=== PATIENT | female | born 1940 | race Caucasian/White ===

== ENCOUNTER 2016-07-30 10:23 | Emergency (ER) | payer MEDICARE, OTHER ==
[2016-03-01 12:18] VITALS: BMI 22.0
--- NOTE | ~2016-07-30 | CN ---
PATIENT NAME:HOLLAND MCGOWAN MEDICAL RECORD: [id number] : 44 LOCATION:D.ER ADMIT DATE: ACCOUNT: [id number] CONSULTING PHYSICIAN: BEE VALENCIA MD REFERRING PHYSICIAN: JONH BROWN MD DATE OF CONSULTATION: 07/30/2016 ADMITTING DIAGNOSES: 1. Chest pain. 2. Coronary artery disease. 3. Previous multivessel percutaneous transluminal coronary angioplasty and stent. 4. Chronic obstructive pulmonary disease. 5. Bronchitis. 6. Hypertension. 7. Hyperlipidemia. HISTORY OF PRESENT ILLNESS: Mrs. Mcgowan has been treated for bronchitis recently. She stopped her antibiotics, however, because she had a yeast infection. She has chest pain that is more compatible with pleuritic component, it is a sharp, stabbing component. It is definitely worse when she coughs. She does have some dull ache as well that is somewhat like her previous angina, but her EKG is normal. Troponin is normal. This has been going on for over a week. PHYSICAL EXAMINATION: GENERAL APPEARANCE: Well-nourished, well-developed, appears stated age. Level of distress, comfortable. PSYCHIATRIC: Mental status, alert, normal affect. Orientation, oriented to time, place and person. EYES: Lids and conjunctiva, noninjected. No discharge, no pallor. ENT: Lips, teeth, gums, normal dentition. Oropharynx, no cyanosis, no pallor. NECK: Carotid arteries, bilateral normal upstroke, no bruits, no thrills. JUGULAR VEINS: No jugular venous pressure or distention. CERVICAL LYMPH NODES: Nontender, nonenlarged. THYROID: Not enlarged. Nontender. No nodules. LUNGS: Respiratory effort, unlabored. CHEST: Normal curvature. No thoracic deformity. No chest wall tenderness. Percussion, resonant. Auscultation, clear. No wheezes, no rales, no rhonchi. CARDIOVASCULAR: Precordial exam, nondisplaced. No heaves or pericardial thrills. Rate and rhythm, regular. Heart sounds, normal S1, normal S2. No S3, no gallop, no rub. Systolic murmur, not heard. Diastolic murmur, not heard. EXTREMITIES: No cyanosis, no edema. Peripheral pulses, full and equal in all extremities, except as noted. No bruits appreciated. ABDOMEN: Soft, nondistended. Normal aorta. No bruit. Nontender. No masses. Liver, nontender, no hepatomegaly. Spleen, nontender, no splenomegaly. MUSCULOSKELETAL: No joint tenderness. No joint swelling. No erythema. NEUROLOGICAL: Normal gait, normal strength, normal tone. SKIN: Warm and dry. REVIEW OF SYSTEMS: The patient reports easy bruising but reports no swollen glands. The patient reports no fever, no night sweats, no significant weight gain, no significant weight loss. No significant exercise tolerance. The patient reports no dry eyes, no irritation, no vision change. Patient reports no difficulty hearing and no ear pain. Patient reports no frequent nose bleeds or nose and sinus problems. Patient reports on arm pain on exertion. No CONSULT REPORT [id number] MCGOWAN,HOLLAND S shortness of breath while lying down. No history of heart murmur. Patient reports no cough, no wheezing or coughing up blood. Patient reports no abdominal pain, no vomiting. Normal appetite. No diarrhea and not vomiting blood. No nausea and no constipation. Patient reports no incontinence. No difficulty urinating. No hematuria. No increased frequency. Patient reports no muscle aches. No weakness, no arthralgias, no back pain. No swelling of the extremities. Patient reports no abnormal mole, no jaundice, no rashes. Reports no loss of consciousness. No weakness and no numbness. No seizures, dizziness, or headaches. The patient reports no depression, no sleep disturbance, feeling safe in a relationship and no alcohol abuse. Patient reports on fatigue. Reports no runny nose or sinus pressure. No itching, no hives, and no frequent sneezing. Last cardiac stent was in February, but this is actually a low likelihood. This is different than her normal angina. Clearly, there is a pleuritic component to it. I think this is related to her bronchitis. At this time, we would not proceed with coronary angiography. TRANSINT:[id number] Voice Confirmation ID: [id number] DOCUMENT ID: [id number] BEE VALENCIA MD CC: [id number] DICTATION DATE: 07/30/16 1322 PREFORM MACHINE OPERATOR: 07/30/16 1418 [facility] [address] [place] [address]
[~2016-07-30 10:23] MED LIST: ADVAIR 100/501 DISK INH; ADVAIR HFA [SP]12 GM INH; ASPIRIN81 MG PO; BAYER CHEWABLE81 MG PO; BYSTOLIC5 MG PO; CARAFATE1 G PO; CARAFATE1 G/10 ML; CHILDREN'S ASPI81 MG PO; DALIRESP500 MCG PO; DEXILANT60 MG PO; FLUTICASONE PRO16 GM NS; HYDROCODONE-APA1 TAB PO; IMDUR30 MG PO; IPRAT-ALBUT 0.5-3 ML UPD; LEVAQUIN500 MG PO; LEVAQUIN750 MG PO; LEVSIN/ANASP0.125 MG PO; LORTAB 5/500 TA1 TA2 PO; MEDROL DOSE PACK4 MG PO; MUCINEX DM ER1 EAC1 PO; MUCINEX600 MG PO; NICODERM C1 PATCH .1 TRANSDERM; NICODERM C1 PATCH .2 TRANSDERM; NITRO-DUR0.4 MG; NITRO-DUR0.4 MG TD; NITROSTAT0.4 MG; NITROSTAT0.4 MG SL; NYSTATIN ORAL SU5 ML PO; PLAVIX75 MG PO; PRAVACHOL20 MG PO; PREDNISONE10 MG PO; PROAIR HFA8.5 GM INH; RANEXA500 MG PO; SINGULAIR10 MG PO; SPIRIVA18 MCG INH; XANAX1 MG PO; ZOCOR20 MG PO; ZOFRAN4 MG PO
[2016-07-30 11:06] LABS: BASOPHILS 0.4 % (0-2); EOSINOPHILS 0.5 % (0-7); HEMOGLOBIN 13.4 g/dL (12-16); IMMATURE GRANULOCYTES 0.4 % (0-5); LYMPHOCYTES 36.2 % (15-50); MCH 33.8 pg (26.0-34.0); MCHC 33.5 g/dL (31.0-37.0); MCV 100.8 fL (80.0-100.0); MONOCYTES 11.9 % (2-11); NEUTROPHILS 50.6 % (40-80); PLATELET COUNT 201 10x3/uL (130-400); RBC 3.97 10x6/uL (4.00-5.40); RDW 13.4 % (11.5-14.5); WBC 5.6 10x3/uL (4.8-10.8)
[2016-07-30 11:28] LABS: ALBUMIN 3.4 g/dL (3.4-5.0); ALKALINE PHOSPHATASE 76 U/L (46-116); ALT (SGPT) 18 U/L (10-68); BILIRUBIN - TOTAL 0.45 mg/dL (0.2-1.3); CALC OSMOLALITY 271 mosm/kg (275-300); CALCIUM 9.1 mg/dL (8.5-10.1); CHLORIDE - SERUM 98 mmol/L (98-107); GLUCOSE 108 mg/dL (74-106); PROTEIN - SERUM 7.5 g/dL (6.4-8.2); SODIUM 136 mmol/L (136-145); UREA NITROGEN 9 mg/dL (7-18); eGFR NON AFRICAN AMERICAN 58 mL/min (90-120)
[2016-07-30 11:32] LABS: TROPONIN-I < 0.017 ng/mL (0.000-0.060)
== END 2016-07-30 15:22 | disposition home or self-care (01) ==
LOC: D.ER 10:23
PROVIDERS: Emergency Medicine
DX: R07.9 Chest pain, unspecified (principal); J44.9 Chronic obstructive pulmonary disease, unspecified; I25.10 Atherosclerotic heart disease of native coronary artery without angina pectoris; I10 Essential (primary) hypertension

== ENCOUNTER 2016-09-27 08:09 | Outpatient (CLI) | payer MEDICARE, OTHER ==
[~2016-09-27] VITALS: Ht 162.6 cm; Wt 59.9 kg
--- NOTE | ~2016-09-27 | OP ---
PATIENT NAME: HOLLAND MCGOWAN MEDICAL RECORD: [id number] :44 LOCATION:D.M2 D.2118 ADMISSION DATE: SURGEON: BEE VALENCIA MD OPERATION DATE: 09/27/16 PROCEDURES: 1. Percutaneous transluminal coronary angioplasty stent left anterior descending. 2. Left heart catheterization. 3. Selective coronary angiography. 4. Left ventriculogram. INDICATION: 1. Angina. 2. Coronary artery disease. PROCEDURE IN DETAIL: After informed consent was obtained and after detailed explanation of risks, benefits, as well as alternative therapies, the patient elected to proceed with angiogram and angioplasty. The right femoral area was prepped and draped in a normal sterile fashion. The right femoral artery was cannulated via modified Seldinger technique with placement of 6-Paraguayan sheath. All catheters exchanged through this sheath. FINDINGS: The left ventriculogram was performed in standard 30 degree JUÁREZ view, reveals good cardiac wall motion throughout all segments. Overall ejection fraction estimated at 60%. SELECTIVE CORONARY ANGIOGRAPHY: 1. Left main is with no significant angiographic disease. 2. Left anterior descending has previously placed stents. There is up to 80% in-stent restenosis multiple places throughout the mid left anterior descending. 3. The left circumflex has previously placed stents. These are widely patent with no significant restenosis and no disease elsewise throughout the circumflex or its branches. 4. The right coronary artery has previously placed stents. There is an 80% in-stent restenosis in the proximal vessel. PTCA STENT OF THE LEFT ANTERIOR DESCENDING: The stent used was a 3.5 X 38 millimeter Resolute. Post stent dilatation made with a 3.5 balloon to 23 atmospheres. The result was 0% residual stenosis. OVERALL IMPRESSION: Successful percutaneous transluminal coronary angioplasty stent of the left anterior descending going from 80% in-stent restenosis in multiple areas to 0% residual stenosis. PLAN: Plan for percutaneous transluminal coronary angioplasty stent of the right coronary artery in the near future. OPERATIVE REPORT [id number] HOLLAND MCGOWAN BEE VALENCIA MD CC: [id number] DICTATION DATE: 09/27/16 1500 RESERVATIONS SALES AGENT: DM 09/28/16 0904 [facility] [address] [place] [address]
--- NOTE | ~2016-09-27 | HEMODYNAMI ---
PATIENT:HOLLAND MCGOWAN MEDICAL RECORD: [id number] : 44 LOCATION:[facility] D.2118 ADMISSION DATE: 09/27/16 Generatedon:09/28/201611:26 Patient name: HOLLAND MCGOWAN Patient #: [id number] : 1940 Date of study: 09/28/2016 Page: Of Hemodynamic Procedure Report Patient Data Patient Demographics Procedure consent was obtained First Name: HOLLAND Gender: Female Last Name: ROSLYN : 1940 Middle Initial: S Age: 76 year(s) Patient #: [id number] Race: SSN: [id number] Additional ID: [id number] Contact details [address]: [address] [place] [address] State: [place] City: [place] Zip code: [address] Past Medical History History of disease Date Diagnosis Comments CAD PVD COPD Allergies Allergen Reaction Date Comments Reported Other allergy 12/14/2014 ROBAXIN, PHENERGAN, VALIUM Other allergy 03/01/2016 ROBAXIN, PHENERGAN, VALIUM Other allergy 09/27/2016 ROBAXIN, PROMETHAINE, VALIUM Admission Admission Data Admission Date: 09/27/2016 Admission Time: 8:09 Room #: [facility]8 Height (in.): 64 BSA: 1.64 (m2) Height (cm.): 162.56 BMI: 22.66 (kg/m2) Weight (lbs.): 132 Weight (kg.): 59.87 Lab Results Lab Result Date: 09/28/2016 Lab Result Time: 0:00 Biochemistry Name Units Result Min Max BUN mg/dl 8 --(*---)-- 7 18 Creatinine mg/dl 1 --(--*-)-- 0.6 1.3 Procedure Procedure Types Cath Procedure Diagnostic Procedure [facility] PCI Procedure Coronary Stent Initial Miscellaneous Procedures Moderate Sedation up to 15 minutes Procedure Description Procedure Date Procedure Date: 09/28/2016 Procedure Start Time: 11:11 Procedure Staff Name Function Brandon Garcia MD Performing Physician Roland Kenney RT Scrub Rufus Hutton RN Nurse Dominick Davis RT Monitor Christine Prabhakar RN Nurse Procedure Data Cath Procedure Fluoroscopy Diagnostic fluoroscopy Total fluoroscopy Time: 3.4 time: 3.4 min min Diagnostic fluoroscopy Total fluoroscopy dose: dose: 124.05 mGy 124.05 mGy Contrast Material Contrast Material Type Amount (ml) Isovue 300 64 Entry Location Entry Primary Successful Side Size Upsize Upsize Entry Closure Succes sful Closure Location (Fr) 1 (Fr) 2 (Fr) Remarks Device Remarks Femoral Right 6 Fr Exoseal artery Short Procedure Medications Medication Administration Route Dosage Oxygen NC 3 l/min Lidocaine 2% added to field 20 Heparin Flush Bag added to field 2 bags (1000units/500ml NS) 0.9% NaCl I.V. 100 ml/hr Heparin Bolus I.V. 4000 units Versed I.V. 2 mg Fentanyl 100 mcg Fentanyl I.V. 100 mcg Versed I.V. 2 mg Versed I.V. 1 mg Fentanyl I.V. 50 mcg Plavix P.O. 75 mg Hemodynamics Rest BSA: 1.64 (m2) HGB: 14.5 (g/dl) O2 Consumption: Estimated: 160.58 (ml/min) O2 Co nsumption indexed: Estimated:97.91 (ml/min/m) Heart Rate: 88 (bpm) Snapshots Pre Cath Intra NCS Post Cath Vital Signs Time Heart Resp SPO2 NIBP (mmHg) Rhythm Pain Sedation Rate (ipm) (%) Status Level (bpm) 10:24:48 87 19 98 137/88(117) NSR 0 (11) 10(A) , No pain 10:29:06 89 18 97 135/67(106) NSR 0 (11) 10(A) , No pain 10:34:06 88 15 95 126/70(98) NSR 0 (11) 10(A) , No pain 10:38:21 89 15 95 123/60(97) NSR 0 (11) 10(A) , No pain 10:42:38 89 15 95 120/64(96) NSR 0 (11) 10(A) , No pain 10:46:56 80 25 96 119/58(96) NSR 0 (11) 10(A) , No pain 10:51:08 89 27 96 123/65(93) NSR 0 (11) 10(A) , No pain 10:55:19 88 22 94 111/57(87) NSR 0 (11) 10(A) , No pain 10:59:32 89 20 94 117/60(90) NSR 0 (11) 10(A) , No pain 11:03:46 88 14 95 99/62(94) NSR 0 (11) 10(A) , No pain 11:07:56 87 17 94 107/59(88) NSR 0 (11) 10(A) , No pain 11:12:07 86 16 94 117/58(91) NSR 0 (11) 9(A) , No pain 11:16:23 86 16 89 103/48(80) NSR 0 (11) 9(A) , No pain 11:20:35 90 15 93 115/55(78) NSR 0 (11) 9(A) , No pain 11:24:47 94 17 95 112/61(81) NSR 0 (11) 10(A) , No pain Medications Time Medication Route Dose Verified Delivered Reason Notes Ef fectiveness by by 10:34:36 Oxygen NC 3 Christine Christine used for l/min Aki Aki notching press operator RN 10:34:44 Lidocaine 2% added 20ml Christine Christine used for to vial Aki Aki procedure field RN RN 10:34:54 Heparin Flush added 2 Christine Christine used for Bag to bags Aki Aki procedure (1000units/500ml field RN RN NS) 10:35:06 0.9% NaCl I.V. 100 Christine Christine used for ml/hr Aki Aki notching press operator RN 11:09:49 Versed I.V. 2 mg Christine Christine for Aki Aki sedation RN RN 11:10:05 Fentanyl 100 Christine Christine mcg Aki Aki RN RN 11:15:16 Fentanyl I.V. 100 Christine Christine for mcg Aki Aki sedation RN RN 11:15:42 Versed I.V. 2 mg Christine Christine for Aki Kai sedation RN RN 11:15:57 Heparin Bolus I.V. 4000 Christine Christine Per verified units [facility] physician with RN RN gerardo 11:19:05 Fentanyl I.V. 50 Christine Christine [facility] RN 11:19:53 Versed I.V. 1 mg Christine Christine for [facility] sedation RN RN 11:25:25 Plavix P.O. 75 mg Christine Christine Per [facility] physician RN director erp Log Time Note 8:15:20 Lab Result : BUN 8 mg/dl 8:15:20 Lab Result : Creatinine 1 mg/dl 10:08:40 Dominick Davis RT (R) (CV) sent for patient. Start room use. 10:08:49 Time tracking: Regular hours 10:08:54 Plan of Care:Hemodynamics will remain stable., Cardiac rhythm will remain stable., Comfort level will be maintained., Respiratory function will remain adequate., Patient/ family verbilizes understanding of procedure., Procedure tolerated without complication., Recovers from procedure without complications.. 10:09:03 Patient received from PCU to CCL 3 Alert and oriented. Tansferred to table in Supine position. 10:09:04 Warm blankets applied, and abbey hugger turned on for patient comfort. 10:09:05 Correct patient and procedure confirmed by team. 10:09:07 Signed procedure consent form obtained from patient. 10:09:09 Full Disclosure recording started 10:09:09 - 10:09:13 H&P Date Dictated: 09/28/2016 Within 30 days and on chart.. 10:09:13 Pre-procedure instructions explained to patient. 10:09:14 Pre-op teaching completed and patient verbalized understanding. 10:09:15 Family in waiting room. 10:09:17 Patient NPO since Midnight. 10:09:20 Is the patient allergic to Iodine/contrast media? No. 10:09:49 Was the patient premedicated? No 10:09:50 Is patient on blood thinner?Yes 10:09:57 ACC The patient was administered the following blood thiners within the last 24 hours: ACCPlavix 10:10:05 Patient diabetic? No. 10:10:07 - 10:10:08 ----Pre-sedation anethsthesia assessment.---- 10:10:11 Previous problem with sedation/anesthesia? No ? 10:10:12 Snore? No 10:10:13 Sleep apnea? No 10:10:16 Deviated septum? No 10:10:18 Opens mouth fully? Yes 10:10:19 Sticks out tongue? Yes 10:10:26 Airway obstruction? Yes copd 10:10:29 Dentures? Yes tight 10:17:24 Pre procedure: right dorsailis pedis pulse Doppler 10:17:55 Use device set Femoral PCI 10:17:58 Tegaderm 4 x 4 opened to sterile field. 10:18:05 Acist Syringe opened to sterile field. 10:18:05 Acist Hand Control opened to sterile field. 10:18:07 Bag Decanter opened to sterile field. 10:18:09 St [place] 260cm J .035 wire opened to sterile field. 10:18:11 Medline Cath Pack opened to sterile field. 10:18:12 Terumo 6Fr Cobalt Sheath opened to sterile field. 10:18:18 Merit BasixCompak Inflation Kit opened to sterile field. 10:18:19 Acist Manifold opened to sterile field. 10:21:26 Patient pain scale 0/10 no. 10:21:34 IV patent on arrival in left forearm with 0.9% NaCl at O. 10:23:50 Vital chart was started 10:26:57 PERCUTANEOUS ENTRY 19GA needle opened to sterile field. 10:34:36 Oxygen 3 l/min NC was administered by Christine Prabhakar RN; used for procedure; 10:34:44 Lidocaine 2% 20ml vial added to field was administered by Christine Prabhakar RN; used for procedure; 10:34:54 Heparin Flush Bag (1000units/500ml NS) 2 bags added to field was administered by Christine Prabhakar RN; used for procedure; 10:35:06 0.9% NaCl 100 ml/hr I.V. was administered by Christine Prabhakar RN; used for procedure; 11:05:04 Rhythm: sinus rhythm 11:05:05 Baseline sample Acquired. 11::30 Physician arrived 11::30 --------ALL STOP TIME OUT------ 11::31 Final Timeout: patient, procedure, and site verified with staff and physician. All members of the team are in agreement. 11::34 Right groin site verified by team. 11:09:38 Physical assessment completed. ASA score P 2 - A patient with mild systemic disease as per Brandon Garcia MD. 11:09:49 Versed 2 mg I.V. was administered by Christine Prabhakar RN; for sedation; 11:10:05 Fentanyl 100 mcg was administered by Christine Prabhakar RN; ; 11:11:07 Procedure started. 11:11:16 Local anesthetic to right femoral artery with Lidocaine 2% by Brandon Garcia MD.INITIAL ACCESS ONLY 11:11:27 A 6 Fr Short sheath was inserted into the Right Femoral artery 11:12:09 Medtronic Launcher 6Fr HS I guide catheter opened to sterile field. 11:13:23 6 Fr HS guide catheter was inserted over the wire 11:13:49 Guide catheter removed. 11:13:58 Medtronic Launcher 6Fr 3DRC guide catheter opened to sterile field. 11:14:07 6 Fr 3DRC guide catheter was inserted over the wire 11:15:16 Fentanyl 100 mcg I.V. was administered by Christine Prabhakar RN; for sedation; 11:15:42 Versed 2 mg I.V. was administered by Christine Prabhakar RN; for sedation; 11:15:57 Heparin Bolus 4000 units I.V. was administered by Christine Prabhakar RN; Per physician; verified with dr garcia 11:15:59 WHISPER wire advanced. 11:18:24 Inflation Number: 1 A [place] OTW 4.0 x 22 stent was prepped and advanced across the Mid RCA. The stent was deployed at 17 NOLAN for 0:02 (min:sec). 11:18:32 Inflation number: 2 The stent balloon was then re-inflated across the Mid RCA to 17 NOLAN for 0:00 (min:sec). 11:19:00 Inflation number: 3 The stent balloon was then re-inflated across the Mid RCA to 17 NOLAN for 0:08 (min:sec). 11:19:05 Fentanyl 50 mcg I.V. was administered by Crhistine Prabhakar RN; for sedation; 11:19:28 Procedure type changed to Cath procedure, Diagnostic procedure, LHC, PC I procedure, Coronary Stent Initial, Miscellaneous Procedures, Moderate Sedation up to 15 minutes 11:19:42 Inflation number: 4 The stent balloon was then re-inflated across the Mid RCA to 19 NOLAN for 0:10 (min:sec). 11:19:53 Versed 1 mg I.V. was administered by Christine Prabhakar RN; for sedation; 11:20:00 EVERYTHING OUT 11:20:10 Procedure ended.(Physican Out) 11:21:32 Cordis 6Fr Exoseal opened to sterile field. 11:22:27 Sheath removed intact; hemostasis achieved with Exoseal to the Right Femoral artery. 11:23:03 Fluoroscopy time 03.40 minutes. 11:23:09 Flurop Dose total: 124.05 11:23:09 Fluoroscopy dose: 124.05 mGy 11:23:16 Contrast amount:Isovue 300 64ml. 11:23:18 Sharps counted by scrub and verified by R.N. 11:23:20 Insertion/operative site no bleeding no hematoma. 11:23:27 Post-op/insertion site Right Femoral artery dressed using a 4 x 4 and Tegaderm. 11:23:31 Post right femoral artery:stable 11:23:33 Post Procedure Pulses reassessed and unchanged 11:23:39 Post-procedure physical assessment completed. ASA score P 2 - A patient with mild systemic disease as per Brandon Garcia MD. 11:23:43 Post procedure rhythm: unchanged. 11:23:44 Post procedure instruction explained to patient.Patient verbalizes understanding. 11:23:46 Procedure and supply charges have been captured, reviewed, submitted an d are correct. 11:25:25 Plavix 75 mg P.O. was administered by Christine Prabhakar RN; Per physician; 11::51 Report given to PCU. 11:25:55 Patient transfered to PCU with Bed. 11:26:38 Vital chart was stopped Intervention Summary Intervention Notes Time ActionType Lesion and Equipment Action# Pressure Duration Attributes Used 11:18:24 Place stent Mid RCA [place] OTW 1 17 00:03 4.0 x 22 stent 11:18:32 Reinflate Mid RCA [place] OTW 2 17 00:00 stent 4.0 x 22 balloon stent 11:19:00 Reinflate Mid RCA [place] OTW 3 17 00:08 stent 4.0 x 22 balloon stent 11:19:42 Reinflate Mid RCA [place] OTW 4 19 00:10 stent 4.0 x 22 balloon stent Device Usage Item Name Manufacture Quantity Catalog Hospital Part Current Minim al Lot# / Number Charge Number Stock Stock Serial# Code Tegaderm 4 x 3M 1 [id number] [id number] 5 4 Acist Acist 1 72040 311267 000961 [id number] 20 Syringe Medical Systems Inc Acist Hand Acist 1 61786 376778 197723 516280 5 Control Medical Systems Inc Bag Decanter Microtek 1 2002S 592625 85377 984510 [address] St Maynor 1 031556 431837 513334 759956 30 260cm J .035 wire Medline Cath Cardinal 1 [id number] 038804 52373 762729 5 Casa Couture Terumo 6Fr Terumo 1 [id number] 891965 254530 596971 40 Cobalt Sheath Merit Merit 1 [id number] 322009 493334 346421 15 EventWith Medical Inflation Kit Acist Acist 1 17127 863125 013785 052570 5 Innohat Systems MDVIP PERCUTANEOUS Cook Medical 1 [id number] 313354 523676 5 [id number] ENTRY 19GA needle Medtronic Medtronic 1 [id number] 395923 41501 475132 1 Launcher 6Fr HS I guide catheter Medtronic Medtronic 1 [id number] 036236 463087 189239 1 Launcher 6Fr 3DRC guide catheter [place] OTW 4.0 Medtronic 1 [id number] 696788 0102503 286611 5 [id number] x 22 stent Cordis 6Fr Cardinal 1 EX600 594941 467623 690002 10 [id number] [facility] [employer] Signature Audit Clifford Stage Time Signature Unsigned Intra-Procedure 09/28/2016 Dominick 11:26:26 AM Ryan RT (R) (CV) Signatures Monitor : Dominick Signature : Ryan RT Date : Time : [address] [place] [address]
--- NOTE | ~2016-09-27 | HEMODYNAMI ---
PATIENT:HOLLAND MCGOWAN MEDICAL RECORD: [id number] : 44 LOCATION:[facility] ADMISSION DATE: 09/27/16 Generatedon:09/27/201610:41 Patient name: HOLLAND MCGOWAN Patient #: [id number] : 1940 Date of study: 09/27/2016 Page: Of Hemodynamic Procedure Report Patient Data Patient Demographics Procedure consent was obtained First Name: HOLLAND Gender: Female Last Name: ROSLYN : 1940 Middle Initial: S Age: 76 year(s) Patient #: [id number] Race: SSN: [id number] Additional ID: [id number] Contact details [address]: [address] [place] [address] State: [place] City: [place] Zip code: [address] Past Medical History History of disease Date Diagnosis Comments CAD PVD COPD Allergies Allergen Reaction Date Comments Reported Other allergy 12/14/2014 ROBAXIN, PHENERGAN, VALIUM Other allergy 03/01/2016 ROBAXIN, PHENERGAN, VALIUM Other allergy 09/27/2016 ROBAXIN, PROMETHAINE, VALIUM Admission Admission Data Admission Date: 09/27/2016 Admission Time: 8:09 Height (in.): 64 BSA: 1.64 (m2) Height (cm.): 162.56 BMI: 22.66 (kg/m2) Weight (lbs.): 132 Weight (kg.): 59.87 Lab Results Lab Result Date: 09/27/2016 Lab Result Time: 8:30 Biochemistry Name Units Result Min Max BUN mg/dl 8 --(*---)-- 7 18 Creatinine mg/dl 1 --(--*-)-- 0.6 1.3 CBC Name Units Result Min Max Hematocrit % 42.4 --(*---)-- 42 54 Hemoglobin g/dl 14.5 --(*---)-- 13.5 17.5 Procedure Procedure Types Cath Procedure Diagnostic Procedure [facility] w/Coronaries PCI Procedure Coronary Stent Initial Miscellaneous Procedures Moderate Sedation up to 30 minutes Procedure Description Procedure Date Procedure Date: 09/27/2016 Procedure Start Time: 10:19 Procedure End Time: 10:40 Procedure Staff Name Function Brandon Garcia MD Performing Physician Rufus Hutton RN Nurse Leticia Wilson RT Scrub Ross Lao RT Monitor Procedure Data Cath Procedure Fluoroscopy Diagnostic fluoroscopy Total fluoroscopy Time: 6.3 time: 6.3 min min Diagnostic fluoroscopy Total fluoroscopy dose: 668 dose: 668 mGy mGy Contrast Material Contrast Material Type Amount (ml) Isovue 300 85 Entry Location Entry Primary Successful Side Size Upsize Upsize Entry Closure Succes sful Closure Location (Fr) 1 (Fr) 2 (Fr) Remarks Device Remarks Femoral Right 5 Fr 6 Fr Exoseal artery Short Estimated blood loss: 10 ml Diagnostic catheters Device Type Used For End Catheter Placement Cordis 5Fr Pigtail Procedure Catheter (MP) Cordis 5Fr JL 4.0 Procedure Catheter (MP) Cordis 5Fr 3DRC Catheter Procedure (MP) Procedure Complications No complications Procedure Medications Medication Administration Route Dosage Oxygen NC 2 l/min Heparin Flush Bag added to field 2 bags (1000units/500ml NS) 0.9% NaCl I.V. 100 ml/hr Fentanyl I.V. 50 mcg Versed I.V. 1 mg Fentanyl I.V. 50 mcg Versed I.V. 1 mg Fentanyl I.V. 50 mcg Versed I.V. 1 mg Heparin Bolus I.V. 4000 units Fentanyl I.V. 50 mcg Versed I.V. 1 mg Hemodynamics Rest BSA: 1.64 (m2) HGB: 14.5 (g/dl) O2 Consumption: Estimated: 151.28 (ml/min) O2 Co nsumption indexed: Estimated:92.24 (ml/min/m) Heart Rate: 73 (bpm) Snapshots Pre Cath Intra NCS Post Cath Vital Signs Time Heart Resp SPO2 NIBP (mmHg) Rhythm Pain Sedation Rate (ipm) (%) Status Level (bpm) 9:55:12 71 18 97 162/81(131) NSR 0 (11) 10(A) , No pain 9:59:36 69 16 99 146/74(125) NSR 0 (11) 10(A) , No pain 10:03:56 72 17 100 131/63(91) NSR 0 (11) 10(A) , No pain 10:08:12 67 18 100 120/55(88) NSR 0 (11) 10(A) , No pain 10:12:26 70 16 99 106/57(85) NSR 0 (11) 10(A) , No pain 10:16:34 68 20 98 112/55(85) NSR 0 (11) 10(A) , No pain 10:20:56 67 18 99 84/33(66) NSR 0 (11) 9(A) , No pain 10:25:49 76 18 99 107/62(71) NSR 0 (11) 9(A) , No pain 10:29:57 82 18 99 118/57(85) NSR 0 (11) 9(A) , No pain 10:34:09 77 16 100 112/58(87) NSR 0 (11) 9(A) , No pain 10:38:19 75 17 100 109/55(89) NSR 0 (11) 9(A) , No pain Medications Time Medication Route Dose Verified Delivered Reason Notes Effectiveness by by 10:03:57 Oxygen NC 2 Rufus Rufus Per physician l/min Brennen Hutton RN RN 10:04:05 Heparin Flush added 2 Rufus Rufus used for Bag to bags Brennen Hutton RN procedure (1000units/500ml field RN NS) 10:04:15 0.9% NaCl I.V. 100 Rufus Rufus Per physician ml/hr Brennen Hutton RN RN 10:14:31 Fentanyl I.V. 50 Rufus Rufus for sedation mcg Brennen Hutton RN RN 10:14:39 Versed I.V. 1 mg Rufus Rufus for sedation Brennen Hutton RN RN 10:18:24 Fentanyl I.V. 50 Rufus Rufus for sedation mcg Brennen Hutton RN RN 10:18:35 Versed I.V. 1 mg Rufus Rufus for sedation Brennen Hutton RN RN 10:21:07 Fentanyl I.V. 50 Rufus Rufus for sedation mcg Brennen Hutton RN RN 10:21:13 Versed I.V. 1 mg Rufus Rufus for sedation Brennen Hutton RN RN 10:26:47 Heparin Bolus I.V. 4000 Rufus Rufus for units Hutton Hutton RN anticoagulation RN 10:26:59 Fentanyl I.V. 50 Rufus Hooper for sedation mcg Brennen Hutton RN RN 10:27:03 Versed I.V. 1 mg Rufus Hooper for sedation Brennen Hutton RN special education science teacher Log Time Note 9:30:58 Rufus Hutton RN sent for patient. Start room use. 9:32:23 Patient Height : 162.56 cm 9:32:32 Patient Weight : 59.87 kg 9:44:10 H&P Date Dictated: 09/23/2016 Within 30 days and on chart., H&P Addendum completed by physician on day of procedure. (MUST COMPLETE FOR ALL OUTPATIENTS). 9:44:13 Time tracking: Regular hours 9:44:18 Plan of Care:Hemodynamics will remain stable., Cardiac rhythm will remain stable., Comfort level will be maintained., Respiratory function will remain adequate., Patient/ family verbilizes understanding of procedure., Procedure tolerated without complication., Recovers from procedure without complications.. 9:45:11 Lab Result : Hemoglobin 14.5 g/dl 9:45:11 Lab Result : Hematocrit 42.4 % 9:45:11 Lab Result : BUN 8 mg/dl 9:45:11 Lab Result : Creatinine 1 mg/dl 9:47:56 Patient received from Pre/Post Procedure Room to CCL 2 Alert and oriented. Tansferred to table in Supine position. 9:47:58 Warm blankets applied, and abbey hugger turned on for patient comfort. 9:48:00 Correct patient and procedure confirmed by team. 9:48:02 Signed procedure consent form obtained from patient. 9:48:03 ECG and BP/O2 sat monitors applied to patient. 9:48:07 Pre-procedure instructions explained to patient. 9:48:07 Pre-op teaching completed and patient verbalized understanding. 9:53:59 Baseline sample Acquired. 9:53:59 Vital chart was started 9:54:00 Full Disclosure recording started 9:54:04 Rhythm: sinus rhythm 9:56:13 Family in waiting room. 9:56:14 Patient NPO since Midnight. 9:56:51 Patient allergic to Other allergyROBAXIN, PROMETHAINE, VALIUM 9:56:53 Is the patient allergic to Iodine/contrast media? No. 9:57:01 Is patient on blood thinner?Yes 9:57:04 ACC The patient was administered the following blood thiners within the last 24 hours: ACCPlavix 9:57:13 Patient diabetic? No. 9:57:15 Previous problem with sedation/anesthesia? No ? 9:57:17 Snore? No 9:57:17 Sleep apnea? No 9:57:18 Deviated septum? No 9:57:19 Opens mouth fully? Yes 9:57:20 Sticks out tongue? Yes 9:57:23 Airway obstruction? Yes COPD 9:57:30 Dentures? Yes TOP IN TIGHT 9:57:33 Pre procedure: right dorsailis pedis pulse 2+ Normal; easily identifiable; not easily obliterated 9:57:38 Patient pain scale 6/10 ?. 9:57:46 IV patent on arrival in right forearm with 0.9% NaCl at O. 9:57:49 Lab results completed and on chart. 9:57:59 Right groin area was prepped with chlora-prep and draped in sterile fashion 9:58:08 Alarms reviewed by R. N. 9:58:08 Sharps counted by scrub and verified by R.N. 9:58:10 Use device set Femoral Dx 9:58:11 Tegaderm 4 x 4 opened to sterile field. 9:58:13 Acist Manifold opened to sterile field. 9:58:13 Acist Hand Control opened to sterile field. 9:58:15 Acist Syringe opened to sterile field. 9:58:15 Bag Decanter opened to sterile field. 9:58:15 Medline Cath Pack opened to sterile field. 9:58:16 Terumo 5Fr [place] Sheath opened to sterile field. 9:58:17 St Maynor 260cm J .035 wire opened to sterile field. 9:58:17 Diagnostic Infinity 5Fr Multipack catheter opened to sterile field. 10:03:57 Oxygen 2 l/min NC was administered by Rufus Hutton RN; Per physician; 10:04:05 Heparin Flush Bag (1000units/500ml NS) 2 bags added to field was administered by Rufus Hutton RN; used for procedure; 10:04:15 0.9% NaCl 100 ml/hr I.V. was administered by Rufus Hutton RN; Per physician; 10:04:52 Zero performed for pressure channel P1 10:07: Physician arrived 10:: --------ALL STOP TIME OUT------ ::20 Final Timeout: patient, procedure, and site verified with staff and physician. All members of the team are in agreement. 10:: Right groin site verified by team. 10::25 Physical assessment completed. ASA score P 2 - A patient with mild systemic disease as per Brandon Garcia MD. 10::29 Sedation plan: IV Moderate Sedation Versed, Fentanyl 10:14:31 Fentanyl 50 mcg I.V. was administered by Rufus Hutton RN; for sedation; 10:14:39 Versed 1 mg I.V. was administered by Rufus Hutton RN; for sedation; 10:18:24 Fentanyl 50 mcg I.V. was administered by Rufus Hutton RN; for sedation; 10:18:35 Versed 1 mg I.V. was administered by Rufus Hutton RN; for sedation; 10:19:34 Procedure started. 10:19:36 Local anesthetic to right femoral artery with Lidocaine 2% by Brandon Garcia MD.INITIAL ACCESS ONLY 10:19:51 A 5 Fr sheath was inserted into the Right Femoral artery 10::53 A Cordis 5Fr Pigtail Catheter (MP) was advanced over the wire and used for Procedure. 10::07 Fentanyl 50 mcg I.V. was administered by Rufus Hutton RN; for sedation; 10:21:13 Versed 1 mg I.V. was administered by Rufus Hutton RN; for sedation; 10::44 LV gram done using JUÁREZ 10::47 Injector settings: Ml/sec: 10, Volume: 20, 10:22:01 EF : 55 % 10:22:10 Catheter exchanged over wire. 10:22:14 A Cordis 5Fr JL 4.0 Catheter (MP) was advanced over the wire and used for Procedure. 10:22:35 LCA angiography performed. 10:23:12 LikeAndy BasixCompak Inflation Kit opened to sterile field. 10:23:13 Terumo 6Fr [place] Sheath opened to sterile field. 10:23:13 Vargas Whisper J 300cm 0.014 guide wire opened to sterile field. 10:23:36 Catheter exchanged over wire. 10:23:41 A Cordis 5Fr 3DRC Catheter (MP) was advanced over the wire and used for Procedure. 10:23:48 RCA angiography performed. 10:24:52 Catheter removed. 10:25:00 Sheath upsized to a 6 Fr Short. 10:25:17 Cordis 6FR XBLAD 3.5 guide catheter opened to sterile field. 10:26:18 6 Fr XBLAD 3.5 guide catheter was inserted over the wire 10::47 Heparin Bolus 4000 units I.V. was administered by Rufus Hutton RN; for anticoagulation; 10::59 Fentanyl 50 mcg I.V. was administered by Rufus Hutton RN; for sedation; 10::03 Versed 1 mg I.V. was administered by Rufus Hutton RN; for sedation; 10:27:03 WHISPER wire advanced. 10:27:07 Wire advanced across lesion. 10:29:31 Inflation number: 1 A Mozec Rx 3.0 x 41 balloon was prepped and advanced across the Mid LAD, then inflated to 21 NOLAN for 0:10 (min:sec). 10:30:13 Balloon removed over the wire. 10:31:46 Inflation Number: 2 A Salient Surgical Technologiestronic Resolute 3.5 X 38 stent was prepped and advanced across the Mid LAD. The stent was deployed at 21 NOLAN for 0:10 (min:sec). 10:32:37 Stent catheter was removed intact over wire. 10:33:57 Inflation number: 3 A NC Euphora 3.5 x 15 balloon was prepped and advanced across the Mid LAD, then inflated to 23 NOLAN for 0:10 (min:sec). 10:35:05 Balloon removed over the wire. 10:35:06 Wire removed. 10:35:06 Guide catheter removed. 10:35:16 Cordis 6Fr Exoseal opened to sterile field. 10:35:30 Sheath removed intact; hemostasis achieved with Exoseal to the Right Femoral artery. 10:35:33 Procedure ended.(Physican Out) 10:37:18 Fluoroscopy time 06.30 minutes. 10:37:24 Flurop Dose total: 668 10:37:24 Fluoroscopy dose: 668 mGy 10:37:29 Contrast amount:Isovue 300 85ml. 10:37:30 Sharps counted by scrub and verified by R.N. 10:37:31 Insertion/operative site no bleeding no hematoma. 10:37:33 Post-op/insertion site Right Femoral artery dressed using a 4 x 4 and Tegaderm. 10:37:37 Post right femoral artery:stable, soft, clean and dry 10:37:38 Post Procedure Pulses reassessed and unchanged 10:37:40 Post-procedure physical assessment completed. ASA score P 2 - A patient with mild systemic disease as per Brandon Garcia MD. 10:37:42 Post procedure rhythm: unchanged. 10:37:48 Estimated blood loss: 10 ml 10:37:49 Post procedure instruction explained to patient.Patient verbalizes understanding. 10:37:50 Patient needs reinforcement of post procedure teaching. 10:37:56 Procedure type changed to Cath procedure, Diagnostic procedure, LHC, LHC w/Coronaries, PCI procedure, Coronary Stent Initial, Miscellaneous Procedures, Moderate Sedation up to 30 minutes 10:40:19 Procedure and supply charges have been captured, reviewed, submitted and are correct. 10:40:22 Procedure Complication : No complications 10:40:24 Vital chart was stopped 10:40:24 See physician's report for complete and final results. 10:40:26 Report given to Pre/Post Procedure Room. 10:40:28 Patient transfered to Pre/Post Procedure Room with Stretcher. 10:40:30 Procedure ended. 10:40:30 Full Disclosure recording stopped 10:40:51 End room use (Document Last) Intervention Summary Intervention Notes Time ActionType Lesion and Equipment Action# Pressure Duration Attributes Used 10:29:31 Inflate Mid LAD Mozec Rx 1 21 00:10 balloon 3.0 x 41 balloon 10:31:46 Place stent Mid LAD Medtronic 2 21 00:10 Resolute 3.5 X 38 stent 10:33:57 Inflate Mid LAD NC 3 23 00:10 balloon Euphora 3.5 x 15 balloon Device Usage Item Name Manufacture Quantity Catalog Hospital Part Current Minimal Lot# / Number Charge Number Stock Stock Serial# Code Tegaderm 4 3M 1 [id number] [id number] 144390 5 x 4 Acist Acist 1 38567 938225 142629 362619 5 Manifold Medical Systems Inc Acist Hand Acist 1 35676 699817 164293 335577 5 Control Medical Systems Inc Acist Acist 1 33728 098304 736609 612600 20 Syringe Medical Systems Inc Bag Microtek 1 2002S 043000 03411 781734 5 Decanter Medical Inc. Medline Cardinal 1 [id number] 790010 55041 473860 5 Cath Pack Health Terumo 5Fr Terumo 1 [id number] 614743 477562 868242 [address] Maynor 1 113526 401467 679617 433566 30 260cm J .035 wire Diagnostic Cardinal 1 [id number] 408732 72823 498176 30 Infinity Health 5Fr Multipack catheter Cordis 5Fr Cardinal 1 435698 5 Pigtail Health Catheter (MP) Cordis 5Fr Cardinal 1 [id number] 5 JL 4.0 Health Catheter (MP) [facility] 1 [id number] 965865 003535 010147 15 BasixWan Shidao management Medical Inflation Kit Terumo 6Fr Terumo 1 [id number] 432532 412283 924373 40 [place] Sheath Vargas Vargas 1 [id number] 463019 459764 965549 5 Whisper J Vascular 300cm 0.014 guide wire Cordis 5Fr Cardinal 1 407613 5 3DRC Health Catheter (MP) Cordis 6FR Cardinal 1 [id number] 831083 778393 221995 10 XBLAD 3.5 Health guide catheter Mozec Rx Cardinal 1 [id number] 181384 57471 013222 5 UMOA37 3.0 x 41 Health balloon Medtronic Medtronic 1 [id number] 757112 947894 0 [id number] Resolute 3.5 X 38 stent NC Euphora Medtronic 1 [id number] 534357 752306 567078 1 [id number] 3.5 x 15 balloon Cordis 6Fr Cardinal 1 [id number] 898881 271867 546184 10 [facility] WordWatch Signature Audit Champion Stage Time Signature Unsigned Intra-Procedure 09/27/2016 Ross Lao 10:41:13 AM RT(R) Signatures Monitor : Ross Lao RT Signature : Date : Time : [facility] [address] [place] [address]
--- NOTE | ~2016-09-27 | DS ---
PATIENT:HOLLAND MCGOWAN :44 MEDICAL RECORD: [id number] DISCHARGE SUMMARY ADMISSION DATE: 09/27/16 DISCHARGE DATE: 09/28/16 DISCHARGE SUMMARY PROBLEM LIST: 1. Angina. 2. Coronary artery disease. 3. Peripheral vascular disease. 4. Percutaneous transluminal coronary angioplasty stent right coronary artery and left anterior descending this admission. 5. Hypertension. 6. Hyperlipidemia. 7. Chronic obstructive pulmonary disease. 8. Smoking history. HOSPITAL COURSE: The patient presents with anginal symptomatology. She was found to have significant disease of the left anterior descending and right coronary artery and underwent successful percu taneous transluminal coronary angioplasty stent of both territories. She had an uneventful postop course. PLAN: She was discharged home to continue aspirin and Plavix. Follow up with [facility] in one month. BEE VALENCIA MD CC: [id number] DICTATION DATE: 09/28/16 1500 CANDY DEPOSITING MACHINE OPERATOR: DM 09/29/16 0840 DEP CLI 09/28/16 [id number] [place] [address]
--- NOTE | ~2016-09-27 | OP ---
PATIENT NAME: HOLLAND MCGOWAN MEDICAL RECORD: [id number] :44 LOCATION:D.CAT ADMISSION DATE: SURGEON: BEE VALENCIA MD OPERATION DATE: 09/28/16 PROCEDURES: 1. Percutaneous transluminal coronary angioplasty stent right coronary artery. 2. Selective coronary angiography. INDICATION: 1. Angina. 2. Coronary artery disease. PROCEDURE IN DETAIL: After informed consent was obtained and after detailed explanation of risks, benefits, as well as alternative therapies, the patient elected to proceed with angiogram and angioplasty. The right femoral area was prepped and draped in a normal sterile fashion. The right femoral artery was cannulated via modified Seldinger technique with placement of 6-Tristanian sheath. All catheters exchanged through this sheath. FINDINGS: The right coronary artery has previously placed stents. There is up to greater than 70% in-stent restenosis in the mid vessel. This was addressed with a 4.0 X 22 millimeter [place] stent. The result was 0% residual stenosis. OVERALL IMPRESSION: Successful percutaneous transluminal coronary angioplasty stent of that right coronary artery going from 70%+ in-stent restenosis to 0% residual stenosis. BEE VALENCIA MD CC: [id number] DICTATION DATE: 09/28/16 1500 JOINT CUTTER MACHINE: DM 09/29/16 0918 DEP CLI 09/28/16 [facility] [address] [place] [address]
[~2016-09-27 08:09] MED LIST changes: -IMDUR30 MG PO; +ISOSORBIDE MONO60 M1 PO
[2016-09-27] MEDS ORDERED: SINGULAIR10 MG PO (08:28)
[2016-09-27] MEDS ORDERED: BREO ELLIPTA 11 EACH INH (08:29)
[2016-09-27 08:32] VITALS: BP 142/74; BMI 22.7
[2016-09-27 08:54] LABS: BASOPHILS 0.4 % (0-2); EOSINOPHILS 0.5 % (0-7); HEMATOCRIT 42.4 % (36.0-48.0); HEMOGLOBIN 14.5 g/dL (12-16); IMMATURE GRANULOCYTES 0.1 % (0-5); LYMPHOCYTES 30.7 % (15-50); MCH 34.9 pg (26.0-34.0); MCHC 34.2 g/dL (31.0-37.0); MCV 101.9 fL (80.0-100.0); MEAN PLATELET VOLUME 10.7 fL (7.4-10.4); MONOCYTES 17.2 % (2-11); NEUTROPHILS 51.1 % (40-80); PLATELET COUNT 208 10x3/uL (130-400); RBC 4.16 10x6/uL (4.00-5.40); RDW 13.6 % (11.5-14.5); WBC 7.6 10x3/uL (4.8-10.8)
[2016-09-27 09:09] LABS: ANION GAP 13.6 mmol/L (8-16); CALCIUM 8.8 mg/dL (8.5-10.1); CARBON DIOXIDE 28.3 mmol/L (21.0-32.0); POTASSIUM - SERUM 3.9 mmol/L (3.5-5.1)
[2016-09-27 11:25] VITALS: BP 126/60; BMI 22.7
[2016-09-27 12:17] VITALS: BP 116/58
[2016-09-27 14:47] VITALS: BP 103/56
[2016-09-27 21:50] VITALS: BP 107/47
[2016-09-28 01:18] VITALS: BP 105/46
[2016-09-28 05:35] VITALS: BP 118/53
[2016-09-28 08:00] VITALS: BP 116/53
[2016-09-28 11:28] VITALS: Ht 162.6 cm; Wt 59.9 kg
[2016-09-28 15:51] VITALS: BP 115/54
== END 2016-09-28 16:30 | disposition home or self-care (01) ==
LOC: D.CATH 08:09 → D.M2 08:09 → D.CATH 10:00 → D.M2 10:56 → D.CATH 09-28 16:30
PROVIDERS: Internal Medicine Interventional Cardiology
DX: I25.119 Atherosclerotic heart disease of native coronary artery with unspecified angina pectoris (principal); T82.855A Stenosis of coronary artery stent, initial encounter; Z01.812 Encounter for preprocedural laboratory examination

== ENCOUNTER 2016-09-30 17:26 | Emergency (ER) | payer MEDICARE, OTHER ==
[2016-09-28 11:28] VITALS: BMI 22.6
[~2016-09-30 17:26] MED LIST changes: +BREO ELLIPTA 11 EACH INH
[2016-09-30 18:48] LABS: BASOPHILS 0.2 % (0-2); EOSINOPHILS 0.5 % (0-7); HEMATOCRIT 36.7 % (36.0-48.0); HEMOGLOBIN 12.6 g/dL (12-16); IMMATURE GRANULOCYTES 0.4 % (0-5); LYMPHOCYTES 23.9 % (15-50); MCH 34.5 pg (26.0-34.0); MCHC 34.3 g/dL (31.0-37.0); MCV 100.5 fL (80.0-100.0); MEAN PLATELET VOLUME 10.8 fL (7.4-10.4); MONOCYTES 12.8 % (2-11); NEUTROPHILS 62.2 % (40-80); RBC 3.65 10x6/uL (4.00-5.40); RDW 13.3 % (11.5-14.5); WBC 5.5 10x3/uL (4.8-10.8)
[2016-09-30 18:51] LABS: PLATELET COUNT 155 10x3/uL (130-400)
[2016-09-30 18:55] LABS: ALBUMIN 3.4 g/dL (3.4-5.0); ALKALINE PHOSPHATASE 52 U/L (46-116); ALT (SGPT) 18 U/L (10-68); BILIRUBIN - TOTAL 0.47 mg/dL (0.2-1.3); CALC OSMOLALITY 268 mosm/kg (275-300); CALCIUM 8.6 mg/dL (8.5-10.1); CARBON DIOXIDE 27.9 mmol/L (21.0-32.0); CHLORIDE - SERUM 98 mmol/L (98-107); CREATININE - SERUM 0.9 mg/dL (0.6-1.3); GLUCOSE 108 mg/dL (74-106); SODIUM 135 mmol/L (136-145); UREA NITROGEN 8 mg/dL (7-18); eGFR NON AFRICAN AMERICAN 65 mL/min (90-120)
[2016-09-30 19:07] LABS: CHOL - HDL RATIO 3.8 ratio (2.3-4.1); CHOLESTEROL, TOTAL 209 mg/dL (0-200); CKMB 1.1 U/L (0.0-3.6); CREATINE KINASE 64 UL (21-215); HDL CHOLESTEROL 55 mg/dL (32-96); LDL CHOLESTEROL 137 mg/dL (0-100); LDL-HDL RATIO 2.5 ratio (1.5-3.5); TRIGLYCERIDE 86 mg/dL (30-200); TROPONIN-I 0.022 ng/mL (0.000-0.060)
== END 2016-09-30 21:22 | disposition home or self-care (01) ==
LOC: D.ER 17:26
PROVIDERS: Emergency Medicine
DX: J06.9 Acute upper respiratory infection, unspecified (principal); J40 Bronchitis, not specified as acute or chronic; F17.200 Nicotine dependence, unspecified, uncomplicated; Z95.5 Presence of coronary angioplasty implant and graft

== ENCOUNTER 2016-10-01 10:32 | Inpatient (IN) | payer MEDICARE, OTHER ==
[~2016-10-01] VITALS: Ht 162.6 cm; Wt 59.0 kg
[2016-10-01 11:42] LABS: ALBUMIN 3.9 g/dL (3.4-5.0); ANION GAP 14.1 mmol/L (8-16); BILIRUBIN - TOTAL 0.59 mg/dL (0.2-1.3); CALCIUM 9.2 mg/dL (8.5-10.1); CARBON DIOXIDE 29.3 mmol/L (21.0-32.0); CREATININE - SERUM 0.9 mg/dL (0.6-1.3); POTASSIUM - SERUM 4.4 mmol/L (3.5-5.1); PROTEIN - SERUM 7.9 g/dL (6.4-8.2)
[2016-10-01 11:45] LABS: BASOPHILS 0.2 % (0-2); EOSINOPHILS 0.5 % (0-7); HEMATOCRIT 40.8 % (36.0-48.0); HEMOGLOBIN 13.7 g/dL (12-16); IMMATURE GRANULOCYTES 0.2 % (0-5); LYMPHOCYTES 19.2 % (15-50); MCH 34.4 pg (26.0-34.0); MCHC 33.6 g/dL (31.0-37.0); MEAN PLATELET VOLUME 11.1 fL (7.4-10.4); MONOCYTES 10.1 % (2-11); NEUTROPHILS 69.8 % (40-80); PLATELET COUNT 176 10x3/uL (130-400); RBC 3.98 10x6/uL (4.00-5.40); RDW 13.3 % (11.5-14.5); WBC 6.6 10x3/uL (4.8-10.8)
[2016-10-01 11:50] LABS: MCV 102.5 fL (80.0-100.0)
--- NOTE | 2016-10-01 12:35 | NUR ---
RECEIVED TO ROOM 2216 FROM ER VIA BED. CALL LIGHT IN REACH. WILL CONTINUE WITH PLAN OF CARE.
[2016-10-01 12:40] VITALS: BMI 22.3
--- NOTE | 2016-10-01 13:31 | NUR ---
MEDS ADMINISTERED PER ORDER. CALL LIGHT IN REACH.
--- NOTE | 2016-10-01 15:19 | NUR ---
PROTONIX 40 MG SIVP PER ORDER. CALL LIGHT IN REACH.
[2016-10-01 16:43] VITALS: BP 87/51
--- NOTE | 2016-10-01 17:34 | NUR ---
YVETTE AND KOLTON JEROME CALL LIGHT IN REACH.
--- NOTE | 2016-10-01 18:28 | NUR ---
STILL UNABLE TO GET SPUTUM CULTURE. NO CHANGES IN INITIAL ASSESSMENT. SCDs TO BLE. LAST MAT ALARM ON. CALL LIGHT IN REACH. WILL CONTINUE WITH PLAN OF CARE.
--- NOTE | 2016-10-01 20:00 | NUR ---
PT IS RESTING IN BED WITH EYES OPEN. ALERT AND ORIENTED X 3. SHE DENIES ANY PAIN OR DISCOMFORT. SHE IS VERY FRIENDLY AND TALKATIVE. NO SOB NOTED. O2 IS ON @ 2LPM PER NC. RIGHT WRIST SALINE LOCK NOTED. LAST ALARM IS ON. PT NOTIFIED OF NEED FOR SPUTUM CULTURE. SHE WAS UNABLE TO PRODUCE ONE AT THIS TIME. SR'S ARE UP X 3 IN BED. CALL LIGHT AND BEDSIDE TABLE ARE WITHIN EASY REACH.
--- NOTE | 2016-10-01 22:28 | NUR ---
PT IS RESTING QUIETLY IN BED WITH EYES CLOSED. RESPS ARE EVEN AND UNLABORED. NO ACUTE DISTRESS NOTED.
[2016-10-02] VITALS: BP 120/55
--- NOTE | 2016-10-02 00:43 | NUR ---
PT RESTING IN BED WITH EYES CLOSED. NO DISTRESS NOTED.
--- NOTE | 2016-10-02 03:22 | NUR ---
PT RESTING IN BED WITH EYES CLOSED.
[2016-10-02 04:00] VITALS: BP 120/62
[2016-10-02 05:03] LABS: BASOPHILS 0 % (0-2); EOSINOPHILS 0 % (0-7); HEMATOCRIT 38.9 % (36.0-48.0); HEMOGLOBIN 13.1 g/dL (12-16); IMMATURE GRANULOCYTES 0.3 % (0-5); LYMPHOCYTES 10.4 % (15-50); MCH 33.2 pg (26.0-34.0); MCHC 33.7 g/dL (31.0-37.0); MEAN PLATELET VOLUME 10.8 fL (7.4-10.4); MONOCYTES 1.5 % (2-11); NEUTROPHILS 87.8 % (40-80); PLATELET COUNT 166 10x3/uL (130-400); RBC 3.94 10x6/uL (4.00-5.40); RDW 12.9 % (11.5-14.5)
--- NOTE | 2016-10-02 05:07 | NUR ---
ASSESSED, PT IS SNUGGLED UP IN A BALL ASLEEP WITH EASY RESPIRATIONS AND NO DISTRESS NOTED. BED IS LOW, RAILS UP X'S 2 WITH THE CALL LIGHT AT HAND.
[2016-10-02 05:16] LABS: MCV 98.7 fL (80.0-100.0); WBC 3.3 10x3/uL (4.8-10.8)
[2016-10-02 05:22] LABS: ANION GAP 15.5 mmol/L (8-16); CALCIUM 8.8 mg/dL (8.5-10.1); CARBON DIOXIDE 25.7 mmol/L (21.0-32.0); CREATININE - SERUM 0.9 mg/dL (0.6-1.3); POTASSIUM - SERUM 4.2 mmol/L (3.5-5.1)
--- NOTE | 2016-10-02 06:04 | NUR ---
PT IS RESTING QUIETLY IN BED WITH EYES CLOSED. AWOKE EASILY TO VERBAL STIMULI. DENIES ANY NEEDS. TOLERATED AM MED WITHOUT DIFFICULTY.
--- NOTE | 2016-10-02 07:38 | NUR ---
SLEEPING, BREATHING TREATMENT ON, BREATHING EVEN AND UNLABORED, CALL LIGHT IN REACH, BED LOWEST POSITION, WILL CONTINUE TO MONITOR
[2016-10-02 09:13] VITALS: BP 117/59
[2016-10-02 12:51] VITALS: Ht 162.6 cm; Wt 59.0 kg
--- NOTE | 2016-10-02 13:08 | NUR ---
22G IV INSERTED X2 ATTEMPTS PER MD ORDER TO LEFT WRIST, FLUSHED WITH 10CC NS, PT TOLERATED WELL. DC'D RIGHT POSTERIOR LOWER FOREARM. FARIBA MINA ARTIS INSTRUCTOR PRESENT
[2016-10-02 13:11] VITALS: BP 99/60
--- NOTE | 2016-10-02 17:00 | NUR ---
RESPIRATIONS EVEN AND NON LABORED. CALL LIGHT IN REACH, WILL CONTINUE WITH PLAN OF CARE.
[2016-10-02 18:05] VITALS: BP 105/53
--- NOTE | 2016-10-02 19:42 | NUR ---
PT IS RESTING IN BED WATCHING TV. ALERT AND ORIENTED X 3. DENIES ANY PAIN OR DISCOMFORT. NO SOB NOTED. O2 IS ON @ 2LPM PER NC. LEFT WRIST SALINE LOCK NOTED. LAST ALARM IS ON BED. CALL LIGHT AND BEDSIDE TABLE ARE WITHIN EASY REACH.
[2016-10-02 20:00] VITALS: BP 99/48
--- NOTE | 2016-10-02 21:46 | NUR ---
PT RESTING QUIETLY IN BED WATCHING TV. NO NEEDS VOICED.
[2016-10-03] VITALS: BP 102/56
--- NOTE | 2016-10-03 00:02 | NUR ---
PT IS RESTING IN BED WITH EYES CLOSED. NO DISTRESS NOTED.
--- NOTE | 2016-10-03 01:05 | NUR ---
SLEEPING NO DISTRESS NOTED. SR UP X 2. CALL LIGHT WITHIN REACH.
--- NOTE | 2016-10-03 03:21 | NUR ---
PT IS LYING AWAKE IN BED. DENIES NEEDS.
[2016-10-03 04:00] VITALS: BP 104/50
--- NOTE | 2016-10-03 07:30 | NUR ---
RECIEVED PT DURING WALKING ROUNDS. PT RESTING IN BED WITH NO COMPLAINTS OF PAIN OR DISCOMFORT AT THIS TIME. ASSESSMNET DONE PER FLOWSHEET, BED IN LOW POSITION AND CALL LIGHT WITHIN REACH. WILL CONTINUE TO MONITOR.
[2016-10-03 09:12] VITALS: BP 118/54
--- NOTE | 2016-10-03 10:03 | NUR ---
PT TAKEN FOR EGD AT THIS TIME.
--- NOTE | 2016-10-03 10:55 | CN ---
PATIENT NAME:HOLLAND MCGOWAN MEDICAL RECORD: [id number] : 44 LOCATION:D.MS [facility]6 ADMIT DATE: 10/01/16 ACCOUNT: [id number] CONSULTING PHYSICIAN: ANGIE BURNETT MD REFERRING PHYSICIAN: ZEUS MARTIN MD DATE OF CONSULTATION: 10/02/2016 Gastrointestinal Consultation REFERRING PHYSICIANS: Donna Díaz MD and Isidro Raymundo MD. REMOTE SENSING SCIENTIST: Juancho Jeffers MD. HISTORY OF PRESENT ILLNESS: The patient is a 76-year-old white female known to Dr. Condon and Dr. 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 It has been going on for the past couple of weeks. She thought it was her "heart", ended up getting a cath with stent placement, but this has not improved her GI symptoms. She was subsequently admitted for further evaluation. She is already status post cholecystectomy. She has had an EGD with dilatation a few years ago, I believe by Dr. Condon. It does not look like she has been taking PPIs at home. She denies any NSAID use other than baby aspirin daily. I see in her chart that she has had some Dexilant given to her in the past, however. PAST MEDICAL HISTORY: As above. She also had a stroke, she has hypertension, CHF, peripheral vascular disease. Apparently, she has had multiple stents placed in her heart and even a couple of stents in the right leg. 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 PAST SURGICAL HISTORY: Remarkable for cholecystectomy, hysterectomy, multiple stent placement as noted above. She has had arthroscopy of the knee and upper endoscopy. ALLERGIES: METHOCARBAMOL AND VALIUM. HOME MEDICATIONS: Include ____, Plavix, Xanax, nitroglycerin, hydrocodone, DuoNeb, Advair, baby aspirin, Singulair, isosorbide, Bystolic, Ranexa and ProAir. Again, I see a prescription for Dexilant in the past, but I am not sure if she has been taking that. SOCIAL HISTORY: The patient continues to smoke. She is a nondrinker. REVIEW OF SYSTEMS: Noncontributory other than per HPI. PHYSICAL EXAMINATION: GENERAL: Reveals a chronically ill-appearing elderly white female, in no acute distress. VITAL SIGNS: Stable. She is afebrile. CHEST: Clear. HEART: Regular rate and rhythm. ABDOMEN: Soft with mild epigastric tenderness present. EXTREMITIES: No edema. CONSULT REPORT [id number] HOLLAND MCGOWAN LABORATORY DATA: Reveals a normal CMP, a normal CBC except her MCV is up at 102. KUB is completely normal. IMPRESSION: 1. Cramping upper epigastric pain associated with nausea and occasional vomiting for a couple of weeks of uncertain etiology, rule out peptic ulcer disease, reflux esophagitis, irritable bowel syndrome, etc. We cannot totally rule out mesenteric ischemia, although this will be less likely. Again, her KUB is negative. All other labs are negative. She is already status post laparoscopic cholecystectomy. 2. History of severe coronary artery disease, severe peripheral vascular disease and severe chronic obstructive pulmonary disease, on home oxygen. She continues to smoke. 3. 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 RECOMMENDATION: 1. Okay with Protonix and Carafate. 2. EGD with possible dilatation in the morning. 3. Depending on above, could consider CT abdominal angiogram. TRANSINT:[id number] Voice Confirmation ID: [id number] DOCUMENT ID: [id number] ANGIE BURNETT MD at 1055 CC: JUANCHO JEFFERS MD, ISIDRO RAYMUNDO MD and DONNA DÍAZ [id number] DICTATION DATE: 10/02/16 1047 WORM SORTER: 10/02/16 1113 ADM IN [facility] [address] [id number]
--- NOTE | 2016-10-03 11:07 | NUR ---
1107-DILATE ESOPHAGUS WITH SAVORY DILATOR.
[2016-10-03 20:00] VITALS: BP 120/60
[2016-10-04] VITALS: BP 123/63
--- NOTE | 2016-10-04 02:00 | NUR ---
PT IN BED WITH NO DISTRESS. RESPIRATIONS EVEN AND UNLABORED. SIDE RAILS X 2. BED IS LOW. CALL LIGHT IN REACH.
[2016-10-04 04:00] VITALS: BP 128/69
[2016-10-04 05:54] LABS: BASOPHILS 0 % (0-2); EOSINOPHILS 0 % (0-7); HEMATOCRIT 37.8 % (36.0-48.0); HEMOGLOBIN 13.4 g/dL (12-16); IMMATURE GRANULOCYTES 0.2 % (0-5); LYMPHOCYTES 15.4 % (15-50); MCH 34.3 pg (26.0-34.0); MCHC 35.4 g/dL (31.0-37.0); MCV 96.7 fL (80.0-100.0); MEAN PLATELET VOLUME 11.2 fL (7.4-10.4); MONOCYTES 10.4 % (2-11); PLATELET COUNT 168 10x3/uL (130-400); RBC 3.91 10x6/uL (4.00-5.40); RDW 12.8 % (11.5-14.5); WBC 5.9 10x3/uL (4.8-10.8)
[2016-10-04 06:21] LABS: ANION GAP 13.9 mmol/L (8-16); CALCIUM 8.4 mg/dL (8.5-10.1); CARBON DIOXIDE 25.1 mmol/L (21.0-32.0); CREATININE - SERUM 0.8 mg/dL (0.6-1.3)
--- NOTE | 2016-10-04 07:30 | NUR ---
ASSESSMENT COMPLETE. SL TO L WRIST. O2 1L NC IN USE. COMPLAINING OF PAIN TO THROAT AFTER EGD YESTERDAY. DENIES ANY NEEDS AT THIS TIME.
[2016-10-04 08:32] VITALS: BP 130/65
--- NOTE | 2016-10-04 12:00 | NUR ---
RESTING QUIETLY IN BED. VISITING WITH FAMILY. DENIES ANY NEEDS AT THIS TIME.
[2016-10-04 12:44] VITALS: BP 142/69
--- NOTE | 2016-10-04 15:00 | NUR ---
COMPLAINING OF NAUSEA AFTER TRYING TO TAKE SHOWER.
[2016-10-04 16:15] VITALS: BP 155/62
--- NOTE | 2016-10-04 17:43 | NUR ---
NO CHANGES NOTED AT PRESENT.
[2016-10-04 19:00] VITALS: BP 119/58
[2016-10-05 04:00] VITALS: BP 151/67
[2016-10-05 06:39] LABS: BASOPHILS 0 % (0-2); EOSINOPHILS 0 % (0-7); HEMATOCRIT 37.2 % (36.0-48.0); HEMOGLOBIN 13.4 g/dL (12-16); IMMATURE GRANULOCYTES 0.3 % (0-5); LYMPHOCYTES 25.3 % (15-50); MCH 34.5 pg (26.0-34.0); MCV 95.9 fL (80.0-100.0); MEAN PLATELET VOLUME 10.7 fL (7.4-10.4); MONOCYTES 13.7 % (2-11); NEUTROPHILS 60.7 % (40-80); PLATELET COUNT 149 10x3/uL (130-400); RBC 3.88 10x6/uL (4.00-5.40); RDW 12.4 % (11.5-14.5); WBC 3.9 10x3/uL (4.8-10.8)
[2016-10-05 06:46] LABS: ANION GAP 10.7 mmol/L (8-16); BILIRUBIN - TOTAL 0.4 mg/dL (0.2-1.3); CALCIUM 8.2 mg/dL (8.5-10.1); CARBON DIOXIDE 29.3 mmol/L (21.0-32.0); CREATININE - SERUM 0.8 mg/dL (0.6-1.3); PROTEIN - SERUM 6.2 g/dL (6.4-8.2)
--- NOTE | 2016-10-05 07:40 | NUR ---
ASSESSMENT COMPLETE. IV TO L WRIST PATENT. ZOFRAN DRIP INFUSING AT 4.7 CC/HR VIA PUMP. O2 1L NC IN USE. LAST MAT IN USE.
[2016-10-05 08:43] VITALS: BP 146/71
[2016-10-05 09:15] LABS: FOLATE (FOLIC ACID) - SERUM 11.4 ng/mL (>3.0)
--- NOTE | 2016-10-05 10:14 | PRO ---
PATIENT:HOLLAND MCGOWAN MEDICAL RECORD: [id number] : 42 LOCATION:D.MS [id number] ADMISSION DATE: 10/01/16 PROCEDURE PERFORMED BY: ANGIE GAVIRIA MD PROCEDURE DATE: 10/01/16 DATE OF PROCEDURE: 10/03/2016 IMPREGNATING MACHINE OPERATOR: Angie Gaviria MD. PROCEDURE: EGD with biopsy and Savary dilatation to a 54-German size. INDICATION: The patient is a 76-year-old white female with history of severe COPD and coronary artery disease, basically was admitted to the hospital with a 2-week history of cramping, upper epigastric pain associated nausea and occasional vomiting. She is already status post cholecystectomy. She had a recent PTCA with stent placement a week or so ago. KUB was negative. She supposedly is on a PPI at home. She denies any NSAID use other than aspirin daily. She also complains of some dysphagia as well. Her liver enzymes were unremarkable as well as her amylase and lipase. She is now for EGD. PREMEDICATION: Taper anesthesia. INSTRUMENT: Olympus video gastroscope. FINDINGS: The endoscope was passed through the oropharynx and second portion of the duodenum without difficulty. The esophagus was remarkable only for a small sliding hiatal hernia and a very mild stricture at the GE junction/Schatzki ring. She was dilated with a 54-German Savary dilator over a wire. The stomach was entered and was remarkable only for mild erosive antral gastritis. There is no evidence of gastroparesis or ulcerations seen. Biopsies obtained throughout the stomach to rule out H. pylori by means of histology. The duodenum was entered and was completely normal. The patient tolerated the procedure well without any immediate complication. IMPRESSION: 1. Small sliding hiatal hernia associated with a very mild peptic stricture/Schatzki ring, now status post Savary dilatation to a 54-German size. 2. Mild erosive antral gastritis, probably due to aspirin use, now status post biopsy. 3. Otherwise, normal EGD without an obvious reason seen to account for all of her symptomatology. RECOMMENDATIONS: 1. Continue high dose Protonix for now at 4 mg b.i.d. 2. I will probably try holding her aspirin at least temporarily if at all possible. Follow up biopsy results. 3. Repeat esophageal dilatation on a p.r.n. basis. TRANSINT:[id number] Voice Confirmation ID: [id number] DOCUMENT ID: [id number] PROCEDURE NOTE [id number] HOLLAND MCGOWAN JOHN MD at 1014 CC: NGUYEN CARLOS MD and JOHANA DÍAZ MD [id number] DICTATION DATE: 10/03/161116 TEXTILE SUPERVISOR: 10/03/161944 ADM IN [place] [id number] [place] [id number]
--- NOTE | 2016-10-05 11:50 | NUR ---
COMPLAINING OF TENDERNESS TO IV SITE. IV REMOVED. CATHETER TIP INTACT. IV SITED TO L FA WITH 22 GUAGE X 1 ATTEMPT.
[2016-10-05 13:56] VITALS: BP 140/70
--- NOTE | 2016-10-05 14:40 | NUR ---
Patient Name: HOLLAND MCGOWAN Admission Status: ER Accout number: [id number] Admission Date: 10-01-2016 : 1940 Admission Diagnosis:CHRONIC OBSTRUCTIVE PULMONARY DISEASE W (ACUTE) EXACERB Attending: KANIKA Current LOS: 4 Anticipated DC Date: 10-07-2016 Planned Disposition: Home Primary Insurance: MEDICARE A & B Discharge Planning Comments: CM MET WITH PATIENT REGARDING D/C NEEDS AND PLANS. PATIENT STATED SHE LIVES WITH HER SPOUSE (RASHEED) AND HE WILL DRIVE HER HOME AT DISCHARGE. PATIENT STATED SHE HAS 4 STEPS W/RAILS TO ENTER HOME AND NO STAIRS INSIDE. PATIENT IS INDEPENDENT WITH HER CARE AND HAS OXYGEN, PORTABLE O2, NEBULIZER, AND RAISED TOILET SEAT AT HOME. PATIENT STATED HER PCP IS DR. EDMOND AND PHARMACY IS [facility]. PATIENT DID NOT WANT HOME HEALTH AT THIS TIME. CM WILL CONTINUE TO FOLLOW PATIENT WITH D/C NEEDS AND PLANS. [facility] [address] [phone] RASHEED (SPOUSE) [phone] Security Operations Engineer: Taylor Wang Is the patient Alert and Oriented? Yes 0 * How many steps to enter\exit or inside your home? 4 W/RAILS 0 * PCP DR. EDMOND 0 * [facility] [address] 0 * Preadmission Environment Home with Family 0 * ADLs Independent 0 * Equipment Elevated Tol[place] Seat Nebulizer Oxygen 0 * Other Equipment PORTABLE O2 ([facility]IENT) 0 * List name and contact numbers for known caregivers / representatives who currently or will assist patient after discharge: RASHEED (SPOUSE) [phone] * Community resources currently utilized None 0 * Additional services required to return to the preadmission environment? Yes 0 * Can the patient safely return to the preadmission environment? Yes 0 * Has this patient been hospitalized within the prior 30 days at any hospital? No 0 Grand Total: 0
--- NOTE | 2016-10-05 15:00 | NUR ---
NO CHANGES NOTED AT PRESENT.
[2016-10-05 16:17] VITALS: BP 161/78
--- NOTE | 2016-10-05 17:31 | NUR ---
REPORTS STILL NOT HAVING BM. DOSE OF MILK OF MAG GIVEN PER PATIENT REQUEST.
[2016-10-05 19:00] VITALS: BP 142/67
[2016-10-06 04:00] VITALS: BP 112/59
--- NOTE | 2016-10-06 07:00 | NUR ---
ASSISTED PATIENT TO THE BATHROOM, NOW BACK TO BED. LAST MAT ALARM ON. OXYGEN VIA NASAL CANNULA AT 2L/MIN. PATIENT DENIES NEEDS AT THIS TIME. BROUGHT PATIENT A CUP OF ICE AND OPENED A DIET COKE AND POURED OVER IT, PER PATIENT REQUEST. BED LOWEST POSITION, CALL LIGHT IN REACH. BED RIALS UP X'S 2.
--- NOTE | 2016-10-06 07:50 | NUR ---
PT AOX4 RESP EVEN AND NONLABORED PT DENIES NEEDS AT THIS TIME IV TO LEFT FOREARM PATENT AND INTACT AT THIS TIME SRX2 BED AT LOWEST SETTING CALL LIGHT WITHIN REACH WILL CONTINUE TO MONITOR
[2016-10-06 08:42] VITALS: BP 133/61
[2016-10-06 11:56] VITALS: BP 122/66
[2016-10-06 15:06] VITALS: BP 98/44
[2016-10-06 20:00] VITALS: BP 127/57
--- NOTE | 2016-10-06 23:22 | NUR ---
PATIENT IS RESTING QUIETLY WITH EYES CLOSED. NO SIGNS OF DISTRESS NOTED.
[2016-10-07 04:00] VITALS: BP 122/59
--- NOTE | 2016-10-07 07:30 | NUR ---
ASSESSMENT PER FLOW SHEET.PT WITHOUT DISTRESS.FALL PREVENTION IN PLACE WITH LAST MAT ON AND FUNCTIONING.DOOR OPEN TO MONITOR.
[2016-10-07 08:09] VITALS: BP 143/64
[2016-10-07] MEDS ORDERED: FLORAJEN3 CAPS460 MG PO (11:40)
[2016-10-07] MEDS ORDERED: CARAFATE1 G/10 ML PO (11:41)
[2016-10-07] MEDS ORDERED: PROTONIX40 MG PO (11:41)
[2016-10-07] MEDS ORDERED: FLUTICASONE PRO16 GM NASAL (11:42)
[2016-10-07 11:44] VITALS: BP 123/58
[2016-10-07] MEDS ORDERED: LEVAQUIN750 MG PO (11:44)
--- NOTE | 2016-10-07 14:05 | NUR ---
CM REASSESSMENT NOTE: PATIENT IS DISCHARGING HOME TODAY BY PRIVATE CAR. PATIENT DENIED HOME HEALTH AND HAD NO OTHER NEEDS FOR DISCHARGE. PATIENT HAD HER PORTABLE O2 IN ROOM FOR DISCHARGE.
--- NOTE | 2016-10-07 14:30 | NUR ---
IV DCD WITH CATH INTACT. DISCHARGE INSTRUCTIONS,STATES UNDERSTANDING.
--- NOTE | 2016-10-07 14:34 | NUR ---
LEFT UNIT VIA WHEELCHAIR FOR TRANSPORT HOME
== END 2016-10-07 14:35 | disposition home or self-care (01) | DRG 191 ==
LOC: D.ER 10:32 → D.MS 11:51
PROVIDERS: Emergency Medicine; Internal Medicine Gastroenterology; Internal Medicine Pulmonary Disease; ADMIT Family Medicine
PROC: 0D748ZZ Dilation of Esophagogastric Junction, Via Natural or Artificial Opening Endoscopic (ICD-10-PCS; 2016-10-03)
PROC: 0DB68ZX Excision of Stomach, Via Natural or Artificial Opening Endoscopic, Diagnostic (ICD-10-PCS; principal; 2016-10-03 09:19)
DX: J44.1 Chronic obstructive pulmonary disease with (acute) exacerbation (principal); J45.901 Unspecified asthma with (acute) exacerbation; J96.11 Chronic respiratory failure with hypoxia; Z99.81 Dependence on supplemental oxygen; I73.9 Peripheral vascular disease, unspecified; K21.9 Gastro-esophageal reflux disease without esophagitis; M79.7 Fibromyalgia; K22.70 Barrett's esophagus without dysplasia; I10 Essential (primary) hypertension; I27.2 Other secondary pulmonary hypertension; K59.00 Constipation, unspecified; K44.9 Diaphragmatic hernia without obstruction or gangrene; K22.2 Esophageal obstruction; K29.70 Gastritis, unspecified, without bleeding; T39.395A Adverse effect of other nonsteroidal anti-inflammatory drugs [NSAID], initial encounter; F41.9 Anxiety disorder, unspecified

== ENCOUNTER → 2017-02-01 10:45 | Outpatient (CLI) | payer MEDICARE, OTHER ==
[2016-10-02 12:51] VITALS: BMI 22.3
[~2017-02-01 10:45] MED LIST changes: +CARAFATE1 G/10 ML PO; +FLORAJEN3 CAPS460 MG PO; +FLUTICASONE PRO16 GM NASAL; +PROTONIX40 MG PO
== END | disposition home or self-care (01) ==
LOC: D.NM 10:45
DX: R13.10 Dysphagia, unspecified (principal); R11.0 Nausea; K59.00 Constipation, unspecified

== ENCOUNTER 2017-02-05 12:27 | Emergency (ER) | payer MEDICARE, OTHER ==
[2016-10-02 12:51] VITALS: BMI 22.3
[2017-02-05 12:55] LABS: BASOPHILS 0.6 % (0-2); EOSINOPHILS 2.1 % (0-7); HEMOGLOBIN 13.7 g/dL (12-16); LYMPHOCYTES 43.1 % (15-50); MCH 34.9 pg (26.0-34.0); MCHC 34.3 g/dL (31.0-37.0); MCV 101.8 fL (80.0-100.0); MEAN PLATELET VOLUME 10.7 fL (7.4-10.4); MONOCYTES 15.9 % (2-11); NEUTROPHILS 38.3 % (40-80); PLATELET COUNT 172 10x3/uL (130-400); RBC 3.93 10x6/uL (4.00-5.40); RDW 12.7 % (11.5-14.5); WBC 4.7 10x3/uL (4.8-10.8)
[2017-02-05 13:10] LABS: ALBUMIN 3.4 g/dL (3.4-5.0); ALKALINE PHOSPHATASE 77 U/L (46-116); ALT (SGPT) 14 U/L (10-68); CALC OSMOLALITY 268 mosm/kg (275-300); CALCIUM 8.9 mg/dL (8.5-10.1); CARBON DIOXIDE 31.9 mmol/L (21.0-32.0); CHLORIDE - SERUM 98 mmol/L (98-107); GLUCOSE 117 mg/dL (74-106); POTASSIUM - SERUM 4.4 mmol/L (3.5-5.1); SODIUM 134 mmol/L (136-145); UREA NITROGEN 12 mg/dL (7-18); eGFR NON AFRICAN AMERICAN 57 mL/min (90-120)
[2017-02-05 13:20] LABS: CKMB 0.7 U/L (0.0-3.6); CREATINE KINASE 38 UL (21-215); PRO BNP 341 pg/mL (0-125); TROPONIN-I < 0.017 ng/mL (0.000-0.060)
== END 2017-02-05 17:03 | disposition home or self-care (01) ==
LOC: D.ER 12:27
PROVIDERS: Family Medicine
DX: S39.012A Strain of muscle, fascia and tendon of lower back, initial encounter (principal); X50.0XXA Overexertion from strenuous movement or load, initial encounter; Y93.89 Activity, other specified; Y92.020 Kitchen in mobile home as the place of occurrence of the external cause; J44.9 Chronic obstructive pulmonary disease, unspecified; I10 Essential (primary) hypertension; F17.200 Nicotine dependence, unspecified, uncomplicated

== ENCOUNTER 2017-02-23 18:49 | Emergency (ER) | payer MEDICARE, OTHER ==
[2016-10-02 12:51] VITALS: BMI 22.3
== END 2017-02-23 21:23 | disposition home or self-care (01) ==
LOC: D.ER 18:49
DX: M54.5 Low back pain (principal); I10 Essential (primary) hypertension

== ENCOUNTER → 2017-06-01 23:14 | Outpatient (CLI) | payer MEDICARE, OTHER ==
[2016-10-02 12:51] VITALS: BMI 22.3
[~2017-06-01 23:14] MED LIST changes: +ANORO ELLIPTA1 EACH INH
== END | disposition home or self-care (01) ==
LOC: D.MAMMO 10:00
DX: N63.21 Unspecified lump in the left breast, upper outer quadrant (principal); N63.11 Unspecified lump in the right breast, upper outer quadrant

== ENCOUNTER → 2017-06-13 13:16 | Outpatient (CLI) | payer MEDICARE, OTHER ==
[2016-10-02 12:51] VITALS: BMI 22.3
== END | disposition home or self-care (01) ==
LOC: D.US 13:16
DX: R92.8 Other abnormal and inconclusive findings on diagnostic imaging of breast (principal); N63.0 Unspecified lump in unspecified breast

== ENCOUNTER 2017-06-30 06:06 | Outpatient (CLI) | payer MEDICARE, OTHER ==
[~2017-06-30] VITALS: Ht 162.6 cm; Wt 64.5 kg
[2017-06-30 07:09] VITALS: BP 103/47; Ht 162.6 cm; Wt 64.5 kg
[2017-06-30 07:42] LABS: BASOPHILS 0.7 % (0-2); EOSINOPHILS 1.1 % (0-7); HEMATOCRIT 40.6 % (36.0-48.0); LYMPHOCYTES 42.7 % (15-50); MCH 35.1 pg (26.0-34.0); MCHC 34.5 g/dL (31.0-37.0); MCV 101.8 fL (80.0-100.0); MEAN PLATELET VOLUME 10.6 fL (7.4-10.4); MONOCYTES 12.3 % (2-11); NEUTROPHILS 43.2 % (40-80); PLATELET COUNT 191 10x3/uL (130-400); RBC 3.99 10x6/uL (4.00-5.40); RDW 13.1 % (11.5-14.5); WBC 5.4 10x3/uL (4.8-10.8)
[2017-06-30 07:52] LABS: INR 0.96 (0.85-1.17); PROTIME 12.4 SECONDS (11.6-15.0)
[2017-06-30 07:53] LABS: ANION GAP 12.6 mmol/L (8-16); CALCIUM 8.5 mg/dL (8.5-10.1); CARBON DIOXIDE 28.9 mmol/L (21.0-32.0); POTASSIUM - SERUM 4.5 mmol/L (3.5-5.1)
[2017-07-01] MEDS ORDERED: HYDROCODONE-APA1 TAB PO (12:48)
== END 2017-06-30 07:45 ==
LOC: D.OPS 06:06 → D.PAN 08:00 → EDSTATUS 08:00 → D.OPS 08:00 → D.NM 08:00 → D.OPS 12:30
PROVIDERS: Anesthesiology; Surgery
DX: C50.911 Malignant neoplasm of unspecified site of right female breast (principal); R07.9 Chest pain, unspecified; Z53.09 Procedure and treatment not carried out because of other contraindication; Z01.812 Encounter for preprocedural laboratory examination

== ENCOUNTER 2017-06-30 07:46 | Observation (INO) | payer MEDICARE, OTHER ==
[~2017-06-30] VITALS: Ht 162.6 cm; Wt 55.8 kg
--- NOTE | ~2017-06-30 | OP ---
PATIENT NAME: HOLLAND MCGOWAN MEDICAL RECORD: [id number] :42 LOCATION:D.M2 D.2118 ADMISSION DATE:06/30/17 SURGEON: NICK CARRANZA MD DATE OF OPERATION: 07/01/2017 PREOPERATIVE DIAGNOSES: 1. Right invasive ductal carcinoma. 2. Coronary artery disease with history of stents. 3. Chronic obstructive pulmonary disease. 4. Gastroesophageal reflux disease. 5. Anxiety disorder. 6. Asthma. POSTOPERATIVE DIAGNOSES: 1. Right invasive ductal carcinoma. 2. Coronary artery disease with history of stents. 3. Chronic obstructive pulmonary disease. 4. Gastroesophageal reflux disease. 5. Anxiety disorder. 6. Asthma. PROCEDURES: 1. Right breast lumpectomy. 2. Right sentinel lymph node biopsy. SURGEON: Nick Carranza MD REPORT OF PROCEDURE: The patient's right breast and axilla were prepped and draped in sterile fashion. Preoperatively, the patient had undergone lymphoscintigraphy. A skin incision was made on the anterior aspect of the patient's right axilla and electrocautery was used to dissect through the subcutaneous tissues. Using a Neoprobe, we were able to find the sentinel lymph node, which registered a reading of 650. The specimen was sent off for permanent and we inspected the remainder of the axilla and there was an area, which had periodic high readings. I was never able to localize an actual lymph node in that area site, so I just took out that segment of the tissue where the high readings were registered. The remainder of the axilla was inspected and there was no sign of any elevated readings. The wound was then irrigated out with normal saline. The subcutaneous tissues were reapproximated with interrupted 3-0 Vicryls and the skin was closed with running subcutaneous 5-0 Monocryl. We then performed a semicircular incision on the lateral aspect of the nipple areolar complex in the right breast. We dissected to the lateral aspect of the breast where the mass was present. The patient did not have very much breast tissue, most of her actual breast was from a previous submuscular implant. The breast tissue including the mass was removed all the way down to the pectoral fascia and right to the posterior aspect of the skin at about the 9 o'clock position in the lateral right breast. Once the mass was completely excised, it was marked appropriately and sent off to pathology. We then performed a frozen section of the anterior margin. This came back showing a 2 mm margin. We inspected the area and any bleeding that was found was treated with electrocautery. We then irrigated out the wound with sterile water. The subcutaneous tissues were reapproximated with interrupted 3-0 Vicryl and then the skin was closed with running subcutaneous 5-0 Monocryl. A total of 10 mL of 0.25% Marcaine plain were infused into the surrounding tissues and the wound was dressed appropriately. OPERATIVE REPORT [id number] HOLLAND MCGOWAN COMPLICATIONS: None. CONDITION: Stable. ANESTHESIA: General endotracheal and local. BLOOD LOSS: Minimal. TRANSINT:[id number] Voice Confirmation ID: [id number] DOCUMENT ID: [id number] NICK CARRANZA MD at 1416 CC: [id number] DICTATION DATE: 07/01/17 1256 STRIPING MACHINE OPERATOR: 07/01/17 1325 ADM IN [facility] [address] [place] [address]
[2017-06-30 08:02] LABS: BASOPHILS 0.4 % (0-2); HEMATOCRIT 40.6 % (36.0-48.0); HEMOGLOBIN 13.9 g/dL (12-16); IMMATURE GRANULOCYTES 0.2 % (0-5); LYMPHOCYTES 41.5 % (15-50); MCH 34.8 pg (26.0-34.0); MCHC 34.2 g/dL (31.0-37.0); MCV 101.8 fL (80.0-100.0); MEAN PLATELET VOLUME 10.7 fL (7.4-10.4); MONOCYTES 13.3 % (2-11); NEUTROPHILS 43.6 % (40-80); PLATELET COUNT 195 10x3/uL (130-400); RBC 3.99 10x6/uL (4.00-5.40); RDW 13.1 % (11.5-14.5); WBC 5.1 10x3/uL (4.8-10.8)
[2017-06-30 08:06] LABS: INR 0.93 (0.85-1.17); PROTIME 12.1 SECONDS (11.6-15.0)
[2017-06-30 08:07] LABS: APTT 33.3 SECONDS (22.8-39.4)
[2017-06-30 08:08] LABS: D-DIMER-QUANTITATIVE 1.43 ug/mLFEU (0.20-0.54)
[2017-06-30 08:11] LABS: ALBUMIN 3.5 g/dL (3.4-5.0); ALKALINE PHOSPHATASE 72 U/L (46-116); ALT (SGPT) 17 U/L (10-68); BILIRUBIN - TOTAL 0.27 mg/dL (0.2-1.3); CALC OSMOLALITY 277 mosm/kg (275-300); CALCIUM 8.6 mg/dL (8.5-10.1); CARBON DIOXIDE 29.6 mmol/L (21.0-32.0); CHLORIDE - SERUM 102 mmol/L (98-107); GLUCOSE 88 mg/dL (74-106); POTASSIUM - SERUM 4.5 mmol/L (3.5-5.1); PROTEIN - SERUM 6.8 g/dL (6.4-8.2); SODIUM 139 mmol/L (136-145); UREA NITROGEN 16 mg/dL (7-18); eGFR NON AFRICAN AMERICAN 57 mL/min (90-120)
[2017-06-30 08:21] LABS: CHOLESTEROL, TOTAL 230 mg/dL (0-200); CKMB 0.3 U/L (0.0-3.6); CREATINE KINASE 41 UL (21-215); HDL CHOLESTEROL 57 mg/dL (32-96); LDL CHOLESTEROL 158 mg/dL (0-100); LDL-HDL RATIO 2.8 ratio (1.5-3.5); MAGNESIUM - SERUM 1.9 mg/dL (1.8-2.4); PRO BNP 302 pg/mL (0-125); TRIGLYCERIDE 76 mg/dL (30-200)
[2017-06-30 08:25] LABS: TROPONIN-I < 0.017 ng/mL (0.000-0.060)
[2017-06-30 13:54] LABS: CKMB 0.4 U/L (0.0-3.6); CREATINE KINASE 38 UL (21-215)
[2017-06-30 13:58] LABS: TROPONIN-I < 0.017 ng/mL (0.000-0.060)
[2017-06-30 17:00] VITALS: BP 144/62; BMI 21.1
[2017-06-30 19:38] LABS: CKMB 0.1 U/L (0.0-3.6); CREATINE KINASE 34 UL (21-215)
[2017-06-30 19:50] LABS: TROPONIN-I < 0.017 ng/mL (0.000-0.060)
[2017-06-30 20:00] VITALS: BP 113/41
[2017-07-01] VITALS: BP 97/33
[2017-07-01 03:09] LABS: CKMB 0.6 U/L (0.0-3.6); CREATINE KINASE 29 UL (21-215)
[2017-07-01 03:11] LABS: TROPONIN-I < 0.017 ng/mL (0.000-0.060)
[2017-07-01 04:30] VITALS: BP 113/41
[2017-07-01 08:16] VITALS: BP 88/37
[2017-07-01 10:45] VITALS: Ht 162.6 cm; Wt 55.8 kg
[2017-07-01] MEDS ORDERED: HYDROCODONE-APA1 TAB PO (12:48)
== END 2017-07-01 15:49 | disposition home or self-care (01) ==
LOC: D.ER 07:46 → D.EDHOLD 12:50 → OBSVTIME 12:50 → D.M2 12:50 → D.EDHOLD 12:50 → D.M2 15:02
PROVIDERS: Family Medicine
DX: C50.911 Malignant neoplasm of unspecified site of right female breast (principal); I25.10 Atherosclerotic heart disease of native coronary artery without angina pectoris; Z95.5 Presence of coronary angioplasty implant and graft; J44.9 Chronic obstructive pulmonary disease, unspecified; K21.9 Gastro-esophageal reflux disease without esophagitis; F41.9 Anxiety disorder, unspecified

== ENCOUNTER 2017-09-02 18:17 | Inpatient (IN) | payer MEDICARE, OTHER ==
[~2017-09-02] VITALS: Ht 162.6 cm; Wt 55.0 kg
--- NOTE | ~2017-09-02 | EC ---
PATIENT:HOLLAND MCGOWAN DATE OF SERVICE: 09/03/17 SEX: F MEDICAL RECORD: [id number] DATE OF : 42 LOCATION:D.M2 D.212 AGE OF PATIENT: 77 ADMISSION DATE: 09/03/17 REFERRING PHYSICIAN: INTERPRETING PHYSICIAN: VIRAL HIGGINS MD ECHOCARDIOGRAM REPORT ECHO CHARGES 4 ECHO COMPLETE Date: 09/03 CLINICAL DIAGNOSIS: CHEST PAIN ECHOCARDIOGRAPHIC MEASUREMENTS (adult normal given) AC root (d.<3.7cm) 3.9 cm LV Septum d (<1.2 cm> 1.8 cm Valve Excursion 1.6 cm LV Septum (systole) 2.0 cm Left Atria (s.<4.0cm> 3.4 cm LVPW d(<1.2cm) 1.7 cm RV (d.<2.3cm) 3.7 cm LVPW (sytole) 2.1 cm LV diastole(<5.6CM) 3.5 cm MV E-F(>70mm/sec) cm LV systole 2.0 cm LVOT Diameter 1.8 cm MV exc.(>10mm) cm Est.ejection fraction (50-75%) % DOPPLER: LVIT cm/sec A 81.0 cm/sec E 79.0 cm/sec LA cm/sec RVSP 22 mmHg LVOT 99 cm/sec AOP1/2T m/s Asc. Ao 130 cm/sec RVOT 67 cm/sec RA cm/sec PA 109 cm/sec AV Gradient Peak 6.77 mmHg AV Mean 3.27 mmHg AV Area 2.8 cm MV Gradient Peak 4.89 mmHg MV Mean 1.98 mmHg MV Area cm COMMENTS: Corporate Sales Manager: 2 RALEIGH HANNA Associate Director Finance: 4 Dr. Higgins TAPE# PACS Pericardial Effusion N DATE OF SERVICE: PROCEDURE: Transthoracic echocardiogram. FINDINGS: 1. Left ventricle has moderate concentric left ventricular hypertrophy. Posterior inferior wall is not well visualized, but overall the ejection fraction appears to be normal to hyperdynamic. 2. The right ventricle shows right ventricular hypertrophy with normal function. Mild enlargement. ECHOCARDIOGRAM REPORT [id number] HOLLAND MCGOWAN 3. The left atrium is normal size, shape and function. 4. Aortic valve is normal. 5. The mitral valve is normal. 6. The tricuspid valve is normal. RVSP is normal to slightly low. 7. The pericardium is normal. 8. The right atrium is mildly dilated. CONCLUSION: The patient has evidence of hypertensive heart disease, evidence of diastolic dysfunction. There are no regional wall motion abnormalities. Overall, normal echocardiogram for patient's stated age. TRANSINT:[id number] Voice Confirmation ID: [id number] DOCUMENT ID: [id number] VIRAL HIGGINS MD at 0927 CC: [id number] DICTATION DATE: 09/04/17 1040 TRANSPORTATION ATTENDANT: 09/04/17 1103 DIS IN 09/04/17 [facility] [address] [place] [address]
[2017-09-02 20:01] LABS: BASOPHILS 0.2 % (0-2); EOSINOPHILS 0.7 % (0-7); HEMATOCRIT 38.1 % (36.0-48.0); HEMOGLOBIN 13.3 g/dL (12-16); IMMATURE GRANULOCYTES 0.2 % (0-5); LYMPHOCYTES 24.4 % (15-50); MCH 35.5 pg (26.0-34.0); MCHC 34.9 g/dL (31.0-37.0); MCV 101.6 fL (80.0-100.0); MEAN PLATELET VOLUME 10.3 fL (7.4-10.4); MONOCYTES 17.4 % (2-11); NEUTROPHILS 57.1 % (40-80); PLATELET COUNT 217 10x3/uL (130-400); RBC 3.75 10x6/uL (4.00-5.40); RDW 13.7 % (11.5-14.5); WBC 5.4 10x3/uL (4.8-10.8)
[2017-09-02 20:16] LABS: CALC OSMOLALITY 271 mosm/kg (275-300); CALCIUM 9.1 mg/dL (8.5-10.1); CARBON DIOXIDE 29.8 mmol/L (21.0-32.0); CHLORIDE - SERUM 101 mmol/L (98-107); CREATININE - SERUM 0.9 mg/dL (0.6-1.3); GLUCOSE 94 mg/dL (74-106); POTASSIUM - SERUM 5.6 mmol/L (3.5-5.1); SODIUM 136 mmol/L (136-145); UREA NITROGEN 13 mg/dL (7-18); eGFR NON AFRICAN AMERICAN 65 mL/min (90-120)
[2017-09-02 20:20] LABS: TROPONIN-I < 0.017 ng/mL (0.000-0.060)
[2017-09-03] VITALS (9 sets, daily range): BP systolic 92–131; BP diastolic 43–68; Ht 162.6 cm; Wt 55.0 kg
[2017-09-03 01:11] LABS: APPEARANCE CLEAR (CLEAR); COLOR YELLOW (YELLOW)
[2017-09-03 01:12] LABS: BILIRUBIN NEGATIVE (NEGATIVE); GLUCOSE NEGATIVE (NEGATIVE); KETONE NEGATIVE (NEGATIVE); NITRITE NEGATIVE (NEGATIVE); PROTEIN NEGATIVE (NEGATIVE); UROBILINOGEN NORMAL (NORMAL)
[2017-09-03 04:42] LABS: CREATINE KINASE 47 UL (21-215)
[2017-09-03 04:50] LABS: TROPONIN-I < 0.017 ng/mL (0.000-0.060)
[2017-09-03] MEDS ORDERED: BACTROBAN CREAM15 GM TOPICAL (05:00)
[2017-09-03] MEDS ORDERED: BACTRIM DS TABL1 TAB PO (05:03)
[2017-09-03 10:52] LABS: CREATINE KINASE 58 UL (21-215)
[2017-09-03 10:54] LABS: TROPONIN-I < 0.017 ng/mL (0.000-0.060)
[2017-09-03 16:18] LABS: CKMB 1.3 U/L (0.0-3.6); CREATINE KINASE 79 UL (21-215); TROPONIN-I < 0.017 ng/mL (0.000-0.060)
[2017-09-04 01:53] VITALS: BP 110/43
[2017-09-04 05:49] LABS: BASOPHILS 0.5 % (0-2); EOSINOPHILS 0.9 % (0-7); HEMATOCRIT 36.2 % (36.0-48.0); HEMOGLOBIN 12.2 g/dL (12-16); IMMATURE GRANULOCYTES 0.2 % (0-5); LYMPHOCYTES 32.7 % (15-50); MCH 34.5 pg (26.0-34.0); MCHC 33.7 g/dL (31.0-37.0); MCV 102.3 fL (80.0-100.0); MEAN PLATELET VOLUME 10.2 fL (7.4-10.4); MONOCYTES 15.2 % (2-11); NEUTROPHILS 50.5 % (40-80); PLATELET COUNT 182 10x3/uL (130-400); RBC 3.54 10x6/uL (4.00-5.40); RDW 13.4 % (11.5-14.5); WBC 5.5 10x3/uL (4.8-10.8)
[2017-09-04 05:57] LABS: ALBUMIN 2.9 g/dL (3.4-5.0); ANION GAP 10.7 mmol/L (8-16); BILIRUBIN - TOTAL 0.3 mg/dL (0.2-1.3); CALCIUM 8.3 mg/dL (8.5-10.1); CARBON DIOXIDE 26.6 mmol/L (21.0-32.0); PROTEIN - SERUM 6.4 g/dL (6.4-8.2)
[2017-09-04 06:04] LABS: POTASSIUM - SERUM 4.3 mmol/L (3.5-5.1)
[2017-09-04 06:25] VITALS: BP 117/46
[2017-09-04 09:01] VITALS: BP 107/49
[2017-09-04 13:32] VITALS: BP 91/56
== END 2017-09-04 14:35 | disposition home or self-care (01) | DRG 607 ==
LOC: D.ER 18:17 → D.M2 09-03 03:44 → D.EDHOLD 09-03 03:44 → D.M2 09-04 14:35
PROVIDERS: Emergency Medicine; Family Medicine
DX: L59.8 Other specified disorders of the skin and subcutaneous tissue related to radiation (principal); J44.1 Chronic obstructive pulmonary disease with (acute) exacerbation; F17.203 Nicotine dependence unspecified, with withdrawal; R07.9 Chest pain, unspecified; I73.9 Peripheral vascular disease, unspecified; I11.0 Hypertensive heart disease with heart failure; I50.9 Heart failure, unspecified; I25.10 Atherosclerotic heart disease of native coronary artery without angina pectoris; K21.9 Gastro-esophageal reflux disease without esophagitis; K22.70 Barrett's esophagus without dysplasia; N64.4 Mastodynia; C50.911 Malignant neoplasm of unspecified site of right female breast; G89.3 Neoplasm related pain (acute) (chronic); Z95.5 Presence of coronary angioplasty implant and graft; Z86.73 Personal history of transient ischemic attack (TIA), and cerebral infarction without residual deficits

== ENCOUNTER → 2017-10-11 13:28 | Outpatient (CLI) | payer MEDICARE, OTHER ==
[2017-09-03 08:27] VITALS: BMI 20.6
[~2017-10-11 13:28] MED LIST changes: +BACTRIM DS TABL1 TAB PO; +BACTROBAN CREAM15 GM TOPICAL
== END | disposition home or self-care (01) ==
LOC: D.US 13:28
DX: N63.10 Unspecified lump in the right breast, unspecified quadrant (principal)

== ENCOUNTER 2017-12-10 18:00 | Inpatient (IN) | payer MEDICARE, OTHER ==
[~2017-12-10] VITALS: Ht 162.6 cm; Wt 54.4 kg
--- NOTE | ~2017-12-10 | ST ---
PATIENT:HOLLAND MCGOWAN MEDICAL RECORD: [id number] SEX: F LOCATION:[address] ORDER #: ADMISSION DATE: 12/12/17 AGE OF PATIENT: 77 REFERRING PHYSICIAN: INTERPRETING PHYSICIAN: VIRAL HIGGINS MD DATE OF SERVICE: Lexiscan directed stress test. The patient underwent a standard Lexiscan stress test having no evidence of ischemia shown. Ejection fraction was preserved at 64%. No evidence of significant ischemia. TRANSINT:[id number] Voice Confirmation ID: [id number] DOCUMENT ID: [id number] VIRAL HIGGINS MD at 1348 CC: [id number] DICTATION DATE: 12/11/17 1256 ANESTHESIOLOGY RESIDENT: 12/12/17 0828 DIS IN 12/13/17 [place] [id number] [place] [address]
--- NOTE | ~2017-12-10 | HEMODYNAMI ---
PATIENT:HOLLAND MCGOWAN MEDICAL RECORD: [id number] : 44 LOCATION:[facility] [address] [facility]# [id number] ADMISSION DATE: 12/12/17 Generatedon:12/13/201710:43 Patient name: HOLLAND MCGOWAN Patient #: [id number] : 1940 Date of study: 12/13/2017 Page: Of Hemodynamic Procedure Report Patient Data Patient Demographics Procedure consent was obtained First Name: HOLLAND Gender: Female Last Name: ROSLYN : 1940 Middle Initial: S Age: 77 year(s) Patient #: [id number] Race: SSN: [id number] Additional ID: [id number] Contact details [address]: [address] [place] [address] State: [place] City: [place] Zip code: [address] Past Medical History History of disease Date Diagnosis Comments CAD PVD COPD Allergies Allergen Reaction Date Comments Reported Other allergy 12/14/2014 ROBAXIN, PHENERGAN, VALIUM Other allergy 03/01/2016 ROBAXIN, PHENERGAN, VALIUM Other allergy 09/27/2016 ROBAXIN, PROMETHAINE, VALIUM Other allergy 12/12/2017 diazepam, methocarbmol Other allergy 12/12/2017 valium, robaxin, Other allergy 12/13/2017 ROBAXIN, VALIUM Admission Admission Data Admission Date: 12/12/2017 Admission Time: 16:52 Admit Source: Emergency department Room #: D.2114 Lab Results Lab Result Date: 12/12/2017 Lab Result Time: 5:57 Biochemistry Name Units Result Min Max BUN mg/dl 15 --(--*-)-- 7 18 Creatinine mg/dl 0.8 --(-*--)-- 0.6 1.3 CBC Name Units Result Min Max Hematocrit % 35.9 *-(----)-- 42 54 Hemoglobin g/dl 12.4 *-(----)-- 13.5 17.5 Procedure Procedure Types Cath Procedure Diagnostic Procedure Sedation Charges Moderate Sedation up to 15 minutes PCI Procedure Coronary Stent Coronary Stent Initial Procedure Description Procedure Date Procedure Date: 12/13/2017 Procedure Start Time: 10:20 Procedure End Time: 10:42 Procedure Staff Name Function Ceasar Kenney RT Boiler Tender Janey Trevon RT Monitor Imani Patel RT Scrub Rufus Hutton RN Nurse Brandon Garcia MD Performing Physician Procedure Data Cath Procedure Fluoroscopy Diagnostic fluoroscopy Total fluoroscopy Time: 6.3 time: 6.3 min min Diagnostic fluoroscopy Total fluoroscopy dose: 579 dose: 579 mGy mGy Contrast Material Contrast Material Type Amount (ml) Isovue 300 37 Entry Location Entry Primary Successful Side Size Upsize Upsize Entry Closure Succes sful Closure Location (Fr) 1 (Fr) 2 (Fr) Remarks Device Remarks Femoral Left 6 Fr 6 Fr Exoseal artery Short Long Estimated blood loss: 10 ml Procedure Complications No complications Procedure Medications Medication Administration Route Dosage Oxygen etCO2 Nasal cannula 2 l/min Heparin Flush Bag added to field 2 bags (1000units/500ml NS) 0.9% NaCl I.V. 100 ml/hr Fentanyl I.V. 50 mcg Versed I.V. 1 mg Fentanyl I.V. 50 mcg Versed I.V. 1 mg Fentanyl I.V. 50 mcg Versed I.V. 1 mg Heparin Bolus I.V. 4000 units Fentanyl I.V. 50 mcg Versed I.V. 1 mg Hemodynamics Rest HGB: 12.4 (g/dl) Heart Rate: 102 (bpm) Snapshots Pre Cath Intra NCS Post Cath Vital Signs Time Heart Resp SPO2 etCO2 NIBP (mmHg) Rhythm Pain Sedation Rate (ipm) (%) (mmHg) Status Level (bpm) 9:59:06 101 17 94 28.6 146/72(106) NSR 0 (11) 10(A) , No pain 10:03:24 86 16 93 18.8 109/57(86) NSR 0 (11) 10(A) , No pain 10:07:30 100 17 93 11.3 110/58(79) NSR 0 (11) 10(A) , No pain 10:11:54 100 17 93 18.1 132/67(106) NSR 0 (11) 10(A) , No pain 10:16:21 99 16 93 17.3 116/58(91) NSR 0 (11) 10(A) , No pain 10:20:49 96 16 89 26.4 100/50(79) NSR 0 (11) 9(A) , No pain 10:24:55 96 16 91 15.8 96/47(70) NSR 0 (11) 9(A) , No pain 10:28:58 97 17 91 15.8 100/52(79) NSR 0 (11) 9(A) , No pain 10:33:21 99 17 93 27.9 140/67(95) NSR 0 (11) 9(A) , No pain 10:37:31 102 17 94 27.1 155/78(121) NSR 0 (11) 9(A) , No pain 10:40:21 101 13 95 30.2 144/72(119) NSR 0 (11) 9(A) , No pain Medications Time Medication Route Dose Verified Delivered Reason Notes Effectiveness by by 9:58:16 Oxygen etCO2 2 Brandon Rufus Per physician Nasal l/min Radha Hutton RN cannula 9:58:23 Heparin Flush added 2 Brandon Rufus used for Bag to bags Radha Hutton RN procedure (1000units/500ml field NS) 9:58:31 0.9% NaCl I.V. 100 Brandon Worleyy Per physician ml/hr Radha Hutton RN 10:15:10 Fentanyl I.V. 50 Brandon Rufus for sedation mcg Radha Hutton RN 10:15:20 Versed I.V. 1 mg Brandon Rufus for sedation Radha Hutton RN 10:17:18 Fentanyl I.V. 50 Brandon Rufus for sedation mcg Radha Hutton RN 10:17:22 Versed I.V. 1 mg Brandon Rufus for sedation Radha Hutton RN 10:20:37 Fentanyl I.V. 50 Brandon Rufus for sedation mcg Radha Hutton RN 10:23:08 Versed I.V. 1 mg Brandon Rufus for sedation Radha Hutton RN 10:23:17 Heparin Bolus I.V. 4000 Brandon Rufus for units Radha Hutton RN anticoagulation 10:32:16 Fentanyl I.V. 50 Brandon Rufus for sedation mcg Radha Hutton RN 10:32:21 Versed I.V. 1 mg Brandon Hooper for sedation Radha Hutton automotive quality engineer Log Time Note 9:30:42 Ceasar Kenney RT(R) sent for patient. Start room use. 9:46:41 Signed procedure consent form obtained from patient. 9:46:44 Time tracking: Regular hours (M-F 7:00 - 5:00) 9:46:47 Plan of Care:Hemodynamics will remain stable., Cardiac rhythm will remain stable., Comfort level will be maintained., Respiratory function will remain adequate., Patient/ family verbilizes understanding of procedure., Procedure tolerated without complication., Recovers from procedure without complications.. 9:47:05 Patient received from Med II to CCL 2 Alert and oriented. Tansferred to table in Supine position. 9:47:07 Warm blankets applied, and abbey hugger turned on for patient comfort. 9:47:07 Correct patient and procedure confirmed by team. 9:47:08 ECG and BP/O2 sat monitors applied to patient. 9:47:32 H&P Date Dictated: 12/10/2017 Within 30 days and on chart., H&P Addendum completed by physician on day of procedure. (MUST COMPLETE FOR ALL OUTPATIENTS). 9:57:56 Vital chart was started 9:58:16 Oxygen 2 l/min etCO2 Nasal cannula was administered by Rufus Hutton RN; Per physician; 9:58:23 Heparin Flush Bag (1000units/500ml NS) 2 bags added to field was administered by Rufus Hutton RN; used for procedure; 9:58:31 0.9% NaCl 100 ml/hr I.V. was administered by Rufus Hutton RN; Per physician; 9:59:13 Baseline sample Acquired. 9:59:17 Rhythm: sinus rhythm 9:59:18 Full Disclosure recording started 9:59:19 Pre-procedure instructions explained to patient. 9:59:19 Pre-op teaching completed and patient verbalized understanding. 9:59:23 Family in patients room. 9:59:25 Patient NPO since Midnight. 9:59:41 Patient allergic to Other allergyROBAXIN, VALIUM 9:59:48 Is the patient allergic to Iodine/contrast media? No. 9:59:56 Is patient on blood thinner?Yes 9:59:59 ACC The patient was administered the following blood thiners within the last 24 hours: ACCPlavix 10:00:15 Patient diabetic? No. 10:00:21 Patient not . Patient is over age 55. 10:00:23 Previous problem with sedation/anesthesia? No ? 10:00:25 Snore? No 10:00:25 Sleep apnea? No 10:00:27 Deviated septum? No 10:00:28 Opens mouth fully? Yes 10:00:28 Sticks out tongue? Yes 10:00:31 Airway obstruction? Yes COPD 10:00:38 Dentures? Yes UPPER IN TIGHT 10:00:42 Pre procedure: left dorsailis pedis pulse 2+ Normal; easily identifiable; not easily obliterated 10:00:45 Patient pain scale 0/10 ?. 10:00:54 IV patent on arrival in left forearm with 0.9% NaCl at [facility]. 10:00:59 Lab results completed and on chart. 10:01:02 Left groin area was prepped with chlora-prep and draped in sterile fashion 10:01:04 Alarms reviewed by R. N. 10:01:04 Sharps counted by scrub and verified by R.N. 10:01:07 Use device set CATH PACK 10:01:08 ACIST Syringe (14309) opened to sterile field. 10:01:09 ACIST Hand Control (24851) opened to sterile field. 10:01:09 ACIST Manifold (75768) opened to sterile field. 10:01:09 Medline Cath Pack ([id number]) opened to sterile field. 10:01:10 Bag Decanter (2002S) opened to sterile field. 10:01:10 DIAGNOSTIC WIRE .035 260cm J wire (272001) opened to sterile field. 10:02:14 INFLATOR Merit BasixCompak (QR2167) opened to sterile field. 10:02:15 SHEATH 6FR [place] (TCF658) opened to sterile field. 10:02:16 CHOICE PT Extra Support 182cm wire ([id number]) opened to sterile field. 10:13:51 --------ALL STOP TIME OUT------ 10:13:51 Final Timeout: patient, procedure, and site verified with staff and physician. All members of the team are in agreement. 10:13:53 Left groin site verified by team. 10:13:57 Physical assessment completed. ASA score P 2 - A patient with mild systemic disease as per Brandon Garcia MD. 10:14:00 Sedation plan: IV Moderate Sedation Medication:Versed, Fentanyl 10:15:10 Fentanyl 50 mcg I.V. was administered by Rufus Hutton RN; for sedation; 10:15:20 Versed 1 mg I.V. was administered by Rufus Hutton RN; for sedation; 10:17:18 Fentanyl 50 mcg I.V. was administered by Rufus Hutton RN; for sedation; 10:17:22 Versed 1 mg I.V. was administered by Rufus Hutton RN; for sedation; 10:20:37 Fentanyl 50 mcg I.V. was administered by Rufus Hutton RN; for sedation; 10:20:45 Procedure started. 10:20:51 Local anesthetic to left femerol artery with Lidocaine 2% by Brandon Garcia MD.INITIAL ACCESS ONLY 10:21:06 GUIDE 6FR XBLAD 3.5 catheter ([id number]) opened to sterile field. 10:21:29 Zero performed for pressure channel P1 10:22:24 A 6 Fr Short sheath was inserted into the Left Femoral artery 10:23:08 Versed 1 mg I.V. was administered by Rufus Hutton RN; for sedation; 10:23:17 Heparin Bolus 4000 units I.V. was administered by Rufus Hutton RN; for anticoagulation; 10:24:16 SHEATH 6FR Destination (RSR01) opened to sterile field. 10:26:15 GLIDE WIRE Super Stiff Angled 260cm ([id number]) opened to sterile field. 10:26:22 Sheath upsized to a 6 Fr Long. 10:26:27 6 Fr XBLAD 3.5 guide catheter was inserted over the wire 10:28:38 GUIDE 6FR XBLAD 3.5 catheter ([id number]) opened to sterile field. 10:28:52 FIRST XBLAD TIP DAMAGED 10::57 6 Fr XBLAD 3.5 guide catheter was inserted over the wire 10:30:23 CHOICE ES 182 wire advanced. 10:31:27 Inflate balloon Inflation number: 1 A EUPHORA 2.5 x 20 Balloon ([id number]) was prepped and advanced across the 1st Diag, then inflated to 17 NOLAN for 0:10 (min:sec). 10:31:53 Balloon removed over the wire. 10:32:16 Fentanyl 50 mcg I.V. was administered by Rufus Hutton RN; for sedation; 10:32:21 Versed 1 mg I.V. was administered by Rufus Hutton RN; for sedation; 10:33:56 Place stent Inflation Number: 2 A STONEY RX 2.5 x 15 stent ([id number]) was prepped and advanced across the 1st Diag. The stent was deployed at 19 NOLAN for 0:10 (min:sec). 10:34:21 Inflation number: 3 The stent balloon was then re-inflated across the 1st Diag to 17 NOLAN for 0:10 (min:sec). 10:34:46 Stent catheter was removed intact over wire. 10:34:52 Wire removed. 10:34:52 Guide catheter removed. 10:35:17 LONG SHEATH CHANGED FOR SHORT SHEATH 10:35:41 EXOSEAL 6Fr (EX600) opened to sterile field. 10:36:48 Sheath removed intact; hemostasis achieved with Exoseal to the Left Femoral artery. 10:36:51 Procedure ended.(Physican Out) 10:38:54 Fluoroscopy time 06.30 minutes. 10:38:58 Flurop Dose total: 579 10:38:58 Fluoroscopy dose: 579 mGy 10:39:01 Contrast amount:Isovue 300 37ml. 10:39:03 Sharps counted by scrub and verified by R.N. 10:39:13 Post-op/insertion site Left Femoral artery dressed using a 4 x 4 and Tegaderm. 10:41:04 FEMSTOP Gold ([id number]) opened to sterile field. 10:41:19 Femstop placed over the left femerol artery at 160 mmHg. Hemostasis achieved. 10:41:24 Post-procedure physical assessment completed. ASA score P 2 - A patient with mild systemic disease as per Brandon Garcia MD. 10:41:28 Post procedure rhythm: unchanged. 10:41:31 Estimated blood loss: 10 ml 10:41:32 Post procedure instruction explained to patient.Patient verbalizes understanding. 10:41:32 Patient needs reinforcement of post procedure teaching. 10:41:50 Procedure type changed to Cath procedure, Diagnostic procedure, Sedation Charges, Moderate Sedation up to 15 minutes, PCI procedure, Coronary Stent, Coronary Stent Initial 10:42:32 Procedure and supply charges have been captured, reviewed, submitted and are correct. 10:42:35 Procedure Complication : No complications 10:42:42 Vital chart was stopped 10:42:42 See physician's report for complete and final results. 10:42:44 Report given to [facility]. 10:42:47 Patient transfered to [facility] with Bed. 10:42:50 Procedure ended. 10:42:50 Full Disclosure recording stopped 10:42:53 End room use (Document Last) Intervention Summary Intervention Notes Time ActionType Lesion and Equipment Used Action# Pressure Duration Attributes 10:31:27 Inflate 1st Diag EUPHORA 2.5 x 1 17 00:10 balloon 20 Balloon ([id number]) 10:33:56 Place stent 1st Diag STONEY RX 2.5 x 2 19 00:10 15 stent ([id number]) 10:34:21 Reinflate 1st Diag STONEY RX 2.5 x 3 17 00:10 stent 15 stent balloon ([id number]) Device Usage Item Name Manufacture Quantity Catalog Number Hospital Part Current M inimal Lot# / Charge Number Stock Stock Serial# Code ACIST Syringe Acist 1 81292 778958 393910 154741 2 0 (98321) Medical Systems Inc ACIST Hand Acist 1 82288 515097 544652 225899 5 Control Medical (37816) Systems Inc ACIST Manifold Acist 1 53450 483541 533583 234294 5 (29595) Medical Systems Inc Medline Cath Cardinal 1 [id number] 8264[address] [facility] ([id number]) Bag Decanter Microtek 1 2001S 887668 23186 021794 5 () Medical Inc. DIAGNOSTIC [facility] [place] 1 508623 780066 048847 757364 3 0 WIRE .035 260cm J wire (826312) INFLATOR Merit Merit 1 DW1604 094282 087372 004140 1 5 [employer] Medical (WP1107) SHEATH 6FR Terumo 1 MIT480 168789 207223 822828 4 0 [place] (AUG630) CHOICE PT Adair 1 [id number] 692870 055280 572860 5 Extra Support Scientific 182cm wire ([id number]) GUIDE 6FR Cardinal 2 [id number] 496747 326375 804446 1 0 XBLAD 3.5 Health catheter (31773105) SHEATH 6FR Terumo 1 RSR01 902534 55624 103743 5 Destination (RSR01) GLIDE WIRE Terumo 1 TY2423 879233 159278 678980 5 Super Stiff Angled 260cm (SF5098) EUPHORA 2.5 x Medtronic 1 [id number] 472681 246296 152576 5 [id number] 20 Balloon ([id number]) STONEY RX 2.5 x Medtronic 1 [id number] 031228 6055456 010949 5 [id number] 15 stent ([id number]) EXOSEAL 6Fr Cardinal 1 EX600 913732 905306 554476 1 0 (EX600) Health FEMSTOP Gold [facility] [place] 1 [id number] 979715 513291 651953 5 ([id number]) Signature Audit Breese Stage Time Signature Unsigned Intra-Procedure 12/13/2017 Imani Patel 10:43:26 AM RT(R) Signatures Monitor : Janey Lester Signature : RT Date : Time : [place] [id number] [place] [address]
--- NOTE | ~2017-12-10 | HEMODYNAMI ---
PATIENT:HOLLAND MCGOWAN MEDICAL RECORD: [id number] : 44 LOCATION[facility] [id number] ADMISSION DATE: 12/10/17 Generatedon:12/12/201712:14 Patient name: HOLLAND MCGOWAN Patient #: [id number] : 1940 Date of study: 12/12/2017 Page: Of Hemodynamic Procedure Report Patient Data Patient Demographics Procedure consent was obtained First Name: HOLLAND Gender: Female Last Name: ROSLYN : 1940 Middle Initial: S Age: 77 year(s) Patient #: [id number] Race: SSN: [id number] Additional ID: [id number] Contact details [address]: [address] [place] [address] State: [place] City: [place] Zip code: [address] Past Medical History History of disease Date Diagnosis Comments CAD PVD COPD Allergies Allergen Reaction Date Comments Reported Other allergy 12/14/2014 ROBAXIN, PHENERGAN, VALIUM Other allergy 03/01/2016 ROBAXIN, PHENERGAN, VALIUM Other allergy 09/27/2016 ROBAXIN, PROMETHAINE, VALIUM Other allergy 12/12/2017 diazepam, methocarbmol Other allergy 12/12/2017 valium, robaxin, Admission Admission Data Admission Date: 12/10/2017 Admission Time: 23:08 Admit Source: Emergency department Room #: D.2114 Lab Results Lab Result Date: 12/12/2017 Lab Result Time: 5:57 Biochemistry Name Units Result Min Max BUN mg/dl 15 --(--*-)-- 7 18 Creatinine mg/dl 0.8 --(-*--)-- 0.6 1.3 CBC Name Units Result Min Max Hematocrit % 35.9 *-(----)-- 42 54 Hemoglobin g/dl 12.4 *-(----)-- 13.5 17.5 Procedure Procedure Types Cath Procedure Diagnostic Procedure LHC LHC w/Coronaries Sedation Charges Moderate Sedation up to 15 minutes PCI Procedure Coronary Stent Coronary Stent Initial Peripheral Cath Diagnostic Procedure Control Systems Designer Peripheral Procedures Fmkts-Undidyt-Vux-Off Procedure Description Procedure Date Procedure Date: 12/12/2017 Procedure Start Time: 11:46 Procedure End Time: 12:10 Procedure Staff Name Function Brandon Garcia MD Performing Physician Valentino Sanchez RN Nurse Minor Castanon RT Hyperbaric Tech Ceasar Kenney RT Scrub Ross Lao RT Monitor Procedure Data Cath Procedure Fluoroscopy Diagnostic fluoroscopy Total fluoroscopy Time: 6.9 time: 6.9 min min Diagnostic fluoroscopy Total fluoroscopy dose: 841 dose: 841 mGy mGy Contrast Material Contrast Material Type Amount (ml) Isovue 300 192 Entry Location Entry Primary Successful Side Size Upsize Upsize Entry Closure Succes sful Closure Location (Fr) 1 (Fr) 2 (Fr) Remarks Device Remarks Femoral Right 6 Fr Exoseal artery Short Estimated blood loss: 10 ml Diagnostic catheters Device Type Used For End Catheter Placement MULTIPACK Pigtail 5 Fr Procedure catheter MULTIPACK JL 4.0 5Fr Procedure catheter MULTIPACK 3DRC 5Fr Procedure catheter Procedure Complications No complications Procedure Medications Medication Administration Route Dosage Oxygen etCO2 Nasal cannula 2 l/min Lidocaine 2% added to field 20 Heparin Flush Bag added to field 2 bags (1000units/500ml NS) 0.9% NaCl I.V. 100 ml/hr Versed I.V. 2 mg Fentanyl I.V. 100 mcg 0.9% NaCl I.V. bolus 250 ml Heparin Bolus I.V. 4000 units Versed I.V. 1 mg Fentanyl I.V. 50 mcg Hemodynamics Rest HGB: 12.4 (g/dl) Heart Rate: 68 (bpm) Pressure Samples Time Site Value (mmHg) Purpose Heart Use Rate(bpm) 11:49 LV 62/5,11 Snapshot 65 Snapshots Pre Cath Intra NCS Post Cath Vital Signs Time Heart Resp SPO2 etCO2 NIBP (mmHg) Rhythm Pain Sedation Rate (ipm) (%) (mmHg) Status Level (bpm) 11:37:54 68 15 94 0 127/61(103) NSR 0 (11) 10(A) , No pain 11:42:32 67 15 93 9.8 99/45(80) NSR 0 (11) 10(A) , No pain 11:47:09 65 12 96 11.3 81/38(60) NSR 0 (11) 10(A) , No pain 11:51:43 75 19 94 11.3 76/34(59) NSR 0 (11) 9(A) , No pain 11:56:48 69 14 99 27.9 97/44(75) NSR 0 (11) 9(A) , No pain 12:01:27 69 15 100 26.4 84/86(0) NSR 0 (11) 9(A) , No pain 12:05:59 71 14 100 30.9 90/35(66) NSR 0 (11) 10(A) , No pain Medications Time Medication Route Dose Verified Delivered Reason Notes Effectiveness by by 11:43:33 Oxygen etCO2 2 Brandon Buffie used for Nasal l/min Radha Sanchez RN procedure cannula 11:43:40 Lidocaine 2% added 20ml Brandon Brandon for local to vial Radha Garcia MD anesthetic field 11:43:47 Heparin Flush added 2 Brandon Brandon used for Bag to bags Radha Garcia MD procedure (1000units/500ml field NS) 11:43:56 0.9% NaCl I.V. 100 Brandon Buffie Per physician ml/hr Radha Sanchez RN 11:46:05 Versed I.V. 2 mg Brandon Buffie for sedation Radha Sanchez RN 11:46:11 Fentanyl I.V. 100 Brandon Buffie for sedation mcg Radha Sanchez RN 11:48:28 0.9% NaCl I.V. 250 Brandon Buffie Per physician bolus ml Radha Sanchez RN 11:55:59 Heparin Bolus I.V. 4000 Brandon Buffie for verif ied units Radha Sanchez RN anticoagulation with dr garcia 11:58:50 Versed I.V. 1 mg Brandon Buffie for sedation Radha Sanchez RN 11:58:55 Fentanyl I.V. 50 Brandon Buffie for sedation mcg Radha Sanchez RN Procedure Log Time Note 11:15:01 Minor MCNAMARA(R) sent for patient. Start room use. 11:24:31 Informed consent obtained and on chart 11:24:34 Admit Source: Emergency department 11:24:59 Diagnostic Cath status Elective 11:25:06 Time tracking: Regular hours (M-F 7:00 - 5:00) 11:25:11 Plan of Care:Hemodynamics will remain stable., Cardiac rhythm will remain stable., Comfort level will be maintained., Respiratory function will remain adequate., Patient/ family verbilizes understanding of procedure., Procedure tolerated without complication., Recovers from procedure without complications.. 11:25:28 H&P Date Dictated: 12/10/2017 Within 30 days and on chart.. 11:25:37 Lab results completed and on chart. 11:31:38 Patient received from Med II to CCL 1 Alert and oriented. Tansferred to table in Supine position. 11:31:43 Warm blankets applied, and abbey hugger turned on for patient comfort. 11:31:46 Correct patient and procedure confirmed by team. 11:32:36 ECG and BP/O2 sat monitors applied to patient. 11:36:59 Vital chart was started 11:37:49 Baseline sample Acquired. 11:37:54 Rhythm: sinus rhythm 11:37:57 Full Disclosure recording started 11:38:07 Pre-procedure instructions explained to patient. 11:38:08 Pre-op teaching completed and patient verbalized understanding. 11:38:14 Family in patients room. 11:38:15 Patient NPO since Midnight. 11:38:45 Patient allergic to Other allergyvalium, robaxin, 11:38:48 Is the patient allergic to Iodine/contrast media? No. 11:38:49 Is patient on blood thinner?Yes 11:38:54 ACC The patient was administered the following blood thiners within the last 24 hours: ACCPlavix 11:38:56 Patient diabetic? No. 11:38:58 Previous problem with sedation/anesthesia? No ? 11:39:03 Snore? No 11:39:04 Sleep apnea? No 11:39:05 Deviated septum? No 11:39:06 Opens mouth fully? Yes 11:39:07 Sticks out tongue? Yes 11:39:10 Airway obstruction? Yes COPD 11:39:17 Dentures? Yes out 11:39:26 Pre procedure: right dorsailis pedis pulse Doppler 11:39:33 Patient pain scale 0/10 ?. 11:39:50 IV patent on arrival in left forearm with 0.9% NaCl at [facility]. 11:39:56 Right groin area was prepped with chlora-prep and draped in sterile fashion 11:40:04 Alarms reviewed by R. N. 11:40:05 Sharps counted by scrub and verified by R.N. 11:40:07 Use device set Femoral Dx 11:40:08 ACIST Syringe (42085) opened to sterile field. 11:40:08 Bag Decanter (2002S) opened to sterile field. 11:40:10 DIAGNOSTIC WIRE .035 260cm J wire ([id number]) opened to sterile field. 11:40:11 ACIST Hand Control (41485) opened to sterile field. 11:40:12 ACIST Manifold (04911) opened to sterile field. 11:40:13 Tegaderm 4 x 4 (1626W) opened to sterile field. 11:40:16 DIAGNOSTIC Multipack 5Fr catheter set ([id number]) opened to sterile field. 11:40:17 Medline Cath Pack ([id number]) opened to sterile field. 11:43:13 IV Extension Set opened to sterile field. 11:43:33 Oxygen 2 l/min etCO2 Nasal cannula was administered by Valentino Sanchez RN; used for procedure; 11:43:40 Lidocaine 2% 20ml vial added to field was administered by Brandon Garcia MD; for local anesthetic; 11:43:47 Heparin Flush Bag (1000units/500ml NS) 2 bags added to field was administered by Brandon Garcia MD; used for procedure; 11:43:56 0.9% NaCl 100 ml/hr I.V. was administered by Valentino Sanchez RN; Per physician; 11:44:35 --------ALL STOP TIME OUT------ 11:44:35 Final Timeout: patient, procedure, and site verified with staff and physician. All members of the team are in agreement. 11:44:38 Right groin site verified by team. 11:44:42 Physical assessment completed. ASA score P 3 - A patient with severe systemic disease as per Brandon Garcia MD. 11:44:46 Sedation plan: IV Moderate Sedation Medication:Versed, Fentanyl 11:46:05 Versed 2 mg I.V. was administered by Valentino Sanchez RN; for sedation; 11:46:11 Fentanyl 100 mcg I.V. was administered by Valentino Sanchez RN; for sedation; 11:46:27 Procedure type changed to Cath procedure, Diagnostic procedure, LHC, LHC w/Coronaries, Sedation Charges, Moderate Sedation up to 15 minutes, PCI procedure, Coronary Stent, Coronary Stent Initial, Peripheral Cath Diagnostic Procedure, Control Systems Designer Peripheral Procedures, Cynsc-Roppuwg-Lzz-Off 11:46:33 Procedure started. 11:46:36 Local anesthetic to right femoral artery with Lidocaine 2% by Brandon Garcia MD.INITIAL ACCESS ONLY 11:46:56 A 6 Fr Short sheath was inserted into the Right Femoral artery 11:47:06 SHEATH Prelude 6Fr 0.035 (TAZ-6J-84-035) opened to sterile field. 11:47:16 Zero performed for pressure channel P1 11:47:37 A MULTIPACK Pigtail 5 Fr catheter was advanced over the wire and used for Procedure. 11:48:28 0.9% NaCl 250 ml I.V. bolus was administered by Valentino Sanchez RN; Per physician; 11:49:02 LV gram done using JUÁREZ 11:49:05 Injector settings: Ml/sec: 10, Volume: 20, 11:49:26 EF : 60 % 11:49:35 Abdominal angiogram w/ runoff was performed. 11:49:41 Left leg runoff performed. 11:51:19 Right leg runoff performed. 11:51:24 Catheter exchanged over wire. 11:51:59 A MULTIPACK JL 4.0 5Fr catheter was advanced over the wire and used for Procedure. 11:52:21 LCA angiography performed. 11:52:57 Catheter exchanged over wire. 11:53:07 A MULTIPACK 3DRC 5Fr catheter was advanced over the wire and used for Procedure. 11:54:04 CHOICE PT Extra Support 182cm wire ([id number]) opened to sterile field. 11:54:05 INFLATOR Merit BasixCompak (BD0877) opened to sterile field. 11:55:56 Catheter exchanged over wire. 11:55:59 Heparin Bolus 4000 units I.V. was administered by Valentino Sanchez RN; for anticoagulation; verified with dr garcia 11:56:02 GUIDE 6FR AR 2.0 catheter ([id number]) opened to sterile field. 11:56:11 6 Fr AR 2 guide catheter was inserted over the wire 11:57:49 CHOICE PT ES wire advanced. 11:58:15 Wire advanced across lesion. 11:58:50 Versed 1 mg I.V. was administered by Buffie Sanchez RN; for sedation; 11:58:55 Fentanyl 50 mcg I.V. was administered by Valentino Sanchez RN; for sedation; 11:59:51 Inflate balloon Inflation number: 1 A EUPHORA 3.0 x 15 Balloon ([id number]) was prepped and advanced across the Mid RCA, then inflated to 17 NOLAN for 0:10 (min:sec). 12:00:41 Inflation number: 2 The EUPHORA 3.0 x 15 Balloon ([id number]) was reinflated across the Mid RCA, to 21 NOLAN for 0:10 (min:sec). 12:01:06 Balloon removed over the wire. 12:01:59 Place stent Inflation Number: 3 A STONEY RX 3.5 x 18 stent ([id number]) was prepped and advanced across the Mid RCA. The stent was deployed at 21 NOLAN for 0:10 (min:sec). 12:02:11 Inflation number: 4 The stent balloon was then re-inflated across the Mid RCA to 21 NOLAN for 0:10 (min:sec). 12:02:37 Inflation number: 5 The stent balloon was then re-inflated across the Mid RCA to 23 NOLAN for 0:10 (min:sec). 12:03:16 Stent catheter was removed intact over wire. 12:04:38 Place stent Inflation Number: 6 A STONEY RX 3.0 x 15 stent ([id number]) was prepped and advanced across the Mid RCA. The stent was deployed at 11 NOLNA for 0:10 (min:sec). 12:05:02 Stent catheter was removed intact over wire. 12:05:02 Wire removed. 12:05:04 Guide catheter removed. 12:05:09 EXOSEAL 6Fr (EX600) opened to sterile field. 12:05:20 Sheath removed intact; hemostasis achieved with Exoseal to the Right Femoral artery. 12:05:21 Procedure ended.(Physican Out) 12:07:30 Fluoroscopy time 06.90 minutes. 12:07:36 Fluoroscopy dose: 841 mGy 12:07:36 Flurop Dose total: 841 12:07:42 Contrast amount:Isovue 300 192ml. 12:07:45 Sharps counted by scrub and verified by R.N. 12:07:49 Insertion/operative site no bleeding no hematoma. 12:07:51 Post-op/insertion site Right Femoral artery dressed using a 4 x 4 and Tegaderm. 12:07:55 Post right femoral artery:stable, soft, clean and dry 12:07:57 Post Procedure Pulses reassessed and unchanged 12:08:00 Post-procedure physical assessment completed. ASA score P 3 - A patient with severe systemic disease as per Brandon Garcia MD. 12:08:52 Post procedure rhythm: sinus rhythm 12:08:56 Estimated blood loss: 10 ml 12:08:58 Post procedure instruction explained to patient.Patient verbalizes understanding. 12:08:58 Patient needs reinforcement of post procedure teaching. 12:09:51 Procedure and supply charges have been captured, reviewed, submitted and are correct. 12:09:53 Procedure Complication : No complications 12::55 Vital chart was stopped 12::55 See physician's report for complete and final results. 12:09:56 Report given to PCU. 12:10:03 Patient transfered to PCU with Stretcher. 12:10:05 Procedure ended. 12:10:05 Full Disclosure recording stopped 12:10:08 End room use (Document Last) Intervention Summary Intervention Notes Time ActionType Lesion and Equipment Used Action# Pressure Duration Attributes 11:59:51 Inflate Mid RCA EUPHORA 3.0 x 1 17 00:10 balloon 15 Balloon ([id number]) 12:00:41 Reinflate Mid RCA EUPHORA 3.0 x 2 21 00:10 balloon 15 Balloon ([id number]) 12:01:59 Place stent Mid RCA STONEY RX 3.5 x 3 21 00:10 18 stent ([id number]) 12:02:11 Reinflate Mid RCA STONEY RX 3.5 x 4 21 00:10 stent 18 stent balloon ([id number]) 12:02:37 Reinflate Mid RCA STONEY RX 3.5 x 5 23 00:10 stent 18 stent balloon ([id number]) 12:04:38 Place stent Mid RCA STONEY RX 3.0 x 6 11 00:10 15 stent ([id number]) Device Usage Item Name Manufacture Quantity Catalog Number Hospital Part Current Minimal Lot# / Charge Number Stock Stock Serial# Code ACIST Syringe Acist 1 25403 214256 442244 837704 20 (59718) Medical Systems Inc Bag Decanter Microtek 1 2001S 699325 12239 862123 5 (2001S) Medical Inc. DIAGNOSTIC WIRE [facility] [place] 1 134537 880890 994136 749062 30 .035 260cm J wire (191074) ACIST Hand Acist 1 74116 437882 644446 497786 5 Control (02272) Medical Systems Inc ACIST Manifold Acist 1 42740 782929 197232 934560 5 (92937) Medical Systems Inc Tegaderm 4 x 4 3M 1 1626W 264290 539542 360056 5 (1626W) DIAGNOSTIC Cardinal 1 AX3438 214853 89356 104536 30 Multipack 5Fr Health catheter set (CU4283) Medline Cath Cardinal 1 [id number] 286395 84153 261054 5 Pack Health ([id number]) IV Extension Hospira 1 92954-87 733362 49790 017065 5 Set SHEATH Prelude Merit 1 XZL-7H-07-35 946136 4442086 935034 5 6Fr 0.035 Medical (JWE-6Q-10-035) MULTIPACK Cardinal 1 [id number] 5 Pigtail 5 Fr Health catheter MULTIPACK JL Cardinal 1 834315 5 4.0 5Fr Health catheter MULTIPACK 3DRC Cardinal 1 743728 5 5Fr catheter Health CHOICE PT Extra [place] 1 [id number] 886261 333593 395040 5 Support 182cm Scientific wire ([id number]) INFLATOR Merit Merit 1 PI6570 024058 012288 124524 15 [facility]uristem [facility] Medical (YL2264) GUIDE 6FR AR Medtronic 1 [id number] 388812 55524 173145 1 2.0 catheter (WX1RY45) EUPHORA 3.0 x Medtronic 1 [id number] 533742 092688 562122 5 [id number] 15 Balloon ([id number]) STONEY RX 3.5 x Medtronic 1 [id number] 216435 9283981 651125 5 [id number] 18 stent ([id number]) STONEY RX 3.0 x Medtronic 1 [id number] 736779 0402952 959132 5 [id number] 15 stent ([id number]) EXOSEAL 6Fr Cardinal 1 EX600 905308 362778 885947 10 (EX600) Health Signature Audit [place] Stage Time Signature Unsigned Intra-Procedure 12/12/2017 Ross Lao 12:14:30 PM RT(R) Signatures Monitor : Ross Lao RT Signature : Date : Time : [address] [place] [address]
--- NOTE | ~2017-12-10 | OP ---
PATIENT NAME: HOLLAND MCGOWAN MEDICAL RECORD: [id number] :44 LOCATION:D.M2 D.2114 ADMISSION DATE:12/12/17 SURGEON: BEE VALENCIA MD DATE OF OPERATION: 12/12/2017 PROCEDURES: 1. PTCA stent RCA. 2. Left heart catheterization. 3. Selective coronary angiography. 4. Left ventriculogram. INDICATION: Unstable angina. PROCEDURE IN DETAIL: After informed consent was obtained and after a detailed explanation of risks, benefits as well as alternative therapies, the patient elected to proceed with angiogram and angioplasty. The right femoral area was prepped and draped in normal sterile fashion. Right femoral artery was cannulated via modified Seldinger technique with placement of 6-Colombian sheath. All catheters exchanged through this sheath. FINDINGS: Left ventriculogram was performed in a standard 30-degree JUÁREZ view, reveals good cardiac wall motion throughout all segments. Overall ejection fraction estimated 60%. SELECTIVE CORONARY ANGIOGRAPHY: 1. Left main is with no significant angiographic disease. 2. Left anterior descending has previously placed stents. These are widely patent; however, the stents in the diagonal showed 90% in-stent restenosis. This is a relatively large diagonal system. 3. Left circumflex has moderate irregularities, but no flow-limiting stenosis. Previously placed stents are widely patent with no significant restenosis. No disease elsewise throughout the circumflex or its branches. 4. The right coronary has previously placed stents. There is 99% in-stent restenosis in the mid vessel. PTCA STENT OF THE RIGHT CORONARY ARTERY: Stents used were 3.5 x 18 and 3.0 x 15 both Elizabeth stents. Result was 0% residual stenosis. OVERALL IMPRESSION: Successful PTCA stent of the RCA going from 99% initial stenosis to 0% residual. PLAN: PTCA stent of the LAD diagonal in the near future. TRANSINT:[id number] Voice Confirmation ID: [id number] DOCUMENT ID: [id number] BEE VALENCIA MD at 0923 CC: [id number] DICTATION DATE: 12/12/17 1215 MANNEQUIN DECORATOR: 12/12/17 1542 DIS IN 12/13/17 [address] [place] [address]
--- NOTE | ~2017-12-10 | OP ---
PATIENT NAME: HOLLAND MCGOWAN MEDICAL RECORD: [id number] :44 LOCATION:D.M2 D.2114 ADMISSION DATE:12/12/17 SURGEON: BEE VALENCIA MD DATE OF OPERATION: 12/12/2017 PROCEDURES: 1. Aortofemoral runoff. 2. Abdominal aortography. INDICATION: Claudication and peripheral vascular disease. PROCEDURE IN DETAIL: After informed consent was obtained and after a detailed description of risks, benefits as well as alternative therapies, the patient elected to proceed with angiogram. The right femoral area had a preexisting sheath from coronary intervention. FINDINGS: The abdominal aortography was performed. The catheter was pulled down for aortofemoral runoff. Abdominal angiography reveals moderate diffuse disease of the abdominal aorta, no flow-limiting stenosis. Both renal arteries are 90% stenosed. RIGHT LEG: A. Iliac: The common internal and external iliacs have previously placed stents. These are widely patent with no significant restenosis. No disease elsewise throughout the iliacs. B. Femoral system: The common and deep femoral are widely patent. Superficial femoral does have multiple areas of greater than 70% stenosis, one area of 90% stenosis in the mid vessel. C. Popliteal and infrapopliteal vessels are patent with good 3-vessel runoff to the foot. LEFT LEG: A. Iliac: The common internal and external iliacs have mild irregularities, but no flow-limiting stenosis. B. Femoral system: The common and deep femoral are widely patent. Superficial femoral has a long area of total occlusion throughout the mid vessel. This reconstitutes distally via collaterals off the deep femoral system. The distal superficial femoral is widely patent. C. Popliteal and infrapopliteal vessels as well are patent, although diffusely diseased, but preserved runoff to the foot. OVERALL IMPRESSION: 1. Wide patency of the previously placed stents in the right iliac; however, disease of the right SFA that is amenable to transcatheter revascularization in the future. 2. 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 This is not ideal for transcatheter revascularization. TRANSINT:[id number] Voice Confirmation ID: [id number] DOCUMENT ID: [id number] OPERATIVE REPORT [id number] HOLLAND MCGOWAN BEE VALENCIA MD at 0923 CC: [id number] DICTATION DATE: 12/12/17 1215 STOCK PARTS INSPECTOR: 12/12/17 1544 DIS IN 12/13/17 [facility] [address] [facility] SH[facility]IF [place], [facility]901
--- NOTE | ~2017-12-10 | EC ---
PATIENT:HOLLAND MCGOWAN DATE OF SERVICE: 12/10/17 SEX: F MEDICAL RECORD: [id number] DATE OF : 44 LOCATION:D.M2 D.211 AGE OF PATIENT: 77 ADMISSION DATE: 12/12/17 REFERRING PHYSICIAN: INTERPRETING PHYSICIAN: VIRAL HIGGINS MD ECHOCARDIOGRAM REPORT ECHO CHARGES 4 ECHO COMPLETE Date: 12/11/17 CLINICAL DIAGNOSIS: CP ECHOCARDIOGRAPHIC MEASUREMENTS (adult normal given) AC root (d.<3.7cm) 2.7 cm LV Septum d (<1.2 cm> 1.0 cm Valve Excursion 1.6 cm LV Septum (systole) 1.6 cm Left Atria (s.<4.0cm> 4.2 cm LVPW d(<1.2cm) 1.0 cm RV (d.<2.3cm) 2.4 cm LVPW (sytole) 1.0 cm LV diastole(<5.6CM) 5.5 cm MV E-F(>70mm/sec) cm LV systole 4.7 cm LVOT Diameter 1.9 cm MV exc.(>10mm) cm Est.ejection fraction (50-75%) % DOPPLER: LVIT cm/sec A 80 cm/sec E 57 cm/sec LA cm/sec RVSP 14.5 mmHg LVOT 89 cm/sec AOP1/2T m/s Asc. Ao 126 cm/sec RVOT 54 cm/sec RA cm/sec PA 87 cm/sec AV Gradient Peak 6.3 mmHg AV Mean 4.4 mmHg AV Area 2.6 cm MV Gradient Peak 2.8 mmHg MV Mean 1.2 mmHg MV Area cm COMMENTS: Tectonophysicist: Eulogio [facility] Linting Machine Operator: Muriel Higgins TAPE# PACS Pericardial Effusion N DATE OF SERVICE: PROCEDURE: Transthoracic echocardiogram. FINDINGS: 1. This was a difficult echocardiogram. The patient has difficult scanning anatomy. 2. The overall ejection fraction appears to be preserved at 55%. There does appear to be left ventricular hypertrophy and evidence of diastolic dysfunction. 3. The left atrium appears to be mildly dilated. ECHOCARDIOGRAM REPORT [id number] HOLLAND MCGOWAN 4. The aortic valve is grossly normal. 5. The mitral valve is grossly normal and the tricuspid valve is grossly normal. The RVSP appears to be normal. Right ventricle and right atrium are upper limits of normal with normal function. 6. Pulmonic valve is normal. CONCLUSIONS: The patient has evidence of hypertensive heart disease with preserved left ventricular function, ejection fraction 55% to 60%. TRANSINT:[id number] Voice Confirmation ID: [id number] DOCUMENT ID: [id number] VIRAL HIGGINS MD at 0744 CC: [id number] DICTATION DATE: 12/12/17 0800 GENERAL FORECASTER: 12/12/17 1140 DIS IN 12/13/17 [id number] [place] [id number]
--- NOTE | ~2017-12-10 | OP ---
PATIENT NAME: HOLLAND MCGOWAN MEDICAL RECORD: [id number] :44 LOCATION:D.M2 D.2114 ADMISSION DATE:12/12/17 SURGEON: BEE VALENCIA MD DATE OF OPERATION: 12/13/2017 PROCEDURES: 1. PTCA stent LAD diagonal. 2. Selective coronary angiography. INDICATION: Angina and coronary artery disease. PROCEDURE IN DETAIL: After informed consent was obtained and after detailed explanation of risks, benefits as well as alternative therapies, the patient elected to proceed with angiogram and angioplasty. The left femoral area was prepped and draped in normal sterile fashion. Left femoral artery was cannulated via modified Seldinger technique with placement of 6-Tajik sheath. All catheters exchanged through this sheath. FINDINGS: The left anterior descending diagonal has previously placed stent. There is 90% in-stent restenosis, was addressed with a 2.5 x 15 mm Wyatt stent. Result was 0% residual stenosis. OVERALL IMPRESSION: Successful percutaneous transluminal coronary angioplasty stent of the left anterior descending diagonal going from 90% initial stenosis to 0% residual. TRANSINT:[id number] Voice Confirmation ID: [id number] DOCUMENT ID: [id number] BEE VALENCIA MD at 0923 CC: [id number] DICTATION DATE: 12/13/17 1042 CLOCK AND WATCH HANDS PAINTER: 12/13/17 1241 DIS IN 12/13/17 [facility] [address] [place] [address]
--- NOTE | ~2017-12-10 | DS ---
PATIENT:HOLLAND MCGOWAN :44 MEDICAL RECORD: [id number] DISCHARGE SUMMARY ADMISSION DATE: 12/12/17 DISCHARGE DATE: 12/13/17 DATE OF DISCHARGE: 12/13/2017 DIAGNOSES: 1. Unstable angina. 2. Coronary artery disease. 3. Percutaneous transluminal coronary angioplasty and stent to the right coronary artery and left anterior descending this admission. 4. Chronic obstructive pulmonary disease. 5. Smoking history. 6. Peripheral vascular disease. 7. Claudication. HOSPITAL COURSE: Ms. Mcgowan presents with unstable anginal symptomatology, found to have significant disease to the RCA and LAD, underwent successful PTCA and stent of both territories, was discharged home with the addition of aspirin and Plavix to her medical regimen. Follow up with [facility] in 1 month. TRANSINT:[id number] Voice Confirmation ID: [id number] DOCUMENT ID: [id number] BEE VALENCIA MD at 0923 CC: [id number] DICTATION DATE: 12/13/17 1041 MARKETING TEAM LEAD: 12/13/17 2244 DIS IN 12/13/[address] [facility] [address] [place] [address]
[2017-12-10 18:37] VITALS: BP 124/61
[2017-12-10 19:04] LABS: BASOPHILS 0.4 % (0-2); EOSINOPHILS 1.5 % (0-7); HEMATOCRIT 36.6 % (36.0-48.0); HEMOGLOBIN 12.7 g/dL (12-16); IMMATURE GRANULOCYTES 0.4 % (0-5); MCH 34.5 pg (26.0-34.0); MCHC 34.7 g/dL (31.0-37.0); MCV 99.5 fL (80.0-100.0); MEAN PLATELET VOLUME 10.3 fL (7.4-10.4); MONOCYTES 11.1 % (2-11); NEUTROPHILS 53.6 % (40-80); PLATELET COUNT 200 10x3/uL (130-400); RBC 3.68 10x6/uL (4.00-5.40); RDW 12.5 % (11.5-14.5); WBC 5.2 10x3/uL (4.8-10.8)
[2017-12-10 19:41] LABS: ALBUMIN 3.2 g/dL (3.4-5.0); ALKALINE PHOSPHATASE 65 U/L (46-116); ALT (SGPT) 16 U/L (10-68); BILIRUBIN - TOTAL 0.17 mg/dL (0.2-1.3); CALC OSMOLALITY 268 mosm/kg (275-300); CALCIUM 8.7 mg/dL (8.5-10.1); CARBON DIOXIDE 25.8 mmol/L (21.0-32.0); CHLORIDE - SERUM 101 mmol/L (98-107); CREATININE - SERUM 0.8 mg/dL (0.6-1.3); PROTEIN - SERUM 6.6 g/dL (6.4-8.2); SODIUM 134 mmol/L (136-145); UREA NITROGEN 13 mg/dL (7-18); eGFR NON AFRICAN AMERICAN 74 mL/min (90-120)
[2017-12-10 19:42] LABS: GLUCOSE 114 mg/dL (74-106)
[2017-12-10 19:57] LABS: CKMB 0.9 U/L (0.0-3.6); CREATINE KINASE 30 UL (21-215); TROPONIN-I < 0.017 ng/mL (0.000-0.060)
[2017-12-10 20:45] VITALS: BP 135/58
[2017-12-10 21:30] VITALS: BP 125/50
[2017-12-10 22:56] VITALS: BP 116/70
[2017-12-11 01:51] LABS: CKMB 0.7 U/L (0.0-3.6); CREATINE KINASE 37 UL (21-215); TROPONIN-I < 0.017 ng/mL (0.000-0.060)
[2017-12-11 02:17] VITALS: BMI 20.6
[2017-12-11 04:30] VITALS: BP 111/52
[2017-12-11 05:34] LABS: BASOPHILS 0.5 % (0-2); EOSINOPHILS 2.4 % (0-7); HEMATOCRIT 38.3 % (36.0-48.0); HEMOGLOBIN 13.1 g/dL (12-16); MCH 34.4 pg (26.0-34.0); MCHC 34.2 g/dL (31.0-37.0); MCV 100.5 fL (80.0-100.0); MEAN PLATELET VOLUME 10.1 fL (7.4-10.4); MONOCYTES 13.1 % (2-11); PLATELET COUNT 183 10x3/uL (130-400); RBC 3.81 10x6/uL (4.00-5.40); RDW 12.6 % (11.5-14.5); WBC 4.1 10x3/uL (4.8-10.8)
[2017-12-11 06:04] LABS: ALKALINE PHOSPHATASE 64 U/L (46-116); CALC OSMOLALITY 269 mosm/kg (275-300); CALCIUM 8.7 mg/dL (8.5-10.1); CARBON DIOXIDE 27.6 mmol/L (21.0-32.0); CHLORIDE - SERUM 102 mmol/L (98-107); CKMB 0.6 U/L (0.0-3.6); CREATINE KINASE 31 UL (21-215); CREATININE - SERUM 0.8 mg/dL (0.6-1.3); GLUCOSE 82 mg/dL (74-106); POTASSIUM - SERUM 4.1 mmol/L (3.5-5.1); PROTEIN - SERUM 6.5 g/dL (6.4-8.2); SODIUM 136 mmol/L (136-145); UREA NITROGEN 10 mg/dL (7-18); eGFR NON AFRICAN AMERICAN 74 mL/min (90-120)
[2017-12-11 06:15] LABS: ALT (SGPT) 10 U/L (10-68); TROPONIN-I < 0.017 ng/mL (0.000-0.060)
[2017-12-11 08:23] VITALS: BP 109/50
[2017-12-11 11:43] VITALS: BP 101/48
[2017-12-11 12:14] LABS: CKMB 0.8 U/L (0.0-3.6); CREATINE KINASE 35 UL (21-215); TROPONIN-I < 0.017 ng/mL (0.000-0.060)
[2017-12-11 15:35] VITALS: BP 114/54
[2017-12-11 20:00] VITALS: BP 106/51
[2017-12-11 23:54] VITALS: BP 96/49
[2017-12-12 04:00] VITALS: BP 101/44
[2017-12-12 06:20] LABS: BASOPHILS 0.4 % (0-2); EOSINOPHILS 1.3 % (0-7); HEMATOCRIT 35.9 % (36.0-48.0); HEMOGLOBIN 12.4 g/dL (12-16); LYMPHOCYTES 34.1 % (15-50); MCH 34.5 pg (26.0-34.0); MCHC 34.5 g/dL (31.0-37.0); MEAN PLATELET VOLUME 10.2 fL (7.4-10.4); MONOCYTES 14.7 % (2-11); NEUTROPHILS 49.5 % (40-80); PLATELET COUNT 188 10x3/uL (130-400); RBC 3.59 10x6/uL (4.00-5.40); RDW 12.5 % (11.5-14.5); WBC 4.6 10x3/uL (4.8-10.8)
[2017-12-12 06:40] LABS: ANION GAP 9.8 mmol/L (8-16); CALCIUM 8.3 mg/dL (8.5-10.1); CARBON DIOXIDE 29.5 mmol/L (21.0-32.0); CHOL - HDL RATIO 4.4 ratio (2.3-4.1); CREATININE - SERUM 0.8 mg/dL (0.6-1.3); POTASSIUM - SERUM 4.3 mmol/L (3.5-5.1)
[2017-12-12 08:32] VITALS: BP 105/51
[2017-12-12 10:55] VITALS: BP 113/49
[2017-12-12 12:52] VITALS: Ht 162.6 cm; Wt 54.4 kg
[2017-12-12 15:20] VITALS: BP 103/50
[2017-12-12 22:06] VITALS: BP 96/42
[2017-12-13 00:47] VITALS: BP 124/59
[2017-12-13 05:23] VITALS: BP 141/63
[2017-12-13 06:06] LABS: BASOPHILS 0.2 % (0-2); EOSINOPHILS 0.4 % (0-7); HEMATOCRIT 37.7 % (36.0-48.0); IMMATURE GRANULOCYTES 0.1 % (0-5); LYMPHOCYTES 10.9 % (15-50); MCH 34.8 pg (26.0-34.0); MCHC 34.5 g/dL (31.0-37.0); MCV 100.8 fL (80.0-100.0); MEAN PLATELET VOLUME 10.5 fL (7.4-10.4); MONOCYTES 15.4 % (2-11); PLATELET COUNT 181 10x3/uL (130-400); RBC 3.74 10x6/uL (4.00-5.40); RDW 12.4 % (11.5-14.5)
[2017-12-13 06:16] LABS: WBC 8.6 10x3/uL (4.8-10.8)
[2017-12-13 06:20] LABS: ANION GAP 11.5 mmol/L (8-16); CALCIUM 8.3 mg/dL (8.5-10.1); CARBON DIOXIDE 29.7 mmol/L (21.0-32.0); CREATININE - SERUM 0.9 mg/dL (0.6-1.3); POTASSIUM - SERUM 4.2 mmol/L (3.5-5.1)
[2017-12-13 08:23] VITALS: BP 120/53
[2017-12-13 15:54] VITALS: BP 168/76
== END 2017-12-13 17:58 | disposition home or self-care (01) | DRG 247 ==
LOC: D.ER 18:00 → D.M2 23:08 → OBSVTIME 23:55 → D.M2 12-12 16:52
PROVIDERS: Emergency Medicine; Family Medicine; Internal Medicine Interventional Cardiology; Internal Medicine Nephrology
PROC: B2111ZZ Fluoroscopy of Multiple Coronary Arteries using Low Osmolar Contrast (ICD-10-PCS; 2017-12-12)
PROC: B2151ZZ Fluoroscopy of Left Heart using Low Osmolar Contrast (ICD-10-PCS; 2017-12-12)
PROC: B4101ZZ Fluoroscopy of Abdominal Aorta using Low Osmolar Contrast (ICD-10-PCS; 2017-12-12)
PROC: 027035Z Dilation of Coronary Artery, One Artery with Two Drug-eluting Intraluminal Devices, Percutaneous Approach (ICD-10-PCS; principal; 2017-12-12 13:00)
PROC: 4A023N7 Measurement of Cardiac Sampling and Pressure, Left Heart, Percutaneous Approach (ICD-10-PCS; 2017-12-12 13:00)
PROC: 027034Z Dilation of Coronary Artery, One Artery with Drug-eluting Intraluminal Device, Percutaneous Approach (ICD-10-PCS; 2017-12-13)
DX: I25.110 Atherosclerotic heart disease of native coronary artery with unstable angina pectoris (principal); T82.855A Stenosis of coronary artery stent, initial encounter; F17.213 Nicotine dependence, cigarettes, with withdrawal; J44.1 Chronic obstructive pulmonary disease with (acute) exacerbation; Y83.8 Other surgical procedures as the cause of abnormal reaction of the patient, or of later complication, without mention of misadventure at the time of the procedure; K22.70 Barrett's esophagus without dysplasia; I70.213 Atherosclerosis of native arteries of extremities with intermittent claudication, bilateral legs; I11.0 Hypertensive heart disease with heart failure; I50.9 Heart failure, unspecified; Z85.3 Personal history of malignant neoplasm of breast; Z86.73 Personal history of transient ischemic attack (TIA), and cerebral infarction without residual deficits; K22.2 Esophageal obstruction; F41.9 Anxiety disorder, unspecified; M81.0 Age-related osteoporosis without current pathological fracture

== ENCOUNTER → 2018-03-03 | Emergency (ER) | payer MEDICARE, OTHER ==
[~2018-03-03] VITALS: Ht 162.6 cm; Wt 51.8 kg
[~2018-03-03] MED LIST changes: +CYCLOBENZAPRINE10 MG PO
[2018-03-03 22:00] VITALS: Ht 162.6 cm; Wt 51.8 kg
[2018-03-03 23:30] LABS: BASOPHILS 0.2 % (0-2); EOSINOPHILS 0.2 % (0-7); HEMATOCRIT 40.3 % (36.0-48.0); HEMOGLOBIN 14.2 g/dL (12-16); IMMATURE GRANULOCYTES 0.2 % (0-5); LYMPHOCYTES 15.4 % (15-50); MCH 34.9 pg (26.0-34.0); MCHC 35.2 g/dL (31.0-37.0); MEAN PLATELET VOLUME 10.1 fL (7.4-10.4); MONOCYTES 16.4 % (2-11); NEUTROPHILS 67.6 % (40-80); PLATELET COUNT 195 10x3/uL (130-400); RBC 4.07 10x6/uL (4.00-5.40); RDW 13.5 % (11.5-14.5)
[2018-03-03 23:57] LABS: ALBUMIN 3.4 g/dL (3.4-5.0); ANION GAP 13.5 mmol/L (8-16); BILIRUBIN - TOTAL 0.41 mg/dL (0.2-1.3); CALCIUM 8.7 mg/dL (8.5-10.1); CARBON DIOXIDE 27.6 mmol/L (21.0-32.0); CREATININE - SERUM 1.1 mg/dL (0.6-1.3); POTASSIUM - SERUM 4.1 mmol/L (3.5-5.1); PROTEIN - SERUM 7.5 g/dL (6.4-8.2)
[2018-03-04 01:22] VITALS: BP 122/49
== END ==
LOC: D.ER 21:56
PROVIDERS: Emergency Medicine
DX: R07.81 Pleurodynia (principal); S29.011A Strain of muscle and tendon of front wall of thorax, initial encounter; X50.0XXA Overexertion from strenuous movement or load, initial encounter; Y93.89 Activity, other specified; Y92.019 Unspecified place in single-family (private) house as the place of occurrence of the external cause; Z86.73 Personal history of transient ischemic attack (TIA), and cerebral infarction without residual deficits; I11.0 Hypertensive heart disease with heart failure; I50.9 Heart failure, unspecified; J44.9 Chronic obstructive pulmonary disease, unspecified; F17.200 Nicotine dependence, unspecified, uncomplicated

== ENCOUNTER → 2018-03-23 17:06 | Outpatient (CLI) | payer MEDICARE, OTHER ==
[2018-03-03 22:00] VITALS: BMI 19.6
== END | disposition home or self-care (01) ==
LOC: D.MAMMO 14:30
DX: C50.411 Malignant neoplasm of upper-outer quadrant of right female breast (principal)

== ENCOUNTER 2018-04-10 08:27 | Inpatient (IN) | payer MEDICARE, OTHER ==
[~2018-04-10] VITALS: Ht 162.6 cm; Wt 49.0 kg
[2018-04-10 11:50] LABS: ALBUMIN 3.1 g/dL (3.4-5.0); ALKALINE PHOSPHATASE 72 U/L (46-116); ALT (SGPT) 13 U/L (10-68); BILIRUBIN - TOTAL 0.38 mg/dL (0.2-1.3); CALC OSMOLALITY 266 mosm/kg (275-300); CALCIUM 8.4 mg/dL (8.5-10.1); CARBON DIOXIDE 27.8 mmol/L (21.0-32.0); CHLORIDE - SERUM 98 mmol/L (98-107); CREATININE - SERUM 0.7 mg/dL (0.6-1.3); GLUCOSE 104 mg/dL (74-106); POTASSIUM - SERUM 4.2 mmol/L (3.5-5.1); PROTEIN - SERUM 6.7 g/dL (6.4-8.2); SODIUM 134 mmol/L (136-145); UREA NITROGEN 11 mg/dL (7-18); eGFR NON AFRICAN AMERICAN 86 mL/min (90-120)
[2018-04-10 11:51] LABS: CREATINE KINASE 42 UL (21-215)
[2018-04-10 12:09] LABS: HEMATOCRIT 36.1 % (36.0-48.0); HEMOGLOBIN 12.8 g/dL (12-16); MCH 34.8 pg (26.0-34.0); MCHC 35.5 g/dL (31.0-37.0); MCV 98.1 fL (80.0-100.0); MEAN PLATELET VOLUME 9.9 fL (7.4-10.4); PLATELET COUNT 187 10x3/uL (130-400); RBC 3.68 10x6/uL (4.00-5.40); RDW 13.2 % (11.5-14.5); WBC 5.5 10x3/uL (4.8-10.8)
[2018-04-10 12:37] LABS: EOSINOPHILS 1 % (0-7); LYMPHOCYTES 26 % (15-50); MONOCYTES 7 % (2-11); NEUTROPHILS 66 % (40-80); PLATELET ESTIMATE NORMAL
[2018-04-10 16:00] VITALS: BP 116/44
[2018-04-10 16:40] VITALS: BP 116/44; BMI 18.5
--- NOTE | 2018-04-10 20:00 | NUR ---
PT LYING IN BED, NO SIGNS OF DISTRESS. ALERT AND ORIENTED. PT STATES PAIN 10/10. GAVE NORCO ORDERED. O2 2L/NC. IV LEFT AC SL. NO REDNESS AT INSERTION SITE, DRESSING CDI. GAVE XANAX AT BEDTIME TO HELP PT SLEEP. NO OTHER NEEDS OR COMPLAINTS AT THIS TIME. SCDS IN PLACE, CL IN REACH. WILL CONTINUE TO MONITOR
[2018-04-10 21:13] VITALS: BP 110/57
[2018-04-11 01:32] VITALS: BP 124/54
[2018-04-11 05:23] VITALS: BP 119/55
--- NOTE | 2018-04-11 06:09 | NUR ---
PT REFUSES TO KEEP SCDS ON STATING THEY "MAKE MY HEART HURT"
[2018-04-11 08:07] VITALS: BP 98/45
[2018-04-11 08:32] LABS: ANION GAP 11.5 mmol/L (8-16); CALCIUM 8.6 mg/dL (8.5-10.1); CARBON DIOXIDE 29.5 mmol/L (21.0-32.0)
[2018-04-11 08:51] LABS: BASOPHILS 1.1 % (0-2); EOSINOPHILS 0.7 % (0-7); HEMATOCRIT 37.8 % (36.0-48.0); HEMOGLOBIN 12.8 g/dL (12-16); MCH 34.1 pg (26.0-34.0); MCHC 33.9 g/dL (31.0-37.0); MEAN PLATELET VOLUME 10.1 fL (7.4-10.4); MONOCYTES 13.4 % (2-11); NEUTROPHILS 60.8 % (40-80); PLATELET COUNT 220 10x3/uL (130-400); RBC 3.75 10x6/uL (4.00-5.40); RDW 13.4 % (11.5-14.5); WBC 4.5 10x3/uL (4.8-10.8)
[2018-04-11 09:04] LABS: MCV 100.8 fL (80.0-100.0)
[2018-04-11 14:40] VITALS: BMI 18.5
[2018-04-11 16:06] VITALS: BP 118/48
--- NOTE | 2018-04-11 16:08 | NUR ---
OUTSIDE MAINTENANCE WORKER NOTES - PT IN CONSTANT PAIN TODAY. BEING GIVEN MEDICATIONS AVAILABLE. CONTINUE WITH OUTSIDE MAINTENANCE WORKER PLAN OF CARE
[2018-04-11 21:23] VITALS: BP 109/52
--- NOTE | 2018-04-11 21:30 | NUR ---
AROUSED FROM SLEEP IMEDIATELY REQUESTING PAIN MEDICATION AND BED GUAMAN, ASSISTED WITH BED GUAMAN AND REMINDED THAT HAD DURAGESIC PATCH ON AND WAS ASLEEP WHEN NURSE CAME IN STATES I KNOW BUT I JUST WANT TO BE KNOCKED OUT. WILL MONITOR FOR PAIN CALL LIGHT IN REACH
--- NOTE | 2018-04-11 22:00 | NUR ---
EYES CLOSED RESP UNLABORED NO APPARENT DISTRESS
[2018-04-12 04:34] VITALS: BP 131/59
[2018-04-12 07:21] LABS: BASOPHILS 0.1 % (0-2); EOSINOPHILS 0.4 % (0-7); HEMATOCRIT 41.1 % (36.0-48.0); HEMOGLOBIN 13.8 g/dL (12-16); IMMATURE GRANULOCYTES 0.1 % (0-5); LYMPHOCYTES 12.7 % (15-50); MCH 34.3 pg (26.0-34.0); MCHC 33.6 g/dL (31.0-37.0); MCV 102.2 fL (80.0-100.0); MEAN PLATELET VOLUME 10.4 fL (7.4-10.4); MONOCYTES 12.4 % (2-11); NEUTROPHILS 74.3 % (40-80); PLATELET COUNT 232 10x3/uL (130-400); RBC 4.02 10x6/uL (4.00-5.40); RDW 13.8 % (11.5-14.5)
[2018-04-12 07:23] LABS: WBC 7.8 10x3/uL (4.8-10.8)
[2018-04-12 07:35] LABS: CALCIUM 8.8 mg/dL (8.5-10.1); CARBON DIOXIDE 29.2 mmol/L (21.0-32.0); CREATININE - SERUM 0.8 mg/dL (0.6-1.3); POTASSIUM - SERUM 4.2 mmol/L (3.5-5.1)
--- NOTE | 2018-04-12 08:00 | NUR ---
PT IS RESTING IN BED WITH EYES OPEN. RESPIRATIONS ARE EVEN AND UNLABORED. PT REPORTS SLIGHT NAUSEA BUT DENIES RECENT EMESIS AT THIS TIME. PT REPORTS PAIN IN BACK, BUT HAS PERIODS OF DROWSINESS DURING THIS ASSESSMENT. BED IS IN THE LOWEST POSITION. CALL LIGHT AND BEDSIDE TABLE ARE WITHIN REACH. WILL CONT TO MONITOR.
[2018-04-12 08:39] VITALS: BP 105/60
--- NOTE | 2018-04-12 11:46 | NUR ---
PT WITH CONTINUED EMESIS. PHENERGAN TAB GIVEN PER ORDER. BED IS IN THE LOWEST POSITION. CALL LIGHT AND BEDSIDE TABLE ARE WITHIN REACH. WILL CONT TO MONITOR.
--- NOTE | 2018-04-12 12:06 | NUR ---
PT IS REFUSING BEDPAN FOR DEFACTION REPORTING "I CANNOT GO IN THAT BEDPAN. I HAVE TO GET UP AND SIT ON A TOILET." WILL ATTEMPT TO GET BEDSIDE TOILET.
--- NOTE | 2018-04-12 13:06 | NUR ---
FENTANYL PATCH REMOVED PER ALEJANDRA. PT WITH ELEVATED TEMPERATURE AND CONTINUED EMESIS. PT IS AAO. RESPIRATIONS ARE EVEN AND UNLABORED. BED IS IN THE LOWEST POSITION. CALL LIGHT AND BEDSIDE TABLE ARE WITHIN REACH. WILL CONT TO MONITOR.
[2018-04-12 13:17] VITALS: BP 154/73
--- NOTE | 2018-04-12 13:34 | NUR ---
PT IS RESTING IN BED WITH EYES CLOSED. RESPIRATIONS ARE EVEN AND UNLABORED. PT IS AROUSABLE WITH VERBAL STIMULATION. PT DENIES FURTHER NEEDS AT THIS TIME. CALL LIGHT AND BEDSIDE TABLE ARE WITHIN REACH. WILL CONT TO MONITOR.
[2018-04-12 14:34] LABS: APPEARANCE CLEAR (CLEAR); COLOR YELLOW (YELLOW)
[2018-04-12 14:35] LABS: BILIRUBIN NEGATIVE (NEGATIVE); GLUCOSE NEGATIVE (NEGATIVE); KETONE NEGATIVE (NEGATIVE); NITRITE NEGATIVE (NEGATIVE); PROTEIN NEGATIVE (NEGATIVE); SPECIFIC GRAVITY 1.015 (1.005-1.020); UROBILINOGEN NORMAL (NORMAL)
[2018-04-12 16:49] VITALS: BP 101/52; BP 115/57
[2018-04-12 21:34] VITALS: BP 103/49
[2018-04-13 04:58] VITALS: BP 124/60
[2018-04-13 06:22] LABS: BASOPHILS 0.1 % (0-2); EOSINOPHILS 0.4 % (0-7); HEMATOCRIT 36.4 % (36.0-48.0); HEMOGLOBIN 12.5 g/dL (12-16); IMMATURE GRANULOCYTES 0.3 % (0-5); LYMPHOCYTES 10.6 % (15-50); MCH 34.5 pg (26.0-34.0); MCHC 34.3 g/dL (31.0-37.0); MCV 100.6 fL (80.0-100.0); MEAN PLATELET VOLUME 10.3 fL (7.4-10.4); MONOCYTES 10.6 % (2-11); RBC 3.62 10x6/uL (4.00-5.40); RDW 13.7 % (11.5-14.5)
[2018-04-13 06:24] LABS: PLATELET COUNT 184 10x3/uL (130-400); WBC 10.4 10x3/uL (4.8-10.8)
[2018-04-13 06:25] LABS: ANION GAP 11.1 mmol/L (8-16); CALCIUM 8.7 mg/dL (8.5-10.1); CARBON DIOXIDE 28.9 mmol/L (21.0-32.0); CREATININE - SERUM 0.8 mg/dL (0.6-1.3)
[2018-04-13 08:45] VITALS: BP 121/53
--- NOTE | 2018-04-13 11:20 | NUR ---
THON[place]NI[place]el REFUSES TO WEAR TLSO BRACE. PATIENT STATED, "I HAVE A BRAND NEW ONE AT HOME AND I CAN'T WEAR IT. IT IS TOO HEAVY AND PULLS DOWN ON MY WHOLE RIB CAGE."
[2018-04-13 12:47] VITALS: BP 99/50
--- NOTE | 2018-04-13 14:36 | NUR ---
NUTRITION F/U REG DIET, POOR PO INTAKE RECENT MEALS. ~25%. WILL CONTINUE TO PROVIDE DIET, MONITOR INTAKE. RD FOLLOWING
[2018-04-13 16:53] VITALS: BP 92/48
--- NOTE | 2018-04-13 19:49 | NUR ---
patient up to bsc alert and awaree able to voice needs and wants to staff. call light in reach.
[2018-04-13 20:00] VITALS: BP 102/51
[2018-04-14] VITALS: BP 108/50
[2018-04-14 04:00] VITALS: BP 120/54
[2018-04-14 06:07] LABS: BASOPHILS 0.1 % (0-2); EOSINOPHILS 0.4 % (0-7); HEMOGLOBIN 12.1 g/dL (12-16); IMMATURE GRANULOCYTES 0.3 % (0-5); LYMPHOCYTES 15.9 % (15-50); MCH 33.8 pg (26.0-34.0); MCHC 33.6 g/dL (31.0-37.0); MCV 100.6 fL (80.0-100.0); MEAN PLATELET VOLUME 10.6 fL (7.4-10.4); NEUTROPHILS 69.3 % (40-80); PLATELET COUNT 169 10x3/uL (130-400); RBC 3.58 10x6/uL (4.00-5.40); RDW 13.5 % (11.5-14.5)
[2018-04-14 06:19] LABS: CALC OSMOLALITY 273 mosm/kg (275-300); CALCIUM 8.6 mg/dL (8.5-10.1); CARBON DIOXIDE 29.8 mmol/L (21.0-32.0); CHLORIDE - SERUM 97 mmol/L (98-107); CREATININE - SERUM 0.7 mg/dL (0.6-1.3); GLUCOSE 98 mg/dL (74-106); SODIUM 136 mmol/L (136-145); UREA NITROGEN 17 mg/dL (7-18); eGFR NON AFRICAN AMERICAN 86 mL/min (90-120)
[2018-04-14 06:38] LABS: WBC 6.8 10x3/uL (4.8-10.8)
[2018-04-14 09:33] VITALS: BP 108/48
--- NOTE | 2018-04-14 10:33 | NUR ---
Rehab Note- Acute Inpatient Rehab prescreen order received. The patient has a pending PT Eval at this time. Will await to see the patient's functional mobility. Thank you for this referral! Chiquita Nails RN CLinical Liaison, [facility] Rehab
--- NOTE | 2018-04-14 11:46 | MORECARE ---
CASE MANAGEMENT DISCHARGE SUMMARY PATIENT: HOLLAND MCGOWAN UNIT: [id number] ADM DATE: 04/11/18 AGE: 77 : 42 SEX: F ROOM/BED: D.2240 AUTHOR: ROBERTO CARLOS JENSEN PHYSICIAN: REFERRING PHYSICIAN: MALKA MCCURDY MD DATE OF SERVICE: 04/14/18 Discharge Plan Patient Name: HOLLAND MCGOWAN [facility] [facility] 1940 Planned Disposition: Home Anticipated Discharge Date: Discharge Date: Expected LOS: Initial Reviewer: [email or web address] Initial Review Date: 04/10/2018 Generated: 04/14/18 12:46 pm DCPIA - Discharge Planning Initial Assessment Updated by [email or web address]: Sara Arana on 04/14/18 11:44 am * Is the patient Alert and Oriented? Yes * How many steps to enter\exit or inside your home? 4w/rails/0 * PCP Dr. Alonso * Pharmacy [facility] * Preadmission Environment Home with Family * ADLs Partial Dependent * Partial ADLs (Assistance needed) Ambulation * Equipment Cane Elevated Toliet Seat Nebulizer Other Oxygen * Other Equipment Portable oxygen Quad Cane * List name and contact numbers for known caregivers / representatives who currently or will assist patient after discharge: Lázaro Mcgowan - [facility] - [phone] * Verbal permission to speak to the caregivers and representatives has been obtained from the patient. Yes * Community resources currently utilized None * Please name any agencies selected above. [facility] for DME * Additional services required to return to the preadmission environment? Yes * Can the patient safely return to the preadmission environment? Yes * Has this patient been hospitalized within the prior 30 days at any hospital? No Patient Name: HOLLAND MCGOWAN Page [phone] at 1146 All edits/amendments must be made on the electronic document DICTATION DATE: 04/14/18 1146 FARM EQUIPMENT MECHANIC: JUVENCIO 04/14/18 1146 RPT#: [id number] DC DATE: STATUS: ADM IN [place] [address] [place] [address] END OF REPORT
--- NOTE | 2018-04-14 11:54 | MORECARE ---
CASE MANAGEMENT DISCHARGE SUMMARY PATIENT: HOLLAND MCGOWAN UNIT: [id number] ADM DATE: 04/11/18 AGE: 77 : 42 SEX: F ROOM/BED: D.2240 AUTHOR: ROBERTO CARLOS JENSEN PHYSICIAN: REFERRING PHYSICIAN: MALKA COREAS MD DATE OF SERVICE: 04/14/18 Discharge Plan Patient Name: HOLLAND MCGOWAN Facility: [facility]:[place] : 1940 Planned Disposition: Home Anticipated Discharge Date: Discharge Date: Expected LOS: Initial Reviewer: [email or web address] Initial Review Date: 04/10/2018 Generated: 04/14/18 12:53 pm Comments DCP- Discharge Planning Updated by [email or web address]: Sara Arana on 04/14/18 10:[address] Patient Name: HOLLAND MCGOWAN Admission Status: ER Accout number: [id number] Admission Date: 04-11-2018 : 1940 Admission Diagnosis: Attending: MALKA COREAS Current LOS: 3 Anticipated DC Date: Planned Disposition: Home Primary Insurance: MEDICARE A & B Discharge Planning Comments: CM met with patient to discuss discharge plan, she is alone in the room. States she lives with her . States she uses a quad cane for ambulation, otherwise is independent with all ADL's and IADL's. States she is not allowed to drive for 4 weeks, her son will drive her where she needs to go and take her home on discharge. I discussed the availability of inpatient rehab, SNF, home health and additional DME. She states she does not need any DME. I informed her that [facility] with Dr. Coreas has ordered an inpatient rehab screen and she agrees with inpatient rehab for short stay, but would like to speak to her first. She does not want to choose a home health agency at this time. CM will continue to follow and assist with discharge planningneeds. Hollow Tile Partition Erector: Sara Arana DCPIA - Discharge Planning Initial Assessment Updated by [email or web address]: Sara Arana on 04/14/18 11:44 am * Is the patient Alert and Oriented? Yes * How many steps to enter\exit or inside your home? 4w/rails/0 * PCP Dr. Alonso * Pharmacy [facility] on [address] * Preadmission Environment Home with Family * ADLs Partial Dependent * Partial ADLs (Assistance needed) Ambulation * Equipment Cane Elevated Toliet Seat Nebulizer Other Oxygen * Other Equipment Portable oxygen Quad Cane * List name and contact numbers for known caregivers / representatives who currently or will assist patient after discharge: Lázaro Mcgowan - [facility] - [phone] * Verbal permission to speak to the caregivers and representatives has been obtained from the patient. Yes * Community resources currently utilized None * Please name any agencies selected above. [facility] for [facility] * Additional services required to return to the preadmission environment? Yes * Can the patient safely return to the preadmission environment? Yes * Has this patient been hospitalized within the prior 30 days at any hospital? No Last DP export: 04/14/18 10:46 am Patient Name: HOLLAND MCGOWAN Page [phone] at 1154 All edits/amendments must be made on the electronic document DICTATION DATE: 04/14/18 1153 MUSCULOSKELETAL PHYSIOTHERAPIST: JUVENCIO 04/14/18 1153 RPT#: [id number] DC DATE: STATUS: ADM IN [facility] [address] [place] [address] END OF REPORT
[2018-04-14 14:06] VITALS: BP 106/49
[2018-04-14 18:33] VITALS: BP 117/52
--- NOTE | 2018-04-14 19:00 | NUR ---
PT WITH EYES CLOSED WHEN ENTERING THE ROOM. AROUSES TO VERBAL STIMULI. DENIES PAIN AT THIS TIME. CURRENTLY WEARING 3 L NASAL CANNULA. LEFT AC THAT IS SL. NO OTHER ISSUES AT THIS TIME. CALL LIGHT WITH IN REACH.
[2018-04-14 20:00] VITALS: BP 118/53
[2018-04-15] VITALS: BP 114/45
--- NOTE | 2018-04-15 00:41 | NUR ---
PT VOMITTING WHEN ENTERING ROOM. ASSISTED PT IN CLEANING UP. ADMINISTERED ZOFRAN. CALL LIGHT IN REACH.
--- NOTE | 2018-04-15 02:40 | NUR ---
ASSESSED, PT IS ASLEEP WITH EASY RESPIRATIONS AND NO DISTRESS NOTED. TV REMAINS ON.
[2018-04-15 04:00] VITALS: BP 142/55
--- NOTE | 2018-04-15 05:56 | NUR ---
PT REPORTED NAUSEA AND REQUESTED ANTIEMETIC. ADMINISTERED ZOFRAN PER ORDER. PT COMPLAINS THAT SHE HAS COMPLETELY LOST APPETITE. CALL LIGHT WITHIN REACH. DENIES FURTHER NEEDS AT THIS TIME.
[2018-04-15 06:00] LABS: BASOPHILS 0.1 % (0-2); EOSINOPHILS 0.5 % (0-7); HEMATOCRIT 35.5 % (36.0-48.0); HEMOGLOBIN 12.4 g/dL (12-16); IMMATURE GRANULOCYTES 0.1 % (0-5); LYMPHOCYTES 12.5 % (15-50); MCH 34.8 pg (26.0-34.0); MCHC 34.9 g/dL (31.0-37.0); MCV 99.7 fL (80.0-100.0); MEAN PLATELET VOLUME 10.9 fL (7.4-10.4); MONOCYTES 15.3 % (2-11); NEUTROPHILS 71.5 % (40-80); PLATELET COUNT 166 10x3/uL (130-400); RBC 3.56 10x6/uL (4.00-5.40); RDW 13.1 % (11.5-14.5); WBC 7.9 10x3/uL (4.8-10.8)
[2018-04-15 06:26] LABS: CALC OSMOLALITY 270 mosm/kg (275-300); CALCIUM 8.6 mg/dL (8.5-10.1); CARBON DIOXIDE 29.8 mmol/L (21.0-32.0); CHLORIDE - SERUM 96 mmol/L (98-107); CREATININE - SERUM 0.7 mg/dL (0.6-1.3); GLUCOSE 129 mg/dL (74-106); SODIUM 134 mmol/L (136-145); UREA NITROGEN 14 mg/dL (7-18); eGFR NON AFRICAN AMERICAN 86 mL/min (90-120)
--- NOTE | 2018-04-15 07:30 | NUR ---
PT IS RESTING IN BED WITH EYES CLOSED. RESPIRATIONS ARE EVEN AND UNLABORED. PT IS EASILY AROUSED WITH VERBAL STIMULATION. PT REPORTS RECENT EMESIS "ABOUT AN HOUR AGO". PT DESCRIBES RECENT EMESIS BROWN IN COLOR. PT REPORTS SLIGHT NAUSEA AT THIS TIME. PT REPORTS PAIN IN THE BACK, BUT DENIES NEEDS FOR PAIN CONTROL AT THIS TIME. BED IS IN THE LOWEST POSITION. CALL LIGHT AND BEDSIDE TABLE ARE WITHIN REACH. WILL CONT TO MONITOR.
[2018-04-15 08:59] VITALS: BP 101/62
--- NOTE | 2018-04-15 09:15 | NUR ---
NICOTINE PATCH AND NITROGLYCERIN PATCH REMOVED FROM PT BILATERAL UPPER EXTREMITIES PRIOR TO ADMINISTRATION OF NEW PATCHES.
[2018-04-15 13:20] VITALS: BP 151/56
[2018-04-15 17:21] VITALS: BP 155/61
--- NOTE | 2018-04-15 19:45 | NUR ---
PT LYING IN BED, NO SIGNS OF DISTRESS. ALERT AND ORIENTED. IV LEFT AC SL. NO REDNESS AT INSERTION SITE, DRESSING CDI. REFUSES SCDS. REFUSES BRACE. PT STATES NO PAIN AT THIS TIME. NO NEEDS OR COMPLAINTS. CL IN REACH, WILL CONTINUE TO MONITOR
[2018-04-15 19:56] VITALS: BP 116/61
[2018-04-16] VITALS: BP 114/53
[2018-04-16 04:00] VITALS: BP 133/71
[2018-04-16 08:32] VITALS: BP 135/69
--- NOTE | 2018-04-16 09:54 | NUR ---
NITROGLYCERINE PATCH CUBE WILL NOT OPEN IN [facility]. PHARMACY NOTIFIED. WILL WAIT TO ADMINISTER MED UNTIL MED IS AVAILABLE.
--- NOTE | 2018-04-16 10:56 | NUR ---
UNABLE TO OBTAIN NITRO PTACH MEDICATION (SEE EMAR) FROM [facility]. PHARMACY NOTIFIED.
--- NOTE | 2018-04-16 11:26 | NUR ---
PT WITH EPISODE OF EMESIS. WILL ADDRESS. SEE EMAR.
--- NOTE | 2018-04-16 15:42 | NUR ---
OT NOTE: PERFORMED BED MOB WITH VERY MINIMAL ASSIST; AMB TO TOILET WITH MIN ASSIST AND USE OF RW; PERFORMED TOILET TRANSFERS WITH MIN ASSIST; HYGIENE WITH SET UP; LE DRESSING WITH SET UP. AMB BACK TO BED. PT STATED THAT SHE FELT WEAK BUT DID NOT REPORT PAIN. GERMAINE VELAZQUEZ,OTR/L
--- NOTE | 2018-04-16 16:00 | NUR ---
PT IS RESTING IN BED WITH EYES CLOSED, RESPIRATIONS ARE EVEN AND UNLABORED. PT IS AROUSABLE WITH VERBAL STIMULATION. PT DENIES NEEDS AT THIS TIME. BED IS IN THE LOWEST POSITION. CALL LIGHT AND BEDSIDE TABLE ARE WITHIN REACH. WILL CONT TO MONITOR.
[2018-04-16 16:58] VITALS: BP 179/20
[2018-04-16 20:00] VITALS: BP 157/74
--- NOTE | 2018-04-16 20:00 | NUR ---
PT LYING IN BED, NO SIGNS OF DISTRESS. ALERT AND ORIENTED. IV LEFT AC SL. NO REDNESS AT INSERTION SITE, DRESSING CDI. REFUSES SCDS. REFUSES BRACE. PT NOT EATING, ONLY DRINKING SODA. STATES SHE CANNOT EAT BECAUSE IT MAKES HER NAUSEAS. PT STATES PAIN 10/21. GAVE NORCO ORDERED. NO OTHER COMPLAINTS OR NEEDS AT THIS TIME. CL IN REACH, WILL CONTINUE TO MONITOR
--- NOTE | 2018-04-16 21:00 | NUR ---
PT STATES SHE IS FEELING NAUSEAS. GAVE ZOFRAN ORDERED. NO OTHER NEEDS OR COMPLAINTS AT THIS TIME. CL IN REACH, WILL CONTINUE TO MONITOR
--- NOTE | 2018-04-17 00:30 | NUR ---
UPON ENTERING PT ROOM TO CHECK IN, PT WAS ON PHONE W/ SPOUSE. PT WAS TELLING SPOUSE IT FELT IF SHE WAS "GOING TO TONIGHT." AFTER PT FINISHED CONVERSATION I ASKED HER WHAT SHE MEANS BY FEELING IF SHE WILL . PT STATES SHE DOES NOT THINK SHE WILL MAKE IT BACK OUT OF THE HOSITAL. STATES SHE IS "LAYING IN BED AND WASTING AWAY" BECAUSE SHE COULD NOT EAT AND WAS NOT GETTING UP. PT STATES SHE HAS NOT ATE IN DAYS AND HAS NO ENERGY. PT VSS. WAS ABLE TO CALM PT DOWN. OFFERED ZOFRAN, PT STATED SHE DID NOT NEED IT RIGHT NOW. TRIED TO GIVE PT HER XANAX FOR ANXIETY, PT STATED SHE DID NOT NEED THAT EITHER THAT SHE IS JUST SURE SHE IS GOING TO AND WANTED TO TELL HER SPOUSE BECAUSE SHE "FELT MORE AND MORE ENERGY LEAVING HER BODY." WILL CONTINUE TO MONITOR
--- NOTE | 2018-04-17 02:45 | NUR ---
PT GIVEN XANAX FOR ANXIETY. PT STILL STATING HER ENERGY IS LEAVING HER BODY. VSS. CL IN REACH, WILL CONTINUE TO MONITOR
[2018-04-17 04:00] VITALS: BP 137/75
--- NOTE | 2018-04-17 04:45 | NUR ---
PT STATES PAIN 10/21. GAVE NORCO ORDERED. WILL CONTINUE TO MONITOR
[2018-04-17 06:25] LABS: HEMATOCRIT 39.4 % (36.0-48.0); HEMOGLOBIN 13.8 g/dL (12-16); MCH 34.2 pg (26.0-34.0); MCV 97.8 fL (80.0-100.0); MEAN PLATELET VOLUME 11.3 fL (7.4-10.4); PLATELET COUNT 169 10x3/uL (130-400); RBC 4.03 10x6/uL (4.00-5.40); RDW 13.1 % (11.5-14.5); WBC 6.3 10x3/uL (4.8-10.8)
[2018-04-17 06:44] LABS: CALC OSMOLALITY 273 mosm/kg (275-300); CALCIUM 9.2 mg/dL (8.5-10.1); CHLORIDE - SERUM 95 mmol/L (98-107); CREATININE - SERUM 0.7 mg/dL (0.6-1.3); GLUCOSE 129 mg/dL (74-106); SODIUM 135 mmol/L (136-145); eGFR NON AFRICAN AMERICAN 86 mL/min (90-120)
[2018-04-17 06:45] LABS: UREA NITROGEN 18 mg/dL (7-18)
--- NOTE | 2018-04-17 07:40 | NUR ---
PT RESTING IN BED EYES CLOSED, RESPIRATIONS EVEN AND UNLABORED. AROUSES TO VOICE. NO C/O PAIN. NO S/S OF ACUTE DISTRESS NOTED. PT ON 2L O2, NC. PT HAS L1 FX TO SPINE. OLD FX TO T11, L2-L4 ALSO. IV TO LEFT AC, SL, SITE PATENT WITHOUT REDNESS OR SWELLING. PT REFUSED SCDS. PT DENIES ANYTHING FURTHER AT THIS TIME. CALL LIGHT IN REACH. WILL CONTINUE TO MONITOR.
[2018-04-17 08:12] LABS: EOSINOPHILS 1 % (0-7); LYMPHOCYTES 12 % (15-50); MONOCYTES 26 % (2-11); NEUTROPHILS 58 % (40-80); PLATELET ESTIMATE NORMAL
[2018-04-17 08:13] LABS: ROULEAUX OCC
[2018-04-17 08:25] VITALS: BP 141/69
[2018-04-17 13:31] VITALS: BP 156/75
--- NOTE | 2018-04-17 14:23 | NUR ---
This patient is a good rehab candidate, but is reluctant to come because she is nauseated and has a sick spouse at home. She will be accepted if she is agreeable and wants to participate in the required therapy. Discussed with the CM Sara Arana who will follow up with the patient and the physician. Laureen Garcia RN Clinical Liaison, Rehab
--- NOTE | 2018-04-17 15:10 | NUR ---
OT NOTE: PT REPORTING THAT SHE FELT VERY BAD TODAY. ABLE TO PERFORM BED MOB WITH MIN ASSIST; AMB TO BATHROOM WITH MIN ASSIST AND USE OF RW; ABLE TO DOFF AND JOY PULL UPS WITH SET UP; AMB BACK TO BED. PT REQUESTING EMESIS BAG. PT VOMITED SEVERAL TIMES. CONCERNED TO WHY IT IS GREEN IN COLOR. LARGE AMOUNT OF LIQUID WAS VOMITTED UP. ASSISTED BACK TO BED. GERMAINE VELAZQUEZ, OTR/L
[2018-04-17 16:07] VITALS: Ht 162.6 cm; Wt 49.0 kg
[2018-04-17 17:05] VITALS: BP 152/91
--- NOTE | 2018-04-17 17:40 | NUR ---
16 FR NG TUBE PLACED IN PTS RIGHT NARE. PT TOLERATED WELL. PLACEMENT CONFIRMED BY ACTIVE BOWEL SOUNDS AUSCULTATED IN LUQ. NG TUBE CONNECTED TO LIS PER MD ORDER. SUPERVISED BY RN INSTRUCTOR [email or web address]. ICE CHIPS PROVIDED TO PT. CALL LIGHT IN REACH.
--- NOTE | 2018-04-17 19:10 | NUR ---
PT RESTING IN BED, EYES CLOSED. RESPIRATIONS EVEN AND UNLABORED. NO C/O PAIN. NO S/S OF ACUTE DISTRESS NOTED. SON AT BEDSIDE. NG TUBE TO RIGHT NARE, 16 FR ON LIS. PT C/O NAUSEA, GAVE ZOFRAN FOR THE NAUSEA. PT DENIES ANYTHING FURTHER AT THIS TIME. CALL LIGHT IN REACH. WILL CONTINUE TO MONITOR.
[2018-04-17 20:00] VITALS: BP 130/68
[2018-04-18 04:00] VITALS: BP 150/65
--- NOTE | 2018-04-18 05:18 | NUR ---
2000) REC'D.AT [facility] OF SHIFT ASSISTED UP TO BSC HAS LARGE LIQUID STOOL GROSSLY FOUL SMELLING.. REFUSED SCD'S.NG TUBE TO RIGHT NARE CONNECTED TO LOW INTERMITT.SUCTION. DENIES ANY OTHER COMPLAINTS AT PRESENT TIME
[2018-04-18 06:31] LABS: BASOPHILS 0.3 % (0-2); EOSINOPHILS 0.1 % (0-7); HEMATOCRIT 39.7 % (36.0-48.0); IMMATURE GRANULOCYTES 0.1 % (0-5); LYMPHOCYTES 17.4 % (15-50); MCH 34.1 pg (26.0-34.0); MCHC 35.3 g/dL (31.0-37.0); MCV 96.6 fL (80.0-100.0); MONOCYTES 23.4 % (2-11); NEUTROPHILS 58.7 % (40-80); PLATELET COUNT 156 10x3/uL (130-400); RBC 4.11 10x6/uL (4.00-5.40); WBC 6.8 10x3/uL (4.8-10.8)
--- NOTE | 2018-04-18 07:40 | NUR ---
PT RESTING IN BED, EYES OPEN. SON AT BEDSIDE. NO C/O PAIN. NO S/S OF ACUTE DISTRESS NOTED. NO C/O NAUSEA. PT STATES SHE FEELS MUCH BETTER TODAY. NG TUBE TO RIGHT NARE, LIS. PT REFUSES SCDS. PT NONCOMPLIANT WITH CARE. REFUSES TO WEAR BACK BRACE TO GET UP WITH PHYSICAL THERAPY. IV TO LEFT AC, SITE PATENT WITHOUT REDNESS OR SWELLING. NS INFUSING @ 100ML/HR. PT DENIES ANYTHING FURTHER AT THIS TIME. CALL LIGHT IN REACH. PT NPO AT THIS TIME. WILL CONTINUE TO MONITOR.
[2018-04-18 07:48] LABS: ALBUMIN 2.6 g/dL (3.4-5.0); ANION GAP 15.4 mmol/L (8-16); BILIRUBIN - TOTAL 0.55 mg/dL (0.2-1.3); CALCIUM 8.4 mg/dL (8.5-10.1); CARBON DIOXIDE 29.7 mmol/L (21.0-32.0); POTASSIUM - SERUM 4.1 mmol/L (3.5-5.1); PROTEIN - SERUM 7.1 g/dL (6.4-8.2)
[2018-04-18 07:49] LABS: CREATININE - SERUM 0.9 mg/dL (0.6-1.3)
[2018-04-18 08:30] VITALS: BP 142/65
--- NOTE | 2018-04-18 09:32 | NUR ---
OT NOTE: PT REPORTED FEELING MUCH BETTER TODAY. STATED THAT AFTER SHE HAD BM SHE WAS NO LONGER NAUSEATED. BED MOB WITH MIN ASSIST; AMBULATION IN HALLWAY APPROX 100 FT; TOILET AND BED TRANSFERS WITH MIN/CGA; UE DRESSING WITH SET UP; SIMPLE GROOMING TASKS WITH SET UP. GERMAINE VELAZQUEZ, OTR/L
--- NOTE | 2018-04-18 10:59 | NUR ---
Rehab Note- COntinue to follow at this time- now with ileus & NGT @ LIS. Thank you for this referral! Chiquita Nails RN Clinical Liaison, [facility] Rehab
--- NOTE | 2018-04-18 12:58 | NUR ---
OFF UNIT FOR EXRAY. WILL CONTINUE HAND BANDER PLAN OF CARE.
--- NOTE | 2018-04-18 17:36 | NUR ---
OT NOTE: PT COMPLETED GROOMING TASK WITH SET UP. PT COMPLETED EOB SITTING WITH CGA/MIN A. THANK YOU, BAILEY ALVAREZ
[2018-04-18 18:05] VITALS: BP 134/73
--- NOTE | 2018-04-18 18:10 | NUR ---
PT RESTING IN BED, EYES OPEN. NO C/O PAIN. NO S/S OF ACUTE DISTRESS NOTED. PT DENIES ANYTHING FURTHER AT THIS TIME. CALL LIGHT IN REACH. WILL CONTINUE TO MONITOR.
[2018-04-18 20:00] VITALS: BP 118/54
--- NOTE | 2018-04-18 22:50 | NUR ---
REMAINS NPO NG CLAMPED FOR XRAY. INSTRUCTED.WILL CONTINUE TO MONITOR FOR ANY CHGES AND FOLLOW CURRENT PLAN OF CARE.
[2018-04-19] VITALS: BP 112/56
--- NOTE | 2018-04-19 01:18 | NUR ---
patient in bed resting no s/s of distress call light in reach
[2018-04-19 05:20] VITALS: BP 145/62
[2018-04-19 05:34] LABS: BASOPHILS 0.2 % (0-2); EOSINOPHILS 0.3 % (0-7); HEMATOCRIT 35.5 % (36.0-48.0); HEMOGLOBIN 12.3 g/dL (12-16); IMMATURE GRANULOCYTES 0.3 % (0-5); LYMPHOCYTES 18.3 % (15-50); MCHC 34.6 g/dL (31.0-37.0); MCV 98.1 fL (80.0-100.0); MONOCYTES 19.6 % (2-11); NEUTROPHILS 61.3 % (40-80); PLATELET COUNT 183 10x3/uL (130-400); RBC 3.62 10x6/uL (4.00-5.40); RDW 13.1 % (11.5-14.5); WBC 5.8 10x3/uL (4.8-10.8)
[2018-04-19 05:47] LABS: ALBUMIN 2.5 g/dL (3.4-5.0); ALKALINE PHOSPHATASE 69 U/L (46-116); ALT (SGPT) 14 U/L (10-68); BILIRUBIN - TOTAL 0.55 mg/dL (0.2-1.3); CALCIUM 8.5 mg/dL (8.5-10.1); CARBON DIOXIDE 26.7 mmol/L (21.0-32.0); CHLORIDE - SERUM 96 mmol/L (98-107); CREATININE - SERUM 0.7 mg/dL (0.6-1.3); PROTEIN - SERUM 6.9 g/dL (6.4-8.2); SODIUM 136 mmol/L (136-145); eGFR NON AFRICAN AMERICAN 86 mL/min (90-120)
[2018-04-19 05:52] LABS: CALC OSMOLALITY 272 mosm/kg (275-300); GLUCOSE 64 mg/dL (74-106); POTASSIUM - SERUM 3.3 mmol/L (3.5-5.1); UREA NITROGEN 22 mg/dL (7-18)
[2018-04-19 09:07] VITALS: BP 148/66
--- NOTE | 2018-04-19 11:05 | NUR ---
Nutrition Follow Up: Pt reported that she is thirsty and ready for the NG tube to be out. She said that she would also like strawberry jello. RD encouraged pt to make staff aware of all food preferences. Spoke with nursing who stated that she was going to remove the NGT and start pt on Procalamine per surgery. Diet has been advanced to clear liquid. Pt previously with poor po intake (12% meal avg). BM: 04/19/18 No new wt to assess Procalamine to start @ 75 ml/hr providing 441 kcal and 52 g protein per day Meds and labs reviewed Rec continue advancing SANCHEZ as medically feasible. Rec continue Procalamine. RD following.
[2018-04-19 13:49] VITALS: BP 119/58
--- NOTE | 2018-04-19 15:03 | NUR ---
OT NOTE: MIN ASSIST WITH DONNING BRIEF AND SOCKS WHILE ON EDGE OF BED; BED MOB WITH MIN ASSIST; IN ROOM AMBULATION WITH CGA; AMB THROUGHOUT HALLWAY WITH MIN ASSIST AND USE OF RW. GERMAINE VELAZQUEZ, OTR/L
[2018-04-19 16:45] VITALS: BP 120/50
--- NOTE | 2018-04-19 18:15 | NUR ---
OT NOTE: PT COMPLETED BED MOB WITH MIN A. PT COMPLETED SIT TO STAND WITH MIN A. PT COMPLETED BUE AROM EXS. THANK YOU, BAILEY ALVAREZ
--- NOTE | 2018-04-19 18:16 | NUR ---
PT RESTING IN BED. NO SIGNS OF DISTRESS. IV TO RIGHT HAND PATENT NO REDNESS OR TENDERNESS. ON 2LNC. DENIES ANY OTHER NEED AT THIS TIME. CALL LIGHT IN REACH. BED LOW POSITION. FAMILY AT BEDSIDE.
[2018-04-19 21:20] VITALS: BP 106/49
--- NOTE | 2018-04-20 03:38 | NUR ---
RESTING IN BED RESP UNLABORED NO APPARENT DISTRESS CALL LIGHT IN REACH
[2018-04-20 05:45] VITALS: BP 121/51
[2018-04-20 05:57] LABS: BASOPHILS 0.2 % (0-2); EOSINOPHILS 0.3 % (0-7); IMMATURE GRANULOCYTES 0.3 % (0-5); LYMPHOCYTES 15.9 % (15-50); MCH 33.6 pg (26.0-34.0); MCHC 34.4 g/dL (31.0-37.0); MCV 97.9 fL (80.0-100.0); MONOCYTES 21.8 % (2-11); NEUTROPHILS 61.5 % (40-80); PLATELET COUNT 177 10x3/uL (130-400); RBC 3.27 10x6/uL (4.00-5.40); RDW 12.9 % (11.5-14.5); WBC 5.8 10x3/uL (4.8-10.8)
[2018-04-20 06:38] LABS: ALBUMIN 2.2 g/dL (3.4-5.0); ALKALINE PHOSPHATASE 61 U/L (46-116); ALT (SGPT) 11 U/L (10-68); CALC OSMOLALITY 269 mosm/kg (275-300); CALCIUM 7.9 mg/dL (8.5-10.1); CARBON DIOXIDE 28.6 mmol/L (21.0-32.0); CHLORIDE - SERUM 98 mmol/L (98-107); CREATININE - SERUM 0.6 mg/dL (0.6-1.3); GLUCOSE 95 mg/dL (74-106); POTASSIUM - SERUM 3.1 mmol/L (3.5-5.1); PROTEIN - SERUM 5.8 g/dL (6.4-8.2); SODIUM 135 mmol/L (136-145); UREA NITROGEN 12 mg/dL (7-18); eGFR NON AFRICAN AMERICAN > 90 mL/min (90-120)
--- NOTE | 2018-04-20 08:15 | NUR ---
PATIENT IN BED WITH IV INTACT. NO COMPLAINTS OR SIGNS OF DISTRESS. CALL LIGHT WITHIN REACH.
--- NOTE | 2018-04-20 08:52 | NUR ---
PT LYING IN BED EATING BREAKFAST, ASSISTED PT TO BEDSIDE COMMODE, PT STATED PAIN IS AT A 12 OUT OF 10 FROM BACK DOWN HER SPINE TO LEGS, STATED SHE WISHED DR WOO SAW PTS HERE, ADVISED PT THAT HE DOES BUT SHE STATED SHE HAS ONLY SEEN HIM ONCE AND WOULD LIKE TO SEE HIM AGAIN, ADVISED PT I WILL MENTION IT TO DR WOO WHEN I SEE HIM AGAIN IF I DO TODAY, NO OTHER NEEDS VOICED CONTINUE WITH PLAN OF CARE
--- NOTE | 2018-04-20 10:45 | NUR ---
PT K+ IS 3.1 ADMINISTERED PRN KDUR 40MEQ ORDERED REDRAW
[2018-04-20 12:45] VITALS: BP 100/52
[2018-04-20 12:54] VITALS: BP 112/48
--- NOTE | 2018-04-20 14:48 | NUR ---
OT NOTE: PT ABLE TO PERFORM BED MOB WITH VERY MINIMAL ASSIST; TRANSFERS FROM BEDSIDE COMMODE AND BACK WITH SBA. IN ROOM AMBULATION WITH USE OF RW AND CGA; SIMPLE GROOMING TASKS AND DONNING SOCKS WITH SET UP. GERMAINE VELAZQUEZ, OTR/L
[2018-04-20] MEDS ORDERED: CYCLOBENZAPRINE10 MG PO (15:35)
[2018-04-20] MEDS ORDERED: Nicoderm [PBKC] TRANSDERM (15:35)
[2018-04-20] MEDS ORDERED: PROTONIX40 MG PO (15:36)
[2018-04-20] MEDS ORDERED: MIRALAX17 GM PO (15:36)
[2018-04-20] MEDS ORDERED: DULCOLAX10 MG/SUPP RC (15:36)
--- NOTE | 2018-04-20 16:23 | MORECARE ---
CASE MANAGEMENT DISCHARGE SUMMARY PATIENT: HOLLAND MCGOWAN UNIT: [id number] ADM DATE: 04/11/18 AGE: 77 : 42 SEX: F ROOM/BED: D.2240 AUTHOR: MIKEYDOC PHYSICIAN: REFERRING PHYSICIAN: MALKA COREAS MD DATE OF SERVICE: 04/20/18 Discharge Plan Patient Name: HOLLAND MCGOWAN Facility: [facility]:[place] : 1940 Planned Disposition: Home Anticipated Discharge Date: Discharge Date: Expected LOS: Initial Reviewer: [email or web address] Initial Review Date: 04/10/2018 Generated: 04/20/18 5:23 pm Comments DCP- Discharge Planning Updated by [id number]: Sara Arana on 04/20/18 3:[address] Refused to discharge to inpatient rehab. States her is dying and she needs to go home. She said she needed to go home tomorrow and that she would have a ride for tomorrow. I informed Shante and she will change discharge home tomorrow. She refuses home health offered. CM will continue to follow and assist with discharge planning/needs. DCP- Discharge Planning Updated by [id number]: Sara Arana on 04/14/18 10:[address] Patient Name: HOLLAND MCGOWAN Admission Status: ER Accout number: [id number] Admission Date: 04-11-2018 : 1940 Admission Diagnosis: Attending: MALKA COREAS Current LOS: 3 Anticipated DC Date: Planned Disposition: Home Primary Insurance: MEDICARE A & B Discharge Planning Comments: CM met with patient to discuss discharge plan, she is alone in the room. States she lives with her . States she uses a quad cane for ambulation, otherwise is independent with all ADL's and IADL's. States she is not allowed to drive for 4 weeks, her son will drive her where she needs to go and take her home on discharge. I discussed the availability of inpatient rehab, SNF, home health and additional DME. She states she does not need any DME. I informed her that [facility] ordered an inpatient rehab screen and she agrees with inpatient rehab for short stay, but would like to speak to her first. She does not want to choose a home health agency at this time. CM will continue to follow and assist with discharge planningneeds. Systems Planner: Sara Arana DCPIA - Discharge Planning Initial Assessment Updated by [id number]: Sara Arana on 04/14/18 11:44 am * Is the patient Alert and Oriented? Yes * How many steps to enter\exit or inside your home? 4w/rails/0 * PCP Dr. Alonso * Pharmacy [facility] on [address] * Preadmission Environment Home with Family * ADLs Partial Dependent * Partial ADLs (Assistance needed) Ambulation * Equipment Cane Elevated Toliet Seat Nebulizer Other Oxygen * Other Equipment Portable oxygen Quad Cane * List name and contact numbers for known caregivers / representatives who currently or will assist patient after discharge: Lázaro Mcgowan - - [phone] * Verbal permission to speak to the caregivers and representatives has been obtained from the patient. Yes * Community resources currently utilized None * Please name any agencies selected above. [facility] for DME * Additional services required to return to the preadmission environment? Yes * Can the patient safely return to the preadmission environment? Yes * Has this patient been hospitalized within the prior 30 days at any hospital? No Coverage Notice Reviewer: [id number] - Sara Arana Notice Issued Date-Time: 04/20/2018 16:03 Notice Type: IM Discharge Notice Notice Delivered To: Patient Relationship to Patient: Self Political Consultant Name: Delivery Method: HAND - Hand Delivered Sangeetha Days: Prior Verbal Notification: Recipient Understood Notice: Yes Recipient Signature: Yes Med Rec Note Co-signed by Attending: Coverage Notice Comment: IMM explained, signed, given, copy placed in MR Last DP export: 04/14/18 10:54 am Patient Name: HOLLAND MCGOWAN Page [id number] at 1623 All edits/amendments must be made on the electronic document DICTATION DATE: 04/20/181622 FLANGE TURNER: JUVENCIO 04/20/181622 RPT#: [id number] DC DATE: STATUS: ADM IN [facility] [address] [place] [address] END OF REPORT
[2018-04-20 16:57] VITALS: BP 107/57
--- NOTE | 2018-04-20 20:02 | NUR ---
RESTING IN BED WITH NO NEEDS NOTED OR STSTED RESPRATIONS EVEN AND UNLABORED CALL LIGHT IN REACH.
[2018-04-20 20:25] VITALS: BP 120/49
--- NOTE | 2018-04-20 23:16 | NUR ---
OT NOTE: PT COMPLETED EOB SITTING WITH CGA. PT COMPLETED SUPINE TO SIT WITH CGA/MIN A. PT COMPLETED GROOMING TASK WITH SET UP. THANK YOU, BAILEY ALVAREZ
[2018-04-21 00:14] VITALS: BP 120/52
[2018-04-21 04:19] VITALS: BP 118/52
[2018-04-21 05:27] LABS: BASOPHILS 0.2 % (0-2); EOSINOPHILS 0.8 % (0-7); HEMATOCRIT 33.2 % (36.0-48.0); HEMOGLOBIN 11.3 g/dL (12-16); IMMATURE GRANULOCYTES 0.4 % (0-5); LYMPHOCYTES 21.9 % (15-50); MCH 33.5 pg (26.0-34.0); MCV 98.5 fL (80.0-100.0); MEAN PLATELET VOLUME 11.3 fL (7.4-10.4); MONOCYTES 18.6 % (2-11); NEUTROPHILS 58.1 % (40-80); PLATELET COUNT 183 10x3/uL (130-400); RBC 3.37 10x6/uL (4.00-5.40); WBC 4.9 10x3/uL (4.8-10.8)
[2018-04-21 05:41] LABS: ALKALINE PHOSPHATASE 60 U/L (46-116); ALT (SGPT) 11 U/L (10-68); BILIRUBIN - TOTAL 0.27 mg/dL (0.2-1.3); CALC OSMOLALITY 269 mosm/kg (275-300); CALCIUM 7.9 mg/dL (8.5-10.1); CARBON DIOXIDE 28.2 mmol/L (21.0-32.0); CHLORIDE - SERUM 100 mmol/L (98-107); CREATININE - SERUM 0.7 mg/dL (0.6-1.3); GLUCOSE 112 mg/dL (74-106); POTASSIUM - SERUM 3.7 mmol/L (3.5-5.1); PROTEIN - SERUM 5.6 g/dL (6.4-8.2); SODIUM 135 mmol/L (136-145); UREA NITROGEN 10 mg/dL (7-18); eGFR NON AFRICAN AMERICAN 86 mL/min (90-120)
--- NOTE | 2018-04-21 08:02 | NUR ---
PT LAYING IN BED RESTING WITH EYES CLOSED, AWOKEN EASILY TO VERBAL STIMULI. RESPIRATIONS SHALLOW, NO S/S OF DISTRESS NOTED. O2 @ 2L VIA NC. VOICES THAT BREATHING IS BETTER TODAY. DENIES PAIN AT THIS TIME. REFUSING SCD'S AT THIS TIME. BED LOW AND LOCKED, SR UP X2, CL IN EASY REACH. DENIES FURTHER NEEDS. WILL CONTINUE TO MONITOR.
[2018-04-21 08:45] VITALS: BP 106/42
--- NOTE | 2018-04-21 09:24 | MORECARE ---
CASE MANAGEMENT DISCHARGE SUMMARY PATIENT: HOLLAND MCGOWAN UNIT: [id number] ADM DATE: 04/11/18 AGE: 77 : 42 SEX: F ROOM/BED: D.2240 AUTHOR: ROBERTO CARLOS JENSEN PHYSICIAN: REFERRING PHYSICIAN: MALKA COREAS MD DATE OF SERVICE: 04/21/18 Discharge Plan Patient Name: HOLLAND MCGOWAN Facility: [facility]:[place] : 1940 Planned Disposition: Home Anticipated Discharge Date: Discharge Date: Expected LOS: Initial Reviewer: [id number] Initial Review Date: 04/10/2018 Generated: 04/21/18 10:23 am Comments DCP- Discharge Planning Updated by [email or web address]: Sara Arana on 04/21/18 8:[address] Patient going home today. Declines home health. States her family will pick her up today after lunch. No needs identified. CM will continue to follow and assist with discharge planning/needs. DCP- Discharge Planning Updated by [id number]: Sara Arana on 04/20/18 3:[address] Refused to discharge to inpatient rehab. States her is dying and she needs to go home. She said she needed to go home tomorrow and that she would have a ride for tomorrow. I informed Shante and she will change discharge home tomorrow. She refuses home health offered. CM will continue to follow and assist with discharge planning/needs. DCP- Discharge Planning Updated by [email or web address]: Sara Arana on 04/14/18 10:[address] Patient Name: HOLLAND MCGOWAN Admission Status: ER Accout number: [id number] Admission Date: 04-11-2018 : 1940 Admission Diagnosis: Attending: MALKA COREAS Current LOS: 3 Anticipated DC Date: Planned Disposition: Home Primary Insurance: MEDICARE A & B Discharge Planning Comments: CM met with patient to discuss discharge plan, she is alone in the room. States she lives with her . States she uses a quad cane for ambulation, otherwise is independent with all ADL's and IADL's. States she is not allowed to drive for 4 weeks, her son will drive her where she needs to go and take her home on discharge. I discussed the availability of inpatient rehab, SNF, home health and additional DME. She states she does not need any DME. I informed her that [facility] with Dr. Coreas has ordered an inpatient rehab screen and she agrees with inpatient rehab for short stay, but would like to speak to her first. She does not want to choose a home health agency at this time. CM will continue to follow and assist with discharge planningneeds. Floor Mechanic: Sara Arana DCPIA - Discharge Planning Initial Assessment Updated by [email or web address]: Sara Arana on 04/14/18 11:44 am * Is the patient Alert and Oriented? Yes * How many steps to enter\exit or inside your home? 4w/rails/0 * PCP Dr. Alonso * Pharmacy [facility] on [address] * Preadmission Environment Home with Family * ADLs Partial Dependent * Partial ADLs (Assistance needed) Ambulation * Equipment Cane Elevated Tol[place] Seat Nebulizer Other Oxygen * Other Equipment Portable oxygen Quad Cane * List name and contact numbers for known caregivers / representatives who currently or will assist patient after discharge: Lázaro Mcgowan - - [phone] * Verbal permission to speak to the caregivers and representatives has been obtained from the patient. Yes * Community resources currently utilized None * Please name any agencies selected above. [facility] for DME * Additional services required to return to the preadmission environment? Yes * Can the patient safely return to the preadmission environment? Yes * Has this patient been hospitalized within the prior 30 days at any hospital? No Coverage Notice Reviewer: [id number] - Sara Arana Notice Issued Date-Time: 04/20/2018 16:03 Notice Type: IM Discharge Notice Notice Delivered To: Patient Relationship to Patient: Self Set Up Mechanic Coil Winding Machines Name: Delivery Method: HAND - Hand Delivered Sangeetha Days: Prior Verbal Notification: Recipient Understood Notice: Yes Recipient Signature: Yes Med Rec Note Co-signed by Attending: Coverage Notice Comment: IMM explained, signed, given, copy placed in MR Last DP export: 04/20/18 3:23 pm Patient Name: HOLLAND MCGOWAN Page [id number] at 0924 All edits/amendments must be made on the electronic document DICTATION DATE: 04/21/18922 GENERAL OPHTHALMOLOGIST: DM 04/21/18922 RPT#: [id number] DC DATE: STATUS: ADM IN [facility] [address] [place] [address] END OF REPORT
--- NOTE | 2018-04-21 12:40 | NUR ---
Rehab Note- Patient plans to discharge home today, states she is doing well and has been gone too long from home and that her is at home alone dying of cancer. Provided our contact information for the future if needed. Thank you for this referral! Chiquita Nails RN Clinical Liaison, [facility], [place] Rehab
--- NOTE | 2018-04-21 13:25 | NUR ---
PT TO DISCHARGE AFTER FINISHED WITH LUNCH. DENIES NEEDS AT THIS TIME. CL IN EASY REACH.
--- NOTE | 2018-04-21 16:00 | NUR ---
PT DISCHARGE INFORMATION GONE OVER WITH PT AND FAMILY. ALLOWED TIME FOR QUESTIONS, QUESTIONS ANSWERED. GONE OVER APPOINTMENT TIMES. PT VERBALIZED UNDERSTANDING AND SIGNED. PT DISCHARGE EDUCATION PROVIDED UPON DISCHARGE. DENIES NEEDS. NO IV. PT DISCHARGED AT 1600.
--- NOTE | 2018-04-25 07:53 | MORECARE ---
CASE MANAGEMENT DISCHARGE SUMMARY PATIENT: HOLLAND MCGOWAN UNIT: [id number] ADM DATE: 04/11/18 AGE: 77 : 42 SEX: F ROOM/BED: D.2240 AUTHOR: ROBERTO CARLOS JENSEN PHYSICIAN: REFERRING PHYSICIAN: MALKA COREAS MD DATE OF SERVICE: 04/25/18 Discharge Plan Patient Name: HOLLAND MCGOWAN Facility: [facility]:[place] : 1940 Planned Disposition: Home Anticipated Discharge Date: Discharge Date: 04/21/2018 Expected LOS: 0 Initial Reviewer: [id number] Initial Review Date: 04/10/2018 Generated: 04/25/18 8:53 am Comments DCP- Discharge Planning Updated by [id number]: Sara Arana on 04/21/18 8:[address] Patient going home today. Declines home health. States her family will pick her up today after lunch. No needs identified. CM will continue to follow and assist with discharge planning/needs. DCP- Discharge Planning Updated by [id number]: Sara Arana on 04/20/18 3:[address] Refused to discharge to inpatient rehab. States her is dying and she needs to go home. She said she needed to go home tomorrow and that she would have a ride for tomorrow. I informed Shante and she will change discharge home tomorrow. She refuses home health offered. CM will continue to follow and assist with discharge planning/needs. DCP- Discharge Planning Updated by [email or web address]: Sara Arana on 04/14/18 10:[address] Patient Name: HOLLAND MCGOWAN Admission Status: ER Accout number: [id number] Admission Date: 04-11-2018 : 1940 Admission Diagnosis: Attending: MALKA COREAS Current LOS: 3 Anticipated DC Date: Planned Disposition: Home Primary Insurance: MEDICARE A & B Discharge Planning Comments: CM met with patient to discuss discharge plan, she is alone in the room. States she lives with her . States she uses a quad cane for ambulation, otherwise is independent with all ADL's and IADL's. States she is not allowed to drive for 4 weeks, her son will drive her where she needs to go and take her home on discharge. I discussed the availability of inpatient rehab, SNF, home health and additional DME. She states she does not need any DME. I informed her that [facility] with Dr. Coreas has ordered an inpatient rehab screen and she agrees with inpatient rehab for short stay, but would like to speak to her first. She does not want to choose a home health agency at this time. CM will continue to follow and assist with discharge planningneeds. Kickboxing Instructor: Sara Arana DCPIA - Discharge Planning Initial Assessment Updated by [id number]: Sara Arana on 04/14/18 11:44 am * Is the patient Alert and Oriented? Yes * How many steps to enter\exit or inside your home? 4w/rails/0 * PCP Dr. Alonso * Pharmacy [facility] on [address] * Preadmission Environment Home with Family * ADLs Partial Dependent * Partial ADLs (Assistance needed) Ambulation * Equipment Cane Elevated Tol[place] Seat Nebulizer Other Oxygen * Other Equipment Portable oxygen Quad Cane * List name and contact numbers for known caregivers / representatives who currently or will assist patient after discharge: Lázaro Mcgwoan - - [phone] * Verbal permission to speak to the caregivers and representatives has been obtained from the patient. Yes * Community resources currently utilized None * Please name any agencies selected above. [facility] for DME * Additional services required to return to the preadmission environment? Yes * Can the patient safely return to the preadmission environment? Yes * Has this patient been hospitalized within the prior 30 days at any hospital? No Coverage Notice Reviewer: [id number] - Sara Arana Notice Issued Date-Time: 04/20/2018 16:03 Notice Type: IM Discharge Notice Notice Delivered To: Patient Relationship to Patient: Self Software Quality Analyst Name: Delivery Method: HAND - Hand Delivered Sangeetha Days: Prior Verbal Notification: Recipient Understood Notice: Yes Recipient Signature: Yes Med Rec Note Co-signed by Attending: Coverage Notice Comment: IMM explained, signed, given, copy placed in MR Last DP export: 04/21/18 8:24 am Patient Name: HOLLAND MCGOWAN Page [id number] at 0753 All edits/amendments must be made on the electronic document DICTATION DATE: 04/25/18752 SANITARIAN AIDE: JUVENCIO 04/25/18 075 RPT#: [id number] DC DATE:04/21/18 STATUS: DIS IN [facility] [address] [place] [address] END OF REPORT
== END 2018-04-21 16:00 | disposition home health service (06) | DRG 552 ==
LOC: D.ER 08:27 → D.MS 11:34 → D.EDHOLD 11:34 → OBSVTIME 11:35 → D.EDHOLD 13:41 → D.MS 15:47
PROVIDERS: Family Medicine; ADMIT Internal Medicine Nephrology
DX: S32.019A Unspecified fracture of first lumbar vertebra, initial encounter for closed fracture (principal); E87.1 Hypo-osmolality and hyponatremia; K56.7 Ileus, unspecified; F17.213 Nicotine dependence, cigarettes, with withdrawal; J44.9 Chronic obstructive pulmonary disease, unspecified; C50.911 Malignant neoplasm of unspecified site of right female breast; I10 Essential (primary) hypertension; I25.10 Atherosclerotic heart disease of native coronary artery without angina pectoris; M54.16 Radiculopathy, lumbar region

== ENCOUNTER 2018-10-23 11:16 | Emergency (ER) | payer MEDICARE, OTHER ==
[~2018-10-23] VITALS: Ht 162.6 cm; Wt 50.0 kg
[~2018-10-23 11:16] MED LIST changes: +DULCOLAX10 MG/SUPP RC; +MIRALAX17 GM PO; +Nicoderm [PBKC] TRANSDERM
[2018-10-23 11:23] VITALS: BP 154/82; Ht 162.6 cm; Wt 50.0 kg
[2018-10-23] MEDS ORDERED: GABAPENTIN100 MG PO (11:30)
[2018-10-23 11:48] LABS: BASOPHILS 0.2 % (0-2); EOSINOPHILS 0.2 % (0-7); HEMATOCRIT 37.1 % (36.0-48.0); HEMOGLOBIN 13.5 g/dL (12-16); IMMATURE GRANULOCYTES 0.2 % (0-5); MCH 36.1 pg (26.0-34.0); MCHC 36.4 g/dL (31.0-37.0); MCV 99.2 fL (80.0-100.0); MEAN PLATELET VOLUME 9.3 fL (7.4-10.4); MONOCYTES 13.7 % (2-11); NEUTROPHILS 57.7 % (40-80); PLATELET COUNT 191 10x3/uL (130-400); RBC 3.74 10x6/uL (4.00-5.40); RDW 13.8 % (11.5-14.5)
[2018-10-23 11:58] LABS: APTT 31.8 SECONDS (22.8-39.4); INR 0.95 (0.85-1.17); PROTIME 12.2 SECONDS (11.6-15.0)
[2018-10-23 12:04] LABS: ALBUMIN 3.5 g/dL (3.4-5.0); ALKALINE PHOSPHATASE 62 U/L (46-116); ALT (SGPT) 14 U/L (10-68); CALC OSMOLALITY 266 mosm/kg (275-300); CALCIUM 8.9 mg/dL (8.5-10.1); CARBON DIOXIDE 29.1 mmol/L (21.0-32.0); CHLORIDE - SERUM 98 mmol/L (98-107); CREATININE - SERUM 0.8 mg/dL (0.6-1.3); GLUCOSE 90 mg/dL (74-106); POTASSIUM - SERUM 3.8 mmol/L (3.5-5.1); PROTEIN - SERUM 7.1 g/dL (6.4-8.2); SODIUM 134 mmol/L (136-145); UREA NITROGEN 10 mg/dL (7-18); eGFR NON AFRICAN AMERICAN 74 mL/min (90-120)
[2018-10-23 12:14] LABS: CKMB 0.8 U/L (0.0-3.6); CREATINE KINASE 42 UL (21-215); MAGNESIUM - SERUM 1.8 mg/dL (1.8-2.4); THYROID STIMULATING HORMONE 0.88 uIU/mL (0.36-3.74); TROPONIN-I < 0.017 ng/mL (0.000-0.060)
[2018-10-23 15:19] LABS: APPEARANCE CLEAR (CLEAR); BILIRUBIN NEGATIVE (NEGATIVE); COLOR YELLOW (YELLOW); GLUCOSE NEGATIVE (NEGATIVE); KETONE NEGATIVE (NEGATIVE); NITRITE NEGATIVE (NEGATIVE); PROTEIN NEGATIVE (NEGATIVE); SPECIFIC GRAVITY 1.015 (1.005-1.020); UROBILINOGEN NORMAL (NORMAL)
[2018-10-23 15:20] LABS: BACTERIA MANY /hpf (NONE SEEN); RED CELLS - URINE 0-5 /hpf (0-5); WHITE CELLS - URINE 0-5 /hpf (0-5)
== END 2018-10-23 17:10 | disposition home or self-care (01) ==
LOC: D.ER 11:16
PROVIDERS: Family Medicine
DX: M54.2 Cervicalgia (principal); R07.9 Chest pain, unspecified; J44.9 Chronic obstructive pulmonary disease, unspecified; Z85.3 Personal history of malignant neoplasm of breast; Z86.79 Personal history of other diseases of the circulatory system; R68.89 Other general symptoms and signs

== ENCOUNTER 2018-12-28 18:44 | Emergency (ER) | payer MEDICARE, OTHER ==
[~2018-12-28] VITALS: Ht 162.6 cm; Wt 45.9 kg
[~2018-12-28 18:44] MED LIST changes: +GABAPENTIN100 MG PO
[2018-12-28 19:08] VITALS: Ht 162.6 cm; Wt 45.9 kg
[2018-12-28 19:32] LABS: HEMATOCRIT 37.7 % (36.0-48.0); HEMOGLOBIN 13.1 g/dL (12-16); MCH 35.6 pg (26.0-34.0); MCHC 34.7 g/dL (31.0-37.0); MCV 102.4 fL (80.0-100.0); MEAN PLATELET VOLUME 9.5 fL (7.4-10.4); PLATELET COUNT 220 10x3/uL (130-400); RBC 3.68 10x6/uL (4.00-5.40); RDW 12.6 % (11.5-14.5); WBC 4.9 10x3/uL (4.8-10.8)
[2018-12-28 19:59] LABS: APPEARANCE CLEAR (CLEAR); BILIRUBIN NEGATIVE (NEGATIVE); COLOR YELLOW (YELLOW); GLUCOSE NEGATIVE (NEGATIVE); KETONE NEGATIVE (NEGATIVE); NITRITE NEGATIVE (NEGATIVE); PROTEIN TRACE mg/dL (NEGATIVE); SPECIFIC GRAVITY 1.015 (1.005-1.020); UROBILINOGEN NORMAL (NORMAL)
[2018-12-28 20:07] LABS: LYMPHOCYTES 31 % (15-50); MONOCYTES 1 % (2-11); NEUTROPHILS 65 % (40-80); PLATELET ESTIMATE NORMAL; TARGET CELLS 1+
[2018-12-28 20:27] LABS: ALBUMIN 3.6 g/dL (3.4-5.0); ALKALINE PHOSPHATASE 63 U/L (46-116); ALT (SGPT) 15 U/L (10-68); AMYLASE - SERUM 27 U/L (25-115); BILIRUBIN - TOTAL 0.44 mg/dL (0.2-1.3); CALC OSMOLALITY 265 mosm/kg (275-300); CALCIUM 8.7 mg/dL (8.5-10.1); CARBON DIOXIDE 29.3 mmol/L (21.0-32.0); CHLORIDE - SERUM 96 mmol/L (98-107); CREATININE - SERUM 0.8 mg/dL (0.6-1.3); GLUCOSE 99 mg/dL (74-106); LIPASE 142 U/L (73-393); POTASSIUM - SERUM 4.3 mmol/L (3.5-5.1); PROTEIN - SERUM 7.1 g/dL (6.4-8.2); SODIUM 132 mmol/L (136-145); UREA NITROGEN 14 mg/dL (7-18); eGFR NON AFRICAN AMERICAN 74 mL/min (90-120)
[2018-12-28 20:28] LABS: TROPONIN-I < 0.017 ng/mL (0.000-0.060)
[2018-12-28] MEDS ORDERED: PHENERGAN25 M1 PO (20:57)
[2018-12-28 21:06] VITALS: BP 105/70
== END 2018-12-28 21:06 | disposition home or self-care (01) ==
LOC: D.ER 18:44
PROVIDERS: Family Medicine
DX: R11.2 Nausea with vomiting, unspecified (principal); J44.9 Chronic obstructive pulmonary disease, unspecified; I11.0 Hypertensive heart disease with heart failure; I50.9 Heart failure, unspecified

== ENCOUNTER 2019-01-18 09:00 | Outpatient (CLI) | payer MEDICARE, OTHER ==
[2018-12-28 19:08] VITALS: BMI 17.3
[~2019-01-18 09:00] MED LIST changes: +PHENERGAN25 M1 PO
== END 2019-01-18 10:00 | disposition home or self-care (01) ==
LOC: D.MAMMO 09:00
PROVIDERS: ATTEND Family Medicine
DX: Z85.3 Personal history of malignant neoplasm of breast (principal); Z12.31 Encounter for screening mammogram for malignant neoplasm of breast

== ENCOUNTER 2019-06-23 20:29 | Inpatient (IN) | payer MEDICARE, OTHER ==
[~2019-06-23] VITALS: Ht 162.6 cm; Wt 45.8 kg
[~2019-06-23 20:29] MED LIST changes: -GABAPENTIN100 MG PO
[2019-06-23 21:26] LABS: BASOPHILS 0.2 % (0-2); EOSINOPHILS 0.1 % (0-7); HEMATOCRIT 40.9 % (36.0-48.0); HEMOGLOBIN 13.9 g/dL (12-16); IMMATURE GRANULOCYTES 0.2 % (0-5); LYMPHOCYTES 7.3 % (15-50); MCH 34.3 pg (26.0-34.0); MEAN PLATELET VOLUME 9.9 fL (7.4-10.4); MONOCYTES 12.2 % (2-11); PLATELET COUNT 216 10x3/uL (130-400); RBC 4.05 10x6/uL (4.00-5.40); RDW 13.3 % (11.5-14.5); WBC 10.6 10x3/uL (4.8-10.8)
[2019-06-23 21:46] LABS: CALC OSMOLALITY 261 mosm/kg (275-300); CALCIUM 9.1 mg/dL (8.5-10.1); CARBON DIOXIDE 26.9 mmol/L (21.0-32.0); CHLORIDE - SERUM 95 mmol/L (98-107); CREATININE - SERUM 0.8 mg/dL (0.6-1.3); GLUCOSE 105 mg/dL (74-106); POTASSIUM - SERUM 4.1 mmol/L (3.5-5.1); SODIUM 131 mmol/L (136-145); UREA NITROGEN 11 mg/dL (7-18); eGFR NON AFRICAN AMERICAN 74 mL/min (90-120)
[2019-06-23 21:59] LABS: ALBUMIN 3.3 g/dL (3.4-5.0); ALKALINE PHOSPHATASE 76 U/L (30-120); ALT (SGPT) 12 U/L (10-68); BILIRUBIN - TOTAL 0.59 mg/dL (0.2-1.3); CKMB 0.7 U/L (0.0-3.6); CREATINE KINASE 35 UL (21-215); INR 0.93 (0.85-1.17); PRO BNP 776 pg/mL (0-450); PROTEIN - SERUM 7.8 g/dL (6.4-8.2); PROTIME 12.5 SECONDS (11.6-15.0); TROPONIN-I < 0.017 ng/mL (0.000-0.060)
[2019-06-23 22:00] LABS: APTT 35.5 SECONDS (22.8-39.4)
[2019-06-23 23:19] VITALS: BP 133/71
--- NOTE | 2019-06-23 23:47 | NUR ---
PT TO ROOM 2103 VIA STRETCHER, ACCOMPANIED BY HOSPITAL STAFF.
[2019-06-24] MEDS ORDERED: GABAPENTIN100 MG PO (02:33)
[2019-06-24 04:10] VITALS: BP 98/48; BMI 17.3
[2019-06-24 09:25] VITALS: BP 126/56
[2019-06-24 14:00] VITALS: BP 121/54
--- NOTE | 2019-06-24 19:10 | NUR ---
BEDSIDE REPORT RECEIVED, PT CARE ASSUMED. WROTE NAME ON BOARD. PT SITTING UP IN BED, WATCHING TV, AAOX4. DENIES ANY NEEDS AT THIS TIME. BED IN LOWEST POSITION, SR X3, CALL LIGHT WITHIN REACH. WILL CONTINUE TO MONITOR.
[2019-06-24 20:00] VITALS: BP 95/44
[2019-06-25 04:00] VITALS: BP 128/54
[2019-06-25 08:37] LABS: ANION GAP 7.4 mmol/L (8-16); CALCIUM 8.6 mg/dL (8.5-10.1); CARBON DIOXIDE 30.2 mmol/L (21.0-32.0); CREATININE - SERUM 0.9 mg/dL (0.6-1.3); MAGNESIUM - SERUM 1.8 mg/dL (1.8-2.4); POTASSIUM - SERUM 3.6 mmol/L (3.5-5.1)
[2019-06-25 09:35] VITALS: BP 94/40
[2019-06-25 10:10] LABS: BASOPHILS 0.2 % (0-2); EOSINOPHILS 0.5 % (0-7); HEMATOCRIT 38.7 % (36.0-48.0); HEMOGLOBIN 13.1 g/dL (12-16); IMMATURE GRANULOCYTES 0.2 % (0-5); LYMPHOCYTES 17.7 % (15-50); MCH 34.4 pg (26.0-34.0); MCHC 33.9 g/dL (31.0-37.0); MCV 101.6 fL (80.0-100.0); MEAN PLATELET VOLUME 10.3 fL (7.4-10.4); MONOCYTES 15.8 % (2-11); NEUTROPHILS 65.6 % (40-80); PLATELET COUNT 206 10x3/uL (130-400); RBC 3.81 10x6/uL (4.00-5.40); RDW 13.5 % (11.5-14.5)
[2019-06-25 10:20] LABS: WBC 5.7 10x3/uL (4.8-10.8)
[2019-06-25 11:40] VITALS: Ht 162.6 cm; Wt 45.8 kg
[2019-06-25 14:23] VITALS: BP 138/56
[2019-06-25 18:45] VITALS: BP 116/44
[2019-06-25 20:00] VITALS: BP 114/43
[2019-06-26] VITALS: BP 115/51
[2019-06-26 04:00] VITALS: BP 124/50
[2019-06-26 05:46] LABS: BASOPHILS 0 % (0-2); EOSINOPHILS 0 % (0-7); HEMATOCRIT 37.4 % (36.0-48.0); HEMOGLOBIN 12.6 g/dL (12-16); IMMATURE GRANULOCYTES 0.3 % (0-5); LYMPHOCYTES 12.3 % (15-50); MCH 33.9 pg (26.0-34.0); MCHC 33.7 g/dL (31.0-37.0); MCV 100.5 fL (80.0-100.0); MEAN PLATELET VOLUME 10.1 fL (7.4-10.4); MONOCYTES 2.7 % (2-11); NEUTROPHILS 84.7 % (40-80); PLATELET COUNT 236 10x3/uL (130-400); RBC 3.72 10x6/uL (4.00-5.40); RDW 13.1 % (11.5-14.5)
[2019-06-26 05:56] LABS: ALBUMIN 2.7 g/dL (3.4-5.0); ANION GAP 11.5 mmol/L (8-16); BILIRUBIN - TOTAL 0.33 mg/dL (0.2-1.3); CALCIUM 8.7 mg/dL (8.5-10.1); CARBON DIOXIDE 28.2 mmol/L (21.0-32.0); CREATININE - SERUM 0.8 mg/dL (0.6-1.3); PROTEIN - SERUM 6.4 g/dL (6.4-8.2)
[2019-06-26 05:57] LABS: POTASSIUM - SERUM 4.7 mmol/L (3.5-5.1)
[2019-06-26 06:03] LABS: WBC 3.3 10x3/uL (4.8-10.8)
[2019-06-26 08:00] VITALS: BP 122/60
[2019-06-26 13:25] VITALS: BP 110/62
[2019-06-26 14:45] LABS: BILIRUBIN NEGATIVE (NEGATIVE); GLUCOSE 50 mg/dL (NEGATIVE); KETONE NEGATIVE (NEGATIVE); NITRITE NEGATIVE (NEGATIVE); UROBILINOGEN NORMAL (NORMAL)
--- NOTE | 2019-06-26 16:34 | NUR ---
I have reviewed this patient and I concur with the Shift Assessment completed by the Licensed Practical Nurse today this shift.
--- NOTE | 2019-06-26 19:30 | NUR ---
PT IN BED, AAO X 3, RESP EVEN AND UNLABORED. NO DISTRESS NOTED, PT REQUEST XANAX AT THIS TIME. NO OTHER CONCERNS OR WANTS NOTED.
[2019-06-26 21:12] VITALS: BP 124/61
[2019-06-27] VITALS: BP 120/75
[2019-06-27 05:17] VITALS: BP 127/57
[2019-06-27 06:00] LABS: BASOPHILS 0 % (0-2); EOSINOPHILS 0 % (0-7); HEMOGLOBIN 11.3 g/dL (12-16); IMMATURE GRANULOCYTES 0.2 % (0-5); LYMPHOCYTES 9.1 % (15-50); MCH 33.1 pg (26.0-34.0); MCHC 33.2 g/dL (31.0-37.0); MCV 99.7 fL (80.0-100.0); MEAN PLATELET VOLUME 9.7 fL (7.4-10.4); MONOCYTES 9.7 % (2-11); PLATELET COUNT 223 10x3/uL (130-400); RBC 3.41 10x6/uL (4.00-5.40)
[2019-06-27 06:09] LABS: WBC 5.4 10x3/uL (4.8-10.8)
[2019-06-27 07:04] LABS: ALBUMIN 2.6 g/dL (3.4-5.0); ALKALINE PHOSPHATASE 58 U/L (30-120); ALT (SGPT) 12 U/L (10-68); BILIRUBIN - TOTAL 0.23 mg/dL (0.2-1.3); CALC OSMOLALITY 257 mosm/kg (275-300); CARBON DIOXIDE 27.2 mmol/L (21.0-32.0); CHLORIDE - SERUM 94 mmol/L (98-107); CREATININE - SERUM 0.7 mg/dL (0.6-1.3); GLUCOSE 123 mg/dL (74-106); MAGNESIUM - SERUM 1.7 mg/dL (1.8-2.4); POTASSIUM - SERUM 4.1 mmol/L (3.5-5.1); PROTEIN - SERUM 6.2 g/dL (6.4-8.2); SODIUM 127 mmol/L (136-145); eGFR NON AFRICAN AMERICAN 86 mL/min (90-120)
[2019-06-27 07:06] LABS: UREA NITROGEN 19 mg/dL (7-18)
[2019-06-27 08:03] VITALS: BP 147/60
--- NOTE | 2019-06-27 09:48 | NUR ---
RECIEVED REPORT. PATIENT IS ALERT AND AWAKE. SHE REPORTS THAT SHE DOES NOT WANT HER NICOTINE PATCH OR HER NITRO PATCH BECAUSE SHE REPORTS THAT IT MADE HER HEART FEEL FUNNY LAST NIGHT.
--- NOTE | 2019-06-27 10:17 | NUR ---
Nutrition Follow-up: Good/fair PO intake. Ate ~50% of breakfast this AM. Diet: Cardiac PO intake: 88% avg x last 4 meals No new wt; last wt: 101# (06/24) Labs noted: Na 127, Glu 123, Ca 8.0, Mg 1.7, Alb 2.6 Meds noted: Solumedrol -Encourage PO intake and honor food preferences within diet restrictions. -Offer nutrition supplements. -Monitor wt. -RD following.
[2019-06-27 11:35] VITALS: BP 115/44
[2019-06-27 14:57] VITALS: BP 128/54
--- NOTE | 2019-06-27 19:41 | NUR ---
PT IN BED, AAO X 3, RESP EVEN AND UNLABORED. NO DISTRESS NOTED AT THIS TIME. CL IN REACH, SR UP X 2.
[2019-06-27 20:00] VITALS: BP 131/58
[2019-06-28 00:30] VITALS: BP 133/56
[2019-06-28 04:30] VITALS: BP 125/60
[2019-06-28 05:35] LABS: BASOPHILS 0 % (0-2); EOSINOPHILS 0 % (0-7); HEMOGLOBIN 11.5 g/dL (12-16); IMMATURE GRANULOCYTES 0.2 % (0-5); LYMPHOCYTES 10.3 % (15-50); MCH 33.3 pg (26.0-34.0); MCHC 33.8 g/dL (31.0-37.0); MCV 98.6 fL (80.0-100.0); MEAN PLATELET VOLUME 9.9 fL (7.4-10.4); MONOCYTES 9.1 % (2-11); NEUTROPHILS 80.4 % (40-80); PLATELET COUNT 230 10x3/uL (130-400); RBC 3.45 10x6/uL (4.00-5.40); RDW 12.7 % (11.5-14.5); WBC 5.2 10x3/uL (4.8-10.8)
--- NOTE | 2019-06-28 06:04 | NUR ---
I have reviewed this patient and I concur with the Shift Assessment completed by the Licensed Practical Nurse today this shift.
[2019-06-28 06:16] LABS: ALBUMIN 2.6 g/dL (3.4-5.0); ANION GAP 10.5 mmol/L (8-16); BILIRUBIN - TOTAL 0.24 mg/dL (0.2-1.3); CARBON DIOXIDE 28.2 mmol/L (21.0-32.0); CREATININE - SERUM 0.8 mg/dL (0.6-1.3); MAGNESIUM - SERUM 1.7 mg/dL (1.8-2.4); POTASSIUM - SERUM 4.7 mmol/L (3.5-5.1); PROTEIN - SERUM 5.8 g/dL (6.4-8.2)
[2019-06-28 08:50] VITALS: BP 163/74
--- NOTE | 2019-06-28 08:58 | MORECARE ---
CASE MANAGEMENT DISCHARGE SUMMARY PATIENT: HOLLAND MCGOWAN UNIT: [id number] ADM DATE: 06/23/19 AGE: 78 : 42 SEX: F ROOM/BED: D.2104 AUTHOR: ROBERTO CARLOS JENSEN PHYSICIAN: REFERRING PHYSICIAN: MALKA MCCURDY MD DATE OF SERVICE: 06/28/19 Discharge Plan Patient Name: HOLLAND MCGOWAN Facility: [facility]:[place] : 1940 Planned Disposition: Home Anticipated Discharge Date: 06/28/19 Discharge Date: Expected LOS: 5 Initial Reviewer: [email or web address] Initial Review Date: 06/28/2019 Generated: 06/28/19 9:57 am Patient Name: HOLLAND MCGOWAN Page [phone] at 0858 All edits/amendments must be made on the electronic document DICTATION DATE: 06/28/19857 OIL ANALYST: JUVENCIO 06/28/19 0858 RPT#: [id number] DC DATE: STATUS: ADM IN [facility] [address] [place] [address] END OF REPORT
--- NOTE | 2019-06-28 09:06 | MORECARE ---
CASE MANAGEMENT DISCHARGE SUMMARY PATIENT: HOLLAND MCGOWAN UNIT: [id number] ADM DATE: 06/23/19 AGE: 78 : 42 SEX: F ROOM/BED: D.4289 AUTHOR: MIKEY,DOC PHYSICIAN: REFERRING PHYSICIAN: MALKA MCCURDY MD DATE OF SERVICE: 06/28/19 Discharge Plan Patient Name: HOLLAND MCGOWAN Facility: [facility]:[place] : 1940 Planned Disposition: Home Anticipated Discharge Date: 06/28/19 Discharge Date: Expected LOS: 5 Initial Reviewer: [email or web address] Initial Review Date: 06/28/2019 Generated: 06/28/19 10:06 am Comments DCP- Discharge Planning Updated by [id number]: Sara Arana on 06/28/19 8:[address] Patient Name: HOLLAND MCGOWAN Admission Status: ER Accout number: [id number] Admission Date: 06-23-2019 : 1940 Admission Diagnosis:SHORTNESS OF BREATH Attending: MALKA MCCURDY Current LOS: 5 Anticipated DC Date: 06-28-2019 Planned Disposition: Home Primary Insurance: MEDICARE A & B DC Plan - Home. Declines HHS. States son or friend to transport home. CM met with patient to complete initial dc planning assessment. CM educated patient on the CM role and verbal consent given by patient to complete assessment. Patient lives at home alone. At discharge patient plans to return and feels this is a safe discharge. CM discussed availability of home health, rehab services, and medical equipment. Patient denied known discharge needs at this time. States her son or a friend will drive her home on discharge. She has oxygen with portability and nebulizer, provided by [facility]. CM will continue to follow and will assist as needed with dc plans/needs. Discharge Planning Comments: Steam Finisher: Sara Arana DCPIA - Discharge Planning Initial Assessment Updated by [id number]: Sara Arana on 06/28/19 9:00 am * Is the patient Alert and Oriented? Yes * How many steps to enter\exit or inside your home? 4 w/rails/ * PCP Gideon Alonso * Pharmacy [facility] * Preadmission Environment Home Alone * ADLs Partial Dependent * Partial ADLs (Assistance needed) Ambulation * Equipment Cane Elevated Toliet Seat Other Oxygen Walker * Other Equipment Quad Cane Portable oxygen * List name and contact numbers for known caregivers / representatives who currently or will assist patient after discharge: Barron Cruz -lynn - [phone] * Verbal permission to speak to the caregivers and representatives has been obtained from the patient. Yes * Community resources currently utilized None * Additional services required to return to the preadmission environment? No * Can the patient safely return to the preadmission environment? Yes * Has this patient been hospitalized within the prior 30 days at any hospital? No Coverage Notice Reviewer: [id number] Charissa Arana Notice Issued Date-Time: 06/28/2019 8:00 Notice Type: IM Discharge Notice Notice Delivered To: Patient Relationship to Patient: Self Sash Sticker Name: Delivery Method: HAND - Hand Delivered Sangeetha Days: Prior Verbal Notification: Recipient Understood Notice: Yes Recipient Signature: Yes Med Rec Note Co-signed by Attending: Coverage Notice Comment: IMM explained, signed, given, copy placed in MR Last DP export: 06/28/19 7:58 a Patient Name: HOLLAND MCGOWAN Page [phone] at 0906 All edits/amendments must be made on the electronic document DICTATION DATE: 06/28/19905 DEPUTY DIRECTOR OF FINANCE: JUVENCIO 06/28/19905 RPT#: [id number] DC DATE: STATUS: ADM IN [address] [place] [address] END OF REPORT
[2019-06-28] MEDS ORDERED: Levaquin PO (11:30)
[2019-06-28] MEDS ORDERED: FLORAJEN3 CAPS460 MG PO (11:31)
[2019-06-28] MEDS ORDERED: PREDNISONE20 MG PO (11:32)
--- NOTE | 2019-06-28 13:42 | NUR ---
DISCHARGE INSTRUCTIONS REVIEWED AND SIGNED. IV REMOVED. PAPER SCRIPT FOR ANTIBIOTIC GIVEN, REST ESCRIBED TO [place].
--- NOTE | 2019-06-28 15:41 | MORECARE ---
CASE MANAGEMENT DISCHARGE SUMMARY PATIENT: HOLLAND MCGOWAN UNIT: [id number] ADM DATE: 06/23/19 AGE: 78 : 42 SEX: F ROOM/BED: D.0579 AUTHOR: MIKEY,DOC PHYSICIAN: REFERRING PHYSICIAN: MALKA MCCURDY MD DATE OF SERVICE: 06/28/19 Discharge Plan Patient Name: HOLLAND MCGOWAN Facility: [facility]:[place] : 1940 Planned Disposition: Home Anticipated Discharge Date: 06/28/19 Discharge Date: 06/28/2019 Expected LOS: 5 Initial Reviewer: [id number] Initial Review Date: 06/28/2019 Generated: 06/28/19 4:40 pm Comments DCP- Discharge Planning Updated by [email or web address]: Sara Arana on 06/28/19 8:[address] Patient Name: HOLLAND MCGOWAN Admission Status: ER Accout number: [id number] Admission Date: 06-23-2019 : 1940 Admission Diagnosis:SHORTNESS OF BREATH Attending: MALKA MCCURDY Current LOS: 5 Anticipated DC Date: 06-28-2019 Planned Disposition: Home Primary Insurance: MEDICARE A & B DC Plan - Home. Declines [facility]. States son or friend to transport home. CM met with patient to complete initial dc planning assessment. CM educated patient on the CM role and verbal consent given by patient to complete assessment. Patient lives at home alone. At discharge patient plans to return and feels this is a safe discharge. CM discussed availability of home health, rehab services, and medical equipment. Patient denied known discharge needs at this time. States her son or a friend will drive her home on discharge. She has oxygen with portability and nebulizer, provided by [facility]. CM will continue to follow and will assist as needed with dc plans/needs. Discharge Planning Comments: Affirmative Action Officer: Sara Arana DCPIA - Discharge Planning Initial Assessment Updated by [email or web address]: Sara Arana on 06/28/19 9:00 am * Is the patient Alert and Oriented? Yes * How many steps to enter\exit or inside your home? 4 w/rails/ * PCP Gideon Alonso * Pharmacy [facility] on [address] * Preadmission Environment Home Alone * ADLs Partial Dependent * Partial ADLs (Assistance needed) Ambulation * Equipment Cane Elevated Toliet Seat Other Oxygen Walker * Other Equipment Quad Cane Portable oxygen * List name and contact numbers for known caregivers / representatives who currently or will assist patient after discharge: Barron Cruz -lynn - [phone] * Verbal permission to speak to the caregivers and representatives has been obtained from the patient. Yes * Community resources currently utilized None * Additional services required to return to the preadmission environment? No * Can the patient safely return to the preadmission environment? Yes * Has this patient been hospitalized within the prior 30 days at any hospital? No Coverage Notice Reviewer: [id number] Charissa Arana Notice Issued Date-Time: 06/28/2019 8:00 Notice Type: IM Discharge Notice Notice Delivered To: Patient Relationship to Patient: Self Sample Puller Name: Delivery Method: HAND - Hand Delivered Sangeetha Days: Prior Verbal Notification: Recipient Understood Notice: Yes Recipient Signature: Yes Med Rec Note Co-signed by Attending: Coverage Notice Comment: IMM explained, signed, given, copy placed in MR Last DP export: 06/28/19 8:06 a Patient Name: HOLLAND MCGOWAN Page [phone] at 1541 All edits/amendments must be made on the electronic document DICTATION DATE: 06/28/191539 BOARD TURNER: JUVENCIO 06/28/191539 RPT#: [id number] DC DATE:06/28/19 STATUS: DIS IN [facility] [address] [place] [address] END OF REPORT
== END 2019-06-28 13:43 | disposition home or self-care (01) | DRG 193 ==
LOC: D.ER 20:29 → D.M2 22:11
PROVIDERS: Emergency Medicine; Family Medicine; ADMIT Internal Medicine Nephrology; ATTEND Internal Medicine Nephrology
DX: J18.9 Pneumonia, unspecified organism (principal); J96.21 Acute and chronic respiratory failure with hypoxia; E43 Unspecified severe protein-calorie malnutrition; J44.1 Chronic obstructive pulmonary disease with (acute) exacerbation; E87.1 Hypo-osmolality and hyponatremia; J44.0 Chronic obstructive pulmonary disease with (acute) lower respiratory infection; Z68.1 Body mass index [BMI] 19.9 or less, adult; D64.9 Anemia, unspecified; I25.10 Atherosclerotic heart disease of native coronary artery without angina pectoris; K22.70 Barrett's esophagus without dysplasia; C50.911 Malignant neoplasm of unspecified site of right female breast; I11.0 Hypertensive heart disease with heart failure; I50.9 Heart failure, unspecified; J30.9 Allergic rhinitis, unspecified; F17.200 Nicotine dependence, unspecified, uncomplicated; Z86.73 Personal history of transient ischemic attack (TIA), and cerebral infarction without residual deficits

== ENCOUNTER 2019-09-16 18:17 | Emergency (ER) | payer MEDICARE, OTHER ==
[~2019-09-16] VITALS: Ht 162.6 cm; Wt 63.6 kg
[~2019-09-16 18:17] MED LIST changes: +GABAPENTIN100 MG PO; +Levaquin PO; +PREDNISONE20 MG PO
[2019-09-16 18:20] VITALS: Ht 162.6 cm; Wt 63.6 kg
[2019-09-16 19:41] LABS: BASOPHILS 0.1 % (0-2); EOSINOPHILS 0.1 % (0-7); HEMATOCRIT 39.9 % (36.0-48.0); HEMOGLOBIN 13.5 g/dL (12-16); IMMATURE GRANULOCYTES 0.1 % (0-5); LYMPHOCYTES 20.4 % (15-50); MCHC 33.8 g/dL (31.0-37.0); MCV 103.4 fL (80.0-100.0); MEAN PLATELET VOLUME 9.7 fL (7.4-10.4); NEUTROPHILS 66.3 % (40-80); PLATELET COUNT 238 10x3/uL (130-400); RBC 3.86 10x6/uL (4.00-5.40); RDW 14.7 % (11.5-14.5); WBC 7.5 10x3/uL (4.8-10.8)
[2019-09-16 19:56] LABS: ANION GAP 6.3 mmol/L (8-16); CALCIUM 8.5 mg/dL (8.5-10.1); CARBON DIOXIDE 32.4 mmol/L (21.0-32.0); CREATININE - SERUM 1.1 mg/dL (0.6-1.3); POTASSIUM - SERUM 3.7 mmol/L (3.5-5.1)
[2019-09-16 20:02] LABS: ALBUMIN 3.6 g/dL (3.4-5.0); BILIRUBIN - TOTAL 0.37 mg/dL (0.2-1.3); PROTEIN - SERUM 7.2 g/dL (6.4-8.2)
[2019-09-16 21:18] LABS: BILIRUBIN NEGATIVE (NEGATIVE); GLUCOSE NEGATIVE (NEGATIVE); KETONE NEGATIVE (NEGATIVE); NITRITE NEGATIVE (NEGATIVE); UROBILINOGEN NORMAL (NORMAL)
[2019-09-16 21:19] LABS: BACTERIA FEW /hpf (NEGATIVE); EPITHELIAL CELLS 0-5 /hpf (0-5); RED CELLS - URINE RARE /hpf (0-5); WHITE CELLS - URINE 0-5 /hpf (NEGATIVE)
[2019-09-16] MEDS ORDERED: MACROBID100 MG PO (21:24)
[2019-09-16 21:58] VITALS: BP 150/60
== END 2019-09-16 21:58 | disposition home or self-care (01) ==
LOC: D.ER 18:17
PROVIDERS: Family Medicine
DX: M54.5 Low back pain (principal); K59.00 Constipation, unspecified; E87.1 Hypo-osmolality and hyponatremia; N39.0 Urinary tract infection, site not specified; Z86.73 Personal history of transient ischemic attack (TIA), and cerebral infarction without residual deficits; I50.9 Heart failure, unspecified; I25.2 Old myocardial infarction; J44.9 Chronic obstructive pulmonary disease, unspecified; Z99.81 Dependence on supplemental oxygen

== ENCOUNTER 2019-09-18 17:28 | Inpatient (IN) | payer MEDICARE, OTHER ==
[~2019-09-18] VITALS: Ht 162.6 cm; Wt 46.8 kg
[~2019-09-18 17:28] MED LIST changes: +MACROBID100 MG PO
[2019-09-18] MEDS ORDERED: MACROBID100 MG PO (17:43)
[2019-09-18 18:17] LABS: BASOPHILS 0.2 % (0-2); EOSINOPHILS 0.6 % (0-7); HEMATOCRIT 38.6 % (36.0-48.0); HEMOGLOBIN 13.4 g/dL (12-16); IMMATURE GRANULOCYTES 0.2 % (0-5); LYMPHOCYTES 9.1 % (15-50); MCH 35.3 pg (26.0-34.0); MCHC 34.7 g/dL (31.0-37.0); MCV 101.6 fL (80.0-100.0); MEAN PLATELET VOLUME 9.3 fL (7.4-10.4); MONOCYTES 10.4 % (2-11); NEUTROPHILS 79.5 % (40-80); RDW 13.9 % (11.5-14.5); WBC 6.6 10x3/uL (4.8-10.8)
[2019-09-18 18:29] VITALS: BP 171/69
[2019-09-18 18:32] LABS: ANION GAP 8.6 mmol/L (8-16); CALCIUM 8.3 mg/dL (8.5-10.1); CARBON DIOXIDE 29.8 mmol/L (21.0-32.0); CREATININE - SERUM 0.9 mg/dL (0.6-1.3); POTASSIUM - SERUM 4.4 mmol/L (3.5-5.1)
[2019-09-18 18:35] LABS: PLATELET COUNT 183 10x3/uL (130-400)
[2019-09-18 18:43] LABS: ALBUMIN 3.5 g/dL (3.4-5.0); BILIRUBIN - TOTAL 0.91 mg/dL (0.2-1.3)
[2019-09-18 19:00] VITALS: BP 171/75
--- NOTE | 2019-09-18 19:00 | NUR ---
REPORT TO KEELEY GALLARDO.
--- NOTE | 2019-09-18 20:15 | NUR ---
URINE SENT TO LAB
[2019-09-18 20:28] LABS: BILIRUBIN NEGATIVE (NEGATIVE); GLUCOSE NEGATIVE (NEGATIVE); KETONE MODERATE mg/dL (NEGATIVE); NITRITE NEGATIVE (NEGATIVE); UROBILINOGEN NORMAL (NORMAL)
[2019-09-18 20:36] LABS: CKMB 1.4 U/L (0.0-3.6); CREATINE KINASE 41 UL (21-215)
[2019-09-18 21:09] LABS: TROPONIN-I < 0.017 ng/mL (0.000-0.060)
[2019-09-18 22:52] VITALS: BP 134/60
--- NOTE | 2019-09-18 23:22 | NUR ---
PT LYING SUPINE IN BED, NO NEEDS EXPRESSED AT THIS TIME. PT STATES "I STILL HAVENT WENT TO THE BATHROOM SINCE YOU LEFT." PT DENIES OTHER COMPLAINTS AT THIS TIME. WILL CONTINUE TO MONITOR.
[2019-09-19 04:35] VITALS: BP 164/74
--- NOTE | 2019-09-19 04:36 | NUR ---
PATIENT HAD A LARGE BM
[2019-09-19 04:46] LABS: BASOPHILS 0.1 % (0-2); EOSINOPHILS 0.4 % (0-7); HEMATOCRIT 40.7 % (36.0-48.0); HEMOGLOBIN 13.6 g/dL (12-16); IMMATURE GRANULOCYTES 0.3 % (0-5); LYMPHOCYTES 6.8 % (15-50); MCH 34.6 pg (26.0-34.0); MCHC 33.4 g/dL (31.0-37.0); MEAN PLATELET VOLUME 9.8 fL (7.4-10.4); MONOCYTES 9.1 % (2-11); NEUTROPHILS 83.3 % (40-80); PLATELET COUNT 187 10x3/uL (130-400); RBC 3.93 10x6/uL (4.00-5.40); RDW 13.8 % (11.5-14.5); WBC 6.8 10x3/uL (4.8-10.8)
[2019-09-19 05:07] LABS: MCV 103.6 fL (80.0-100.0)
[2019-09-19 05:12] LABS: ALBUMIN 3.1 g/dL (3.4-5.0); BILIRUBIN - TOTAL 0.88 mg/dL (0.2-1.3); CALCIUM 8.4 mg/dL (8.5-10.1); CARBON DIOXIDE 24.9 mmol/L (21.0-32.0); MAGNESIUM - SERUM 3.2 mg/dL (1.8-2.4); POTASSIUM - SERUM 3.9 mmol/L (3.5-5.1); PROTEIN - SERUM 6.8 g/dL (6.4-8.2)
[2019-09-19 05:43] LABS: D-DIMER-QUANTITATIVE 3.22 ug/mLFEU (0.20-0.54)
--- NOTE | 2019-09-19 06:11 | NUR ---
TO CT FOR CT WITH PE PROTOCOL
--- NOTE | 2019-09-19 06:36 | NUR ---
BACK FROM CT
[2019-09-19 07:00] VITALS: BP 144/56
--- NOTE | 2019-09-19 07:00 | NUR ---
REPORT RECEIVED FROM PM RN, PATIENT RESTING SUPINE NO COMPLAINTS AT THIS TIME.
[2019-09-19 11:00] VITALS: BP 129/50
[2019-09-19 13:06] VITALS: BP 145/55
[2019-09-19 14:52] VITALS: BP 139/51; Ht 162.6 cm; Wt 46.8 kg
--- NOTE | 2019-09-19 16:10 | NUR ---
RECEIVED PT FROM ER VIA STRETCHER TO ROOM 2203. O2 @ 2L NC IN PLACE. REQUIRED ASSISTANCE WITH TRANSFER. PT VOIDED DARK URINE AT THIS TIME USIN BED GUAMAN. IV TO LEFT FOREARM WITH NS @ 50ML/HR INFUSING VIA PUMP. SITE WITHOUT REDNESS OR EDEMA. ORIENTED TO CL AND BED CONTROLS. DENIES FURTHER NEEDS AT THIS TIME. CL WITHIN REACH. ENCOURAGED TO CALL WITH NEEDS.
[2019-09-19 20:00] VITALS: BP 125/51
--- NOTE | 2019-09-19 20:00 | NUR ---
MICHELLE IS RESTING COMFORTABLY IN BED. SHE IS ALERT AND ORIENTED. SHE WAS PLACED ON TELEMETRY. SHE IS NORMAL SINUS ON TELEMETRY. WE WILL CONTINUE TO MONITOR HER RATE AND RHYTHM.
[2019-09-20] VITALS (7 sets, daily range): BP systolic 103–154; BP diastolic 46–77
--- NOTE | 2019-09-20 04:37 | NUR ---
PATIENT IS SLEEPING COMFORTABLY IN BED. SHE HAS VOIDED ONCE IN 9 HOURS. SHE HAS BEEN GIVEN MORPHINE TWICE FOR BACK PAIN. SHE REFUSED SENEKOT, COLACE, AND MIRALAX AT BEDTIME. SHE STILL HAS IV FLUIDS GOING. SHE WAS PLACED ON TELEMETRY. HER HEART RHYTM IS NORMAL SINUS. WE WILL CONTINUE TO MONITOR HER RATE RHYTHM AND BACK PAIN.
[2019-09-20 04:58] LABS: BASOPHILS 0.3 % (0-2); EOSINOPHILS 1.9 % (0-7); LYMPHOCYTES 12.1 % (15-50); MCH 34.5 pg (26.0-34.0); MCHC 34.2 g/dL (31.0-37.0); MEAN PLATELET VOLUME 9.9 fL (7.4-10.4); MONOCYTES 18.8 % (2-11); NEUTROPHILS 66.9 % (40-80); PLATELET COUNT 177 10x3/uL (130-400); RBC 3.19 10x6/uL (4.00-5.40); RDW 14.1 % (11.5-14.5)
[2019-09-20 05:17] LABS: HEMATOCRIT 32.2 % (36.0-48.0); MCV 100.9 fL (80.0-100.0); WBC 3.7 10x3/uL (4.8-10.8)
[2019-09-20 05:20] LABS: ALKALINE PHOSPHATASE 63 U/L (30-120); ALT (SGPT) 14 U/L (10-68); BILIRUBIN - TOTAL 0.27 mg/dL (0.2-1.3); CALC OSMOLALITY 259 mosm/kg (275-300); CALCIUM 7.4 mg/dL (8.5-10.1); CARBON DIOXIDE 27.4 mmol/L (21.0-32.0); CHLORIDE - SERUM 101 mmol/L (98-107); GLUCOSE 72 mg/dL (74-106); POTASSIUM - SERUM 3.6 mmol/L (3.5-5.1); PROTEIN - SERUM 5.1 g/dL (6.4-8.2); SODIUM 131 mmol/L (136-145); UREA NITROGEN 7 mg/dL (7-18)
[2019-09-20 05:28] LABS: CREATININE - SERUM 0.7 mg/dL (0.6-1.3); MAGNESIUM - SERUM 2.1 mg/dL (1.8-2.4)
[2019-09-20 05:29] LABS: ALBUMIN 2.1 g/dL (3.4-5.0); eGFR NON AFRICAN AMERICAN 86 mL/min (90-120)
--- NOTE | 2019-09-20 08:20 | NUR ---
SHE IS USING THE WALKER WITH MY HELP TO GET TO THE BATHROOM. THE CALL LIGHT IS WITHIN REACH.
--- NOTE | 2019-09-20 18:56 | NUR ---
SHE WENT TO THE BATHROOM AND SHE IS PASSING BLOOD, SHE STATES WHEN SHE VOIDED, BUT SHE HAS HEMORRHOIDS. IT WAS SMALL AMOUNT OF BRIGHT RED BLOOD. SHE IS USING THE CALL LIGHT WHEN NEEDING TO GO TO THE BATHROOM AND WE ARE HELPING HER WITH THE WALKER.
[2019-09-20 22:02] LABS: CKMB 0.8 U/L (0.0-3.6); CREATINE KINASE 70 UL (21-215)
[2019-09-20 22:04] LABS: TROPONIN-I < 0.017 ng/mL (0.000-0.060)
--- NOTE | 2019-09-20 22:43 | NUR ---
PT STATES, "LUCKLY I HAD A XANEX IN MY PURSE TO TAKE." THIS NURSE ASKED PT HOW MUCH AND IF SHE HAD ANYMORE. PT STATES 1MG AND NO. VITALS STABLE AT THIS TIME. NO S/S OF DISTRERSS AT THIS TIME
--- NOTE | 2019-09-21 03:41 | NUR ---
PT A/O X4. UP TO BATHEROOM WITH ASSIST. VITALS STABLE. NO S/S OF DISTRESS AT THIS TIME. BED LOW CALL LIGHTG WITHIN REACH. BED LOW ELDER LIGHT WITHIN REACH. WILL CONTINUE TO MONITOR.
[2019-09-21 04:00] VITALS: BP 104/47
[2019-09-21 04:07] LABS: BASOPHILS 0 % (0-2); EOSINOPHILS 1.4 % (0-7); HEMATOCRIT 31.5 % (36.0-48.0); HEMOGLOBIN 10.7 g/dL (12-16); LYMPHOCYTES 13.1 % (15-50); MCH 34.6 pg (26.0-34.0); MCV 101.9 fL (80.0-100.0); MONOCYTES 19.9 % (2-11); NEUTROPHILS 65.6 % (40-80); PLATELET COUNT 156 10x3/uL (130-400); RBC 3.09 10x6/uL (4.00-5.40); RDW 14.3 % (11.5-14.5); WBC 4.3 10x3/uL (4.8-10.8)
[2019-09-21 04:22] LABS: ALBUMIN 2.2 g/dL (3.4-5.0); ALKALINE PHOSPHATASE 56 U/L (30-120); ALT (SGPT) 13 U/L (10-68); BILIRUBIN - TOTAL 0.34 mg/dL (0.2-1.3); CALCIUM 7.3 mg/dL (8.5-10.1); CARBON DIOXIDE 31.5 mmol/L (21.0-32.0); CHLORIDE - SERUM 99 mmol/L (98-107); CKMB 0.6 U/L (0.0-3.6); CREATINE KINASE 64 UL (21-215); CREATININE - SERUM 0.7 mg/dL (0.6-1.3); GLUCOSE 83 mg/dL (74-106); MAGNESIUM - SERUM 1.8 mg/dL (1.8-2.4); POTASSIUM - SERUM 3.6 mmol/L (3.5-5.1); PROTEIN - SERUM 5.3 g/dL (6.4-8.2); SODIUM 131 mmol/L (136-145); eGFR NON AFRICAN AMERICAN 86 mL/min (90-120)
[2019-09-21 04:37] LABS: UREA NITROGEN 5 mg/dL (7-18)
[2019-09-21 04:38] LABS: CALC OSMOLALITY 258 mosm/kg (275-300); TROPONIN-I < 0.017 ng/mL (0.000-0.060)
[2019-09-21 09:51] VITALS: BP 134/53
[2019-09-21 11:04] LABS: CKMB 0.6 U/L (0.0-3.6); CREATINE KINASE 63 UL (21-215); TROPONIN-I < 0.017 ng/mL (0.000-0.060)
[2019-09-21 12:28] LABS: PHOSPHOROUS 2.2 mg/dL (2.5-4.9)
[2019-09-21 14:57] VITALS: BP 151/60
[2019-09-21 17:40] VITALS: BP 122/50
[2019-09-21 20:00] VITALS: BP 128/51
--- NOTE | 2019-09-22 03:36 | NUR ---
I have reviewed this patient and I concur with the Shift Assessment completed by the Licensed Practical Nurse today this shift.
[2019-09-22 07:39] LABS: ALBUMIN 2.2 g/dL (3.4-5.0); ALKALINE PHOSPHATASE 53 U/L (30-120); ALT (SGPT) 15 U/L (10-68); BILIRUBIN - TOTAL 0.41 mg/dL (0.2-1.3); CALC OSMOLALITY 261 mosm/kg (275-300); CALCIUM 7.6 mg/dL (8.5-10.1); CARBON DIOXIDE 31.7 mmol/L (21.0-32.0); CHLORIDE - SERUM 98 mmol/L (98-107); CREATININE - SERUM 0.7 mg/dL (0.6-1.3); GLUCOSE 89 mg/dL (74-106); MAGNESIUM - SERUM 1.9 mg/dL (1.8-2.4); POTASSIUM - SERUM 3.5 mmol/L (3.5-5.1); PROTEIN - SERUM 5.4 g/dL (6.4-8.2); SODIUM 133 mmol/L (136-145); UREA NITROGEN 4 mg/dL (7-18); eGFR NON AFRICAN AMERICAN 86 mL/min (90-120)
[2019-09-22 07:54] LABS: HEMATOCRIT 33.6 % (36.0-48.0); HEMOGLOBIN 11.5 g/dL (12-16); LYMPHOCYTES 16.7 % (15-50); MCH 35.1 pg (26.0-34.0); MCHC 34.2 g/dL (31.0-37.0); MCV 102.4 fL (80.0-100.0); MEAN PLATELET VOLUME 9.9 fL (7.4-10.4); NEUTROPHILS 62.4 % (40-80); PLATELET COUNT 179 10x3/uL (130-400); RBC 3.28 10x6/uL (4.00-5.40); RDW 15.7 % (11.5-14.5); WBC 3.3 10x3/uL (4.8-10.8)
[2019-09-22 08:51] VITALS: BP 140/59
[2019-09-22 14:02] VITALS: BP 131/47
[2019-09-22 17:09] VITALS: BP 122/51
[2019-09-22 20:00] VITALS: BP 133/51
[2019-09-23 04:00] VITALS: BP 133/57
--- NOTE | 2019-09-23 04:00 | NUR ---
I have reviewed this patient and I concur with the Shift Assessment completed by the Licensed Practical Nurse today this shift.
[2019-09-23 05:48] LABS: HEMATOCRIT 31.6 % (36.0-48.0); HEMOGLOBIN 10.8 g/dL (12-16); LYMPHOCYTES 14.3 % (15-50); MCH 35.2 pg (26.0-34.0); MCHC 34.2 g/dL (31.0-37.0); MCV 102.9 fL (80.0-100.0); MEAN PLATELET VOLUME 9.6 fL (7.4-10.4); NEUTROPHILS 64.2 % (40-80); PLATELET COUNT 193 10x3/uL (130-400); RBC 3.07 10x6/uL (4.00-5.40); RDW 15.6 % (11.5-14.5)
[2019-09-23 05:49] LABS: WBC 4.7 10x3/uL (4.8-10.8)
[2019-09-23 05:59] LABS: ALBUMIN 2.1 g/dL (3.4-5.0); ALKALINE PHOSPHATASE 55 U/L (30-120); ALT (SGPT) 12 U/L (10-68); BILIRUBIN - TOTAL 0.47 mg/dL (0.2-1.3); CALC OSMOLALITY 262 mosm/kg (275-300); CALCIUM 7.9 mg/dL (8.5-10.1); CARBON DIOXIDE 29.5 mmol/L (21.0-32.0); CHLORIDE - SERUM 97 mmol/L (98-107); CREATININE - SERUM 0.6 mg/dL (0.6-1.3); GLUCOSE 96 mg/dL (74-106); MAGNESIUM - SERUM 1.6 mg/dL (1.8-2.4); POTASSIUM - SERUM 3.8 mmol/L (3.5-5.1); PROTEIN - SERUM 5.4 g/dL (6.4-8.2); SODIUM 133 mmol/L (136-145); UREA NITROGEN 4 mg/dL (7-18); eGFR NON AFRICAN AMERICAN > 90 mL/min (90-120)
--- NOTE | 2019-09-23 08:00 | NUR ---
ALERT AND ORIENTED X4 WITH BRATH SOUNDS DIMINISHED X4 ANTERIOR. O2 2L NC. ENCOURAGED TO USE CALL LIGHT FOR ASSSIT. PATIENT PULLED IV OUT THIS AM GOING TO BATHROOM UNASSISTED. VERBALIZED UNDERSTANDING. NO PERIPHERAL EDEMA NOTED. AND CAP REFILL LESS THAN 3 SEC.
[2019-09-23 08:59] VITALS: BP 136/61
[2019-09-23] MEDS ORDERED: NICODERM CQ1 EAC3 TRANSDERM (09:28)
[2019-09-23] MEDS ORDERED: NYSTATIN100000 UN4 PO (09:28)
[2019-09-23] MEDS ORDERED: LEVOFLOXACIN500 MG PO (09:29)
--- NOTE | 2019-09-23 12:07 | NUR ---
PATIENT VERBALIZED UNDERSTANDING OF DISCHARGE INSTRUCTIONS AND STABLE AT TIME OF DEPARTURE.
--- NOTE | 2019-09-23 16:36 | MORECARE ---
CASE MANAGEMENT DISCHARGE SUMMARY PATIENT: HOLLAND MCGOWAN UNIT: [id number] ADM DATE: 09/18/19 AGE: 79 : 42 SEX: F ROOM/BED: D.2203 AUTHOR: ROBERTO CARLOS JENSEN PHYSICIAN: REFERRING PHYSICIAN: TAYLOR MONSON MD DATE OF SERVICE: 09/23/19 Discharge Plan Patient Name: HOLLAND MCGOWAN Facility: [facility]:[place] : 1940 Planned Disposition: Home Anticipated Discharge Date: 09/23/19 Discharge Date: 09/23/2019 Expected LOS: 5 Initial Reviewer: [email or web address] Initial Review Date: 09/19/2019 Generated: 09/23/19 5:35 pm DCPIA - Discharge Planning Initial Assessment Updated by [id number]: Viky Donahue on 09/23/19 4:34 pm * Is the patient Alert and Oriented? Yes * How many steps to enter\exit or inside your home? 2-3 * PCP MATHENY * Pharmacy [facility] * Preadmission Environment Home Alone * ADLs Independent * Other Equipment WALKER, W/C, BSC, SC, NEBULIZER, HOME/PORT 02 * List name and contact numbers for known caregivers / representatives who currently or will assist patient after discharge: MAR BUSTOSELIOTMADISYN - DAUGHTER - [phone] DARLENE GONZALEZ -SON - [phone] * Verbal permission to speak to the caregivers and representatives has been obtained from the patient. Yes * Community resources currently utilized None * Additional services required to return to the preadmission environment? No * Can the patient safely return to the preadmission environment? Yes * Has this patient been hospitalized within the prior 30 days at any hospital? No Patient Name: HOLLAND MCGOWAN Page [phone] at 1636 All edits/amendments must be made on the electronic document DICTATION DATE: 09/23/19 1635 EYEDOTTER: JUVENCIO 09/23/19 1635 RPT#: [id number] DC DATE:09/23/19 STATUS: DIS IN [address] [address] END OF REPORT
--- NOTE | 2019-09-23 16:44 | MORECARE ---
CASE MANAGEMENT DISCHARGE SUMMARY PATIENT: HOLLAND MCGOWAN UNIT: [id number] ADM DATE: 09/18/19 AGE: 79 : 42 SEX: F ROOM/BED: D.2203 AUTHOR: MIKEY,DOC PHYSICIAN: REFERRING PHYSICIAN: TAYLOR MONSON MD DATE OF SERVICE: 09/23/19 Discharge Plan Patient Name: HOLLAND MCGOWAN Facility: [facility]:[place] : 1940 Planned Disposition: Home Anticipated Discharge Date: 09/23/19 Discharge Date: 09/23/2019 Expected LOS: 5 Initial Reviewer: [email or web address] Initial Review Date: 09/19/2019 Generated: 09/23/19 5:43 pm Comments DCP- Discharge Planning Updated by [email or web address]: Viky Donahue on 09/23/19 3:[address] Patient Name: HOLLAND MCGOWAN Admission Status: ER Accout number: [id number] Admission Date: 09-18-2019 : 1940 Admission Diagnosis:HYPO-OSMOLALITY AND HYPONATREMIA Attending: NOEMÍ Current LOS: 5 Anticipated DC Date: 09-23-2019 Planned Disposition: Home Primary Insurance: MEDICARE A & B Discharge Planning Comments: CM met with patient to complete initial dc planning assessment. CM educated patient on the CM role and verbal consent given by patient to complete assessment. Patient lives at home with family. Patient is independent. At discharge patient plans to return home and feels this is a safe discharge. CM discussed availability of home health, rehab services, and medical equipment. Patient has home / portable 02 with [facility]. Patient will have family to transport home. Patient denied known discharge needs at this time. D/C IMM SIGNED 09/23/19 @ 1032 CM will continue to follow and will assist as needed with dc plans/needs. Emanations Analysis Technician: Viky Donahue DCPIA - Discharge Planning Initial Assessment Updated by [id number]: Viky Donahue on 09/23/19 4:34 pm * Is the patient Alert and Oriented? Yes * How many steps to enter\exit or inside your home? 2-3 * PCP FELI * Pharmacy [facility] * Preadmission Environment Home Alone * ADLs Independent * Other Equipment WALKER, W/C, BSC, SC, NEBULIZER, HOME/PORT 02 * List name and contact numbers for known caregivers / representatives who currently or will assist patient after discharge: MAR CHRISTIANSON - DAUGHTER - [phone] DARLENE GONZALEZ -SON - [phone] * Verbal permission to speak to the caregivers and representatives has been obtained from the patient. Yes * Community resources currently utilized None * Additional services required to return to the preadmission environment? No * Can the patient safely return to the preadmission environment? Yes * Has this patient been hospitalized within the prior 30 days at any hospital? No Coverage Notice Reviewer: [id number] Charissa Donahue Notice Issued Date-Time: 09/23/2019 10:32 Notice Type: IM Discharge Notice Notice Delivered To: Patient Relationship to Patient: Self Bowling Ball Engraver Name: Delivery Method: HAND - Hand Delivered Sangeetha Days: Prior Verbal Notification: Recipient Understood Notice: Yes Recipient Signature: Yes Med Rec Note Co-signed by Attending: Coverage Notice Comment: Last DP export: 09/23/19 3:36 p Patient Name: HOLLAND MCGOWAN Page [phone] at 1644 All edits/amendments must be made on the electronic document DICTATION DATE: 09/23/191642 MONITORING MANAGER: JUVENCIO 09/23/191642 RPT#: [id number] DC DATE:09/23/19 STATUS: DIS IN [facility] [address] [place] [address] END OF REPORT
== END 2019-09-23 12:08 | disposition home or self-care (01) | DRG 690 ==
LOC: D.ER 17:28 → D.MS 21:16 → D.EDHOLD 21:16 → D.MS 09-19 16:02
PROVIDERS: Family Medicine; Internal Medicine; ADMIT Family Medicine; ATTEND Family Medicine
DX: N39.0 Urinary tract infection, site not specified (principal); E87.1 Hypo-osmolality and hyponatremia; I48.20 Chronic atrial fibrillation, unspecified; E87.8 Other disorders of electrolyte and fluid balance, not elsewhere classified; K59.00 Constipation, unspecified; D75.89 Other specified diseases of blood and blood-forming organs; I10 Essential (primary) hypertension; I25.10 Atherosclerotic heart disease of native coronary artery without angina pectoris; K21.9 Gastro-esophageal reflux disease without esophagitis; J44.9 Chronic obstructive pulmonary disease, unspecified; I73.9 Peripheral vascular disease, unspecified; M81.0 Age-related osteoporosis without current pathological fracture; Z86.73 Personal history of transient ischemic attack (TIA), and cerebral infarction without residual deficits

== ENCOUNTER 2019-10-10 08:21 | Inpatient (IN) | payer MEDICARE, OTHER ==
[2019-10-10] VITALS (7 sets, daily range): BP systolic 112–147; BP diastolic 54–67; BMI 16.0
[~2019-10-10] VITALS: Ht 162.6 cm; Wt 42.2 kg
[~2019-10-10 08:21] MED LIST changes: +LEVOFLOXACIN500 MG PO; +NICODERM CQ1 EAC3 TRANSDERM; +NYSTATIN100000 UN4 PO
[2019-10-10 08:43] LABS: BASOPHILS 0.1 % (0-2); EOSINOPHILS 0.1 % (0-7); HEMATOCRIT 36.1 % (36.0-48.0); HEMOGLOBIN 12.3 g/dL (12-16); IMMATURE GRANULOCYTES 0.2 % (0-5); LYMPHOCYTES 16.2 % (15-50); MCH 34.6 pg (26.0-34.0); MCHC 34.1 g/dL (31.0-37.0); MCV 101.4 fL (80.0-100.0); MEAN PLATELET VOLUME 9.6 fL (7.4-10.4); NEUTROPHILS 68.4 % (40-80); PLATELET COUNT 257 10x3/uL (130-400); RBC 3.56 10x6/uL (4.00-5.40); RDW 13.8 % (11.5-14.5); WBC 8.3 10x3/uL (4.8-10.8)
[2019-10-10 08:49] LABS: CALC OSMOLALITY 257 mosm/kg (275-300); CALCIUM 8.8 mg/dL (8.5-10.1); CARBON DIOXIDE 32.1 mmol/L (21.0-32.0); CHLORIDE - SERUM 95 mmol/L (98-107); CREATININE - SERUM 0.8 mg/dL (0.6-1.3); GLUCOSE 120 mg/dL (74-106); POTASSIUM - SERUM 4.1 mmol/L (3.5-5.1); SODIUM 129 mmol/L (136-145); UREA NITROGEN 7 mg/dL (7-18); eGFR NON AFRICAN AMERICAN 74 mL/min (90-120)
[2019-10-10 09:06] LABS: ALBUMIN 3.1 g/dL (3.4-5.0); ALKALINE PHOSPHATASE 66 U/L (30-120); ALT (SGPT) 13 U/L (10-68); CKMB 1.1 U/L (0.0-3.6); CREATINE KINASE 31 UL (21-215); PRO BNP 577 pg/mL (0-450); PROTEIN - SERUM 6.6 g/dL (6.4-8.2)
[2019-10-10 09:07] LABS: TROPONIN-I < 0.017 ng/mL (0.000-0.060)
[2019-10-10 09:11] LABS: APTT 32.6 SECONDS (22.8-39.4); INR 0.98 (0.85-1.17); PROTIME 12.9 SECONDS (11.6-15.0)
--- NOTE | 2019-10-10 11:14 | NUR ---
REPORT TO KEELEY GONZALEZ
--- NOTE | 2019-10-10 11:30 | NUR ---
ADMIT TO ROOM #2223, CONDITION STABLE
--- NOTE | 2019-10-10 17:04 | NUR ---
DC CENTRAL LINE IN RIGHT SUBCLAV. REMOVED TWO SUTURES. HELD PRESSURE FOR 10 MIN, APPLIED PRESSURE DRESSING. EDUCATED PT ON DISCHARGE INSTRUCTIONS, MEDICATIONS TO CONTINUE, PRESCRIPTIONS, FOLLOW UP APT. PT VERBALIZED UNDERSTANDING. CLUB CAR ATTENDANT ESCORTED TO ER ENTRANCE VIA WHEELCHAIR.
--- NOTE | 2019-10-10 20:30 | NUR ---
PT SITTING UP IN BED WITHOUT DISTRESS, AOX4. SON AT BEDSIDE. IV LEFT FA INFUSING NS @ KVO. O2 2L/NC. SCDS ON. ASSISTED PT TO BEDSIDE COMMODE AND BACK TO BED. PT AMBULATING WITH MINIMAL ASSIST. REQUESTED AND GIVEN NORCO AND XANAX. REFUSED TO TAKE INSULIN STATING SHE DOES NOT TAKE IT AT HOME. EXPLAINED TO PT STEROIDS WERE CAUSING HER BLOOD SUGAR TO BE HIGH AND IT WOULD HELP BRING IT DOWN, PT STATES HE DOES NOT WANT TO TAKE IT AND WILL WAIT AND SEE HOW HER SUGAR LOOKS IN AM. DENIES OTHER NEEDS. CL IN REACH, WILL CTM
[2019-10-11] VITALS (10 sets, daily range): BP systolic 109–179; BP diastolic 52–93; Ht 162.6 cm; Wt 42.2 kg
[2019-10-11 05:22] LABS: BASOPHILS 0 % (0-2); EOSINOPHILS 0 % (0-7); HEMATOCRIT 34.4 % (36.0-48.0); HEMOGLOBIN 11.5 g/dL (12-16); IMMATURE GRANULOCYTES 0.2 % (0-5); LYMPHOCYTES 9.7 % (15-50); MCH 33.5 pg (26.0-34.0); MCHC 33.4 g/dL (31.0-37.0); MCV 100.3 fL (80.0-100.0); MEAN PLATELET VOLUME 9.5 fL (7.4-10.4); MONOCYTES 4.4 % (2-11); NEUTROPHILS 85.7 % (40-80); PLATELET COUNT 239 10x3/uL (130-400); RBC 3.43 10x6/uL (4.00-5.40); RDW 13.9 % (11.5-14.5)
[2019-10-11 05:40] LABS: ALBUMIN 2.8 g/dL (3.4-5.0); ANION GAP 8.4 mmol/L (8-16); BILIRUBIN - TOTAL 0.32 mg/dL (0.2-1.3); CALCIUM 8.6 mg/dL (8.5-10.1); CARBON DIOXIDE 29.2 mmol/L (21.0-32.0); CREATININE - SERUM 0.9 mg/dL (0.6-1.3); POTASSIUM - SERUM 4.6 mmol/L (3.5-5.1); PROTEIN - SERUM 6.1 g/dL (6.4-8.2)
--- NOTE | 2019-10-11 09:30 | NUR ---
PT LAYING DOWN IN BED C/O PAIN 10/21, PROVIDED PAIN MEDS PER ORDER. PIV IN LEFT FOREARM, PATENT, NO REDNESS OR SWELLING. O2 VIA NC 2L. PT HAS PURWICK, PATENT, URINE CLR, YELLOW. PT HAS BRUISING ON UPPER EXTREMITIES BILAT. PT C/O OF SOB, DYSPNEA ON EXERTION. LUNGS SOUNDS DIMINISHED ALL LOBES. PT ABLE TO AMBULATE TO WITH ASSIST. EDUCATED ON CL, VERBALIZED UNDERSTANDING. BED LOW, RAILS X2. CL IN REACH. WILL CONTINUE TO MONITOR.
[2019-10-11 14:30] LABS: BILIRUBIN NEGATIVE (NEGATIVE); GLUCOSE 50 mg/dL (NEGATIVE); KETONE NEGATIVE (NEGATIVE); NITRITE NEGATIVE (NEGATIVE); UROBILINOGEN NORMAL (NORMAL)
--- NOTE | 2019-10-11 20:00 | NUR ---
PT SITTING UP IN BED WITHOUT DISTRESS, AOX4. IV LEFT FA INFUSING NS @ KVO. ASSISTED TO BEDSIDE COMMODE AND BACK TO BED WITH MINIMAL ASSIST. LAST ON. SCDS ON. DENIES NEEDS AT THIS TIME. CL IN REACH, WILL CTM
[2019-10-12] VITALS: BP 132/56
[2019-10-12 04:00] VITALS: BP 139/59
[2019-10-12 04:43] LABS: BASOPHILS 0 % (0-2); EOSINOPHILS 0 % (0-7); HEMATOCRIT 32.7 % (36.0-48.0); HEMOGLOBIN 10.9 g/dL (12-16); IMMATURE GRANULOCYTES 0.2 % (0-5); LYMPHOCYTES 7.2 % (15-50); MCH 33.6 pg (26.0-34.0); MCHC 33.3 g/dL (31.0-37.0); MCV 100.9 fL (80.0-100.0); MEAN PLATELET VOLUME 9.8 fL (7.4-10.4); MONOCYTES 8.4 % (2-11); NEUTROPHILS 84.2 % (40-80); PLATELET COUNT 228 10x3/uL (130-400); RBC 3.24 10x6/uL (4.00-5.40); RDW 14.3 % (11.5-14.5)
[2019-10-12 05:00] LABS: WBC 9.2 10x3/uL (4.8-10.8)
[2019-10-12 05:03] LABS: CALC OSMOLALITY 270 mosm/kg (275-300); CALCIUM 8.2 mg/dL (8.5-10.1); CHLORIDE - SERUM 102 mmol/L (98-107); CREATININE - SERUM 0.7 mg/dL (0.6-1.3); GLUCOSE 102 mg/dL (74-106); POTASSIUM - SERUM 4.3 mmol/L (3.5-5.1); SODIUM 135 mmol/L (136-145); UREA NITROGEN 14 mg/dL (7-18); eGFR NON AFRICAN AMERICAN 86 mL/min (90-120)
--- NOTE | 2019-10-12 06:47 | NUR ---
PATIENT REFUSED AM TX DUE TO NAUSEA AND SORENESS FROM COUGHING. SHE IS REQUESTING TX BE MORE LIKE HOME MED SCHEDULE. WILL DISCUSS W/ DR. GLASER
--- NOTE | 2019-10-12 07:10 | NUR ---
REC'D IN BED WITH EYES CLOSED EASILY TO AROUSED WHEN NAME IS CALLED. RESP EVEN AND UNLABORED WITH NO DISTRESS NOTED. CAN EXPRESS NEEDS AND WANTS. NO C/O NOTED OR VOICED. ASSESSMENT COMPLETED. C/L IN REACH AT BEDSIDE.
[2019-10-12 11:05] VITALS: BP 166/63
[2019-10-12 13:31] VITALS: BP 141/57
--- NOTE | 2019-10-12 16:34 | NUR ---
WAS MEDICATED WITH XANAX PER PT REQUEST D/T ANXIETY. C/L IN REACH AT BEDSIDE.
[2019-10-12 17:31] VITALS: BP 133/60
--- NOTE | 2019-10-12 18:45 | NUR ---
I have reviewed this patient and I concur with the Shift Assessment completed by the Licensed Practical Nurse today this shift.
[2019-10-12 20:00] VITALS: BP 129/56
[2019-10-13 04:00] VITALS: BP 103/58
[2019-10-13 06:40] LABS: BASOPHILS 0 % (0-2); EOSINOPHILS 0 % (0-7); HEMATOCRIT 34.6 % (36.0-48.0); HEMOGLOBIN 11.8 g/dL (12-16); IMMATURE GRANULOCYTES 0.2 % (0-5); LYMPHOCYTES 8.9 % (15-50); MCH 34.7 pg (26.0-34.0); MCHC 34.1 g/dL (31.0-37.0); MCV 101.8 fL (80.0-100.0); MEAN PLATELET VOLUME 10.2 fL (7.4-10.4); MONOCYTES 2.8 % (2-11); NEUTROPHILS 88.1 % (40-80); PLATELET COUNT 205 10x3/uL (130-400); RDW 14.5 % (11.5-14.5)
[2019-10-13 06:41] LABS: WBC 5.4 10x3/uL (4.8-10.8)
[2019-10-13 07:02] LABS: CALC OSMOLALITY 272 mosm/kg (275-300); CALCIUM 8.1 mg/dL (8.5-10.1); CARBON DIOXIDE 30.1 mmol/L (21.0-32.0); CHLORIDE - SERUM 101 mmol/L (98-107); CREATININE - SERUM 0.7 mg/dL (0.6-1.3); GLUCOSE 102 mg/dL (74-106); POTASSIUM - SERUM 4.7 mmol/L (3.5-5.1); SODIUM 136 mmol/L (136-145); UREA NITROGEN 14 mg/dL (7-18); eGFR NON AFRICAN AMERICAN 86 mL/min (90-120)
--- NOTE | 2019-10-13 07:05 | NUR ---
RECEIVED REPORT, ASSUMED CARE, A&OX3, BREATHING EVEN UNLABORED, CALL LIGHT IN REACH, BED LOWEST POSITION, LH PATENT, ASSESSMENT COMPLETE, WILL CONTINUE POC
[2019-10-13 09:42] VITALS: BP 159/59
--- NOTE | 2019-10-13 19:00 | NUR ---
BEDSIDE REPORT RECEIVED AND CARE OF PT ASSUMED. PT LYING IN SUPINE POSITION WATCHING TV. IV TO LEFT HAND WITH NS INFUSING AT KVO. O2 IN USE VIA NC AT 2L. WILL MONITOR FOR NEEDS.
[2019-10-13 20:00] VITALS: BP 132/46
--- NOTE | 2019-10-13 20:30 | NUR ---
PLACED EGGCRATE FOAM MATTRESS OVERLAY ON PT'S BED PER PT REQUEST FOR PAIN IN BUTTOCKS AND LOWER BACK. POSITIONED FOR COMFORT.
--- NOTE | 2019-10-13 20:57 | NUR ---
HS MEDICATIONS GIVEN TO INCLUDE NORCO AND XANAX PO PER PT REQUEST, PER PRN ORDERS. WILL CONTINUE TO MONITOR FOR NEEDS.
[2019-10-14] VITALS: BP 99/55
--- NOTE | 2019-10-14 01:14 | NUR ---
PT C/O RESTLESS AND HEART RACING SINCE RECEIVING SOLU MEDROL...STATES SHE DOES NOT WANT THAT MEDICATION AGAIN! GAVE NORCO PO PER REQUEST FOR PAIN AND TO HELP HER RELAX....ASKING FOR XANAX BUT IT IS NOT TIME FOR THAT MED YET.
[2019-10-14 04:00] VITALS: BP 123/70
[2019-10-14 07:07] LABS: BASOPHILS 0 % (0-2); EOSINOPHILS 0 % (0-7); HEMATOCRIT 35.3 % (36.0-48.0); IMMATURE GRANULOCYTES 0.3 % (0-5); LYMPHOCYTES 9.6 % (15-50); MCH 34.3 pg (26.0-34.0); MCV 100.9 fL (80.0-100.0); MEAN PLATELET VOLUME 10.1 fL (7.4-10.4); MONOCYTES 5.9 % (2-11); NEUTROPHILS 84.2 % (40-80); PLATELET COUNT 205 10x3/uL (130-400); RDW 14.3 % (11.5-14.5)
[2019-10-14 07:16] LABS: WBC 6.8 10x3/uL (4.8-10.8)
[2019-10-14 07:28] LABS: CARBON DIOXIDE 31.3 mmol/L (21.0-32.0); CHLORIDE - SERUM 104 mmol/L (98-107); CREATININE - SERUM 0.7 mg/dL (0.6-1.3); GLUCOSE 108 mg/dL (74-106); SODIUM 139 mmol/L (136-145); eGFR NON AFRICAN AMERICAN 86 mL/min (90-120)
[2019-10-14 07:32] LABS: CALC OSMOLALITY 280 mosm/kg (275-300); POTASSIUM - SERUM 3.9 mmol/L (3.5-5.1); UREA NITROGEN 18 mg/dL (7-18)
--- NOTE | 2019-10-14 10:07 | NUR ---
PT RESTING IN BED WITH HOB ELEVATED WATCHING TV. RESP UNLABORED. O2 @ 2L NC IN PLACE. DENIES PAIN AT THIS TIME. IV TO LEFT HAND SALINE LOC'D AND INTACT. SITE WITHOUT REDNESS OR EDEMA. DENIES FURTHER NEEDS AT THIS TIME. CL WITHIN REACH. ENCOURAGED TO CALL WITH NEEDS. CONTINUE POC
[2019-10-14 13:28] VITALS: BP 109/52
[2019-10-14 17:23] VITALS: BP 136/55
[2019-10-14 18:23] VITALS: BP 136/55
[2019-10-14 20:00] VITALS: BP 122/51
--- NOTE | 2019-10-14 20:09 | NUR ---
PATIENT RESTING IN BED WITH EYES CLOSED AND NO S/S OF DISTRESS. BED IN LOWEST POSITION AND CALL LIGHT WITHIN REACH. WILL CONTINUE TO MONITOR.
--- NOTE | 2019-10-14 20:10 | NUR ---
PATIENT RESTING IN BED WITH NO S/S OF DISTRESS. PATIENT DENIES NEEDS AT THIS TIME. BED IN LOWEST POSITION AND CALL LIGHT WITHIN REACH. ENCOURAGED THE PATIENT TO CALL IF SHE HAS NEEDS. WILL CONTINUE TO MONITOR.
--- NOTE | 2019-10-14 21:06 | NUR ---
ADMINISTERED MEDS PER ORDERS. PATIENT DENIES OTHER NEEDS .WILL CONTINUE TO MONITOR.
--- NOTE | 2019-10-14 21:58 | NUR ---
ADMINISTERED MEDS PER ORDERS. CHANGED PATIENT'S GOWN AND SOCKS PER HER REQUEST. PATIENT DENIES OTHER NEEDS AT THIS TIME. WILL CONTINUE TO MONITOR.
[2019-10-15 06:34] LABS: CALCIUM 7.5 mg/dL (8.5-10.1); CARBON DIOXIDE 32.2 mmol/L (21.0-32.0); CREATININE - SERUM 0.8 mg/dL (0.6-1.3)
[2019-10-15 06:41] LABS: POTASSIUM - SERUM 3.2 mmol/L (3.5-5.1)
[2019-10-15 06:51] LABS: BASOPHILS 0 % (0-2); EOSINOPHILS 0.4 % (0-7); HEMATOCRIT 34.6 % (36.0-48.0); HEMOGLOBIN 11.8 g/dL (12-16); IMMATURE GRANULOCYTES 0.3 % (0-5); LYMPHOCYTES 29.8 % (15-50); MCH 34.5 pg (26.0-34.0); MCHC 34.1 g/dL (31.0-37.0); MCV 101.2 fL (80.0-100.0); MEAN PLATELET VOLUME 9.8 fL (7.4-10.4); MONOCYTES 11.5 % (2-11); PLATELET COUNT 179 10x3/uL (130-400); RBC 3.42 10x6/uL (4.00-5.40); RDW 14.4 % (11.5-14.5)
--- NOTE | 2019-10-15 07:15 | NUR ---
REC'D IN BED AWAKE AND ALERT. RESP EVEN AND UNLABORED WITH NO DISTRESS NOTED. CAN EXPRESS NEEDS AND WANTS. NO C/O NOTED OR VOICED. ASSERSSMENT COMPLETED. C/L IN REACH AT BEDSIDE.
[2019-10-15 08:00] VITALS: BP 110/52
[2019-10-15 12:00] VITALS: BP 110/53
[2019-10-15 16:00] VITALS: BP 120/54
--- NOTE | 2019-10-15 18:45 | NUR ---
I have reviewed this patient and I concur with the Shift Assessment completed by the Licensed Practical Nurse today this shift.
--- NOTE | 2019-10-15 19:26 | NUR ---
PATIENT RESTING IN BED WITH NO S/S OF DISTRESS. PATIENT REQUESTED XANAX WITH NIGHT MEDS AND DENIES OTHER NEEDS AT THIS TIME. BED IN LOWEST POSITION AND CALL LIGHT WITHIN REACH. ENCOURAGED THE PATIENT TO CALL IF SHE HAS NEEDS. WILL CONTINUE TO MONITOR.
[2019-10-15 20:00] VITALS: BP 129/63
--- NOTE | 2019-10-15 20:05 | NUR ---
ADMINISTERED MEDS PER ORDERS. PATIENT DENIES OTHER NEEDS AT THIS TIME. BED IN LOWEST POSITION AND CALL LIGHT WITHIN REACH. ENCOURAGED THE PATIENT TO CALL IF SHE HAS NEEDS. WILL CONTINUE TO MONITOR.
[2019-10-16] VITALS: BP 127/50
[2019-10-16 04:00] VITALS: BP 118/44
[2019-10-16 06:04] LABS: BASOPHILS 0 % (0-2); EOSINOPHILS 2.1 % (0-7); HEMATOCRIT 34.2 % (36.0-48.0); HEMOGLOBIN 11.3 g/dL (12-16); IMMATURE GRANULOCYTES 0.3 % (0-5); LYMPHOCYTES 24.7 % (15-50); MCH 33.3 pg (26.0-34.0); MCV 100.9 fL (80.0-100.0); MEAN PLATELET VOLUME 10.5 fL (7.4-10.4); MONOCYTES 12.7 % (2-11); NEUTROPHILS 60.2 % (40-80); PLATELET COUNT 160 10x3/uL (130-400); RBC 3.39 10x6/uL (4.00-5.40); RDW 14.2 % (11.5-14.5); WBC 7.1 10x3/uL (4.8-10.8)
[2019-10-16 06:20] LABS: ANION GAP 6.9 mmol/L (8-16); CARBON DIOXIDE 32.9 mmol/L (21.0-32.0); CREATININE - SERUM 0.8 mg/dL (0.6-1.3)
[2019-10-16 06:21] LABS: POTASSIUM - SERUM 3.8 mmol/L (3.5-5.1)
[2019-10-16 08:00] VITALS: BP 106/46
[2019-10-16] MEDS ORDERED: OMNICEF300 MG PO (09:51)
[2019-10-16] MEDS ORDERED: PREDNISONE10 MG PO (09:51)
[2019-10-16] MEDS ORDERED: ZITHROMAX500 MG PO (09:51)
--- NOTE | 2019-10-16 10:25 | MORECARE ---
CASE MANAGEMENT DISCHARGE SUMMARY PATIENT: HOLLAND MCGOWAN UNIT: [id number] ADM DATE: 10/10/19 AGE: 79 : 42 SEX: F ROOM/BED: D.2223 AUTHOR: ROBERTO CARLOS JENSEN PHYSICIAN: REFERRING PHYSICIAN: KISHORE DELONG MD DATE OF SERVICE: 10/16/19 Discharge Plan Patient Name: HOLLAND MCGOWAN Facility: [facility]:[place] : 1940 Planned Disposition: Anticipated Discharge Date: Discharge Date: Expected LOS: Initial Reviewer: [id number] Initial Review Date: 10/16/2019 Generated: 10/16/19 11:25 am DCPIA - Discharge Planning Initial Assessment Updated by [id number]: Kath Danielle on 10/16/19 10:22 am * Is the patient Alert and Oriented? Yes * PCP BRIE * Pharmacy [facility] * Preadmission Environment Home Alone * ADLs Independent * Other Equipment 02, NEBS, WALKER,BSC * Community resources currently utilized None * Additional services required to return to the preadmission environment? No * Can the patient safely return to the preadmission environment? Yes * Has this patient been hospitalized within the prior 30 days at any hospital? No External Providers External Provider: [facility] Next Contact Date: Service Request Date: Service Type: Resolution: Reviewer: Comments: Coverage Notice Reviewer: [id number] Charissa Danielle Notice Issued Date-Time: 10/16/2019 10:23 Notice Type: IM Discharge Notice Notice Delivered To: Patient Relationship to Patient: Alligator Shear Operator Name: Delivery Method: HAND - Hand Delivered Sangeetha Days: Prior Verbal Notification: Recipient Understood Notice: Yes Recipient Signature: Yes Med Rec Note Co-signed by Attending: Coverage Notice Comment: Reviewer: [id number] Charissa Danielle Notice Issued Date-Time: 10/16/2019 10:23 Notice Type: Patient Choice Letter Notice Delivered To: Patient Relationship to Patient: Alligator Shear Operator Name: Delivery Method: HAND - Hand Delivered Sangeetha Days: Prior Verbal Notification: Recipient Understood Notice: Yes Recipient Signature: Yes Med Rec Note Co-signed by Attending: Coverage Notice Comment: HAS [facility], THEY WILL DELIVER HER PORTABLE O2 HERE. Patient Name: HOLLAND MCGOWAN Page [phone] at 1025 All edits/amendments must be made on the electronic document DICTATION DATE: 10/16/19 1025 CLINICAL LABORATORY SCIENCE PROFESSOR: JUVENCIO 10/16/19 1025 RPT#: [id number] DC DATE: STATUS: ADM IN [facility] [address] [place] [address] END OF REPORT
--- NOTE | 2019-10-16 10:34 | MORECARE ---
CASE MANAGEMENT DISCHARGE SUMMARY PATIENT: HOLLAND MCGOWAN UNIT: [id number] ADM DATE: 10/10/19 AGE: 79 : 42 SEX: F ROOM/BED: D.2223 AUTHOR: ROBERTO CARLOS JENSEN PHYSICIAN: REFERRING PHYSICIAN: KISHORE DELONG MD DATE OF SERVICE: 10/16/19 Discharge Plan Patient Name: HOLLAND MCGOWAN Facility: [facility]:[place] : 1940 Planned Disposition: Anticipated Discharge Date: Discharge Date: Expected LOS: Initial Reviewer: [email or web address] Initial Review Date: 10/16/2019 Generated: 10/16/19 11:34 am Comments DCP- Discharge Planning Updated by [id number]: Kath Danielle on 10/16/19 9:[address] Patient Name: HOLLAND MCGOWAN Admission Status: ER Accout number: [id number] Admission Date: 10-10-2019 : 1940 Admission Diagnosis:SHORTNESS OF BREATH Attending: KISHORE DELONG Current LOS: 6 Anticipated DC Date: Planned Disposition: Primary Insurance: MEDICARE A & B Discharge Planning Comments: CM met with patient at bedside after explaining CM role and obtaining verbal consent. CM discussed availability / needs of home health, REHAB and medical equipment. PATIENT PLANS TO DC TO HOME. HER SON WHO IS A RN WILL COLOR ARTIST THIS EVENING WHEN HE GETS OFF WORK. SHE HAS [facility] FOR 02 NEEDS. I CONTACTED THEM AND THEY WILL BRING PORTABLE 02 TO HER ROOM. IMM AND CLAUDIA SIGNED. CM TO FOLLOW AND ASSIST NEEDED. Consultants Intern: Kath Danielle DCPIA - Discharge Planning Initial Assessment Updated by [id number]: Kath Danielle on 10/16/19 10:22 am * Is the patient Alert and Oriented? Yes * PCP BAIRD * Pharmacy [facility] * Preadmission Environment Home Alone * ADLs Independent * Other Equipment 02, NEBS, WALKER,BSC * Community resources currently utilized None * Additional services required to return to the preadmission environment? No * Can the patient safely return to the preadmission environment? Yes * Has this patient been hospitalized within the prior 30 days at any hospital? No Coverage Notice Reviewer: [id number] - Kath Danielle Notice Issued Date-Time: 10/16/2019 10:23 Notice Type: IM Discharge Notice Notice Delivered To: Patient Relationship to Patient: Field Marketing Representative Name: Delivery Method: HAND - Hand Delivered Sangeetha Days: Prior Verbal Notification: Recipient Understood Notice: Yes Recipient Signature: Yes Med Rec Note Co-signed by Attending: Coverage Notice Comment: Reviewer: [id number] Charissa Danielle Notice Issued Date-Time: 10/16/2019 10:23 Notice Type: Patient Choice Letter Notice Delivered To: Patient Relationship to Patient: Field Marketing Representative Name: Delivery Method: HAND - Hand Delivered Sangeetha Days: Prior Verbal Notification: Recipient Understood Notice: Yes Recipient Signature: Yes Med Rec Note Co-signed by Attending: Coverage Notice Comment: HAS [facility], THEY WILL DELIVER HER PORTABLE O2 HERE. Last DP export: 10/16/19 9:25 am Patient Name: HOLLAND MCGOWAN Page [phone] at 1034 All edits/amendments must be made on the electronic document DICTATION DATE: 10/16/19 1034 AUTOMATION AND CONTROLS MANAGER: JUVENCIO 10/16/19 1034 RPT#: [id number] DC DATE: STATUS: ADM IN [facility] [address] [place] [address] END OF REPORT
[2019-10-16 16:00] VITALS: BP 109/85
--- NOTE | 2019-10-17 09:34 | MORECARE ---
CASE MANAGEMENT DISCHARGE SUMMARY PATIENT: HOLLAND MCGOWAN UNIT: [id number] ADM DATE: 10/10/19 AGE: 79 : 42 SEX: F ROOM/BED: D.2223 AUTHOR: MIKEYDOC PHYSICIAN: REFERRING PHYSICIAN: KISHORE DELONG MD DATE OF SERVICE: 10/17/19 Discharge Plan Patient Name: HOLLAND MCGOWAN Facility: [facility]:[place] : 1940 Planned Disposition: Anticipated Discharge Date: Discharge Date: 10/16/2019 Expected LOS: Initial Reviewer: [email or web address] Initial Review Date: 10/16/2019 Generated: 10/17/19 10:33 am Comments DCP- Discharge Planning Updated by [email or web address]: Kath Danielle on 10/16/19 9:[address] Patient Name: HOLLAND MCGOWAN Admission Status: ER Accout number: [id number] Admission Date: 10-10-2019 : 1940 Admission Diagnosis:SHORTNESS OF BREATH Attending: KISHORE DELONG Current LOS: 6 Anticipated DC Date: Planned Disposition: Primary Insurance: MEDICARE A & B Discharge Planning Comments: CM met with patient at bedside after explaining CM role and obtaining verbal consent. CM discussed availability / needs of home health, REHAB and medical equipment. PATIENT PLANS TO DC TO HOME. HER SON WHO IS A RN WILL FIELD SERVICE ANALYST THIS EVENING WHEN HE GETS OFF WORK. SHE HAS [facility] FOR 02 NEEDS. I CONTACTED THEM AND THEY WILL BRING PORTABLE 02 TO HER ROOM. IMM AND CLAUDIA SIGNED. CM TO FOLLOW AND ASSIST NEEDED. Commodity Management Specialist: Kath Danielle DCPIA - Discharge Planning Initial Assessment Updated by [id number]: Kath Danielle on 10/16/19 10:22 am * Is the patient Alert and Oriented? Yes * PCP BAIRD * Pharmacy [facility] * Preadmission Environment Home Alone * ADLs Independent * Other Equipment 02, NEBS, WALKER,BSC * Community resources currently utilized None * Additional services required to return to the preadmission environment? No * Can the patient safely return to the preadmission environment? Yes * Has this patient been hospitalized within the prior 30 days at any hospital? No Coverage Notice Reviewer: [id number] - Kath Danielle Notice Issued Date-Time: 10/16/2019 10:23 Notice Type: IM Discharge Notice Notice Delivered To: Patient Relationship to Patient: Digital Content Coordinator Name: Delivery Method: HAND - Hand Delivered Sangeetha Days: Prior Verbal Notification: Recipient Understood Notice: Yes Recipient Signature: Yes Med Rec Note Co-signed by Attending: Coverage Notice Comment: Reviewer: [id number] Charissa Danielle Notice Issued Date-Time: 10/16/2019 10:23 Notice Type: Patient Choice Letter Notice Delivered To: Patient Relationship to Patient: Digital Content Coordinator Name: Delivery Method: HAND - Hand Delivered Sangeetha Days: Prior Verbal Notification: Recipient Understood Notice: Yes Recipient Signature: Yes Med Rec Note Co-signed by Attending: Coverage Notice Comment: HAS [facility], THEY WILL DELIVER HER PORTABLE O2 HERE. Last DP export: 10/16/19 9:34 am Patient Name: HOLLAND MCGOWAN Page [phone] at 0934 All edits/amendments must be made on the electronic document DICTATION DATE: 10/17/19933 HEARING AID DISPENSER: JUVENCIO 10/17/1932 RPT#: [id number] DC DATE:10/16/19 STATUS: DIS IN [facility] [address] [place] [address] END OF REPORT
== END 2019-10-16 17:46 | disposition home or self-care (01) | DRG 189 ==
LOC: D.ER 08:21 → D.MS 10:40
PROVIDERS: Family Medicine; ADMIT Emergency Medicine; ATTEND Emergency Medicine
DX: J96.21 Acute and chronic respiratory failure with hypoxia (principal); J44.1 Chronic obstructive pulmonary disease with (acute) exacerbation; M48.54XA Collapsed vertebra, not elsewhere classified, thoracic region, initial encounter for fracture; E87.1 Hypo-osmolality and hyponatremia; J30.9 Allergic rhinitis, unspecified; K21.9 Gastro-esophageal reflux disease without esophagitis; I10 Essential (primary) hypertension; I25.10 Atherosclerotic heart disease of native coronary artery without angina pectoris; I73.9 Peripheral vascular disease, unspecified; Z86.73 Personal history of transient ischemic attack (TIA), and cerebral infarction without residual deficits; F17.200 Nicotine dependence, unspecified, uncomplicated; C50.911 Malignant neoplasm of unspecified site of right female breast

== ENCOUNTER 2019-11-09 11:16 | Emergency (ER) | payer MEDICARE, OTHER, MEDICAID ==
[~2019-11-09] VITALS: Ht 162.6 cm; Wt 46.8 kg
[~2019-11-09 11:16] MED LIST changes: +OMNICEF300 MG PO; +ZITHROMAX500 MG PO
[2019-11-09 11:24] VITALS: Ht 162.6 cm; Wt 46.8 kg
[2019-11-09 12:52] LABS: BASOPHILS 0 % (0-2); EOSINOPHILS 0 % (0-7); HEMATOCRIT 33.5 % (36.0-48.0); HEMOGLOBIN 11.3 g/dL (12-16); IMMATURE GRANULOCYTES 0.2 % (0-5); LYMPHOCYTES 12.6 % (15-50); MCH 33.8 pg (26.0-34.0); MCHC 33.7 g/dL (31.0-37.0); MCV 100.3 fL (80.0-100.0); MEAN PLATELET VOLUME 9.6 fL (7.4-10.4); MONOCYTES 13.2 % (2-11); RBC 3.34 10x6/uL (4.00-5.40); RDW 13.4 % (11.5-14.5); WBC 6.5 10x3/uL (4.8-10.8)
[2019-11-09 13:00] LABS: ANION GAP 9.8 mmol/L (8-16); CALCIUM 8.9 mg/dL (8.5-10.1); CARBON DIOXIDE 31.2 mmol/L (21.0-32.0); CREATININE - SERUM 0.9 mg/dL (0.6-1.3)
[2019-11-09 13:04] LABS: PLATELET COUNT 271 10x3/uL (130-400)
[2019-11-09 13:06] LABS: ALBUMIN 3.3 g/dL (3.4-5.0); BILIRUBIN - TOTAL 0.25 mg/dL (0.2-1.3); PROTEIN - SERUM 6.9 g/dL (6.4-8.2)
[2019-11-09] MEDS ORDERED: PERCOCET 7.5/321 TAB PO (14:00)
[2019-11-09 14:55] LABS: BILIRUBIN NEGATIVE (NEGATIVE); KETONE NEGATIVE (NEGATIVE); NITRITE NEGATIVE (NEGATIVE); UROBILINOGEN NORMAL (NORMAL)
[2019-11-09 15:07] LABS: EPITHELIAL CELLS OCC /hpf (0-5); RED CELLS - URINE 0-5 /hpf (0-5); WHITE CELLS - URINE 0-5 /hpf (0-5)
[2019-11-09 15:08] LABS: BACTERIA FEW /hpf (NONE SEEN)
[2019-11-09 16:44] VITALS: BP 134/51
== END 2019-11-09 16:46 | disposition home or self-care (01) ==
LOC: D.ER 11:16
PROVIDERS: Emergency Medicine
DX: M54.5 Low back pain (principal); I10 Essential (primary) hypertension; I48.91 Unspecified atrial fibrillation; Z95.5 Presence of coronary angioplasty implant and graft; I25.10 Atherosclerotic heart disease of native coronary artery without angina pectoris; J44.9 Chronic obstructive pulmonary disease, unspecified; K21.9 Gastro-esophageal reflux disease without esophagitis; F17.210 Nicotine dependence, cigarettes, uncomplicated

== ENCOUNTER 2020-05-06 10:13 | Inpatient (IN) | payer MEDICARE, OTHER ==
[~2020-05-06] VITALS: Ht 162.6 cm; Wt 46.7 kg
[~2020-05-06 10:13] MED LIST changes: +AZITHROMYCIN500 MG PO; +HYDROCODON-ACE1 EA10 PO; +PERCOCET 7.5/321 TAB PO
[2020-05-06 11:06] LABS: BASOPHILS 0.5 % (0-2); EOSINOPHILS 2.1 % (0-7); HEMATOCRIT 34.5 % (36.0-48.0); HEMOGLOBIN 11.2 g/dL (12-16); IMMATURE GRANULOCYTES 0.2 % (0-5); LYMPHOCYTE ABS# 1.28 10x3/uL (1.18-3.74); LYMPHOCYTES 20.5 % (15-50); MCH 33.4 pg (26.0-34.0); MCHC 32.5 g/dL (31.0-37.0); MEAN PLATELET VOLUME 9.9 fL (7.4-10.4); MONOCYTES 16.2 % (2-11); NEUTROPHIL ABS# 3.77 10x3/uL (1.56-6.13); NEUTROPHILS 60.5 % (40-80); PLATELET COUNT 255 10x3/uL (130-400); RBC 3.35 10x6/uL (4.00-5.40); RDW 13.9 % (11.5-14.5); WBC 6.2 10x3/uL (4.8-10.8)
[2020-05-06 11:08] LABS: CALC OSMOLALITY 267 mosm/kg (275-300); CALCIUM 8.9 mg/dL (8.5-10.1); CARBON DIOXIDE 30.6 mmol/L (21.0-32.0); CHLORIDE - SERUM 102 mmol/L (98-107); CREATININE - SERUM 0.8 mg/dL (0.6-1.3); POTASSIUM - SERUM 4.2 mmol/L (3.5-5.1); SODIUM 135 mmol/L (136-145); UREA NITROGEN 9 mg/dL (7-18); eGFR NON AFRICAN AMERICAN 74 mL/min (90-120)
[2020-05-06 11:10] LABS: GLUCOSE 87 mg/dL (74-106)
[2020-05-06 11:15] LABS: APTT 36.5 SECONDS (22.8-39.4); INR 1.11 (0.85-1.17); PROTIME 13.2 SECONDS (11.6-15.0)
[2020-05-06 11:17] LABS: ALBUMIN 2.9 g/dL (3.4-5.0); ALKALINE PHOSPHATASE 70 U/L (30-120); ALT (SGPT) 12 U/L (10-68); BILIRUBIN - TOTAL 0.39 mg/dL (0.2-1.3); MAGNESIUM - SERUM 1.7 mg/dL (1.8-2.4); PROTEIN - SERUM 6.7 g/dL (6.4-8.2); TROPONIN-I < 0.017 ng/mL (0.000-0.060)
[2020-05-06 13:18] LABS: BILIRUBIN NEGATIVE (NEGATIVE); KETONE NEGATIVE (NEGATIVE); NITRITE NEGATIVE (NEGATIVE); UROBILINOGEN NORMAL mg/dL (< 2)
[2020-05-06 13:19] LABS: WHITE CELLS - URINE 25-50 HPF (0-4)
[2020-05-06 13:20] LABS: BACTERIA MANY HPF (NONE SEEN)
[2020-05-06 20:20] VITALS: BP 120/53
--- NOTE | 2020-05-06 20:20 | NUR ---
ASSESSMENT PER FLOW SHEET, VS OBTAINED, SALINE LOCK TO RIGHT WRIST INTACT WITH NO REDNESS OR EDEMA, VARGHESE INTACT DRAINING DARK YELLOW URINE, PT DENIES NEEDS OR PAIN AT THIS TIME
--- NOTE | 2020-05-06 20:34 | NUR ---
SALINE LOCK CONVERTED TO IV, NS HUNG IV AND ROCEPHIN IVPB PER MD ORDERS, SEE EMAR
--- NOTE | 2020-05-06 22:22 | NUR ---
PT RESTING WITH EYES CLOSED, AROUSES TO SOFT VERBAL STIMULATION, OBTAINED FSBS AND ADM 2100 MEDS PER MD ORDERS, SEE EMAR, PT DENIES NEEDS OR PAIN AT THIS TIME
--- NOTE | 2020-05-07 00:08 | NUR ---
PT RESTING WITH EYES CLOSED, RESP QUIET, NO DISTRESS NOTED, LEFT UNDISTURBED AT THIS TIME
[2020-05-07 00:35] VITALS: BP 146/53
[2020-05-07 04:23] VITALS: BP 156/61
--- NOTE | 2020-05-07 04:23 | NUR ---
VS CONTINUE, NEW BAG OF NS HUNG VIA PUMP PER MD ORDERS, SEE EMAR, PUMPS CLEARED, VARGHESE CATH EMPTIED
--- NOTE | 2020-05-07 06:58 | NUR ---
SHIFT REPORT TO DAY SHIFT
[2020-05-07 08:56] LABS: BASOPHILS 0.2 % (0-2); EOSINOPHILS 0.8 % (0-7); HEMATOCRIT 33.4 % (36.0-48.0); IMMATURE GRANULOCYTES 0.3 % (0-5); LYMPHOCYTE ABS# 1.26 10x3/uL (1.18-3.74); LYMPHOCYTES 21.3 % (15-50); MCHC 32.9 g/dL (31.0-37.0); MONOCYTES 12.7 % (2-11); NEUTROPHIL ABS# 3.83 10x3/uL (1.56-6.13); NEUTROPHILS 64.7 % (40-80); PLATELET COUNT 243 10x3/uL (130-400); RBC 3.33 10x6/uL (4.00-5.40); RDW 13.7 % (11.5-14.5); WBC 5.9 10x3/uL (4.8-10.8)
[2020-05-07 08:58] LABS: MCV 100.3 fL (80.0-100.0)
[2020-05-07 09:00] LABS: ALBUMIN 2.5 g/dL (3.4-5.0); ALKALINE PHOSPHATASE 62 U/L (30-120); ALT (SGPT) 10 U/L (10-68); BILIRUBIN - TOTAL 0.41 mg/dL (0.2-1.3); CALC OSMOLALITY 273 mosm/kg (275-300); CALCIUM 8.4 mg/dL (8.5-10.1); CARBON DIOXIDE 25.8 mmol/L (21.0-32.0); CHLORIDE - SERUM 105 mmol/L (98-107); CREATININE - SERUM 0.7 mg/dL (0.6-1.3); MAGNESIUM - SERUM 1.7 mg/dL (1.8-2.4); POTASSIUM - SERUM 3.8 mmol/L (3.5-5.1); PROTEIN - SERUM 6.1 g/dL (6.4-8.2); SODIUM 139 mmol/L (136-145); UREA NITROGEN 7 mg/dL (7-18); eGFR NON AFRICAN AMERICAN 86 mL/min (90-120)
[2020-05-07 09:01] LABS: GLUCOSE 64 mg/dL (74-106)
[2020-05-07 10:16] VITALS: BP 133/56
--- NOTE | 2020-05-07 11:11 | NUR ---
Rehab Prescreening Consult recieved and the chart has been reviewed. She has a Dr Ardon, PT and an OT eval Pending. Rehab Will follow, Laureen Garcia RN Clinical liaison, Rehab
[2020-05-07 13:06] VITALS: BMI 17.5
[2020-05-07 19:00] VITALS: BP 128/54
[2020-05-07 21:00] VITALS: BP 151/58
--- NOTE | 2020-05-07 22:53 | NUR ---
PT READJUST IN BED TO A POSITION OF COMFORT AND PROVIDED WITH TISSUES UPON REQUEST. PT DENIES OTHER COMPLAINTS AT THIS TIME. NO ACUTE DISTRESS NOTED, BED IN LOWEST POSITION, CALL LIGHT WIHTIN REACH
[2020-05-07 23:00] VITALS: BP 156/57
--- NOTE | 2020-05-08 01:32 | NUR ---
PT RECEIVED TO ROOM 2213 AWAKE, ALERT REPORTS FALL AT HOME PRIOR TO ADMIT. SHE REPORTS ONGOING PAIN NOW A 3/10 SHE HAS H/O MULTIPLE KYPHOPLASTY SURGERIES AND CHRONIC PAIN. NO NEEDS REPORTED AT THIS TIME WILL COTNINUE TO MONITOR
[2020-05-08 01:42] VITALS: BP 141/57
[2020-05-08 06:59] LABS: ALBUMIN 2.3 g/dL (3.4-5.0); ALKALINE PHOSPHATASE 58 U/L (30-120); ALT (SGPT) 11 U/L (10-68); BILIRUBIN - TOTAL 0.34 mg/dL (0.2-1.3); CALC OSMOLALITY 270 mosm/kg (275-300); CALCIUM 8.1 mg/dL (8.5-10.1); CARBON DIOXIDE 25.2 mmol/L (21.0-32.0); CHLORIDE - SERUM 104 mmol/L (98-107); CREATININE - SERUM 0.7 mg/dL (0.6-1.3); GLUCOSE 83 mg/dL (74-106); MAGNESIUM - SERUM 1.6 mg/dL (1.8-2.4); POTASSIUM - SERUM 3.3 mmol/L (3.5-5.1); PROTEIN - SERUM 5.7 g/dL (6.4-8.2); SODIUM 137 mmol/L (136-145); UREA NITROGEN 6 mg/dL (7-18); eGFR NON AFRICAN AMERICAN 86 mL/min (90-120)
[2020-05-08 07:08] LABS: BASOPHILS 0.2 % (0-2); EOSINOPHILS 0.5 % (0-7); HEMATOCRIT 29.6 % (36.0-48.0); HEMOGLOBIN 9.9 g/dL (12-16); IMMATURE GRANULOCYTES 0.2 % (0-5); LYMPHOCYTE ABS# 0.98 10x3/uL (1.18-3.74); LYMPHOCYTES 15.1 % (15-50); MCH 33.1 pg (26.0-34.0); MCHC 33.4 g/dL (31.0-37.0); MEAN PLATELET VOLUME 10.3 fL (7.4-10.4); MONOCYTES 14.6 % (2-11); NEUTROPHIL ABS# 4.51 10x3/uL (1.56-6.13); NEUTROPHILS 69.4 % (40-80); PLATELET COUNT 245 10x3/uL (130-400); RBC 2.99 10x6/uL (4.00-5.40); RDW 13.6 % (11.5-14.5); WBC 6.5 10x3/uL (4.8-10.8)
[2020-05-08 08:31] VITALS: BP 159/66
[2020-05-08 12:12] VITALS: BP 124/56
--- NOTE | 2020-05-08 15:47 | NUR ---
PATIENT REFUSED MRI TODAY TO "SICK" CESAR MINA ALSO TRIED TO GET HER TO DO IT WITH MEDS PATIENT STILL REFUSED. SPOKE WITH BARTOLO FARIAS SHE SAID TO TRY AGAIN TOMORROW.
[2020-05-08 16:05] VITALS: BP 110/49
--- NOTE | 2020-05-08 16:29 | NUR ---
OT NOTE: ATTEMPTED TMT IN AM AND PM.. PT REFUSED BUT STATED THAT SHE WOULD TRY TOMORROW. GERMAINE VELAZQUEZ, OTR/L
[2020-05-08 20:00] VITALS: BP 140/50
--- NOTE | 2020-05-09 02:29 | MORECARE ---
CASE MANAGEMENT DISCHARGE SUMMARY PATIENT: HOLLAND MCGOWAN UNIT: [id number] ADM DATE: 05/06/20 AGE: 79 : 42 SEX: F ROOM/BED: D.[facility] AUTHOR: ROBERTO CARLOS JENSEN PHYSICIAN: REFERRING PHYSICIAN: CÉSAR HILL DO DATE OF SERVICE: 05/09/20 Discharge Plan Patient Name: HOLLAND MCGOWAN [facility] [facility] 1940 Planned Disposition: Anticipated Discharge Date: Discharge Date: Expected LOS: Initial Reviewer: [email or web address] Initial Review Date: 05/06/2020 Generated: 05/09/20 3:28 am Patient Name: HOLLAND MCGOWAN Page [phone] at 0229 All edits/amendments must be made on the electronic document DICTATION DATE: 05/09/20227 STITCH MARKER: JUVENCIO 05/09/20227 RPT#: [id number] DC DATE: STATUS: ADM IN [facility] [address] [place] [address] END OF REPORT
--- NOTE | 2020-05-09 02:35 | MORECARE ---
CASE MANAGEMENT DISCHARGE SUMMARY PATIENT: HOLLAND MCGOWAN UNIT: [id number] ADM DATE: 05/06/20 AGE: 79 : 42 SEX: F ROOM/BED: D.2213 AUTHOR: ROBERTO CARLOS JENSEN PHYSICIAN: REFERRING PHYSICIAN: CÉSAR HILL DO DATE OF SERVICE: 05/09/20 Discharge Plan Patient Name: HOLLAND MCGOWAN [facility] [facility] 1940 Planned Disposition: Anticipated Discharge Date: Discharge Date: Expected LOS: Initial Reviewer: [email or web address] Initial Review Date: 05/06/2020 Generated: 05/09/20 3:35 am Comments DCP- Discharge Planning Updated by [email or web address]: Ludivina Prasad on 05/09/20 1:[address] Late entry: CM received call from patient's son, Curtis Cruz [phone], states patient cant take care of herself anymore. Informed son that therapy was working with patient and there was a pending rehab screen. Son verbalized understanding. CM will continue to follow patient for discharge planning / needs. Last DP export: 05/09/20 1:29 a Patient Name: HOLLAND MCGOWAN Page [phone] at 0235 All edits/amendments must be made on the electronic document DICTATION DATE: 05/09/20234 TOBACCO SORTER: JUVENCIO 05/09/20234 RPT#: [id number] DC DATE: STATUS: ADM IN [facility] [address] [place] [address] END OF REPORT
[2020-05-09 04:00] VITALS: BP 121/56
[2020-05-09 06:33] LABS: BASOPHILS 0 % (0-2); EOSINOPHILS 0.4 % (0-7); HEMATOCRIT 28.9 % (36.0-48.0); HEMOGLOBIN 9.6 g/dL (12-16); IMMATURE GRANULOCYTES 0.4 % (0-5); LYMPHOCYTE ABS# 0.87 10x3/uL (1.18-3.74); MCH 32.8 pg (26.0-34.0); MCHC 33.2 g/dL (31.0-37.0); MCV 98.6 fL (80.0-100.0); MEAN PLATELET VOLUME 10.4 fL (7.4-10.4); MONOCYTES 16.9 % (2-11); NEUTROPHIL ABS# 3.61 10x3/uL (1.56-6.13); NEUTROPHILS 66.3 % (40-80); PLATELET COUNT 231 10x3/uL (130-400); RBC 2.93 10x6/uL (4.00-5.40); RDW 13.5 % (11.5-14.5); WBC 5.4 10x3/uL (4.8-10.8)
[2020-05-09 06:36] LABS: ALBUMIN 2.3 g/dL (3.4-5.0); ALKALINE PHOSPHATASE 57 U/L (30-120); ALT (SGPT) 10 U/L (10-68); BILIRUBIN - TOTAL 0.29 mg/dL (0.2-1.3); CALC OSMOLALITY 264 mosm/kg (275-300); CALCIUM 8.3 mg/dL (8.5-10.1); CARBON DIOXIDE 25.8 mmol/L (21.0-32.0); CHLORIDE - SERUM 102 mmol/L (98-107); CREATININE - SERUM 0.7 mg/dL (0.6-1.3); GLUCOSE 91 mg/dL (74-106); MAGNESIUM - SERUM 2.1 mg/dL (1.8-2.4); PROTEIN - SERUM 5.7 g/dL (6.4-8.2); SODIUM 134 mmol/L (136-145); UREA NITROGEN 5 mg/dL (7-18); eGFR NON AFRICAN AMERICAN 86 mL/min (90-120)
--- NOTE | 2020-05-09 07:20 | NUR ---
REC'D IN BED RESTING WITH EYES CLOSED EASILY TO AROUSED WHEN NAME IS CALLED. RESP EVEN AND UNLABORED WITH NO DISTRESS NOTED. CAN EXPRESS NEEDS AND WANTS. NO C/O NOTED OR VOICED. ASSESSMENT COMPLETED. C/L IN REACH AT BEDSIDE.
[2020-05-09 08:33] VITALS: BP 153/60
--- NOTE | 2020-05-09 10:53 | NUR ---
HERE MAKING ROUND WITH NEW ORDERS FOR CHEST XRAY AND ALBUTEROL UDN Q 2 HRS NEEDED. C/L IN REACH AT BEDSIDE.
--- NOTE | 2020-05-09 11:00 | NUR ---
OT NOTE: INITIALLY PT VERY RESISTANT TO PARTICIPATE. REPORTS THAT SHE FEELS VERY SOB AND NEEDS A BREATHING TMT. CHECKED SATS AND PT WAS AT 93%..ASSISTED PT TO EOB WITH MIN ASSIST. PT WANTED TO BATH. SET UP WASH BASIN AND PT WAS ABLE TO PERFORM APPROX 50% OF BATHING. ABLE TO PERFORM SEVERAL SIT TO STAND ACT WITH MIN ASSIST IN ORDER TO PERFORM PERINEAL CARE AND ABLE TO SIDE STEP AT EOB.. REQUIRED MOD ASSIST TO JOY BRIEF AND MIN ASSIST TO JOY GOWNS. ABLE TO AMB TO BATHROOM WITH MOD ASSIST. BACK TO BED WITH MOD ASSIST FOR LE MGMT. GERMAINE VELAZQUEZ, OTR/L [phone]
--- NOTE | 2020-05-09 13:53 | NUR ---
Nutrition follow-up: Pt receiving a regular diet PO intake ~50% of some meals Labs reviewed Pt continues to c/o back pain Wt: 104# Will continue to provide food choices and honor food preferences Will offer nutritional supplements. RDN follow-up: 05/15/20
[2020-05-09 14:00] VITALS: BP 150/62
--- NOTE | 2020-05-09 15:58 | NUR ---
Rehab Note- Continue to follow at this time as she continues with increase pain and refusing therapy. Thank you for this referral! Chiquita Nails RN Clinical Liaison, [facility] Rehab
[2020-05-09 17:07] VITALS: BP 130/64
--- NOTE | 2020-05-09 17:21 | NUR ---
I have reviewed this patient and I concur with the Shift Assessment completed by the Licensed Practical Nurse today this shift.
--- NOTE | 2020-05-09 18:07 | NUR ---
COMPLETED MRI LUMBAR. PATIENT DID NOT WANT TO DO MRI THORACIC TODAY. SHE SAID SHE WILL DO THE MRI THORACIC TOMORROW. INFORMED NURSE PRAVEENA.
[2020-05-10 00:22] VITALS: BP 121/47
[2020-05-10 05:26] VITALS: BP 127/64
[2020-05-10 05:38] LABS: BASOPHILS 0.3 % (0-2); HEMATOCRIT 27.8 % (36.0-48.0); HEMOGLOBIN 9.5 g/dL (12-16); IMMATURE GRANULOCYTES 0.3 % (0-5); LYMPHOCYTE ABS# 1.07 10x3/uL (1.18-3.74); LYMPHOCYTES 26.9 % (15-50); MCHC 34.2 g/dL (31.0-37.0); MEAN PLATELET VOLUME 10.3 fL (7.4-10.4); MONOCYTES 20.6 % (2-11); NEUTROPHIL ABS# 2.03 10x3/uL (1.56-6.13); NEUTROPHILS 50.9 % (40-80); PLATELET COUNT 224 10x3/uL (130-400); RBC 2.88 10x6/uL (4.00-5.40)
[2020-05-10 05:51] LABS: MCV 96.5 fL (80.0-100.0)
--- NOTE | 2020-05-10 06:00 | NUR ---
PT HAS BEEN CONFUSED SINCE AROUND MIDNIGHT. FOUND HER IN BATHROOM SITTING ON TOILET. PT HAD PULLED HER VARGHESE CATHETER OUT BULB INTACT AND STILL INFLATED. CHANGED PT'S GOWN AND SOCKS. HELPED HER BACK TO BED AND PUT A LAST ALARM ON AND TURNED BED ALARM ON WELL. INSTRUCTED PT REPEATEDLY TO USE CALL LIGHT AND CALL FOR ASSISTANCE BEFORE GETTING UP.
[2020-05-10 06:55] LABS: ALBUMIN 2.4 g/dL (3.4-5.0); ALKALINE PHOSPHATASE 58 U/L (30-120); BILIRUBIN - TOTAL 0.23 mg/dL (0.2-1.3); CALC OSMOLALITY 267 mosm/kg (275-300); CALCIUM 7.9 mg/dL (8.5-10.1); CARBON DIOXIDE 25.6 mmol/L (21.0-32.0); CHLORIDE - SERUM 103 mmol/L (98-107); CREATININE - SERUM 0.6 mg/dL (0.6-1.3); GLUCOSE 75 mg/dL (74-106); MAGNESIUM - SERUM 1.7 mg/dL (1.8-2.4); POTASSIUM - SERUM 3.5 mmol/L (3.5-5.1); PROTEIN - SERUM 5.8 g/dL (6.4-8.2); SODIUM 136 mmol/L (136-145); UREA NITROGEN 4 mg/dL (7-18); eGFR NON AFRICAN AMERICAN > 90 mL/min (90-120)
[2020-05-10 06:56] LABS: ALT (SGPT) 13 U/L (10-68)
--- NOTE | 2020-05-10 08:00 | NUR ---
ASSESSMENYT PER FLOW SHEET. PATIENT IS CONFUSED THIS AM. LAST MAT AND BED ALARM IN PLACE AND WORKING. DOOR OPEN TO MONITOR
[2020-05-10 08:10] VITALS: BP 159/58
--- NOTE | 2020-05-10 09:03 | NUR ---
CALL FROM FAMILY ,PASSWORD CONFIRMED WITH POA AND SON. UPDATE GIVEN
[2020-05-10 11:59] VITALS: BP 156/60
--- NOTE | 2020-05-10 16:03 | NUR ---
REMAINS WITHOUT DISTRESS.STILL CONFUSED ASKING FOR HER DOG MUNIR. FALL PREVENTION REMAINS IN PLACE WITH LAST AND BED ALARM ON. DOOR OPEN
--- NOTE | 2020-05-10 16:28 | NUR ---
CALL FROM OTHER SON. PASSWORD CONFIRMED. UPDATE GIVEN.
[2020-05-10 17:21] VITALS: BP 146/61
--- NOTE | 2020-05-10 18:42 | NUR ---
REMAINS WITHOUT CHANGE. CONT PLAN OF CARE
[2020-05-10 21:51] VITALS: BP 127/50
[2020-05-11 05:55] LABS: BASOPHILS 0.2 % (0-2); EOSINOPHILS 1.5 % (0-7); HEMATOCRIT 27.8 % (36.0-48.0); HEMOGLOBIN 9.3 g/dL (12-16); IMMATURE GRANULOCYTES 0.2 % (0-5); LYMPHOCYTE ABS# 1.09 10x3/uL (1.18-3.74); LYMPHOCYTES 22.8 % (15-50); MCH 32.7 pg (26.0-34.0); MCHC 33.5 g/dL (31.0-37.0); MCV 97.9 fL (80.0-100.0); MEAN PLATELET VOLUME 10.4 fL (7.4-10.4); MONOCYTES 19.9 % (2-11); NEUTROPHIL ABS# 2.65 10x3/uL (1.56-6.13); NEUTROPHILS 55.4 % (40-80); PLATELET COUNT 235 10x3/uL (130-400); RBC 2.84 10x6/uL (4.00-5.40); RDW 13.5 % (11.5-14.5); WBC 4.8 10x3/uL (4.8-10.8)
[2020-05-11 05:56] VITALS: BP 164/64
[2020-05-11 06:48] LABS: ALBUMIN 2.1 g/dL (3.4-5.0); ALKALINE PHOSPHATASE 52 U/L (30-120); ALT (SGPT) 13 U/L (10-68); BILIRUBIN - TOTAL 0.23 mg/dL (0.2-1.3); CALC OSMOLALITY 269 mosm/kg (275-300); CALCIUM 7.7 mg/dL (8.5-10.1); CARBON DIOXIDE 27.9 mmol/L (21.0-32.0); CHLORIDE - SERUM 105 mmol/L (98-107); CREATININE - SERUM 0.7 mg/dL (0.6-1.3); GLUCOSE 77 mg/dL (74-106); MAGNESIUM - SERUM 1.6 mg/dL (1.8-2.4); POTASSIUM - SERUM 3.1 mmol/L (3.5-5.1); PROTEIN - SERUM 5.4 g/dL (6.4-8.2); SODIUM 137 mmol/L (136-145); UREA NITROGEN 4 mg/dL (7-18); eGFR NON AFRICAN AMERICAN 86 mL/min (90-120)
[2020-05-11 08:39] VITALS: BP 147/68
--- NOTE | 2020-05-11 09:00 | NUR ---
ASSESSMENT PER FLOW SHEET. PATIENT IS WITHOUT DISTRESS.FALL PREVENTION IN PLACE.CALL LIGHT IN REACH.
--- NOTE | 2020-05-11 09:00 | NUR ---
REFUSES AM MEDS AT THIS TIME.
[2020-05-11 17:06] VITALS: BP 142/82
[2020-05-12 06:36] VITALS: BP 129/79
[2020-05-12 07:22] LABS: ALBUMIN 2.1 g/dL (3.4-5.0); ALKALINE PHOSPHATASE 50 U/L (30-120); ALT (SGPT) 12 U/L (10-68); BILIRUBIN - TOTAL 0.27 mg/dL (0.2-1.3); CALC OSMOLALITY 270 mosm/kg (275-300); CALCIUM 7.7 mg/dL (8.5-10.1); CARBON DIOXIDE 27.7 mmol/L (21.0-32.0); CHLORIDE - SERUM 105 mmol/L (98-107); CREATININE - SERUM 0.6 mg/dL (0.6-1.3); GLUCOSE 82 mg/dL (74-106); MAGNESIUM - SERUM 1.5 mg/dL (1.8-2.4); POTASSIUM - SERUM 3.3 mmol/L (3.5-5.1); PROTEIN - SERUM 5.3 g/dL (6.4-8.2); SODIUM 137 mmol/L (136-145); eGFR NON AFRICAN AMERICAN > 90 mL/min (90-120)
[2020-05-12 07:23] LABS: UREA NITROGEN 6 mg/dL (7-18)
[2020-05-12 08:00] LABS: BASOPHILS 0.2 % (0-2); EOSINOPHILS 1.8 % (0-7); HEMATOCRIT 26.8 % (36.0-48.0); HEMOGLOBIN 8.9 g/dL (12-16); IMMATURE GRANULOCYTES 0.2 % (0-5); LYMPHOCYTE ABS# 1.23 10x3/uL (1.18-3.74); LYMPHOCYTES 27.6 % (15-50); MCH 32.7 pg (26.0-34.0); MCHC 33.2 g/dL (31.0-37.0); MCV 98.5 fL (80.0-100.0); MEAN PLATELET VOLUME 10.2 fL (7.4-10.4); MONOCYTES 17.8 % (2-11); NEUTROPHIL ABS# 2.33 10x3/uL (1.56-6.13); NEUTROPHILS 52.4 % (40-80); PLATELET COUNT 221 10x3/uL (130-400); RBC 2.72 10x6/uL (4.00-5.40); RDW 13.8 % (11.5-14.5); WBC 4.5 10x3/uL (4.8-10.8)
[2020-05-12 11:49] VITALS: BP 137/53
--- NOTE | 2020-05-12 12:33 | NUR ---
REHAB PRESCREENING Ms. Minor is ambulating 20 feet. She will be a good rehab candidate if she is willing to come and to participate in the required 3 hours of therapy. I will begin her electronic screen and notify case management when completed. She will then be ready to come to rehab if her physicians feel she is appropriate for discharge. Thank you for this referral! Destiney Gonzales, LABORATORY SCIENTIST Rehab PD
--- NOTE | 2020-05-12 15:45 | NUR ---
OT NOTE: NURSING CLEARED PT FOR OT PARTICIPATION. PT REQUIRED EXTENSIVE CUES FOR INCREASED PARTICIPATION. PT REQUIRED MIN-MOD A FOR SUPINE TO SIT. PT REQUIRED MIN-MOD A FOR SIT TO STAND. PT REQUIRED MAX A FOR LB HYGIENE. [id number] [place]
[2020-05-12 15:55] VITALS: BP 140/55
--- NOTE | 2020-05-12 19:45 | NUR ---
RECEIVED BEDSIDE REPORT. PT LAYING IN BED A&O X4. PIV TO LEFT FOREARM, PATENT AND INFUSING, NO REDNESS OR SWELLING. O2 SAT 96% ON 3L VIA NC. PT ABLE TO AMBULATE WITH ASSIST. WEAKNESS TO RIGHT ANKLE. EDUCATED PT ON CL AND NEEDS, VERBALIZED UNDERSTANDING. BED LOW, CL IN REACH.
[2020-05-12 20:00] VITALS: BP 154/58
[2020-05-12 22:46] VITALS: Ht 162.6 cm; Wt 46.7 kg
--- NOTE | 2020-05-13 02:10 | NUR ---
PT C/O NOT BEING ABLE TO BREATHE. TURNED O2 UP TO 4L, CALLED RESP WHO GAVE BREATHING TREATMENT. SHE COUGHED UP LARGE AMOUNT OF SPUTUM. PT IS WEAK AND HARD FOR HER TO COUGH. WILL CONTINUE TO MONITOR.
--- NOTE | 2020-05-13 02:51 | NUR ---
CALLED COFFEE TASTER ABOUT PT RESP CONDITION. ORDERED EKG, CHEST XR, AM LABS AND ABGS. ABGS WNL, EKG SHOWED NORMAL SR. AWAITING CHEST XR AND LAB RESULTS. PROVIDED PT WITH ANXIETY MEDS. PT IS CALM NOW AND NO SHORTNESS OF BREATH. WILL CONTINUE TO MONITOR.
[2020-05-13 02:59] LABS: ALBUMIN 2.3 g/dL (3.4-5.0); ANION GAP 8.3 mmol/L (8-16); BASOPHILS 0.4 % (0-2); BILIRUBIN - TOTAL 0.36 mg/dL (0.2-1.3); CALCIUM 7.6 mg/dL (8.5-10.1); CARBON DIOXIDE 30.4 mmol/L (21.0-32.0); EOSINOPHILS 2.7 % (0-7); HEMATOCRIT 28.1 % (36.0-48.0); HEMOGLOBIN 9.5 g/dL (12-16); IMMATURE GRANULOCYTES 0.4 % (0-5); LYMPHOCYTE ABS# 1.14 10x3/uL (1.18-3.74); LYMPHOCYTES 20.9 % (15-50); MAGNESIUM - SERUM 1.4 mg/dL (1.8-2.4); MCH 33.3 pg (26.0-34.0); MCHC 33.8 g/dL (31.0-37.0); MCV 98.6 fL (80.0-100.0); MEAN PLATELET VOLUME 10.3 fL (7.4-10.4); MONOCYTES 16.3 % (2-11); NEUTROPHIL ABS# 3.24 10x3/uL (1.56-6.13); NEUTROPHILS 59.3 % (40-80); PHOSPHOROUS 3.3 mg/dL (2.5-4.9); PLATELET COUNT 249 10x3/uL (130-400); POTASSIUM - SERUM 3.7 mmol/L (3.5-5.1); PROTEIN - SERUM 5.8 g/dL (6.4-8.2); RBC 2.85 10x6/uL (4.00-5.40); RDW 13.6 % (11.5-14.5); WBC 5.5 10x3/uL (4.8-10.8)
[2020-05-13 03:03] LABS: CREATININE - SERUM 0.8 mg/dL (0.6-1.3)
[2020-05-13 03:15] LABS: APTT 36.7 SECONDS (22.8-39.4); INR 1.11 (0.85-1.17); PROTIME 13.2 SECONDS (11.6-15.0)
[2020-05-13 03:19] LABS: D-DIMER-QUANTITATIVE 2.84 ug/mLFEU (0.20-0.54)
[2020-05-13 04:00] VITALS: BP 150/60
[2020-05-13] MEDS ORDERED: LOVENOX40 MG/0.4 SC (10:52)
[2020-05-13] MEDS ORDERED: ALBUTEROL2.5 MG/3 M UPD (10:52)
[2020-05-13] MEDS ORDERED: PERFOROMIS20 MCG/21 UPD (10:52)
[2020-05-13] MEDS ORDERED: PULMICORT0.5 MG/21 UPD (10:53)
[2020-05-13] MEDS ORDERED: HYDROCODON-ACE1 EA10 PO (10:53)
[2020-05-13] MEDS ORDERED: HUMULIN R100 UNIT/1 SC (10:54)
[2020-05-13] MEDS ORDERED: MIRALAX17 GM PO (10:54)
--- NOTE | 2020-05-13 11:53 | MORECARE ---
CASE MANAGEMENT DISCHARGE SUMMARY PATIENT: HOLLAND MCGOWAN UNIT: [id number] ADM DATE: 05/06/20 AGE: 79 : 42 SEX: F ROOM/BED: D.[facility] AUTHOR: ROBERTO CARLOS JENSEN PHYSICIAN: REFERRING PHYSICIAN: CÉSAR HILL DO DATE OF SERVICE: 05/13/20 Discharge Plan Patient Name: HOLLAND MCGOWAN Facility: [facility]:[place] : 1940 Planned Disposition: Inpatient Rehab Anticipated Discharge Date: Discharge Date: Expected LOS: Initial Reviewer: [email or web address] Initial Review Date: 05/06/2020 Generated: 05/13/20 12:52 pm DCP- Discharge Planning Updated by [email or web address]: Ludivina Prasad on 05/09/20 1:[address] Late entry: CM received call from patient's son, Curtis Cruz [phone], states patient cant take care of herself anymore. Informed son that therapy was working with patient and there was a pending rehab screen. Son verbalized understanding. CM will continue to follow patient for discharge planning / needs. Coverage Notice Reviewer: [email or web address] Charissa Cullen Notice Issued Date-Time: 05/13/2020 10:40 Notice Type: Patient Choice Letter Notice Delivered To: Patient Relationship to Patient: Business Development Associate Name: Delivery Method: HAND - Hand Delivered Sangeetha Days: Prior Verbal Notification: Recipient Understood Notice: Yes Recipient Signature: Yes Med Rec Note Co-signed by Attending: Coverage Notice Comment: Reviewer: [email or web address] Charissa Cullen Notice Issued Date-Time: 05/13/2020 10:40 Notice Type: IM Discharge Notice Notice Delivered To: Patient Relationship to Patient: Business Development Associate Name: Delivery Method: HAND - Hand Delivered Sangeetha Days: Prior Verbal Notification: Recipient Understood Notice: Yes Recipient Signature: Yes Med Rec Note Co-signed by Attending: Coverage Notice Comment: IMM SERVED Last DP export: 05/09/20 1:35 a Patient Name: HOLLAND MCGOWAN Page 52830 at 1153 All edits/amendments must be made on the electronic document DICTATION DATE: 05/13/20 115 LYMPHEDEMA THERAPIST: JUVENCIO 05/13/20 1153 RPT#: [id number] DC DATE: STATUS: ADM IN [facility] [address] [place] [address] END OF REPORT
--- NOTE | 2020-05-13 12:00 | MORECARE ---
CASE MANAGEMENT DISCHARGE SUMMARY PATIENT: HOLLAND MCGOWAN UNIT: [id number] ADM DATE: 05/06/20 AGE: 79 : 42 SEX: F ROOM/BED: D.2213 AUTHOR: ROBERTO CARLOS JENSEN PHYSICIAN: REFERRING PHYSICIAN: CÉSAR HILL DO DATE OF SERVICE: 05/13/20 Discharge Plan Patient Name: HOLLAND MCGOWAN Facility: [facility]:[place] : 1940 Planned Disposition: Inpatient Rehab Anticipated Discharge Date: Discharge Date: Expected LOS: Initial Reviewer: [email or web address] Initial Review Date: 05/06/2020 Generated: 05/13/20 12:59 pm Comments DCP- Discharge Planning Updated by [email or web address]: Dianna Cullen on 05/13/20 10:[address] Patient Name: HOLALND MCGOWAN Admission Status: ER Accout number: [id number] Admission Date: 05-06-2020 : 1940 Admission Diagnosis:DORSALGIA, UNSPECIFIED Attending: CÉSAR HILL Current LOS: 7 Anticipated DC Date: Planned Disposition: Inpatient Rehab Primary Insurance: MEDICARE A & B Discharge Planning Comments: CM met with patient to complete initial dc planning assessment. CM educated patient on the CM role and verbal consent given by patient to complete assessment. Patient lives at home by herself, where she has [facility] and her son helps her. Patient stated that she fell and that is what brought her back to the hospital . She is agreeable to inpatient rehab at [facility] this time. CLAUDIA signed and placed in chart. She has all the DME that she needs at home. IMM served and explained. Patient will be discharged today to inpatient rehab at [facility]. Patient denied known discharge needs at this time. CM will continue to follow and will assist as needed with dc plans/needs Windows Software Developer: Dianna Cullen DCP- Discharge Planning Updated by [id number]: Ludivina Prasad on 05/09/20 1:[address] Late entry: CM received call from patient's son, Curtis Cruz [phone], states patient cant take care of herself anymore. Informed son that therapy was working with patient and there was a pending rehab screen. Son verbalized understanding. CM will continue to follow patient for discharge planning / needs. DCPIA - Discharge Planning Initial Assessment Updated by [email or web address]: Dianna Cullen on 05/13/20 11:54 am * Is the patient Alert and Oriented? Yes * PCP FELI * Pharmacy [facility] * Preadmission Environment Home Alone * ADLs Partial Dependent * Partial ADLs (Assistance needed) Bathing Medication Management * Equipment Bedside Commode Nebulizer Oxygen Rolling Walker Shower Chair Walker Wheelchair * List name and contact numbers for known caregivers / representatives who currently or will assist patient after discharge: SON ( SON) [phone] * Verbal permission to speak to the caregivers and representatives has been obtained from the patient. N/A * Community resources currently utilized Home Health * Please name any agencies selected above. [facility] * Additional services required to return to the preadmission environment? Yes * Can the patient safely return to the preadmission environment? No * Has this patient been hospitalized within the prior 30 days at any hospital? Yes Coverage Notice Reviewer: [id number] Charissa Cullen Notice Issued Date-Time: 05/13/2020 10:40 Notice Type: Patient Choice Letter Notice Delivered To: Patient Relationship to Patient: Road Repairer Name: Delivery Method: HAND - Hand Delivered Sangeetha Days: Prior Verbal Notification: Recipient Understood Notice: Yes Recipient Signature: Yes Med Rec Note Co-signed by Attending: Coverage Notice Comment: Reviewer: [id number] Cullen Notice Issued Date-Time: 05/13/2020 10:40 Notice Type: IM Discharge Notice Notice Delivered To: Patient Relationship to Patient: Road Repairer Name: Delivery Method: HAND - Hand Delivered Sangeetha Days: Prior Verbal Notification: Recipient Understood Notice: Yes Recipient Signature: Yes Med Rec Note Co-signed by Attending: Coverage Notice Comment: IMM SERVED Last DP export: 05/13/20 10:53 am Patient Name: HOLLAND MCGOWAN Page [phone] at 1200 All edits/amendments must be made on the electronic document DICTATION DATE: 05/13/20 1200 COLOR DEPOSITING MACHINE TENDER: JUVENCIO 05/13/20 1200 RPT#: [id number] DC DATE: STATUS: ADM IN [facility] [address] [place] [address] END OF REPORT
[2020-05-13 14:14] VITALS: BP 144/60
[2020-05-13 18:28] VITALS: BP 157/59
--- NOTE | 2020-05-13 19:45 | NUR ---
RECEIVED BEDSIDE REPORT. PT LAYING IN BED A&O X4. PIV TO LEFT ARM PATENT AND S/L, NO REDNESS OR SWELLING. PT ABLE TO AMBUILATE WITH 2 PERSON ASSIST. EDUCATED PT ON CL AND NEEDS, VERBALIZED UNDERSTANDING. BED LOW, CL IN REACH.
[2020-05-13 20:00] VITALS: BP 180/76
[2020-05-14 04:00] VITALS: BP 150/57
[2020-05-14 05:32] LABS: BASOPHILS 0.4 % (0-2); EOSINOPHILS 1.5 % (0-7); HEMOGLOBIN 9.6 g/dL (12-16); IMMATURE GRANULOCYTES 0.2 % (0-5); LYMPHOCYTE ABS# 1.04 10x3/uL (1.18-3.74); LYMPHOCYTES 19.7 % (15-50); MCH 32.8 pg (26.0-34.0); MCHC 33.1 g/dL (31.0-37.0); MEAN PLATELET VOLUME 10.3 fL (7.4-10.4); MONOCYTES 15.5 % (2-11); NEUTROPHIL ABS# 3.31 10x3/uL (1.56-6.13); NEUTROPHILS 62.7 % (40-80); PLATELET COUNT 264 10x3/uL (130-400); RBC 2.93 10x6/uL (4.00-5.40); RDW 13.6 % (11.5-14.5); WBC 5.3 10x3/uL (4.8-10.8)
[2020-05-14 05:54] LABS: ALBUMIN 2.2 g/dL (3.4-5.0); ALKALINE PHOSPHATASE 55 U/L (30-120); ALT (SGPT) 11 U/L (10-68); BILIRUBIN - TOTAL 0.34 mg/dL (0.2-1.3); CALC OSMOLALITY 269 mosm/kg (275-300); CALCIUM 8.4 mg/dL (8.5-10.1); CARBON DIOXIDE 33.4 mmol/L (21.0-32.0); CHLORIDE - SERUM 101 mmol/L (98-107); CREATININE - SERUM 0.6 mg/dL (0.6-1.3); GLUCOSE 84 mg/dL (74-106); MAGNESIUM - SERUM 1.7 mg/dL (1.8-2.4); PHOSPHOROUS 3.2 mg/dL (2.5-4.9); POTASSIUM - SERUM 3.3 mmol/L (3.5-5.1); PROTEIN - SERUM 5.7 g/dL (6.4-8.2); SODIUM 137 mmol/L (136-145); eGFR NON AFRICAN AMERICAN > 90 mL/min (90-120)
[2020-05-14 06:02] LABS: UREA NITROGEN 4 mg/dL (7-18)
--- NOTE | 2020-05-14 08:00 | NUR ---
LYING IN BED,WITHOUT DISTRESS.MONITOR
--- NOTE | 2020-05-14 08:31 | NUR ---
SPOKE TO NEY IN REHAB IN REGARDS TO PT DC TO REHAB AND WHEN PATIENT WILL BE GETTING BRACE TO GO. CALLED [employer]GUYEN IN [employer] AND WAS TOLD ORDER FAXED TO [employer] [facility] AND , NGUYEN CALLED [employer] BACK AND WAS TOLD SOMEONE WILL BE OUT THIS MORNING. CALLED NEY BACK AND RELAYED MESSAGE, CONTINUE WITH PLAN OF CARE
[2020-05-14 09:28] VITALS: BP 129/66
[2020-05-14 12:31] VITALS: BP 128/62
--- NOTE | 2020-05-14 16:07 | NUR ---
OT NOTE: ASSISTED PT WITH FEEDING AND POSITIONING THIS AFTERNOON. PTS BACK BRACE HAD BEEN PLACED ON HER BUT SHE WAS ATTEMPTING TO FEED SELF WHILE LIEING ON HER SIDE. ATTEMPTED SEVERAL TIMES TO REPOSITION, BUT PT STATED THAT SHE FELT THAT THERE WAS A "KNOT" IN THE MIDDLE OF HER BACK FROM SURGERY AND IT HURT TO LIE ON IT.. CUT UP PTS FOOD FOR HER AND SHE SLOWLY CONTINUED TO EAT.. PT HAD BEEN EATING FOR SEVERAL HOURS AND TECH WAS WAITING TO TAKE HER FOR MRI..PT ABLE TO PERFORM SUPINE TO SIT WITH MIN ASSIST; TRANSFER FROM BED TO CHAIR WITH MIN ASSIST. [phone]
--- NOTE | 2020-05-15 10:38 | MORECARE ---
CASE MANAGEMENT DISCHARGE SUMMARY PATIENT: HOLLAND MCGOWAN UNIT: [id number] ADM DATE: 05/06/20 AGE: 79 : 42 SEX: F ROOM/BED: D.2213 AUTHOR: ROBERTO CARLOS JENSEN PHYSICIAN: REFERRING PHYSICIAN: CÉSAR HILL DO DATE OF SERVICE: 05/15/20 Discharge Plan Patient Name: HOLLAND MCGOWAN Facility: [facility]:[place] : 1940 Planned Disposition: Inpatient Rehab Anticipated Discharge Date: Discharge Date: 05/14/2020 Expected LOS: Initial Reviewer: [email or web address] Initial Review Date: 05/06/2020 Generated: 05/15/20 11:37 am Comments DCP- Discharge Planning Updated by [email or web address]: Dianna Cullen on 05/13/20 10:[address] Patient Name: HOLLAND MCGOWAN Admission Status: ER Accout number: [id number] Admission Date: 05-06-2020 : 1940 Admission Diagnosis:DORSALGIA, UNSPECIFIED Attending: CÉSAR HILL Current LOS: 7 Anticipated DC Date: Planned Disposition: Inpatient Rehab Primary Insurance: MEDICARE A & B Discharge Planning Comments: CM met with patient to complete initial dc planning assessment. CM educated patient on the CM role and verbal consent given by patient to complete assessment. Patient lives at home by herself, where she has [facility] and her son helps her. Patient stated that she fell and that is what brought her back to the hospital . She is agreeable to inpatient rehab at [facility] this time. CLAUDIA signed and placed in chart. She has all the DME that she needs at home. IMM served and explained. Patient will be discharged today to inpatient rehab at [facility]. Patient denied known discharge needs at this time. CM will continue to follow and will assist as needed with dc plans/needs Marriage And Family Counselor: Dianna Cullen DCP- Discharge Planning Updated by [email or web address]: Ludivina Prasad on 05/09/20 1:[address] Late entry: CM received call from patient's son, Curtis Cruz [phone], states patient cant take care of herself anymore. Informed son that therapy was working with patient and there was a pending rehab screen. Son verbalized understanding. CM will continue to follow patient for discharge planning / needs. DCPIA - Discharge Planning Initial Assessment Updated by [id number]: Dianna Cullen on 05/13/20 11:54 am * Is the patient Alert and Oriented? Yes * PCP FELI * Pharmacy [facility] * Preadmission Environment Home Alone * ADLs Partial Dependent * Partial ADLs (Assistance needed) Bathing Medication Management * Equipment Bedside Commode Nebulizer Oxygen Rolling Walker Shower Chair Walker Wheelchair * List name and contact numbers for known caregivers / representatives who currently or will assist patient after discharge: SON ( SON) [phone] * Verbal permission to speak to the caregivers and representatives has been obtained from the patient. N/A * Community resources currently utilized Home Health * Please name any agencies selected above. [facility] * Additional services required to return to the preadmission environment? Yes * Can the patient safely return to the preadmission environment? No * Has this patient been hospitalized within the prior 30 days at any hospital? Yes Coverage Notice Reviewer: [id number] Charissa Cullen Notice Issued Date-Time: 05/13/2020 10:40 Notice Type: Patient Choice Letter Notice Delivered To: Patient Relationship to Patient: Systems Qa Analyst Name: Delivery Method: HAND - Hand Delivered Sangeetha Days: Prior Verbal Notification: Recipient Understood Notice: Yes Recipient Signature: Yes Med Rec Note Co-signed by Attending: Coverage Notice Comment: Reviewer: [id number] Cullen Notice Issued Date-Time: 05/13/2020 10:40 Notice Type: IM Discharge Notice Notice Delivered To: Patient Relationship to Patient: Systems Qa Analyst Name: Delivery Method: HAND - Hand Delivered Sangeetha Days: Prior Verbal Notification: Recipient Understood Notice: Yes Recipient Signature: Yes Med Rec Note Co-signed by Attending: Coverage Notice Comment: IMM SERVED Last DP export: 05/13/20 11:00 am Patient Name: HOLLAND MCGOWAN Page [phone] at 1038 All edits/amendments must be made on the electronic document DICTATION DATE: 05/15/20 1037 ROLL OFF DRIVER: DM 05/15/20 1037 RPT#: [id number] DC DATE:05/14/20 STATUS: DIS IN [facility] [address] [place] [address] END OF REPORT
== END 2020-05-14 16:54 | DRG 552 ==
LOC: D.ER 10:13 → D.MS 13:52 → D.EDHOLD 13:52 → D.MS 05-07 23:49
PROVIDERS: Emergency Medicine; Family Medicine; ADMIT Family Medicine; ATTEND Family Medicine
DX: S22.079A Unspecified fracture of T9-T10 vertebra, initial encounter for closed fracture (principal); J44.1 Chronic obstructive pulmonary disease with (acute) exacerbation; N39.0 Urinary tract infection, site not specified; M54.9 Dorsalgia, unspecified; S22.089A Unspecified fracture of T11-T12 vertebra, initial encounter for closed fracture; S93.401A Sprain of unspecified ligament of right ankle, initial encounter; W19.XXXA Unspecified fall, initial encounter; I25.10 Atherosclerotic heart disease of native coronary artery without angina pectoris; K21.9 Gastro-esophageal reflux disease without esophagitis; E87.6 Hypokalemia; E83.42 Hypomagnesemia

== ENCOUNTER 2020-05-14 17:34 | Inpatient (IN) | payer MEDICARE, OTHER ==
[~2020-05-14] VITALS: Ht 162.6 cm; Wt 45.4 kg
--- NOTE | 2020-05-14 16:30 | NUR ---
PT ADMIT TO UNIT AT 1606 PM
[~2020-05-14 17:34] MED LIST changes: +ALBUTEROL2.5 MG/3 M UPD; +HUMULIN R100 UNIT/1 SC; +LOVENOX40 MG/0.4 SC; +PERFOROMIS20 MCG/21 UPD; +PULMICORT0.5 MG/21 UPD
[2020-05-14 18:13] VITALS: BP 145/58; BMI 17.2
--- NOTE | 2020-05-14 19:12 | NUR ---
RECEIVED PT LYING IN BED ON RIGHT SIDE. ALERT AND ORIENTED X4. C/O CONTACT BACK PAIN 08/21. TOILETING OFFERED DENIES NEED. TSLO BRACE IN PLACE PROPERLY. PT STATES "I DON'T THINK I CAN SLEEP ANOTHER NIGHT IN BRACE" READJUSTED BRACE FOR COMFORT. PT STATED SHE DOES NOT WANT TO BE HERE, SHE IS IN TOO MUCH PAIN AND STATED SHE JUST WANTED TO BE LEFT ALONE AND NOT BOTHERED WITH THERAPY. ENCOURAGED PT TO AT LEAST GIVE THERAPY A CHANCE TOMORROW BEFORE SHE MADE ANY DECISION ON LEAVING. PT AGREED TO GIVING OUR THERAPY TEAM TIME. CONTINUES ON O2/5L VIA NC. NO OTHER NEEDS VOICED. CALL LIGHT AND WATER WITHIN REACH. FALL PRECAUTIONS IN PLACE. CPOC
[2020-05-14 20:29] VITALS: BP 106/42
--- NOTE | 2020-05-14 20:30 | NUR ---
PT SON DARLENE MCNAIR ([phone]) CALLED REGARDING THERAPY PLAN. DARLENE STATED PT DOES LIVE AT HOME ALONE AND SHE WILL NOT BE ABLE TO RETURN LIVING ALONE. DARLENE WOULD LIKE MRS. NEGRETE TO GIVE HIM A CALL TO DISCUSS PLACEMENT FOR WHEN SHE IS D/C FROM REHAB.
--- NOTE | 2020-05-15 01:32 | NUR ---
PT LYING IN BED ON RIGHT SIDE AWAKE. TOILETING OFFERED PT DENIES NEED. TSLO BRACE REMOVED WHILE IN BED. NO DISTRESS NOTED. CALL LIGHT WITHIN REACH. CONTINUES ON O2/5L VIA NC. CPOC
--- NOTE | 2020-05-15 04:00 | NUR ---
ASSISTED PT ON BEDPAN.
--- NOTE | 2020-05-15 04:06 | NUR ---
ASSISTED PT OFF BEDPAN. 100ML CONCENTRATED URINE EMPTIED. NO OTHER NEEDS VOICED. CALL LIGHT AND WATER WITHIN REACH. FALL PRECAUTIONS IN PLACE. CPOC
--- NOTE | 2020-05-15 05:16 | NUR ---
PT LYING IN BED ON RIGHT SIDE EYES CLOSED RESTING. HOB ELEVATED. CONTINUES ON O2/5L VIA NC. NO DISTRESS NOTED. CALL LIGHT WITHIN REACH. CPOC
[2020-05-15 07:11] LABS: BASOPHILS 0.2 % (0-2); EOSINOPHILS 2.3 % (0-7); HEMATOCRIT 28.6 % (36.0-48.0); HEMOGLOBIN 9.3 g/dL (12-16); IMMATURE GRANULOCYTES 0.2 % (0-5); LYMPHOCYTE ABS# 1.18 10x3/uL (1.18-3.74); LYMPHOCYTES 27.3 % (15-50); MCH 32.4 pg (26.0-34.0); MCHC 32.5 g/dL (31.0-37.0); MCV 99.7 fL (80.0-100.0); MEAN PLATELET VOLUME 10.2 fL (7.4-10.4); MONOCYTES 17.6 % (2-11); NEUTROPHIL ABS# 2.26 10x3/uL (1.56-6.13); NEUTROPHILS 52.4 % (40-80); PLATELET COUNT 257 10x3/uL (130-400); RBC 2.87 10x6/uL (4.00-5.40); RDW 13.6 % (11.5-14.5); WBC 4.3 10x3/uL (4.8-10.8)
[2020-05-15 07:38] LABS: CALC OSMOLALITY 271 mosm/kg (275-300); CALCIUM 8.3 mg/dL (8.5-10.1); CARBON DIOXIDE 35.5 mmol/L (21.0-32.0); CHLORIDE - SERUM 103 mmol/L (98-107); CREATININE - SERUM 0.7 mg/dL (0.6-1.3); GLUCOSE 78 mg/dL (74-106); MAGNESIUM - SERUM 1.7 mg/dL (1.8-2.4); POTASSIUM - SERUM 3.5 mmol/L (3.5-5.1); SODIUM 137 mmol/L (136-145); UREA NITROGEN 9 mg/dL (7-18); eGFR NON AFRICAN AMERICAN 86 mL/min (90-120)
[2020-05-15 08:06] VITALS: BP 128/45
--- NOTE | 2020-05-15 12:46 | NUR ---
RESTING QUIETLY IN BED. DENIES INCREASED PAIN. WEARING HER TLSO BRACE AT PRESENT. POOR APPETITE STILL NOTED FOR MEALS. CALL LIGHT IN REACH
[2020-05-15 13:35] VITALS: Ht 162.6 cm; Wt 45.4 kg
--- NOTE | 2020-05-15 15:31 | NUR ---
PATIENT ADMITTS TO REHAB FROM ACUTE FLOOR. HER PCP IS DR. EDMOND. HER DC PLANS ARE TO RETURN HOME BUT HER SON IS WANTING HER TO DC TO ASSISTED LIVING . WILL CONTINUE TO FOLLOW WITH PATIENT AND WILL ASSIST WITH DC NEEDS.
--- NOTE | 2020-05-15 19:30 | NUR ---
RECEIVED PT LYING IN BED VISITING WITH SON. PT IS ALERT AND ORIENTED X4. C/O BEING NAUSEATED WITHOUT EMESIS. PHENERGAN ADMININSTERED. OPEN AREA ON COCCYX NOTED .25CM X .25CM, BUTTPASTE APPLIED AND PT POSITIONED TO RIGHT SIDE USING PILLOWS. CONTINUES ON O2/5L VIA NC. DENIES ANY PAIN. CALL LIGHT AND WATER WITHIN REACH. FALL PRECAUTIONS IN PLACE. CPOC
[2020-05-15 20:28] VITALS: BP 116/47
--- NOTE | 2020-05-16 02:23 | NUR ---
PT LYING IN BED ON RIGHT SIDE EYES CLOSED RESTING. RR EVEN AND UNLABORED. CALL LIGHT WITHIN REACH. CPOC
--- NOTE | 2020-05-16 05:36 | NUR ---
PT LYING IN BED ON RIGHT SIDE EYES CLOSED RESTING. ON EP NO LABS DONE AT THIS TIME. WILL PASS ON IN REPORT TO LOOK FOR NEW AM LABS. NO DISTRESS NOTED. CALL LIGHT WITHIN REACH. CPOC
[2020-05-16 08:00] VITALS: BP 137/55
[2020-05-16 09:46] LABS: CALC OSMOLALITY 266 mosm/kg (275-300); CALCIUM 8.8 mg/dL (8.5-10.1); CARBON DIOXIDE 35.8 mmol/L (21.0-32.0); CHLORIDE - SERUM 99 mmol/L (98-107); CREATININE - SERUM 0.7 mg/dL (0.6-1.3); GLUCOSE 111 mg/dL (74-106); POTASSIUM - SERUM 3.5 mmol/L (3.5-5.1); SODIUM 134 mmol/L (136-145); UREA NITROGEN 7 mg/dL (7-18); eGFR NON AFRICAN AMERICAN 86 mL/min (90-120)
[2020-05-16 10:26] LABS: BASOPHILS 0.1 % (0-2); EOSINOPHILS 1.2 % (0-7); HEMATOCRIT 30.8 % (36.0-48.0); HEMOGLOBIN 10.3 g/dL (12-16); IMMATURE GRANULOCYTES 0.1 % (0-5); LYMPHOCYTE ABS# 1.03 10x3/uL (1.18-3.74); LYMPHOCYTES 14.9 % (15-50); MCH 33.6 pg (26.0-34.0); MCHC 33.4 g/dL (31.0-37.0); MCV 100.3 fL (80.0-100.0); MEAN PLATELET VOLUME 10.5 fL (7.4-10.4); MONOCYTES 14.7 % (2-11); NEUTROPHIL ABS# 4.78 10x3/uL (1.56-6.13); PLATELET COUNT 307 10x3/uL (130-400); RBC 3.07 10x6/uL (4.00-5.40); RDW 13.4 % (11.5-14.5); WBC 6.9 10x3/uL (4.8-10.8)
--- NOTE | 2020-05-16 13:47 | NUR ---
SPOKE WITH SON DARLENE AFTER MRS. MCGOWAN GAVE PERMISSION. HE IS UNABLE TO ATTEND CARE TEAM MEETINGS DUE TO HIS JOB. HE IS CONERNED ABOUT HIS MOTHER RETURNING TO HER HOME . I SHARED WITH HIM SHE WAS JUST ADMITTED HERE IN REHAB AND LETS GIVE HER MORE TIME BEFORE ANY CHANGE OF ADDRESS BE MADE. WILL CONTINUE TO FOLLOW WITH PATIENT AND WILL KEEP MR. GONZALEZ INFORMED OF HIS MOTHERS PROGRESS.
--- NOTE | 2020-05-16 19:18 | NUR ---
AWAKE AND ALERT. RESTING IN BED WATCHING TV. RESPIRATIONS UNLABORED AT REST WITH O2/4L ON PER NASAL CANNULA. CALL LIGHT IN REACH.
[2020-05-16 19:36] VITALS: BP 114/46
--- NOTE | 2020-05-17 01:16 | NUR ---
SLEEPING WITH RESPIRATIONS UNLABORED. NO DISTRESS NOTED.
--- NOTE | 2020-05-17 05:16 | NUR ---
QUIET HOURS. NO ACUTE CHANGES IN CONDITION THIS SHIFT. RESTING IN BED WITH NO DISTRESS NOTED.
--- NOTE | 2020-05-17 08:00 | NUR ---
SHIFT ASSMT COMPLETED.CL IN REACH.BREAKFAST GIVEN.
[2020-05-17 10:21] VITALS: BP 129/53
--- NOTE | 2020-05-17 12:00 | NUR ---
EATING LUNCH.DENIES NEEDS.
--- NOTE | 2020-05-17 19:48 | NUR ---
AWAKE AND ALERT. RESTING IN BED WITH RESPIRATIONS UNLABORED ON O2/4L PER NASAL CANNULA. REQUEST XANAX. WILL GIVE WITH HS MEDICATIONS. CALL LIGHT IN REACH.
[2020-05-17 20:02] VITALS: BP 108/41
--- NOTE | 2020-05-18 05:08 | NUR ---
QUIET HOURS. NO ACUTE CHANGES IN CONDITION THIS SHIFT. RESPIRATIONS UNLABORED. NO DISTRESS NOTED.
--- NOTE | 2020-05-18 08:00 | NUR ---
SHIFT ASSMT COMPLETED.CL IN REACH.
[2020-05-18 14:58] VITALS: BP 120/51
[2020-05-18 19:00] VITALS: BP 112/52
--- NOTE | 2020-05-18 19:34 | NUR ---
AWAKE AND ALERT. RESTING IN BED WITH NO DISTRESS NOTED. MEDICATED FOR NAUSEA, SEE MAR. RESPIRATIONS UNLABORED AT REST. O2/3L ON PER NASAL CANNULA. CALL LIGHT IN REACH.
--- NOTE | 2020-05-19 00:32 | NUR ---
RESTING QUIETLY IN BED WITH NO DISTRESS NOTED.
--- NOTE | 2020-05-19 04:59 | NUR ---
QUIET HOURS. NO ACUTE CHANGES IN CONDITION THIS SHIFT. RESTING IN BED WITH NO DISTRESS NOTED. HAS HAD ONE INCONTINENT EPISODE OF URINE.
[2020-05-19 07:51] VITALS: BP 131/47
[2020-05-19 09:03] LABS: ANION GAP 5.6 mmol/L (8-16); CALCIUM 8.7 mg/dL (8.5-10.1); CARBON DIOXIDE 36.4 mmol/L (21.0-32.0); CREATININE - SERUM 0.8 mg/dL (0.6-1.3)
[2020-05-19 09:19] LABS: BASOPHILS 0.2 % (0-2); EOSINOPHILS 2.2 % (0-7); HEMATOCRIT 28.8 % (36.0-48.0); HEMOGLOBIN 9.3 g/dL (12-16); LYMPHOCYTE ABS# 1.31 10x3/uL (1.18-3.74); LYMPHOCYTES 28.2 % (15-50); MCH 32.4 pg (26.0-34.0); MCHC 32.3 g/dL (31.0-37.0); MCV 100.3 fL (80.0-100.0); MEAN PLATELET VOLUME 10.5 fL (7.4-10.4); MONOCYTES 14.9 % (2-11); NEUTROPHIL ABS# 2.53 10x3/uL (1.56-6.13); NEUTROPHILS 54.5 % (40-80); PLATELET COUNT 295 10x3/uL (130-400); RBC 2.87 10x6/uL (4.00-5.40); RDW 13.5 % (11.5-14.5); WBC 4.6 10x3/uL (4.8-10.8)
--- NOTE | 2020-05-19 12:27 | NUR ---
SITTING UP IN BED EATING LUNCH. DENIES INCREASED PAIN TO BACK BUT C/O BEING UNCOMFORTABLE WHEN MOVING. WEARS TLSO BRACE WHEN UP. CALL LIGHT IN REACH.
--- NOTE | 2020-05-19 12:58 | NUR ---
Nutrition Follow-up Diet: Diabetic PO intake: ~75% avg x last 6 meals. She ate 75% of breakfast and states that she liked her lunch. Last BM: 05/17/20. Wt: 100# (05/15/20) Meds noted: SSI, miralax. Labs reviewed. Skin: stage II PU to coccyx Recommend continue current diet. RD will follow-up within 7 days.
--- NOTE | 2020-05-19 18:56 | NUR ---
RECEIVED PT SITTING UP IN BED RECEIVEING BREATHING TREATMENT. DENIES ANY NEEDS. C/O RIGHT ARM SWELLING AND PAIN. 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 EDUCATED PT ON IMPORTANCE OF RESERVING ARM TO PREVENT EDEMA. PT VERBALIZED UNDERSTANDING. NO OTHER CONCERNS VOICED. NO DISTRESS NOTED. CALL LIGHT AND WATER WITHIN REACH. FALL PRECAUTIONS IN PLACE. CPOC
[2020-05-19 20:40] VITALS: BP 125/69
--- NOTE | 2020-05-19 20:58 | NUR ---
NITROGLYCERIN PATCH TO LEFT CHEST.
--- NOTE | 2020-05-19 23:28 | NUR ---
PT LYING IN BED ON RIGHT SIDE EYES CLOSED RESTING. CONTINUES ON O2/4L VIA NC. RR EVEN AND UNLABORED. CALL LIGHT WITHIN REACH. CPOC
--- NOTE | 2020-05-20 03:39 | NUR ---
PT LYING IN BED ON RIGHT SIDE EYES CLOSED RESTING. NO DISTRESS NOTED. CALL LIGHT WITHIN REACH. CPOC
[2020-05-20 08:06] VITALS: BP 136/55
--- NOTE | 2020-05-20 10:05 | NUR ---
LAYING DOWN IN BED RESTING QUIETLY. GETS UP AND TRANSFERS TO BSC WITH SBA. IS CONTENENT OF BOWEL AND BLADDER. WEARING OXYGEN 3LNC. IS THIN AND FRAIL. CALL LIGHT IN REACH. HEAD OF BED AT 45 DEGREES. BED IN LOWEST POSITION. ENCOURAGED HER TO ROLL OFF HER BOTTOM TO RELIEVE PRESSURE.
--- NOTE | 2020-05-20 18:54 | NUR ---
RECEIVED PT LYING IN BED AWAKE. ALERT AND ORIENTED X4. REQUESTS XANAX FOR ANXIETY WITH PAIN MEDICATION FOR PAIN 8/ LOWER BACK AND BLE. NO DISTRESS NOTED. CONTINUES O2/4L VIA NC. CALL LIGHT AND WATER WITHIN REACH. FALL PRECAUTIONS IN PLACE. CPOC
[2020-05-20 20:15] VITALS: BP 157/56
--- NOTE | 2020-05-21 02:50 | NUR ---
PT LYING IN BED ON RIGHT SIDE EYES CLOSED RESTING. RR EVEN AND UNLABORED. CONTINUES ON O2/4L VIA NC. NO DISTRESS NOTED. CALL LIGHT WITHIN REACH. LAST ALARM ON. CPOC
[2020-05-21 07:49] VITALS: BP 148/59
--- NOTE | 2020-05-21 08:00 | NUR ---
SHIFT ASSMT COMPLETED.EATING BREAKFAST.CL IN REACH.
--- NOTE | 2020-05-21 13:31 | NUR ---
CARE TEAM MEETING: PATIENT IS PROGRESSING IN THERAPY. HER TENATIVE DC DATE IS 05/24/20. WILL CONTINUE TO FOLLOW WITH PATIENT.
--- NOTE | 2020-05-21 19:41 | NUR ---
AWAKE AND ALERT. RESTING IN BED WITH RESPIRATIONS UNLABORED. MEDICATED FOR PAIN AND ANXIETY. SEE MAR. ASSISTED TO BATHROOM AND BACK TO BED. NO DISTRESS NOTED.
[2020-05-21 20:35] VITALS: BP 128/49
--- NOTE | 2020-05-22 01:31 | NUR ---
RESTING IN BED WITH RESPIRATIONS UNLABORED. NO DISTRESS NOTED.
--- NOTE | 2020-05-22 05:25 | NUR ---
QUIET HOURS. NO ACUTE CHANGES IN CONDITION THIS SHIFT. NO DISTRESS NOTED.
[2020-05-22 08:00] VITALS: BP 137/50
--- NOTE | 2020-05-22 08:00 | NUR ---
SHIFT ASSMT COMPLETED.
--- NOTE | 2020-05-22 18:57 | NUR ---
AWAKE AND ALERT. RESTING IN BED WITH O2/4L ON PER NASAL CANNULA. STATES SHE FEELS A LITTLE SHORT OF BREATH BUT WILL FEEL BETTER ONCE SHE GETS HER XANAX. WILL GIVEN XANAX SHORTLY WITH HS MEDICATIONS. CALL LIGHT IN REACH.
[2020-05-22 20:00] VITALS: BP 97/42
--- NOTE | 2020-05-23 01:41 | NUR ---
SLEEPING WITH RESPIRATIONS UNLABORED. NO DISTRESS NOTED.
--- NOTE | 2020-05-23 05:04 | NUR ---
QUIET HOURS. NO ACUTE CHANGES IN CONDITION THIS SHIFT. RESTING IN BED WITH NO DISTRESS NOTED.
[2020-05-23 07:12] LABS: BASOPHILS 0.5 % (0-2); EOSINOPHILS 1.2 % (0-7); HEMATOCRIT 27.3 % (36.0-48.0); HEMOGLOBIN 8.9 g/dL (12-16); IMMATURE GRANULOCYTES 0.2 % (0-5); LYMPHOCYTE ABS# 1.39 10x3/uL (1.18-3.74); MCH 32.4 pg (26.0-34.0); MCHC 32.6 g/dL (31.0-37.0); MCV 99.3 fL (80.0-100.0); MEAN PLATELET VOLUME 10.4 fL (7.4-10.4); MONOCYTES 16.9 % (2-11); NEUTROPHIL ABS# 2.03 10x3/uL (1.56-6.13); NEUTROPHILS 48.2 % (40-80); PLATELET COUNT 271 10x3/uL (130-400); RBC 2.75 10x6/uL (4.00-5.40); RDW 13.4 % (11.5-14.5); WBC 4.2 10x3/uL (4.8-10.8)
[2020-05-23 07:20] VITALS: BP 125/53
[2020-05-23 07:27] LABS: ANION GAP 7.4 mmol/L (8-16); CALCIUM 8.6 mg/dL (8.5-10.1); CARBON DIOXIDE 31.7 mmol/L (21.0-32.0); CREATININE - SERUM 0.8 mg/dL (0.6-1.3); POTASSIUM - SERUM 4.1 mmol/L (3.5-5.1)
--- NOTE | 2020-05-23 10:00 | NUR ---
WEARS TLSO BRACE WHEN UP AND OUT OF BED. SOB AT ALL TIMES AND WEARS OXYGEN 3-4L NC. IS CONTINENT OF B/B. C/O BACK PAIN ALL THE TIME BUT DOES NOT ASK FOR PAIN MEDS TOO OFTEN. CALL LIGHT IN REACH
--- NOTE | 2020-05-23 18:55 | NUR ---
BEDSIDE REPORT COMPLETE. RECEIVED PT LYING IN BED SUPINE AWAKE. ALERT AND ORIENTED X4. C/O LOWER BACK AND BUTTOCK DISCOMFORT. NORCO AND XANAX ADMINISTRED EARLIER PER KEELEY UMANZOR. CONTINUES ON O2/3L VIA NC. PT REQUESTED VASELINE FOR BUTTOCKS INFORMED PT CALMOSEPTINE WAS APPLIED FOR REDNESS TO PREVENT FURTHER SKIN BREAKDOWN, PT STATED SHE NEEDED VASELINE FOR ANAL AREA D/T CONSTIPATION. PT REFUSED ANY LAXATIVES TO ASSIST WITH CONSTIPATION, INSTEAD PT INSISTED ON USING VASELINE. REPOSITIONED PT TO [facility] AND POSITIONED ON RIGHT SIDE USING PILLOW TO RELIEVE PRESSURE. INFORMED PT TONIGHT WAS HER SCHEDULED SHOWER NIGHT, PT VERBALIZED UNDERSTANDING. NO OTHER CONCERNS VOICED. CALL LIGHT AND WATER WITHIN REACH. FALL PRECAUTIONS IN PLACE. LAST ALARM ON. CPOC
[2020-05-23 21:54] VITALS: BP 109/45
--- NOTE | 2020-05-23 21:55 | NUR ---
PT LYING IN BED EYES CLOSED RESTING. EASILY AROUSED WHEN WALKED IN ROOM WITHOUT STIMULATION. HS MEDS ADMININSTERED WITHOUT DIFFICULTY. PT REFUSED SHOWER PT STATES "I CAN'T I AM SICK" ENCOURAGED PT TO TAKE SHOWER STATING IT MAY MAKE HER (PT) FEEL BETTER. PT STILL REFUSED TO SHOWER. PT ONLY WANTED TO CHANGE CLOTHES AND BRIEF. NO DISTRESS NOTED. VS STABLE. SHIFT ASSESSMENT COMPLETE. DENIES ANY PAIN, NAUSEA OR VOMITTING. CALL LIGHT AND WATER WITHIN REACH. FALL PRECAUTIONS IN PLACE. CPOC
--- NOTE | 2020-05-24 00:27 | NUR ---
PT LYING IN BED ON LEFT SIDE EYES CLOSED RESTING. RR EVEN AND UNLABORED. CONTINUES ON O2/3L VIA NC. NO DISTRESS NOTED. CALL LIGHT AND WATER WITHIN REACH. LAST ALARM ON. CPOC
--- NOTE | 2020-05-24 02:12 | NUR ---
PT LYING IN BED SUPINE EYES CLOSED RESTING. RR EVEN AND UNLABORED. CALL LIGHT WITHIN REACH. FALL PRECAUTIONS IN PLACE. CPOC
--- NOTE | 2020-05-24 06:06 | NUR ---
PT LYING IN BED ON LEFT SIDE EYES CLOSED RESTING. EASILY AROUSED WITH STIMULI. DENIES ANY NEEDS. EARLY AM MEDS GIVEN WITHOUT DIFFICULTY. NO DISTRESS NOTED. CONTINUES ON O2/3L VIA NC. CALL LIGHT WITHIN REACH. LAST ALARM ON. CPOC
[2020-05-24 08:00] VITALS: BP 131/51
--- NOTE | 2020-05-24 10:03 | NUR ---
LAYING IN BED RESTING QUIETLY. C/O HURTING THIS MORNING IN HER BACK. PAIN MEDS GIVEN ORDERED. WEARS TLSO BRACE WHEN OUT OF BED. CALL LIGHT IN REACH
--- NOTE | 2020-05-24 18:55 | NUR ---
BEDSIDE REPORT COMPLETE. RECEIVED PT SITTING UP ON SIDE OF BED ATTEMPTING TO AMBULATE TO BSC WITHOUT ASSISTANCE. EDUCATED PT ON IMPORTANCE OF CALLING FOR ASSISTANCE TO PREVENT FALL. PT HAS BEEN NONCOMPLIANT WITH CALLING. LAST ALARM ON NOT ATTACHED TO CALL LIGHT AT THIS TIME. BUTTOCK/COCCYX BLANCHABLE REDNESS, CALMOSEPTINE BEING APPLIED BID AND PRN. PT IS ENCOURAGED TO Q2H TURN TO PREVENT FURTHER SKIN BREAKDOWN. PT IS SOMEWHAT COMPLIANT WITH THIS INTERVENTION. STAFF WILL CONTINUE TO EDUCATE/ENCOURAGE PT. CONTINUES ON O2/3L VIA NC. NO IV SITE. RIGHT ARM RESERVE HX LYMPHECTOMY R/T BREAST CANCER. PT DENIES ANY NEEDS. C/O 5/10 BACK AND LEG DEEP ACHING PAIN. NORCO WAS ADMINISTERED PER KEELEY UMANZOR AND EMAR. CALL LIGHT AND WATER WITHIN REACH. FALL PRECAUTIONS IN PLACE. CPOC
[2020-05-24 21:36] VITALS: BP 115/45
--- NOTE | 2020-05-24 21:50 | NUR ---
ASSISTED PT TO BSC WITH SBA. VOID ONLY. DENIES ANY OTHER NEEDS. POSITIONED IN BED ON RIGHT SIDE. CALL LIGHT WITHIN REACH. LAST ALARM ON. CPOC
--- NOTE | 2020-05-24 22:56 | NUR ---
PT LYING IN BED ON LEFT SIDE EYES CLOSED RESTING. RR EVEN AND UNLABORED. CALL LIGHT WITHIN REACH. CPOC
--- NOTE | 2020-05-25 03:42 | NUR ---
PT LYING IN BED ON LEFT SIDE EYES CLOSED RESTING. CONTINUES ON O2/3L VIA NC. RR EVEN AND UNLABORED. CALL LIGHT WITHIN REACH
[2020-05-25 08:21] VITALS: BP 131/49
--- NOTE | 2020-05-25 19:00 | NUR ---
BEDSIDE REPORT COMPLETE. RECEIVED PT LYING IN BED ON RIGHT SIDE WATCHING TV. ALERT AND ORIENTED X4. C/O NAUSEA WITH UPSET STOMACH. PER ERNA RN XANAX, NORCO AND PHENERGAN ALREADY ADMININSTERED. COCCYX WITH BLANCHABLE REDNESS CALMOSEPTINE APPLIED. PT CONTINUES ON O2/3L VIA NC. NO DISTRESS NOTED. BSC EMPTIED. LARGE DARK BROWN "MUDDY" CONSISTANCY BM NOTED. PT DENIES ANY OTHER NEEDS OR PAIN. NO IV. CALL LIGHT AND PERSONAL ITEMS WITHIN REACH. FALL PRECAUTIONS IN PLACE. LAST ALARM ON. CPOC
[2020-05-25 21:36] VITALS: BP 122/55
--- NOTE | 2020-05-25 21:42 | NUR ---
PT LYING IN BED AWAKE. C/O RIGHT SHOULDER IMPAIRED ROM WITH DEEP RADIATING PAIN. WOULD LIKE DR. THOMPSON TO SEE HER TO DISCUSS THIS ISSUE IN THE AM. INFORMED PT THIS NURSE WOULD REPORT THIS INFORMATION OFF IN REPORT TO KEELEY UMANZOR WELL LEAVE DR. THOMPSON A NOTE. PT HAS CONCERNS WITH SAFETY DISCHARGING HOME WELL, PT STATES "I DO FEEL THOUGH I AM READY TO GO HOME TO CARE FOR MYSELF IN THIS SHAPE" ENCOURAGED PT TO DO MORE FOR HERSELF IN ABLE TO GAIN MORE STRENGTH AND STAMINA. PT VERBALIZED UNDERSTANDING. NO OTHER NEEDS VOICED. CALL LIGHT WITHIN REACH. CPOC
--- NOTE | 2020-05-26 00:14 | NUR ---
PT LYING IN BED ON RIGHT SIDE EYES CLOSED RESTING. RR EVEN AND UNLABORED. CALL LIGHT WITHIN REACH.
--- NOTE | 2020-05-26 02:46 | NUR ---
PT LYING IN BED SUPINE EYES CLOSED RESTING. RR EVEN AND UNLABORED. CONTINUES ON O2/3L VIA NC. CALL LIGHT WITHIN REACH.
--- NOTE | 2020-05-26 04:35 | NUR ---
PT LYING IN BED ON LEFT SIDE EYES CLOSED RESTING. RR EVEN AND UNLABORED. CALL LIGHT WITHIN REACH
[2020-05-26 08:00] VITALS: BP 105/49
[2020-05-26 08:03] LABS: BASOPHILS 0.2 % (0-2); EOSINOPHILS 1.1 % (0-7); HEMATOCRIT 28.1 % (36.0-48.0); HEMOGLOBIN 9.1 g/dL (12-16); IMMATURE GRANULOCYTES 0.2 % (0-5); LYMPHOCYTE ABS# 1.13 10x3/uL (1.18-3.74); LYMPHOCYTES 24.2 % (15-50); MCHC 32.4 g/dL (31.0-37.0); MCV 98.9 fL (80.0-100.0); MEAN PLATELET VOLUME 10.7 fL (7.4-10.4); MONOCYTES 14.4 % (2-11); NEUTROPHIL ABS# 2.79 10x3/uL (1.56-6.13); NEUTROPHILS 59.9 % (40-80); PLATELET COUNT 282 10x3/uL (130-400); RBC 2.84 10x6/uL (4.00-5.40); RDW 13.3 % (11.5-14.5); WBC 4.7 10x3/uL (4.8-10.8)
--- NOTE | 2020-05-26 08:07 | NUR ---
SITTING UP IN BED WATCHING TV. C/O NAUSEA AND NOT FEELING WELL. DENIES EMESIS. USES BED SIDE COMMODE. STATES SHE DID NOT HAVE FURTHER LOOSE STOOLS LAST NIGHT. STATES SHE STILL WANTS TO EAT BREAKFAST.....CALL LIGHT IN REACH
[2020-05-26 08:24] LABS: ANION GAP 7.8 mmol/L (8-16); CALCIUM 8.6 mg/dL (8.5-10.1); CARBON DIOXIDE 31.3 mmol/L (21.0-32.0); CREATININE - SERUM 0.8 mg/dL (0.6-1.3); POTASSIUM - SERUM 4.1 mmol/L (3.5-5.1)
[2020-05-26] MEDS ORDERED: HYDROCODON-ACE1 EA10 PO (08:46)
--- NOTE | 2020-05-26 09:24 | RHP ---
PATIENT: HOLLAND MCGOWAN MEDICAL RECORD: [id number] ACCOUNT: [id number] LOCATION:[id number] : 44 ADMISSION DATE: 05/14/20 REHABILITATION HISTORY AND PHYSICAL EXAMINATION POST ADMISSION PHYSICIAN EXAMINATION ADMITTING DIAGNOSIS: Thoracic spondylitis. HISTORY OF PRESENT ILLNESS: The patient is an elderly female patient who had old compression fracture and postoperative changes at T11 and L1 through L4. The patient apparently had a fall, which resulted in lower back pain and leg pain. The patient did show some old compression fractures, but also looks like to be a new onset of compression fracture. The patient also had a right ankle sprain, UTI on admit, electrolyte abnormalities. She was admitted to the floor and Dr. Ardon was consulted. He did not recommend surgical intervention at this time. She has been getting PT, OT and pain control, Rocephin for UTI. She is min assist with bed mobility and fatigues easily. She is on supplemental O2. The patient lives alone and has 4 steps to enter her home. She is currently being monitored closely for her lab values, cognition, medication adjustments, pain control. She has got decreased activity tolerance, decreased strength, balance deficit, self-care deficits. These are all barriers to her discharge home. The patient would like to be discharged home safely at this time. COMORBIDITIES: Include spinal stenosis, intractable back pain, multilevel disk disease, right ankle sprain, kyphosis, spondylosis, coronary artery disease, hypertension, COPD. PAST MEDICAL HISTORY: Significant for electrolyte abnormalities, got a history of compression fractures, known coronary artery disease and hypertension. PAST SURGICAL HISTORY: Includes hysterectomy, stent placement, gallbladder surgery, esophageal dilatation. ALLERGIES: ROBAXIN. CURRENT MEDICATIONS: Include Nitro-Dur patch, she is on Bystolic 20 mg daily, isosorbide 60 mg daily, Plavix 75 mg daily, enoxaparin 40 mg daily, Protonix 40 mg b.i.d., Singulair 10 mg at bedtime, Ranexa 500 mg b.i.d., resistance sliding scale, albuterol updrafts, Pulmicort 0.5 mg b.i.d., Perforomist 20 mcg b.i.d., she is on electrolyte protocol at this time, is on Nitrostat p.r.n., [place] 10/325 one tab every 4 hours p.r.n. HABITS: No current alcohol or tobacco use. FAMILY HISTORY: Noncontributory. SOCIAL HISTORY: The patient hopes to return back home and get back to her prior level of functioning. OBJECTIVE: GENERAL: Does complain of weakness and fatigue. HEENT: Denies cold, cough, congestion. CARDIOVASCULAR: Denies any chest pain. PHYSICAL EXAMINATION: HISTORY AND PHYSICAL [id number] HOLLAND MCGOWAN VITAL SIGNS: Stable and afebrile. GENERAL: Elderly female in no acute distress upon exam. HEENT: Normocephalic and atraumatic. Mucosa moist. NECK: Supple with no lymphadenopathy. LUNGS: Clear in the upper fierro. No wheezing or rales. HEART: Regular rate and rhythm. No murmurs, rubs or gallops. ABDOMEN: Soft, benign, nondistended. Positive bowel sounds times 4. EXTREMITIES: No clubbing, cyanosis or edema. NEUROLOGIC: She does have some diffuse weakness. LABORATORY DATA: White count is 4.3, H&H 9.3 and 28.6 and platelet count is 257. Sodium is 137, potassium 3.5, BUN and creatinine of 9 and 0.7. Blood sugar is noted to be 78. ASSESSMENT: This is a 79-year-old female patient admitted to the rehab with a working diagnosis of thoracic spondylosis and compression fracture. The patient has potential to make improvement. We instituted the following multidisciplinary therapies including not limited to physical, occupational, respiratory, speech, nutritional services, prosthetics and orthotics. Given her complex medical condition and risks for more complications, rehabilitation services cannot be provided at a low level of care such as prison facility. PLAN: 1. Admit to [facility] for inpatient therapy to include the following disciplines; A. Physical therapy to improve gait all transfer skills and bed mobility to a modified independent level. B. Occupational therapy to improve activities of daily living. C. Case management to help with discharge planning and placement options. D. Nutrition to assist with nutritional needs. E. Rehabilitation nursing to assist in monitoring the patient's underlying medical condition and to assist with any type of bowel or bladder management. 2. The patient's current medication and medical care will be continued. 3. Placed on standard fall precautions. 4. The patient's estimated length of stay is approximately 7 to 10 days. 5. We will discuss this patient during care team staff meeting this week. TRANSINT:[id number] Voice Confirmation ID: [id number] DOCUMENT ID: [id number] 05/23/2020 Edited albaro LI. GUILLERMO notes whether there has been none or any medical/functional change since admission: - No change since preadmission screen. GUILLERMO attests patient continues to be appropriate for IRF: - Continues to be appropriate. HISTORY AND PHYSICAL [id number] HOLLAND MCGOWAN,ANGIE SRIVASTAVA MD at 0924 CC: [id number] DICTATION DATE: 05/15/20830 AUTO DISMANTLER: 05/15/20 1130 ADM IN [facility] [address] [id number]
--- NOTE | 2020-05-26 12:24 | NUR ---
Nutrition Follow-up: MD plans for discharge tomorrow. Diet: Diabetic PO intake: ~90% average x last 6 meals recorded (05/21-05/22). She ate 100% of her breakfast tray this AM. Last BM: 05/25/20 Wt: 100# (05/15/20) Meds noted: miralax. Labs reviewed. Recommend continue current diet. RD will follow-up within 7 days if patient still admitted.
--- NOTE | 2020-05-26 12:41 | NUR ---
DR CORTEZ CONSULTED PER DR JAY CASTANEDA. DR CORTEZ SAID HE REVIEWED HER XRAY OF RT SHOULDER/ARM AND HE ALSO ORDERED A CT. HE OK'D DC STATING THERE SHE DID NOT NEED TO STAY IN HOSP AND COULD FOLLOW UP WITH HIM IN HIS OFFICE SOON. THIS NURSE EXPLAINED THIS TO PT AND PT STATED UNDERSTANDING.
--- NOTE | 2020-05-26 15:41 | NUR ---
PATIENT DISCHARGING HOME 05/27/20. [facility] WILL PROVIDE THERAPY AT HOME. NO NEW DME NEEDED AT THIS TIME. CLAUDIA SIGNED, IMM SERVED AND EXPLAINED, ONE GIVEN TO PATIENT AND ONE FILED IN CHART. NO COMPARE DATA REVIEWED PATIENT IS A CLIENT OF [facility]. DR. SON EDMOND/MABEL 06/03/20 @ 11:00, DR. WOO 06/09/20 @ 11:30, DR. CORTEZ 05/29/20 @ 9:00. DISCHARGE INSTRUCTIONS FAXED TO PCP, HOME HEALTH AND REVIEWD WITH PATIENT.
--- NOTE | 2020-05-26 19:15 | NUR ---
RECIEVED PT LYING IN BED WATCHING TV. CL IN REACH. DENIES NEEDS AT THIS TIME. BEDSIDE SHIFT REPORT COMPLETED. BED IN LOW SIDE RAILS X2. BED ALARM ON. LUNGS DIMINISHED. O2 ON 3L VIA NC. BOWEL ACTIVE X4. A/O X4. RESP EVEN AND UNLABORED. CPOC
[2020-05-26 20:20] VITALS: BP 126/52
[2020-05-27 08:00] VITALS: BP 121/44
--- NOTE | 2020-05-27 08:00 | NUR ---
SHIFT ASSMT COMPLETED.CL IN REACH.UP IN ROOM WITH INDEPENDENCE.PLAN DC HOME TODAY.
--- NOTE | 2020-05-27 12:00 | NUR ---
EATING LUNCH.DENIES NEEDS.
--- NOTE | 2020-05-27 13:45 | NUR ---
REVIEWED D/C INSTRUCTIONS AND F/U APPTS.RX GIVEN.STATES HAS ALL MEDS AT HOME.DISCHARGED IN STABLE CONDITION.
== END 2020-05-27 13:45 | disposition home health service (06) | DRG 552 ==
LOC: D.REHAB 17:34
PROVIDERS: ADMIT Emergency Medicine; ATTEND Emergency Medicine
DX: M46.84 Other specified inflammatory spondylopathies, thoracic region (principal); N39.0 Urinary tract infection, site not specified; M48.00 Spinal stenosis, site unspecified; I25.10 Atherosclerotic heart disease of native coronary artery without angina pectoris; J44.9 Chronic obstructive pulmonary disease, unspecified; I10 Essential (primary) hypertension; M40.209 Unspecified kyphosis, site unspecified; S93.401D Sprain of unspecified ligament of right ankle, subsequent encounter; W19.XXXD Unspecified fall, subsequent encounter; H54.40 Blindness, one eye, unspecified eye; K21.9 Gastro-esophageal reflux disease without esophagitis; M85.80 Other specified disorders of bone density and structure, unspecified site

== ENCOUNTER 2020-07-14 04:29 | Emergency (ER) | payer MEDICARE, OTHER ==
[~2020-07-14] VITALS: Ht 162.6 cm; Wt 40.5 kg
[2020-07-14 04:32] VITALS: Ht 162.6 cm; Wt 40.5 kg
[2020-07-14 06:56] VITALS: BP 127/56
[2020-07-15] MEDS ORDERED: XANAX1 MG PO (19:38)
== END 2020-07-14 09:13 | disposition home or self-care (01) ==
LOC: D.ER 04:29
DX: S00.83XA Contusion of other part of head, initial encounter (principal); W19.XXXA Unspecified fall, initial encounter; I10 Essential (primary) hypertension; Z95.5 Presence of coronary angioplasty implant and graft; J44.9 Chronic obstructive pulmonary disease, unspecified

== ENCOUNTER 2020-07-14 21:02 | Inpatient (IN) | payer MEDICARE, OTHER ==
[~2020-07-14] VITALS: Ht 162.6 cm; Wt 50.0 kg
[2020-07-14 22:10] LABS: BASOPHILS 0.2 % (0-2); EOSINOPHILS 0.3 % (0-7); HEMATOCRIT 35.2 % (36.0-48.0); HEMOGLOBIN 12.1 g/dL (12-16); IMMATURE GRANULOCYTES 0.2 % (0-5); LYMPHOCYTE ABS# 1.03 10x3/uL (1.18-3.74); LYMPHOCYTES 17.1 % (15-50); MCH 33.1 pg (26.0-34.0); MCHC 34.4 g/dL (31.0-37.0); MCV 96.2 fL (80.0-100.0); MEAN PLATELET VOLUME 10.3 fL (7.4-10.4); MONOCYTES 15.6 % (2-11); NEUTROPHIL ABS# 4.01 10x3/uL (1.56-6.13); NEUTROPHILS 66.6 % (40-80); PLATELET COUNT 190 10x3/uL (130-400); RBC 3.66 10x6/uL (4.00-5.40); RDW 13.1 % (11.5-14.5)
[2020-07-14 22:16] LABS: APTT 35.4 SECONDS (22.8-39.4); INR 1.12 (0.85-1.17); PROTIME 13.3 SECONDS (11.6-15.0)
[2020-07-14 22:17] LABS: CALC OSMOLALITY 271 mosm/kg (275-300); CARBON DIOXIDE 29.7 mmol/L (21.0-32.0); CHLORIDE - SERUM 100 mmol/L (98-107); CREATININE - SERUM 0.8 mg/dL (0.6-1.3); GLUCOSE 98 mg/dL (74-106); SODIUM 137 mmol/L (136-145); UREA NITROGEN 8 mg/dL (7-18); eGFR NON AFRICAN AMERICAN 74 mL/min (90-120)
[2020-07-14 22:30] VITALS: BP 135/70
[2020-07-14 22:33] LABS: ALKALINE PHOSPHATASE 89 U/L (30-120); ALT (SGPT) 12 U/L (10-68); BILIRUBIN - TOTAL 0.28 mg/dL (0.2-1.3); CKMB 0.8 U/L (0.0-3.6); CREATINE KINASE 61 UL (21-215); PRO BNP 747 pg/mL (0-450); PROTEIN - SERUM 7.3 g/dL (6.4-8.2)
[2020-07-14 22:36] LABS: TROPONIN-I < 0.017 ng/mL (0.000-0.060)
[2020-07-14 23:30] VITALS: BP 121/59
[2020-07-15 01:58] VITALS: BP 138/72; Ht 162.6 cm; Wt 50.0 kg
[2020-07-15 04:00] VITALS: BP 138/72
[2020-07-15 08:02] VITALS: BP 123/61
[2020-07-15 13:19] VITALS: BP 119/58
--- NOTE | 2020-07-15 13:43 | NUR ---
OT NOTE: ASSISTED PT WITH TOILETING; MIN ASSIST FOR AMB TO BATHROOM; PT REQUIRED MAX ASSIST FOR TOILET HYGIENE AND MOD ASSIST TO CLEAN HANDS (PT HAD BM ON BOTH HANDS)..REQUIRED MIN ASSISTS FOR TOILET TRANSFERS; MIN ASSIST WITH BED MOB BACK INTO BED; MOD ASSIST TO JOY SOCKS. GERMAINE ACUÑA, OTR/L [phone]
[2020-07-15 14:09] LABS: BASOPHILS 0.2 % (0-2); EOSINOPHILS 0.4 % (0-7); HEMATOCRIT 32.8 % (36.0-48.0); HEMOGLOBIN 11.1 g/dL (12-16); IMMATURE GRANULOCYTES 0.2 % (0-5); LYMPHOCYTE ABS# 0.98 10x3/uL (1.18-3.74); LYMPHOCYTES 19.9 % (15-50); MCH 32.4 pg (26.0-34.0); MCHC 33.8 g/dL (31.0-37.0); MCV 95.6 fL (80.0-100.0); MEAN PLATELET VOLUME 10.2 fL (7.4-10.4); MONOCYTES 12.2 % (2-11); NEUTROPHILS 67.1 % (40-80); PLATELET COUNT 200 10x3/uL (130-400); RBC 3.43 10x6/uL (4.00-5.40); RDW 13.3 % (11.5-14.5); WBC 4.9 10x3/uL (4.8-10.8)
[2020-07-15 17:07] VITALS: BP 120/60
[2020-07-15] MEDS ORDERED: XANAX1 MG PO (19:38)
[2020-07-15 20:00] VITALS: BP 101/47
[2020-07-16 04:00] VITALS: BP 96/61
--- NOTE | 2020-07-16 04:30 | NUR ---
PT DENIES BEING ABLE TO VOID, BUT REPORTS SHE FEELS THE URGE TO. BLADDER SCAN READS 152ml MAX. STOMACHE FLAT, SOFT. NO BLADDER DISTENTION NOTED. IV TO LEFT AC IS OUT. 20G IV SITED TO LEFT FOREARM, 1ST ATTEMPT. PATENT. SWAB CAPS IN USE, CPOC.
[2020-07-16 05:35] LABS: BASOPHILS 0.5 % (0-2); EOSINOPHILS 0.5 % (0-7); HEMATOCRIT 32.2 % (36.0-48.0); HEMOGLOBIN 10.7 g/dL (12-16); IMMATURE GRANULOCYTES 0.3 % (0-5); LYMPHOCYTE ABS# 1.22 10x3/uL (1.18-3.74); LYMPHOCYTES 32.8 % (15-50); MCH 32.2 pg (26.0-34.0); MCHC 33.2 g/dL (31.0-37.0); MEAN PLATELET VOLUME 10.2 fL (7.4-10.4); MONOCYTES 17.5 % (2-11); NEUTROPHILS 48.4 % (40-80); PLATELET COUNT 203 10x3/uL (130-400); RBC 3.32 10x6/uL (4.00-5.40); RDW 13.2 % (11.5-14.5); WBC 3.7 10x3/uL (4.8-10.8)
[2020-07-16 06:02] LABS: ALBUMIN 2.5 g/dL (3.4-5.0); ALKALINE PHOSPHATASE 73 U/L (30-120); ALT (SGPT) 13 U/L (10-68); BILIRUBIN - TOTAL 0.31 mg/dL (0.2-1.3); CALC OSMOLALITY 269 mosm/kg (275-300); CALCIUM 8.3 mg/dL (8.5-10.1); CARBON DIOXIDE 29.3 mmol/L (21.0-32.0); CHLORIDE - SERUM 100 mmol/L (98-107); CREATININE - SERUM 0.7 mg/dL (0.6-1.3); MAGNESIUM - SERUM 1.9 mg/dL (1.8-2.4); POTASSIUM - SERUM 3.7 mmol/L (3.5-5.1); PROTEIN - SERUM 5.9 g/dL (6.4-8.2); SODIUM 137 mmol/L (136-145); UREA NITROGEN 8 mg/dL (7-18); eGFR NON AFRICAN AMERICAN 86 mL/min (90-120)
[2020-07-16 06:03] LABS: GLUCOSE 66 mg/dL (74-106)
--- NOTE | 2020-07-16 06:05 | NUR ---
I have reviewed this patient and I concur with the Shift Assessment completed by the Licensed Practical Nurse today this shift.
[2020-07-16 08:28] VITALS: BP 139/64
--- NOTE | 2020-07-16 09:30 | NUR ---
LATE ENTRY. REFERRAL RECEIVED 07/15/2020. SCREEN COMPLETEION PENDING PT/OT/ST EVALS AND ORTHO CONSULT KISHORE ROQUE LPN, CLINICAL LIAISON
[2020-07-16 12:54] VITALS: BP 123/53
[2020-07-16 16:23] VITALS: BP 139/56
--- NOTE | 2020-07-16 16:54 | NUR ---
OT NOTE: PT COMPLETED SUPINE TO SIT WITH MOD A. PT COMPELTED SIT TO STAND WITH MIN-MOD A. PT COMPLETED SITTING BALANCE AT EOB WITH CGA-MIN A WITH FUNCTIONAL TASKS. PT COMPLETED FACE HYGIENE WITH SETUP. PT STATED SHE IS FEARFUL OF FALLING. [phone] PALAK JONES COTA
[2020-07-16 20:00] VITALS: BP 94/47
[2020-07-16 23:46] LABS: CKMB 0.5 U/L (0.0-3.6); CREATINE KINASE 22 UL (21-215)
[2020-07-16 23:48] LABS: TROPONIN-I < 0.017 ng/mL (0.000-0.060)
[2020-07-17] VITALS: BP 112/46
[2020-07-17 04:00] VITALS: BP 105/46
[2020-07-17 06:01] LABS: BASOPHILS 0.4 % (0-2); EOSINOPHILS 0.6 % (0-7); HEMATOCRIT 32.9 % (36.0-48.0); HEMOGLOBIN 10.9 g/dL (12-16); IMMATURE GRANULOCYTES 0.2 % (0-5); LYMPHOCYTE ABS# 1.08 10x3/uL (1.18-3.74); LYMPHOCYTES 19.9 % (15-50); MCH 32.1 pg (26.0-34.0); MCHC 33.1 g/dL (31.0-37.0); MCV 96.8 fL (80.0-100.0); MEAN PLATELET VOLUME 10.6 fL (7.4-10.4); MONOCYTES 14.4 % (2-11); NEUTROPHILS 64.5 % (40-80); PLATELET COUNT 219 10x3/uL (130-400); RDW 13.3 % (11.5-14.5)
[2020-07-17 06:03] LABS: WBC 5.4 10x3/uL (4.8-10.8)
[2020-07-17 06:32] LABS: ALBUMIN 2.5 g/dL (3.4-5.0); ALKALINE PHOSPHATASE 72 U/L (30-120); ALT (SGPT) 11 U/L (10-68); BILIRUBIN - TOTAL 0.23 mg/dL (0.2-1.3); CALC OSMOLALITY 267 mosm/kg (275-300); CALCIUM 8.5 mg/dL (8.5-10.1); CHLORIDE - SERUM 99 mmol/L (98-107); CREATININE - SERUM 0.7 mg/dL (0.6-1.3); GLUCOSE 91 mg/dL (74-106); MAGNESIUM - SERUM 1.8 mg/dL (1.8-2.4); POTASSIUM - SERUM 3.4 mmol/L (3.5-5.1); PROTEIN - SERUM 6.4 g/dL (6.4-8.2); SODIUM 135 mmol/L (136-145); UREA NITROGEN 8 mg/dL (7-18); eGFR NON AFRICAN AMERICAN 86 mL/min (90-120)
--- NOTE | 2020-07-17 07:30 | NUR ---
PATIENT IN BED RESTING QUIETLY. IV INTACT. CALL LIGHT WITHIN REACH.
[2020-07-17 09:19] VITALS: BP 151/62
--- NOTE | 2020-07-17 10:13 | NUR ---
PATIENT IN BED WITH IV INTACT. NO COMPLAINTS AT THIS TIME. MEDS GIVEN. NICOTINE PATCH PLACED ON RIGHT SHOULDER. NITRO PATCH PLACED ON LEFT SHOULDER. GAVE K+ 40 LIQUID. TRIED TO CALL SON BACK. NO ANSWER, VOICE MAIL FULL. COULDNT LEAVE A MESSAGE.
[2020-07-17 12:50] VITALS: BP 151/72
--- NOTE | 2020-07-17 14:50 | NUR ---
PATIENT I&O CATH FOR UA. 400 OUT OF BLADDER. PATIENT TOLERATED WITH SMALL AMOUNT OF PAIN. URINE SENT TO LAB.
[2020-07-17 15:41] LABS: BILIRUBIN NEGATIVE (NEGATIVE); KETONE NEGATIVE (NEGATIVE); NITRITE NEGATIVE (NEGATIVE); UROBILINOGEN NORMAL mg/dL (< 2)
[2020-07-17 16:12] VITALS: BP 110/55
--- NOTE | 2020-07-17 17:08 | NUR ---
OT NOTE: BED MOB WITH MIN ASSIST; AMB TO BATHROOM WTIH MIN ASSIST AND UNSTEADY GAIT; MOD/MAX ASSIST FOR TOILET HYGIENE; SET UP FOR WASHING HANDS WITH WASH CLOTH. GERMAINE VELAZQUEZ, OTR/L
[2020-07-17 20:00] VITALS: BP 94/52; BP 99/44
--- NOTE | 2020-07-17 22:19 | NUR ---
ASSESSED AT THE BEGINNING OF THE SHIFT. PT IS ALERT AND ORIENTED, ABLE TO VERBALIZE NEEDS. SHE HAS A SPLINT TO HER RIGHT ARM WITH DRESSING TO HER SHOULDER AND WRIST. HER TELEMETRY SHOWS SINUS RHYTHM AND SHE HAS O2 AT 3 LITERS PER N/C. AT THE BEGINNING OF THE SHIFT SHE WAS COMPLAINING OF ITCHING ALL OVER. MD WAS CALLED AND ORDER FOR BENADRYL WAS OBTAINED. SHE HAS RECEIVED THAT AND IS NO LONGER COMPLAINING .
--- NOTE | 2020-07-18 02:26 | NUR ---
HAS BEEN ASLEEP MOST OF EVENING AFTER TAKING BENADRYL. WOKE WHILE AGO AND WAS A LITTLE CONFUSED WITH WHERE SHE WAS. SOON ORIENTED SHE WAS OK.
[2020-07-18 04:00] VITALS: BP 158/62
[2020-07-18 07:06] LABS: BASOPHILS 0.1 % (0-2); EOSINOPHILS 0.1 % (0-7); HEMATOCRIT 33.1 % (36.0-48.0); HEMOGLOBIN 11.3 g/dL (12-16); IMMATURE GRANULOCYTES 0.1 % (0-5); LYMPHOCYTE ABS# 0.73 10x3/uL (1.18-3.74); LYMPHOCYTES 9.4 % (15-50); MCH 32.7 pg (26.0-34.0); MCHC 34.1 g/dL (31.0-37.0); MCV 95.7 fL (80.0-100.0); MEAN PLATELET VOLUME 10.2 fL (7.4-10.4); MONOCYTES 13.7 % (2-11); NEUTROPHIL ABS# 5.94 10x3/uL (1.56-6.13); NEUTROPHILS 76.6 % (40-80); PLATELET COUNT 202 10x3/uL (130-400); RBC 3.46 10x6/uL (4.00-5.40); RDW 13.2 % (11.5-14.5)
[2020-07-18 07:12] LABS: WBC 7.8 10x3/uL (4.8-10.8)
[2020-07-18 07:27] LABS: ALBUMIN 2.6 g/dL (3.4-5.0); ALKALINE PHOSPHATASE 79 U/L (30-120); ALT (SGPT) 11 U/L (10-68); BILIRUBIN - TOTAL 0.44 mg/dL (0.2-1.3); CALC OSMOLALITY 264 mosm/kg (275-300); CALCIUM 8.7 mg/dL (8.5-10.1); CARBON DIOXIDE 28.1 mmol/L (21.0-32.0); CHLORIDE - SERUM 98 mmol/L (98-107); CREATININE - SERUM 0.7 mg/dL (0.6-1.3); GLUCOSE 87 mg/dL (74-106); MAGNESIUM - SERUM 1.6 mg/dL (1.8-2.4); PROTEIN - SERUM 6.7 g/dL (6.4-8.2); SODIUM 134 mmol/L (136-145); UREA NITROGEN 8 mg/dL (7-18); eGFR NON AFRICAN AMERICAN 86 mL/min (90-120)
--- NOTE | 2020-07-18 07:36 | NUR ---
ALERT AND ORIENTED. ASSESSMENT COMPLETE. DENIES NEEDS. BED LOW. CALL OLIVO AND PERSONAL ITEMS IN REACH. WILL CONTINUE TO MONITOR.
[2020-07-18 09:40] VITALS: BP 145/62
--- NOTE | 2020-07-18 11:38 | NUR ---
OT NOTE: PT VERY LETHARGIC TODAY. ONLY PICKED AT BREAKFAST.. STATED THAT SHE WAS NOT HUNGRY. BED MOB WITH MOD ASSIST; SITTING BALANCE WITH MIN ASSIST; AMB TO BATHROOM WITH MOD ASSIST TODAY. TOILETING WITH MIN ASSIST; BACK TO BED WITH MOD ASSIST; ABLE TO WASH FACE ADN HANDS WITH SET UP.. GERMAINE VELAZQUEZ, OTR/L [phone]
--- NOTE | 2020-07-18 13:09 | MORECARE ---
CASE MANAGEMENT DISCHARGE SUMMARY PATIENT: HOLLAND MCGOWAN UNIT: [id number] ADM DATE: 07/15/20 AGE: 79 : 42 SEX: F ROOM/BED: D.[facility] AUTHOR: MIKEY,DOC PHYSICIAN: REFERRING PHYSICIAN: JONH BROWN MD DATE OF SERVICE: 07/18/20 Case Management Discharge Planning Summary DCP REVIEW SUMMARY ANTICIPATED D/C DATE: EXPECTED LOS : CASE STATUS: DCP Initiated INITIAL REVIEW: 07/15/2020 INITIAL REVIEWER: Dianna Cullen FINAL DISCHARGE DISPOSITION: 62 : Discharged/Trans to Rehab Facility Including Distinct Units of a Hospital FINAL REVIEWER: FINAL REVIEW DATE: DCP Focus Questions & Answers QUESTION: ANSWER : PATIENT: HOLLAND MCGOWAN ENCOUNTER: [id number] MEDICAL RECORD#: [id number] ADMISSION DATE: 07/15/2020 DISCHARGE DATE: ATTENDING MD: JONH WAKEFIELD : AGE: 79 MARITAL STATUS: W DC PLAN ID: [id number] FACILITY: [facility] PRINTED ON: 07/18/20 13:09 CT All edits/amendments must be made on the electronic document DICTATION DATE: 07/18/20 130 GOODYEAR WELTER: DM 07/18/20 1309 RPT#: [id number] DC DATE: STATUS: ADM IN [facility] [address] [place] [address] END OF REPORT
--- NOTE | 2020-07-18 13:21 | MORECARE ---
CASE MANAGEMENT DISCHARGE SUMMARY PATIENT: HOLLAND MCGOWAN UNIT: [id number] ADM DATE: 07/15/20 AGE: 79 : 42 SEX: F ROOM/BED: D.2240 AUTHOR: MIKEY,DOC PHYSICIAN: REFERRING PHYSICIAN: JONH BROWN MD DATE OF SERVICE: 07/18/20 Case Management Discharge Planning Summary COMMENTS ENTERED DATE: 07/18/20 13:08 CT COMMENT TYPE: Discharge Planning REVIEWER: Dianna Cullen CM met with the patient about her discharge plan. She is to be discharged to inpatient rehab today. She lives at home by herself where she states she is pretty independent with her care. She said that her son's help her and get her to her MD's apts. She has been falling at home. She is a patient of Dr Obando and uses the [facility] on [address] for her pharmacy. At home she has a walker, cane, wheelchair, nebulizer, home o2 and portable o2 ( [facility] home patient) She is current with [facility]. I explained to her that she has discharge orders to go to rehab and she didn't feel like she could do that today. I explained to her that they will just get her settled today and then start rehab tomorrow. I let Dr Urbina know about the patient's complaints and he said that she still needed to go to rehab. I asked the patient if she wanted me to call one of her son's to let them know about her discharge and she said no. IMM served and CLAUDIA signed and placed in chart. DCP REVIEW SUMMARY ANTICIPATED D/C DATE: EXPECTED LOS : CASE STATUS: DCP Initiated INITIAL REVIEW: 07/15/2020 INITIAL REVIEWER: Dianna Cullen FINAL DISCHARGE DISPOSITION: 62 : Discharged/Trans to IP Rehab Facility Including Distinct Units of a Hospital FINAL REVIEWER: FINAL REVIEW DATE: VTP Focus Questions & Answers QUESTION: ANSWER : PATIENT: HOLLAND MCGOWAN ENCOUNTER: [id number] MEDICAL RECORD#: [id number] ADMISSION DATE: 07/15/2020 DISCHARGE DATE: ATTENDING MD: JONH WAKEFIELD : AGE: 79 MARITAL STATUS: W DC PLAN ID: [id number] FACILITY: [facility] PRINTED ON: 07/18/20 13:21 CT All edits/amendments must be made on the electronic document DICTATION DATE: 07/18/20 132 JEWELRY SALES REPRESENTATIVE: JUVENCIO 07/18/20 132 RPT#: [id number] DC DATE: STATUS: ADM IN [facility] [address] [place] [address] END OF REPORT
[2020-07-18 14:59] VITALS: BP 139/60
--- NOTE | 2020-07-18 16:15 | NUR ---
DC EDUCATION PROVIDED TO PATIENT BOTH WRITTEN AND VERBAL. VERBALIZED UNDERSTANDING. DENIES FURTHER QUESTIONS. IV REMOVED FROM LFA WITH TIP INTACT. PATIENT UNABLE TO SIGN PAPERWORK D/T FRACTURED RIGHT WRIST. PAPERWORK SIGNED BY TWO NURSES. DENIES NEEDS. PATIENT DC TO REHAB WITH ALL BELONGINGS.
--- NOTE | 2020-07-21 14:54 | MORECARE ---
CASE MANAGEMENT DISCHARGE SUMMARY PATIENT: HOLLAND MCGOWAN UNIT: [id number] ADM DATE: 07/15/20 AGE: 79 : 42 SEX: F ROOM/BED: D.2240 AUTHOR: MIKEY,DOC PHYSICIAN: REFERRING PHYSICIAN: JONH BROWN MD DATE OF SERVICE: 07/21/20 Case Management Discharge Planning Summary COMMENTS ENTERED DATE: 07/18/20 13:08 CT COMMENT TYPE: Discharge Planning REVIEWER: Dianna Cullen CM met with the patient about her discharge plan. She is to be discharged to inpatient rehab today. She lives at home by herself where she states she is pretty independent with her care. She said that her son's help her and get her to her MD's apts. She has been falling at home. She is a patient of Dr Obando and uses the [facility] [address] for her pharmacy. At home she has a walker, cane, wheelchair, nebulizer, home o2 and portable o2 ( [facility] home patient) She is current with [facility]. I explained to her that she has discharge orders to go to rehab and she didn't feel like she could do that today. I explained to her that they will just get her settled today and then start rehab tomorrow. I let Dr Urbina know about the patient's complaints and he said that she still needed to go to rehab. I asked the patient if she wanted me to call one of her son's to let them know about her discharge and she said no. IMM served and CLAUDIA signed and placed in chart. DCP REVIEW SUMMARY ANTICIPATED D/C DATE: EXPECTED LOS : CASE STATUS: DCP Initiated INITIAL REVIEW: 07/15/2020 INITIAL REVIEWER: Dianna Cullen FINAL DISCHARGE DISPOSITION: 62 : Discharged/Trans to IP Rehab Facility Including Distinct Units of a Hospital FINAL REVIEWER: FINAL REVIEW DATE: [facility] Questions & Answers QUESTION: ANSWER : PATIENT: HOLLAND MCGOWAN ENCOUNTER: [id number] MEDICAL RECORD#: [id number] ADMISSION DATE: 07/15/2020 DISCHARGE DATE: 07/18/2020 ATTENDING MD: JONH WAKEFIELD : AGE: 79 MARITAL STATUS: W DC PLAN ID: [id number] FACILITY: [facility] PRINTED ON: 07/21/20 14:54 CT All edits/amendments must be made on the electronic document DICTATION DATE: 07/21/201453 WOOD CABINETMAKER: JUVENCIO 07/21/201453 RPT#: [id number] DC DATE:07/18/20 STATUS: DIS IN [facility] [address] [place] [address] END OF REPORT
== END 2020-07-18 16:30 | DRG 563 ==
LOC: D.ER 21:02 → D.MS 07-15 00:53
PROVIDERS: Family Medicine; ADMIT Emergency Medicine; ATTEND Emergency Medicine
PROC: 2W3CX1Z Immobilization of Right Lower Arm using Splint (ICD-10-PCS; principal; 2020-07-16)
DX: S52.501A Unspecified fracture of the lower end of right radius, initial encounter for closed fracture (principal); F17.203 Nicotine dependence unspecified, with withdrawal; W19.XXXA Unspecified fall, initial encounter; I10 Essential (primary) hypertension; J44.9 Chronic obstructive pulmonary disease, unspecified; S00.83XA Contusion of other part of head, initial encounter; I25.10 Atherosclerotic heart disease of native coronary artery without angina pectoris; K21.9 Gastro-esophageal reflux disease without esophagitis; I73.9 Peripheral vascular disease, unspecified; Z86.73 Personal history of transient ischemic attack (TIA), and cerebral infarction without residual deficits; M75.101 Unspecified rotator cuff tear or rupture of right shoulder, not specified as traumatic; S40.011A Contusion of right shoulder, initial encounter

== ENCOUNTER 2020-07-18 11:39 | Inpatient (IN) | payer MEDICARE, OTHER ==
[~2020-07-18] VITALS: Ht 162.6 cm; Wt 43.1 kg
--- NOTE | 2020-07-18 20:00 | NUR ---
PATIENT RECEIVED SITTING UP IN BED. ASSESSMENT & VITAL SIGNS DONE. NO C/O PAIN OR DISTRESS AT THIS TIME. BEDSIDE TABLE & CALL LIGHT WITHIN REACH. ALARM ON. WILL CONTINUE TO MONITOR.
[2020-07-18 21:20] VITALS: BP 101/53
--- NOTE | 2020-07-18 22:10 | NUR ---
ADMISSION ASSESSMENT COMPLETE. PT IS ALERT AND ORIENTED X4. C/O LOWER BACK 6/10 DEEP ACHING DISCOMFORT. RIGHT UPPER EXTREMITY CAST FROM WRIST TO BELOW ELBOW INTACT. RIGHT ELBOW SKIN TEAR X2. DRESSING REMOVED SMALL AMOUNT OF BLOODY DRAINAGE NOTED. CLEANSED AREA WITH NS, PAT DRY WITH 4X4, APPLIED ADAPTIC, AND COVERED WITH ISLAND DRESSING. DATE, TIMED, INITIALED. BUE SCATTERED BRUISING NOTED. LEFT HEEL DRY/PEELING SKIN, LOTION APPLIED. COCCYX RED AND BLANCHABLE. ENCOURAGED Q2H TURN. POSITIONED PT TO LEFT SIDE USING PILLOWS FOR SUPPORT. RIGHT DELTOID NITRO PATCH NOTED. LEFT DELTOID NICOTINE PATCH NOTED. BOTH DATED FOR 07/18/20. REMOVED 14MG NICOTINE PATCH FROM RIGHT UPPER BACK. RIGHT EYE ORBIT BRUISING. RIGHT FOREHEAD SCAB/SORES. NO IV. CONTINUES ON O2/3L VIA NC. DIMINISHED LUNG SOUNDS ALL LOBES. PT HAS UPPER DENTURES DOES NOT WEAR LOWER. 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 PT IS RIGHT ARM RESERVE D/T LYMPH NODE REMOVAL S/P BREAST CANCER. NO CONCERNS VOICED. CALL LIGHT WITHIN REACH. LAST ALARM ON. CPOC
[2020-07-18 22:18] VITALS: BP 101/53; BMI 16.3
--- NOTE | 2020-07-19 01:53 | NUR ---
PATIENT EYES CLOSED. RESPIRATIONS 18 & EVEN. BED LOW. ALARM ON. CALL LIGHT WITHIN REACH. WILL CONTINUE TO MONITOR.
[2020-07-19 08:00] VITALS: BP 122/52
--- NOTE | 2020-07-19 08:00 | NUR ---
PT RESTING IN BED WITH EYES OPEN CALL LIGHT IN REACH NO PROBLEMS WILL MONITER
[2020-07-19 10:41] VITALS: Ht 162.6 cm; Wt 43.1 kg
[2020-07-19 11:40] LABS: BASOPHILS 0.2 % (0-2); EOSINOPHILS 0.9 % (0-7); HEMATOCRIT 35.1 % (36.0-48.0); HEMOGLOBIN 11.8 g/dL (12-16); IMMATURE GRANULOCYTES 0.2 % (0-5); LYMPHOCYTE ABS# 0.88 10x3/uL (1.18-3.74); LYMPHOCYTES 15.1 % (15-50); MCH 32.4 pg (26.0-34.0); MCHC 33.6 g/dL (31.0-37.0); MCV 96.4 fL (80.0-100.0); MEAN PLATELET VOLUME 10.3 fL (7.4-10.4); MONOCYTES 14.6 % (2-11); NEUTROPHIL ABS# 4.02 10x3/uL (1.56-6.13); PLATELET COUNT 225 10x3/uL (130-400); RBC 3.64 10x6/uL (4.00-5.40); RDW 13.3 % (11.5-14.5)
[2020-07-19 11:43] LABS: WBC 5.8 10x3/uL (4.8-10.8)
[2020-07-19 11:57] LABS: ANION GAP 13.3 mmol/L (8-16); CALCIUM 8.9 mg/dL (8.5-10.1); CARBON DIOXIDE 27.2 mmol/L (21.0-32.0); CREATININE - SERUM 0.9 mg/dL (0.6-1.3); POTASSIUM - SERUM 4.5 mmol/L (3.5-5.1)
--- NOTE | 2020-07-19 18:02 | NUR ---
PT RESTING IN BED WITH EYES OPEN CALL LIGHT IN REACH NO PROBLEMS WILL MONITER
[2020-07-19 19:00] VITALS: BP 116/62
--- NOTE | 2020-07-19 19:24 | NUR ---
PATIENT RECEIVED SITTING UP IN BED. EYES CLOSED. EYES OPENED WHEN NAME SPOKEN. ASSESSMENT & VITAL SIGNS DONE. BED LOW. ALARM ON. CALL LIGHT & BEDSIDE TABLE WITHIN REACH. WILL CONTINUE TO MONITOR.
--- NOTE | 2020-07-20 02:41 | NUR ---
I have reviewed this patient and I concur with the Shift Assessment completed by the Licensed Practical Nurse today this shift.
--- NOTE | 2020-07-20 07:35 | NUR ---
PT RESTING IN BED WITH EYES OPEN CALL LIGHT IN REACH NO PROBLEMS WILL MONITER
[2020-07-20 08:00] VITALS: BP 145/59
--- NOTE | 2020-07-20 17:44 | NUR ---
PT RESTING IN BED WITH EYES OPEN CALL LIGHT IN REACH WILL MONITER
[2020-07-20 19:00] VITALS: BP 123/55
--- NOTE | 2020-07-20 19:43 | NUR ---
PATIENT RECEIVED SITTING UP IN BED. C/O PURSE MISSING IN ER. WILL NOTIFY JUSTINA WITH NOTE. ASSESSMENT & VITAL SIGNS DONE. NO C/O PAIN OR DISTRESS AT THIS TIME. BED LOW. CALL LIGHT & BEDSIDE TABLE WITHIN REACH. ALARM ON. WILL CONTINUE TO MONITOR.
--- NOTE | 2020-07-21 03:10 | NUR ---
HEARD LAST ALARM SOUNDING FOUND PT STANDING UP AT BEDSIDE ATTEMPTING TO WALK TO RESTROOM. PT STATES "I NEED TO PEE" ASSISTED TO RESTROOM WITH MIN ASSIST. PT BRIEF SOILED. CHANGED BRIEF, PROVIDED PT WITH BATH WIPE TO CLEAN PERIAREA. ASSISTED PT BACK TO BED WITH MIN ASSIST. POSITIONED IN BED ON LEFT SIDE. CALL LIGHT WITHIN REACH. LAST ALARM ON.
--- NOTE | 2020-07-21 03:27 | NUR ---
I have reviewed this patient and I concur with the Shift Assessment completed by the Licensed Practical Nurse today this shift.
[2020-07-21 07:57] VITALS: BP 110/42
[2020-07-21 08:16] LABS: BASOPHILS 0.2 % (0-2); EOSINOPHILS 1.3 % (0-7); HEMATOCRIT 30.2 % (36.0-48.0); HEMOGLOBIN 10.3 g/dL (12-16); IMMATURE GRANULOCYTES 0.2 % (0-5); LYMPHOCYTE ABS# 1.12 10x3/uL (1.18-3.74); LYMPHOCYTES 20.3 % (15-50); MCH 32.3 pg (26.0-34.0); MCHC 34.1 g/dL (31.0-37.0); MCV 94.7 fL (80.0-100.0); MEAN PLATELET VOLUME 10.6 fL (7.4-10.4); MONOCYTES 12.7 % (2-11); NEUTROPHIL ABS# 3.62 10x3/uL (1.56-6.13); NEUTROPHILS 65.3 % (40-80); PLATELET COUNT 270 10x3/uL (130-400); RBC 3.19 10x6/uL (4.00-5.40); RDW 13.2 % (11.5-14.5); WBC 5.5 10x3/uL (4.8-10.8)
[2020-07-21 08:29] LABS: ANION GAP 8.9 mmol/L (8-16); CALCIUM 8.5 mg/dL (8.5-10.1); CARBON DIOXIDE 31.2 mmol/L (21.0-32.0); CREATININE - SERUM 0.8 mg/dL (0.6-1.3); POTASSIUM - SERUM 4.1 mmol/L (3.5-5.1)
--- NOTE | 2020-07-21 08:42 | NUR ---
SHE HAS BEEN SLEEPING. SHE IS USING THE WHEELCHAIR TO GET TO THE BATHROOM. SHE IS SETTING UP IN THE WHEELCHAIR FOR BREAKFAST. SHE IS SLEEPING, DID NOT EAT MUCH BREAKFAST, IS ASKING FOR PAIN MEDICAITON. IT'S NOT TIME FOR HER PRN PAIN MED YET. THE CALL LIGHT IS WITHIN REACH AND THE CHAIR ALARM IS ON.
--- NOTE | 2020-07-21 19:36 | NUR ---
PT IN BED WATCHING TV, NO IMMEDIATE NEEDS NOTED OR VERBALIZED, FLUIDS/CL WITHIN REACH, FALL PRECAUTIONS IN PLACE
[2020-07-21 19:58] VITALS: BP 96/45
[2020-07-22 07:34] VITALS: BP 131/54
--- NOTE | 2020-07-22 09:50 | NUR ---
SHE IS SETTING UP IN THE WHEELCHAIR. SHE IS WEARING 2 LITERS NC. THE CALL LIGHT IS WITHIN REACH AND THE BED ALARM IS ON. HER SPINE IS RED, BUT BLANCHES, HER COCCYX IS RED, BUT BLANCES- MEPILEX APPLIED TO BOTH AREAS.
--- NOTE | 2020-07-22 15:24 | NUR ---
Nutrition Follow-up: Diet: Regular [facility] Soft PO intake: ~24% average x last 9 meals. She states that her appetite is "so-so." States that she doesn't like Ensure/Boost. Last BM: 07/20/20 Wt: 95# (07/19/20) Meds noted: miralax Labs reviewed Recommend continue current diet. Encouraged PO intake. Will continue to honor food preferences. MD may consider adding appetite stimulant if PO intake does not improve. RD will re-assess 07/25/20.
[2020-07-22 19:58] VITALS: BP 117/54
[2020-07-23 07:19] LABS: BASOPHILS 0.3 % (0-2); EOSINOPHILS 1.4 % (0-7); HEMATOCRIT 31.4 % (36.0-48.0); HEMOGLOBIN 10.4 g/dL (12-16); IMMATURE GRANULOCYTES 0.3 % (0-5); LYMPHOCYTES 18.7 % (15-50); MCH 31.7 pg (26.0-34.0); MCHC 33.1 g/dL (31.0-37.0); MCV 95.7 fL (80.0-100.0); MEAN PLATELET VOLUME 10.1 fL (7.4-10.4); MONOCYTES 11.7 % (2-11); NEUTROPHIL ABS# 3.97 10x3/uL (1.56-6.13); NEUTROPHILS 67.6 % (40-80); PLATELET COUNT 293 10x3/uL (130-400); RBC 3.28 10x6/uL (4.00-5.40); RDW 13.1 % (11.5-14.5); WBC 5.9 10x3/uL (4.8-10.8)
[2020-07-23 07:34] LABS: CALC OSMOLALITY 275 mosm/kg (275-300); CALCIUM 8.8 mg/dL (8.5-10.1); CARBON DIOXIDE 29.7 mmol/L (21.0-32.0); CHLORIDE - SERUM 102 mmol/L (98-107); CREATININE - SERUM 0.7 mg/dL (0.6-1.3); GLUCOSE 93 mg/dL (74-106); POTASSIUM - SERUM 3.8 mmol/L (3.5-5.1); SODIUM 138 mmol/L (136-145); UREA NITROGEN 12 mg/dL (7-18); eGFR NON AFRICAN AMERICAN 86 mL/min (90-120)
[2020-07-23 07:51] VITALS: BP 138/51
--- NOTE | 2020-07-23 08:00 | NUR ---
PATIENT IS ALERT WITH SOME CONFUSION NOTED. SITTING UP IN BED TO EAT BREAKFAST. BED ALARM ON. CALL LIGHT WITHIN REACH. VOICES NO NEEDS AT THIS TIME. WILL CONTINUE WITH PLAN OF CARE
--- NOTE | 2020-07-23 09:53 | NUR ---
PATIENT RESTING IN BED WATCHING T.V. BED ALARM ON
--- NOTE | 2020-07-23 14:09 | NUR ---
OCCUPATIONAL THERIPIST IN ROOM. PATIENT REFUSED OT SHOWER. SAND CARRIER IN ROOM. ALSO REFUSED SHOWER. PATIENT MADE AWARE THAT SHE IS ON THE SHOWER LIST AND THAT THE NEXT SHOWER OFFERED WILL BE ON TUESDAY.
--- NOTE | 2020-07-23 15:00 | NUR ---
I have reviewed this patient and I concur with the Shift Assessment completed by the Licensed Practical Nurse today this shift.
--- NOTE | 2020-07-23 16:16 | NUR ---
DR ACEVES NURSE HERE. HARD SPLINT REMOVED. NEW CASE APPLIED. PATIENT GIVEN PRN PAIN MEDICATION AND XANAX. PATIENT UPSET THAT SHE IS GETTING A ROOM MATE
--- NOTE | 2020-07-23 19:57 | NUR ---
PATIENT RESTING IN BED, WATCHING T.V. VISITOR IN ROOM. VOICES NO NEEDS AT THIS TIME.
[2020-07-23 21:24] VITALS: BP 107/53
--- NOTE | 2020-07-24 00:12 | NUR ---
PT RESTING WITH EYES CLOSED, RESP QUIET, NO DISTRESS NOTED, LEFT UNDISTURBED AT THIS TIME, FALL PRECAUTIONS IN PLACE
--- NOTE | 2020-07-24 02:04 | NUR ---
RESTING QUIETLY WITH EYES CLOSED. CALL LIGHT WITHIN REACH. SIDE RAILS UP AND BED ALARM IS ACTIVATED.
--- NOTE | 2020-07-24 03:40 | NUR ---
ASSISTED TO COMMODE TO VOID AND BACK TO BED. NO FURTHER NEEDS. CALL LIGHT WITHIN REACH
[2020-07-24 07:42] VITALS: BP 172/74
--- NOTE | 2020-07-24 08:00 | NUR ---
PT RESTING IN BED WITH EYES OPEN CALL LIGHT IN REACH WILL MONITER
--- NOTE | 2020-07-24 17:04 | NUR ---
PT EATING SUPPER IN BED WITH DAUGHTER AT BEDSIDE CALL LIGHT IN REACH WILL MONITER
--- NOTE | 2020-07-24 19:04 | NUR ---
BEDSIDE SHIFT REPORT, INFORMED PT THAT I WILL BE BACK SHORTLY TO DO ASSESSMENT, PT VERBALIZES UNDERSTANDING, PT RECEIVING RESP TREATMENT AT THIS TIME
--- NOTE | 2020-07-24 19:30 | NUR ---
ASSESSMENT PER FLOW SHEET, VS OBTAINED PER CLIENT SERVICES ACCOUNT MANAGER, PT REPORTS FLATUS, NO BM, AND VOIDING WITH NO DIFFICULTY, PT UP TO BR VIA WALKER WITH ASSISTANCE, VOIDED WITH NO DIFFICULTY, PT BACK TO BED, REQUESTS MED FOR "ANXIETY", INFORMED PT THAT I WILL ADM IT
--- NOTE | 2020-07-24 19:41 | NUR ---
ADM XANAX PER MD ORDERS, SEE EMAR, PT DENIES FURTHER NEEDS, FALL PRECATIONS IN PLACE
[2020-07-24 20:42] VITALS: BP 120/52
--- NOTE | 2020-07-24 21:05 | NUR ---
PT AWAKE, ADM 2100 MEDS PER MD ORDERS, SEE EMAR, PT DENIES FURTHER NEEDS
--- NOTE | 2020-07-24 22:30 | NUR ---
PT RESTING WITH EYES CLOSED, RESP QUIET, NO DISTRESS NOTED, LEFT UNDISTURBED AT THIS TIME, FALL PRECAUTIONS IN PLACE
--- NOTE | 2020-07-25 02:33 | NUR ---
PT RESTING WITH EYES CLOSED, RESP QUIET, NO DISTRESS NOTED, LEFT UNDISTURBED AT THIS TIME, FALL PRECAUTIONS IN PLACE
--- NOTE | 2020-07-25 05:15 | NUR ---
PT RESTING WITH EYES CLOSED, AROUSES TO SOFT VERBAL STIMULATION, ADM 0600 MED PER MD ORDERS, SEE EMAR, PT DENIES NEEDS OR PAIN, FALL PRECAUTIONS IN PLACE
[2020-07-25 07:26] VITALS: BP 139/55
--- NOTE | 2020-07-25 07:28 | NUR ---
PT RESTING IN BED WITH EYES OPEN CALL LIGHT IN REACH WILL MONITER
[2020-07-25 08:06] LABS: CALC OSMOLALITY 273 mosm/kg (275-300); CALCIUM 8.8 mg/dL (8.5-10.1); CARBON DIOXIDE 30.3 mmol/L (21.0-32.0); CHLORIDE - SERUM 101 mmol/L (98-107); CREATININE - SERUM 0.7 mg/dL (0.6-1.3); GLUCOSE 89 mg/dL (74-106); SODIUM 138 mmol/L (136-145); UREA NITROGEN 11 mg/dL (7-18); eGFR NON AFRICAN AMERICAN 86 mL/min (90-120)
[2020-07-25 08:49] LABS: BASOPHILS 0.2 % (0-2); EOSINOPHILS 1.2 % (0-7); HEMATOCRIT 32.1 % (36.0-48.0); HEMOGLOBIN 10.7 g/dL (12-16); IMMATURE GRANULOCYTES 0.2 % (0-5); LYMPHOCYTE ABS# 1.37 10x3/uL (1.18-3.74); LYMPHOCYTES 28.4 % (15-50); MCH 31.9 pg (26.0-34.0); MCHC 33.3 g/dL (31.0-37.0); MCV 95.8 fL (80.0-100.0); MEAN PLATELET VOLUME 10.4 fL (7.4-10.4); MONOCYTES 15.3 % (2-11); NEUTROPHIL ABS# 2.64 10x3/uL (1.56-6.13); NEUTROPHILS 54.7 % (40-80); PLATELET COUNT 343 10x3/uL (130-400); RBC 3.35 10x6/uL (4.00-5.40); RDW 13.2 % (11.5-14.5); WBC 4.8 10x3/uL (4.8-10.8)
--- NOTE | 2020-07-25 14:29 | NUR ---
Nutrition Re-Assessment: Diet: Regular [facility] Soft PO intake: ~38% average x last 9 meals Last BM: 07/24/20 Wt: 95# (07/19/20) Meds noted: miralax Labs reviewed Estimated nutrition needs: [id number] man (30-35 Act), 43-56gms protein (1-1.3), 1300mL fluid (or per MD) Nutrition diagnosis: Inadequate energy intake r/t inadequate oral intake AEB PO Intake <50%. Nutrition goals: -PO intake will increase to >65% -Meet fluid needs -Stable weight DHS Recommendations/Interventions: -Continue current diet/or per AREA DIRECTOR recommendations. Will continue to honor food preferences within diet restrictions. -Encourage PO intake. -If PO intake does not continue to trend up, MD may consider adding appetite stimulant. -RD will follow-up 07/30/20.
--- NOTE | 2020-07-25 18:17 | NUR ---
PT RESTING IN BED WITH EYES OPEN CALL LIGHT IN REACH NO PROBLEMS WILL MONITER
[2020-07-25 19:00] VITALS: BP 120/52
--- NOTE | 2020-07-25 19:36 | NUR ---
PATIENT RECEIVED SITTING UP IN BED. ASSESSMENT & VITAL SIGNS DONE. C/O ANXIETY. XANAX GIVEN. BED LOW. ALARM ON. BEDSIDE TABLE & CALL LIGHT WITHIN REACH. WILL CONTINUE TO MONITOR.
--- NOTE | 2020-07-25 22:20 | NUR ---
PATIENT USED CALL LIGHT FOR ASSIST. PATIENT HAD VOID & URINE PLACED IN SPECIMEN CUP. URINE DARK YELLOW WITH PINK TINGE. PATIENT RETURNED TO LOW BED. C/O BURNING, PAINFUL WHILE VOIDING. VOID SPECIMEN IN VIALS MARKED & TAKEN TO LAB. DR. THOMPSON NOTIFIED ON ROUND SHEET. SONIA NURSE REGIONAL ACCOUNT EXECUTIVE NOTIFIED BY NOTE IN DOOR OF PATIENT COMPLAINT OF URINATION BURNING & U/A SENT TO LAB.
--- NOTE | 2020-07-25 22:25 | NUR ---
LAB RESULTS BACK ON URINE. MANY BACTERIA. WAITING ON CULTURE. WILL CONTINUE TO MONITOR
[2020-07-25 22:32] LABS: BILIRUBIN NEGATIVE (NEGATIVE); KETONE NEGATIVE (NEGATIVE); NITRITE POSITIVE (NEGATIVE); UROBILINOGEN NORMAL mg/dL (< 2)
[2020-07-25 22:33] LABS: BACTERIA MANY HPF (NONE SEEN); SQUAMOUS EPITHELIAL OCC HPF (0-4); WHITE CELLS - URINE >50 HPF (0-4)
--- NOTE | 2020-07-26 04:03 | NUR ---
PATIENT USED CALL LIGHT FOR ASSIST. PATIENT HAD TO VOID. URINE DARK COLOR. BURNING & PAINFUL DURING VOID. PATIENT CLEANED. NEW PAD, BRIEF & PANTS. PATIENT INFORMED URINE IN LAB WAITING ON RESULTS. ALARM ON. CALL LIGHT WITHIN REACH. WILL CONTINUE TO MONITOR.
--- NOTE | 2020-07-26 04:46 | NUR ---
I have reviewed this patient and I concur with the Shift Assessment completed by the Licensed Practical Nurse today this shift.
[2020-07-26 07:00] VITALS: BP 109/51
--- NOTE | 2020-07-26 09:05 | NUR ---
SHE HAS A CAST TO THE RIGHT ARM, A SKIN TEAR TO THE UPPER RIGHT ARM. SHE SAYS SHE NEED TO HAVE A BM, MIRALAX GIVEN. SHE SAYS SHE CAN NOT DRINK ALL OF IT. I TOLD HER TO SIP ON IT FOR A WHILE. SHE IS INCONTINENT OF URINE, SOMETIMES SHE CAN NOT GET UP FAST ENOUGH. THE CALL LIGHT IS WITHIN REACH AND BED ALARM IS ON.
[2020-07-26 19:00] VITALS: BP 85/49
--- NOTE | 2020-07-26 19:24 | NUR ---
PATIENT RECEIVED SITTING UP IN BED. ASSESSMENT & VITAL SIGNS DONE. NO C/O PAIN OR DISTRESS AT THIS TIME. BED LOW. ALARM ON. CALL LIGHT & BEDSIDE TABLE WITHIN REACH. WILL CONTINUE TO MONITOR.
--- NOTE | 2020-07-27 01:00 | NUR ---
I have reviewed this patient and I concur with the Shift Assessment completed by the Licensed Practical Nurse today this shift.
--- NOTE | 2020-07-27 02:05 | NUR ---
PATIENT USED CALL LIGHT FOR ASIIST TO BATHROOM. STANDBY ASSIST IN & OUT OF BED & WHEELCHAIR. ON & OFF COMMODE. YELLOW COLOR VOID. NEW BRIEF ON. WASHED HANDS. RETURNED TO LOW BED. ALARM ON. CALL LIGHT & BEDSIDE TABLE WITHIN REACH. WILL CONTINUE TO MONITOR.
[2020-07-27 07:00] VITALS: BP 151/62
--- NOTE | 2020-07-27 08:40 | NUR ---
SHE IS SETTING UP IN THE WHEELCHAIR FOR BREAKFAST. HER RIGHT ARM IS IN A HARD CAST. THE SKIN TEAR ABOVE HER ELBOW IS HEALING, NO DRESSING ON IT. I CHANGED THE MEPILEX TO HER COCCYX. SHE HAS 2 RED NONBLACHABLE AREAS, SKIN IS INTACT. THE CALL LIGHT IS WITHIN REACH AND THE CHAIR ALARM IS ON.
[2020-07-27 19:00] VITALS: BP 141/64
--- NOTE | 2020-07-28 03:09 | NUR ---
PATIENT USED CALL LIGHT FOR ASSIST. PATIENT ASSIST TOILETING. VOID ONLY. NO PAIN OR BURNING. BED LOW. ALARM ON. CALL LIGHT WITHIN REACH. WILL CONTINUE TO MONITOR.
--- NOTE | 2020-07-28 05:08 | NUR ---
I have reviewed this patient and I concur with the Shift Assessment completed by the Licensed Practical Nurse today this shift.
[2020-07-28 06:47] LABS: BASOPHILS 0.3 % (0-2); EOSINOPHILS 3.5 % (0-7); HEMATOCRIT 31.8 % (36.0-48.0); HEMOGLOBIN 10.9 g/dL (12-16); IMMATURE GRANULOCYTES 0.2 % (0-5); LYMPHOCYTE ABS# 0.33 10x3/uL (1.18-3.74); LYMPHOCYTES 5.3 % (15-50); MCH 32.4 pg (26.0-34.0); MCHC 34.3 g/dL (31.0-37.0); MCV 94.6 fL (80.0-100.0); MEAN PLATELET VOLUME 10.3 fL (7.4-10.4); MONOCYTES 11.5 % (2-11); NEUTROPHIL ABS# 4.94 10x3/uL (1.56-6.13); NEUTROPHILS 79.2 % (40-80); PLATELET COUNT 325 10x3/uL (130-400); RBC 3.36 10x6/uL (4.00-5.40); RDW 13.1 % (11.5-14.5); WBC 6.2 10x3/uL (4.8-10.8)
[2020-07-28 06:57] LABS: ANION GAP 7.8 mmol/L (8-16); CALCIUM 8.5 mg/dL (8.5-10.1); CARBON DIOXIDE 30.7 mmol/L (21.0-32.0); CREATININE - SERUM 0.8 mg/dL (0.6-1.3); POTASSIUM - SERUM 4.5 mmol/L (3.5-5.1)
[2020-07-28 07:55] VITALS: BP 141/84
--- NOTE | 2020-07-28 08:00 | NUR ---
PT RESTING IN BED WITH EYES OPEN CALL LIGHT IN REACH NO PROBLEMS WILL MONITER
--- NOTE | 2020-07-28 18:38 | NUR ---
PT RESTING IN BED WITH EYES OPEN CALL LIGHT IN REACH NO PROBLEMS WILL MONITER
[2020-07-28 19:37] VITALS: BP 122/54
--- NOTE | 2020-07-28 20:25 | NUR ---
PT C/O FEELING VERY ANXIOUS AND NAUSEATED. OFFERED ZOFRAN OR PHENERGAN AND PT STATES SHE WOULD LIKE PHENERGAN BECAUSE THE ZOFRAN DOES NOT HELP. SHE ALSO WANTED HER PRN XANAX. PM MEDS GIVEN. WHEN I GAVE HER THE MEGACE SHE STATES SHE HAS AN APPETITE, BUT SHE DOES NOT LIKE THE FOOD HERE. SHE DENIES FURTHER NEEDS. SHE REPORTS PAIN 4/10 TO RIGHT WRIST. OFFERED HER THE NORCO BUT SHE DECLINED AT THIS TIME STATING SHE DOES NOT LIKE TO TAKE THE XANAX AND NORCO TOGETHER AND WILL CALL IF SHE NEEDS HER PAIN MEDICATION. HER BED ALARM IS ON AND CALL LIGHT IS WITHIN REACH.
[2020-07-29 07:31] VITALS: BP 130/57
--- NOTE | 2020-07-29 08:00 | NUR ---
PT RESTING IN BED WITH EYES OPEN CALL LIGHT IN REACH NO PROBLEMS WILL MONITER
--- NOTE | 2020-07-29 13:18 | NUR ---
PT GIVEN ZOFRAN FOR NAUSEA NO VOMITING AT THIS TIME WILL MONITER
--- NOTE | 2020-07-29 15:04 | NUR ---
PATIENT ADMITTS TO REHAB FROM ACUTE FLOOR. HER PCP IS DR. EDMOND. SHE IA A CLIENT OF BIPIN AT HOME . DME AT HOME IS A WALKER, WHEELCHAIR, NEBULIZER , O2 AND A CANE. SPOKE WITH PATIENT TODAY AND SHE WISHES TO DISCHARGE TO A SNF. SHE FEELS AT THIS TIME SHE IS UNABLE TO CARE FOR HERSELF. SHE WILL SPEAK WITH HER CHILDREN REGARDING WHICH FACILITY THAT THEY LIKE. WILL CONTINUE TO FOLLOW WITH PATIENT.
--- NOTE | 2020-07-29 18:37 | NUR ---
PT RESTING IN BED WITH EYES OPEN CALL LIGHT IN REACH NO PROBLEMS WILL MONITER
[2020-07-29 20:09] VITALS: BP 121/58
--- NOTE | 2020-07-30 03:00 | NUR ---
PT C/O OF NAUSEA WITHOUT VOMITTING. PHENERGAN GIVEN AT PTS REQUEST. SHE IS ALSO ASKING FOR MORE OF THE NEW MEDICATION THAT HELPS HER APPETITE. EXPLAINED TO HER THAT THE MEGACE IS A SCHEDULED MEDICATION AND SHE WILL GET IT IN THE AM. SHE VERBALIZED UNDERSTANDING. BED ALARM ON AND CALL LIGHT IS WITHIN REACH.
[2020-07-30 07:03] LABS: BASOPHILS 0.8 % (0-2); EOSINOPHILS 6.9 % (0-7); HEMATOCRIT 31.1 % (36.0-48.0); HEMOGLOBIN 10.6 g/dL (12-16); LYMPHOCYTES 11.4 % (15-50); MCH 32.5 pg (26.0-34.0); MCHC 34.1 g/dL (31.0-37.0); MCV 95.2 fL (80.0-100.0); MEAN PLATELET VOLUME 8.3 fL (7.4-10.4); MONOCYTES 14.4 % (2-11); NEUTROPHILS 66.5 % (40-80); PLATELET COUNT 293 10x3/uL (130-400); RBC 3.27 10x6/uL (4.00-5.40); RDW 13.7 % (11.5-14.5); WBC 4.7 10x3/uL (4.8-10.8)
[2020-07-30 07:15] LABS: CALC OSMOLALITY 272 mosm/kg (275-300); CALCIUM 8.6 mg/dL (8.5-10.1); CARBON DIOXIDE 28.3 mmol/L (21.0-32.0); CHLORIDE - SERUM 100 mmol/L (98-107); CREATININE - SERUM 0.7 mg/dL (0.6-1.3); GLUCOSE 92 mg/dL (74-106); POTASSIUM - SERUM 4.1 mmol/L (3.5-5.1); SODIUM 136 mmol/L (136-145); UREA NITROGEN 15 mg/dL (7-18); eGFR NON AFRICAN AMERICAN 86 mL/min (90-120)
--- NOTE | 2020-07-30 07:40 | NUR ---
PATIENT RESTING WELL. BED ALARM ON. CALL LIGHT WITHIN REACH. VOICES NO NEEDS AT THIS TIME. WILL COTNINUE WITH PLAN OF CARE
[2020-07-30 08:09] VITALS: BP 125/95
--- NOTE | 2020-07-30 10:36 | NUR ---
PATIENT IN REHAB ROOM. WORKING WITH PHYSICAL THERAPIST. DENIES ANY PAIN/DISC AT THIS TIME.
--- NOTE | 2020-07-30 13:13 | NUR ---
Nutrition Re-Assessment Diet: Regular [facility] Soft PO intake: ~63% average x last 4 meals. She states that her appetite has been "better the last few days." Last BM: 07/29/20 Wt: 95# (07/19/20), no new weight Meds noted: megace (started 07/28), probiotics, abx, miralax Labs reviewed Skin: stage I PU to coccyx Estimated nutrition needs: [id number] man (30-35kcal/kg Act), 43-56gms protein (1-1.3gms/kg), 1300mL fluid (or per MD) Nutrition diagnosis: Underweight r/t history of inadequate energy intake AEB BMI 16.3. Nutrition goals: -PO intake >65% average -Stable weight DHS -Improved skin integrity Recommendations/Interventions: -Recommend continue current diet/or per FISHING LURE ASSEMBLER recommendations. Will continue to honor food preferences within diet restrictions. -Recommend continue appetite stimulant as medically feasible. -RD will follow-up within 7 days.
--- NOTE | 2020-07-30 16:00 | NUR ---
I have reviewed this patient and I concur with the Shift Assessment completed by the Licensed Practical Nurse today this shift.
--- NOTE | 2020-07-30 18:52 | NUR ---
PRN NORCO AND PRN PHENAGRAN GIVEN PER PATIENT REQUEST
[2020-07-30 20:05] VITALS: BP 136/61
--- NOTE | 2020-07-31 04:59 | RHP ---
PATIENT: HOLLAND MCGOWAN MEDICAL RECORD: [id number] ACCOUNT: [id number] LOCATION:[facility] : 44 ADMISSION DATE: 07/18/20 REHABILITATION HISTORY AND PHYSICAL EXAMINATION POST ADMISSION PHYSICIAN EXAMINATION POST ADMISSION PHYSICAL EXAMINATION AND HISTORY AND PHYSICAL: ADMITTING DIAGNOSIS: Distal radius fracture. HISTORY OF PRESENT ILLNESS: The patient is a 79-year-old white female patient who apparently presented via EMS after falling at home. She had multiple contusions of forehead hematoma and periorbital swelling as well as a right wrist fracture and distal radial fracture. She complained of right shoulder pain with a contusion noted there as well. A CT scan was negative for fracture. Ortho was consulted. She was noted to have a retractable pain. Right wrist fracture, right rotator cuff tear, multiple contusions, forehead hematoma nicotine dependence and withdrawal. The patient was known to be O2 dependent and uses this constantly at home. The patient was also positive for labile blood pressures during her hospitalization and prior to her hospitalization, she lived alone and she was independent at home using a rolling walker to assist. She also reported to nursing that she ambulates at home holding on different places as well as furniture. She has been seen and evaluated by speech therapy. She reports that she is alert and oriented, but does have some confusion and having difficulty with mastication and transfer solids. She is nonweightbearing of no more than one pound to her right upper extremity and would benefit from inpatient rehabilitation to get back to her prior level of functioning to obtain some independence to improve her strength and endurance, to improve her functional mobility and balance as well as assistance with mastication and transfers solids and liquids. Comorbidities include tobacco dependence, chronic bronchitis, Calderón's esophagitis, multiple contusions, right shoulder pain, chronic hypoxia, tobacco dependence. PAST MEDICAL HISTORY: Significant for COPD. She has had a CVA in the past, gastroesophageal reflux disease, peripheral arterial disease, obstructive apnea, coronary artery disease. PAST SURGICAL HISTORY: Includes gallbladder surgery, hysterectomy, stent. She has had a knee scope, esophageal dilatation, breast lymph node surgery. ALLERGIES: MORPHINE AND ROBAXIN. CURREENT MEDICATIONS: Included: Nicoderm patch 14 mg daily, nitropatch 0.4 mg daily, polyethylene glycol 17 grams once daily, Bystolic 20 mg daily, isosorbide mononitrate 60 mg daily, Plavix 75 mg daily, Protonix 40 mg b.i.d., Ranexa 500 mg b.i.d., Singulair 10 mg at bedtime, Perforomist 20 mcg b.i.d., budesonide 0.5 mg b.i.d., nitroglycerin sublingual p.r.n. chest pain. She is on promethazine 25 mg t.i.d. p.r.n., DuoNeb updrafts as needed, [place] 10/325 one tab q. 4 hours p.r.n., Xanax 1 mg t.i.d. p.r.n. HABITS: Does have a history of tobacco use. FAMILY HISTORY: Noncontributory. SOCIAL HISTORY: The patient wants to return back home and return back to her HISTORY AND PHYSICAL [id number] HOLLAND MCGOWAN prior level of functioning. REVIEW OF SYSTEMS: GENERAL: Does complain of weakness and fatigue. HEENT: Denies cold, cough and congestion. She denies any chest pain. PHYSICAL EXAMINATION: VITAL SIGNS: Stable and afebrile. GENERAL: A very thin, elderly female, in no acute distress, alert upon exam. HEENT: Normocephalic and atraumatic. Mucosa moist. NECK: Supple without adenopathy. Lungs clear at this time. No true rales. HEART: Regular rate and rhythm. No murmurs, rubs or gallops. ABDOMEN: Soft, benign, nondistended. Positive bowel sounds times 4 extremities. Does have multiple contusions and swelling that appears normal for her current status. NEUROLOGIC: She does have weakness. LABORATORY DATA: Her white count is 5.8, H&H 11.8 and 35.1, platelet count is 225. Sodium 134, potassium 4.5, BUN and creatinine of 11 and 0.9 and blood sugar is noted to be 102. ASSESSMENT: This is a 79-year-old female patient in the rehab with a working diagnosis of right distal radius fracture. The patient has potential to make improvement. We instituted the following multidisciplinary therapies including, but not limited to physical, occupational, respiratory, speech, nutritional services, prosthetics and orthotics. Given her complex medical condition and risks for more complications, rehabilitation services cannot be provided at a low level of care such a half-way facility. PLAN: 1. Admit to [facility] for inpatient therapy to include the following disciplines: A. Physical therapy to improve gait, all transfer skills and bed mobility to modified independent level.. B. Occupational therapy to improve activities of daily living. C. Case management to help with discharge planning and placement options. D. Nutrition to assist in nutritional needs. E. Rehabilitation nursing to assist in monitoring the patient's underlying medical condition and to assist with any type of bowel or bladder management. 2. The patient's current medication and medical care will be continued. 3. Will be placed on standard fall precautions. 4. We will continue her on nicotine patch. 5. We will watch for any signs of chest pain or any other complaints with her current underlying comorbidities and I will see again in the a.m. on Tuesday. TRANSINT:[id number] Voice Confirmation ID: [id number] DOCUMENT ID: [id number] 07/25/2020 albaro LI notes whether there has been none or any medical/functional change since admission: - No change since preadmission screen. GUILLERMO attests patient continues to be appropriate for IRF: HISTORY AND PHYSICAL [id number] HOLLAND MCGOWAN - Continues to be appropriate. ANGIE THOMPSON MD at 0459 CC: [id number] DICTATION DATE: 07/19/201939 CANE FLUME FEEDING MACHINE OPERATOR: 07/20/20 0112 ADM IN [facility] [address] [id number]
[2020-07-31 07:32] VITALS: BP 130/50
--- NOTE | 2020-07-31 08:20 | NUR ---
SHE IS SETTING UP IN THE BED EATING BREAKFAST. PRN GIVEN FOR PAIN. HER RIGHT ARM IS IN A CAST. SHE HAS A HEALING SKIN TEAR TO HER UPPER RIGHT ARM. THE CALL LIGHT IS WITHIN REACH AND THE BED ALARM IS ON.
[2020-07-31] MEDS ORDERED: HYDROCODON-ACE1 EA10 PO (08:30)
--- NOTE | 2020-07-31 19:27 | NUR ---
PATIENT REQUESTED XANAX FOR ANXIETY, GAVE XANAX 1 MG FOR HER ANXIETY.
[2020-07-31 20:23] VITALS: BP 160/61
--- NOTE | 2020-07-31 22:41 | NUR ---
RECIEVED PATIENT LAYING IN BED WATCHING TV, BED IN LOW LOCKED POSITION, SIDERAILS UP X 2, CALL LIGHT AND BEDSIDE TABLE IN REACH, ANXIOUS AT TIMES, HYPERVERBAL AT TIMES, PATIENT SLEEPING NOW.
--- NOTE | 2020-08-01 03:53 | NUR ---
PATIENT RESTING QUIETLY IN BED EYES CLOSED.
[2020-08-01 07:57] VITALS: BP 140/47
--- NOTE | 2020-08-01 09:21 | NUR ---
SHE IS SETTING ON THE SIDE OF THE BED EATING BREAKFAST. PRN GIVEN FOR PAIN. HER RIGHT ARM IS IN A HARD CAST. SHE HAS A MEPILEX TO HER SPINE AND COCCYX. THE CALL LIGHT IS WITHIN REACH AND THE BED ALARM IS ON.
--- NOTE | 2020-08-01 20:00 | NUR ---
PATIENT RECEIVED SITTING UP IN BED. ASSESSMENT & VITAL SIGNS DONE. NO C/O PAIN OR DISTRESS AT THIS TIME. BED LOW. ALARM ON. CALL LIGHT WITHIN REACH. WILL CONTINUE TO MONITOR.
[2020-08-01 20:24] VITALS: BP 128/55
--- NOTE | 2020-08-01 21:50 | NUR ---
PATIENT USED CALL LIGHT FOR ASSIST. PATIENT STANDBY ASSIST INTO & OUT OF BED & WHEELCHAIR. PATIENT TOILETED & HAD LARGE BM & VOID. PATIENT CLEANED PERIAREA & BUTTOCKS WITH WIPES. WASHED HANDS IN SINK & RETURNED TO LOW BED. ALARM ON. CALL LIGHT & BEDSIDE TABLE WITHIN REACH. WILL CONTINUE TO MONITOR.
--- NOTE | 2020-08-02 02:00 | NUR ---
I have reviewed this patient and I concur with the Shift Assessment completed by the Licensed Practical Nurse today this shift.
--- NOTE | 2020-08-02 08:00 | NUR ---
PT RESTING IN BED EYES OPEN CALL LIGHT IN REACH WILL MONITER
[2020-08-02 09:26] VITALS: BP 129/50
--- NOTE | 2020-08-02 17:48 | NUR ---
PT RESTING IN BED WITH EYES OPEN CALL LIGHT IN REACH WILL MONITER
[2020-08-02 19:00] VITALS: BP 134/55
--- NOTE | 2020-08-02 19:09 | NUR ---
PATIENT RECEIVED SITTING UP IN BED. ASSESSMENT & VITAL SIGNS DONE. PATIENT APPETITE GOOD EATING SNACKS. BED LOW. ALARM ON. CALL LIGHT WITHIN REACH. WILL CONTINUE TO MONITOR.
--- NOTE | 2020-08-02 20:00 | NUR ---
PATIENT RECEIVED SITTING UP IN BED. ASSESSMENT & VITAL SIGNS DONE. NO C/O PAIN OR DISTRESS AT THIS TIME. ALARM ON. BEDSIDE TABLE & CALL LIGHT WITHIN REACH. WILL CONTINUE TO MONITOR.
--- NOTE | 2020-08-03 02:00 | NUR ---
I have reviewed this patient and I concur with the Shift Assessment completed by the Licensed Practical Nurse today this shift.
--- NOTE | 2020-08-03 03:27 | NUR ---
PATIENT USED CALL LIGHT FOR ASSIST. PATIENT STANDBY ASSIST IN & OUT WHEELCHAIR & BED. ON & OFF COMMODE STANDBY ASSIST. VOID ONLY. WASHED HANDS & RETURNED TO LOW BED. ALARM ON. CALL LIGHT & BEDSIDE TABLE WITHIN REACH. WILL CONTINUE TO MONITOR.
[2020-08-03 07:54] VITALS: BP 121/51
--- NOTE | 2020-08-03 08:00 | NUR ---
PT RESTING IN BED WITH EYES OPEN CALL LIGHT IN REACH WILL MONITER
--- NOTE | 2020-08-03 17:58 | NUR ---
PT RESTING IN BED WITH EYES OPEN CALL LIGHT IN REACH WILL MONITER
--- NOTE | 2020-08-03 19:10 | NUR ---
PATIENT RECEIVED SITTING UP IN BED. ASSESSMENT & VITAL SIGNS DONE. NO C/O PAIN OR DISTRESS. BED LOW. ALARM ON. BEDSIDE TABLE & CALL LIGHT WITHIN REACH. WILL CONTINUE TO MONITOR.
[2020-08-03 19:44] VITALS: BP 116/52
--- NOTE | 2020-08-03 23:15 | NUR ---
PATIENT USED CALL LIGHT FOR ASSIST. PATIENT STANDBY ASSIST INTO & OUT OF BED & WHEELCHAIR. ON & OFF COMMODE. VOID ONLY. RETURNED TO LOW BED.ALARM ON. CALL LIGHT & BEDSIDE TABLE WITHIN REACH. WILL CONTINUE TO MONITOR.
--- NOTE | 2020-08-03 23:39 | NUR ---
I have reviewed this patient and I concur with the Shift Assessment completed by the Licensed Practical Nurse today this shift.
--- NOTE | 2020-08-04 01:01 | NUR ---
PATIENT USED CALL LIGHT FOR ASSIST. PATIENT STANDBY ASSIST IN & OUT OF BED & WHEELCHAIR. ON & OFF COMMODE. VOID ONLY. WASHED HANDS. RETURNE DTO LOW BED. ALARM ON. CALL LIGHT & BEDISE TABLE WITHIN REACH. WILL CONTINUE TO MONITOR.
--- NOTE | 2020-08-04 03:47 | NUR ---
PATIENT EYES CLOSED. RESPIRATIONS 18 & EVEN. BED LOW. ALARM ON. CALL LIGHT WITHIN REACH. WILL CONTINUE TO MONITOR.
[2020-08-04 06:18] VITALS: BP 166/61
--- NOTE | 2020-08-04 08:29 | NUR ---
SHE IS SETTING UP IN THE BED, EATING BREAKFAST. TOOK HER MEDICATIONS WITHOUT ANY PROBLEMS. HER RIGHT ARM IS IN A HARD CAST. THE CALL LIGHT IS WITHIN REACH AND THE BED ALARM IS ON.
--- NOTE | 2020-08-04 10:56 | NUR ---
PATIENT DISCHARGING TO THE [facility] VIA FACILITY [facility].CLAUDIA SIGNED, IMM SERVED ND EXPLAINED, ONE GIVEN TO PATIENT AND ONE FILED IN CHART. APPOINTMENTS WITH DR. EDMOND AND DR. SALAZAR WILL BE MADE AT TIME OF DISCHARGE FROM FACILITY,DISCHARGE INSTRUCTIONS FAXED TO PCP, SNF AND REVIEWED WITH PATIENT. NO COMPARE DATA REVIEWED PER PATIENT REQUEST.
--- NOTE | 2020-08-04 11:22 | NUR ---
REPORT CALLED TO KHANH HARDIN AT THE [facility]. PAPERWORK GONE OVER WITH THE PATIENT AND KHANH. QUESTIONS ANSWERED, SHE HAS A WRITTEN PRESCRIPTION FOR NORCO IN THE PAPERWORK. I TOOK OFF THE MEPILEX FROM HER BACK AND BOTTOM, THE SKIN IS INTACT TO BOTH AREAS. THE HEALTH PROMOTION OFFICER TOOK HER IN A WHEELCHAIR WITH 3 LITERS OF OXYGEN PER NC.
== END 2020-08-04 12:55 | DRG 561 ==
LOC: D.REHAB 11:39
PROVIDERS: ADMIT Emergency Medicine; ATTEND Emergency Medicine
DX: S52.501D Unspecified fracture of the lower end of right radius, subsequent encounter for closed fracture with routine healing (principal); W19.XXXD Unspecified fall, subsequent encounter; J44.9 Chronic obstructive pulmonary disease, unspecified; K21.9 Gastro-esophageal reflux disease without esophagitis; G47.33 Obstructive sleep apnea (adult) (pediatric); I25.10 Atherosclerotic heart disease of native coronary artery without angina pectoris; F17.200 Nicotine dependence, unspecified, uncomplicated; R09.02 Hypoxemia; M25.511 Pain in right shoulder; K22.70 Barrett's esophagus without dysplasia; I10 Essential (primary) hypertension; M19.90 Unspecified osteoarthritis, unspecified site